=== PATIENT | male | born 1930 | race Caucasian/White ===

== ENCOUNTER 2016-09-24 23:38 | Emergency (ER) | payer BC, MEDICARE ==
[~2016-09-24] VITALS: Ht 185.4 cm; Wt 93.0 kg
[~2016-09-24 23:38] MED LIST: ATEN50TA2 PO; ATOR40TA PO; DIOV160T6 PO; ECOT81TA5 PO; FLUD1TA PO; ISOS30TA4 PO; MAGN400T5 PO; NEXI40CA PO; TYLE167L PO; XARE20TA PO; [UNRECOGNIZED DRUG - CODE] PO
[2016-09-25] MEDS ORDERED: EYECAP PO (00:14)
[2016-09-25] MEDS ORDERED: PERCOCET 5MG/325MG TAB PO ONE (06:45)
[2016-09-25] MEDS ORDERED: PERC5TAB6 PO (08:30)
[2016-09-25 08:35] VITALS: BP 166/84
--- NOTE | 2016-09-25 08:59 | REP ---
Right elbow series: Four views. History: Traumatic olecranon bursitis. Findings: Four views of the right elbow demonstrate mild coronoid and olecranon spurring of the proximal ulna. There is lateral epicondylar spurring. No evidence of joint effusion. There is however marked swelling in the area of the olecranon bursa consistent with the clinical diagnosis of olecranon bursitis. No fracture is seen. Impression: Proximal ulnar and distal humeral spurring. No evidence of fracture or joint effusion. Marked jim-olecranon soft tissue swelling consistent with bursitis. Signed by Jim Verma MD 09/25/2016 12:00 P
== END 2016-09-25 08:48 | disposition home or self-care (01) ==
LOC: M ED 09-25 01:04
DX: M70.31 Other bursitis of elbow, right elbow (principal); I11.0 Hypertensive heart disease with heart failure; I50.9 Heart failure, unspecified; F41.9 Anxiety disorder, unspecified; I48.91 Unspecified atrial fibrillation; Z79.01 Long term (current) use of anticoagulants; Z79.899 Other long term (current) drug therapy; Z79.82 Long term (current) use of aspirin

== ENCOUNTER → 2017-09-29 | Outpatient (CLI) | payer MEDICARE | LOC: M WUC 13:10 | DX: M25.531 Pain in right wrist (principal) | CPT/HCPCS: 73110 ==

== ENCOUNTER 2018-01-29 18:51 | Emergency (ER) | payer MEDICARE ==
[2018-01-29 19:23] LABS: BASO % 0.5 % (0.0-1.0); EOS # 0.4 10^3/uL (0.0-0.50); EOS % 5.3 % (0.0-3.0); HEMATOCRIT 41.1 % (42.0-52.0); HEMOGLOBIN 14.7 g/dl (13.5-17.5); IMMATURE GRANULOCYTE % 0.4 % (0-3.0); LYMPH % 24.6 % (24.0-44.0); MEAN CORPUSCULAR HEMOGLOBIN 34.3 pg (27.0-33.0); MEAN CORPUSCULAR HGB CONC 35.8 g/dl (32.0-36.5); MEAN CORPUSCULAR VOLUME 95.8 fl (80.0-96.0); MONO % 12.6 % (0.0-5.0); NEUTROPHILS # 4.6 10^3/uL (1.8-7.7); NEUTROPHILS % 56.6 % (36.0-66.0); PLATELET COUNT, AUTOMATED 250 10^3/uL (150-450); RED BLOOD COUNT 4.29 10^6/uL (4.30-6.10); RED CELL DISTRIBUTION WIDTH 11.5 % (11.5-14.5); WHITE BLOOD COUNT 8.2 10^3/uL (4.0-10.0)
[2018-01-29 19:32] LABS: INR 1.35; PROTHROMBIN TIME 16.9 SECONDS (12.1-14.4)
[2018-01-29 19:33] LABS: PARTIAL THROMBOPLASTIN TIME 36.6 SECONDS (25.4-37.6)
[2018-01-29 19:42] LABS: ALBUMIN 4.3 GM/DL (3.2-5.2); ALBUMIN/GLOBULIN RATIO 1.16 (1.00-1.93); ALKALINE PHOSPHATASE 114 U/L (45-117); ALT/SGPT 33 U/L (12-78); ANION GAP 14 MEQ/L (8-16); AST/SGOT 25 U/L (7-37); BILIRUBIN,DIRECT 0.4 MG/DL (0.0-0.2); BILIRUBIN,TOTAL 1.3 MG/DL (0.2-1.0); BLOOD UREA NITROGEN 9 MG/DL (7-18); CALCIUM LEVEL 9.4 MG/DL (8.8-10.2); CARBON DIOXIDE LEVEL 22 MEQ/L (21-32); CHLORIDE LEVEL 103 MEQ/L (98-107); CK-MB VALUE MASS < 1.0 NG/ML (<3.6); CPK CREATINE PHOSPHOKINASE 45 U/L (39-308); CREATININE FOR GFR 1.04 MG/DL (0.70-1.30); GLOMERULAR FILTRATION RATE > 60.0 (>35); GLUCOSE, FASTING 122 MG/DL (70-100); LIPASE 146 U/L (73-393); MB/CK RELATIVE INDEX 2.22 (< OR =4); POTASSIUM SERUM 3.7 MEQ/L (3.5-5.1); SODIUM LEVEL 139 MEQ/L (136-145); TROPONIN I < 0.02 NG/ML (< 0.10)
[2018-01-29] MEDS ORDERED: ISOVUE-370 76% 100ML VIAL (Q9967) As Ordered (20:17)
[2018-01-29] MEDS: ONDANSETRON 4MG/2ML VIAL (J2405) IV (22:19)
[2018-01-29] MEDS: NS 1,000 ML IV (22:19)
[2018-01-30 01:55] LABS: CK-MB VALUE MASS < 1.0 NG/ML (<3.6); CPK CREATINE PHOSPHOKINASE 63 U/L (39-308); MB/CK RELATIVE INDEX 1.59 (< OR =4); TROPONIN I < 0.02 NG/ML (< 0.10)
[2018-01-30] MEDS: ONDANSETRON 4MG/2ML VIAL (J2405) IV (02:38)
== END 2018-01-30 04:27 | disposition home or self-care (01) ==
LOC: M ED 01-30 04:27
DX: R07.9 Chest pain, unspecified (principal); R05 Cough; I45.19 Other right bundle-branch block; E11.9 Type 2 diabetes mellitus without complications; I10 Essential (primary) hypertension; E78.5 Hyperlipidemia, unspecified; I48.91 Unspecified atrial fibrillation; I25.2 Old myocardial infarction; Z79.899 Other long term (current) drug therapy; Z79.82 Long term (current) use of aspirin; Z79.01 Long term (current) use of anticoagulants
CPT/HCPCS: J2405

== ENCOUNTER 2019-07-07 16:49 | Emergency (ER) | payer MEDICARE ==
[~2019-07-07] VITALS: Ht 185.4 cm; Wt 86.4 kg
[~2019-07-07 16:49] MED LIST changes: +AMLO1TAB22 PO; -ATOR40TA PO; +ATOR40TA75 PO; +BENA20TA PO; +EYECAP PO; +FLUD0.1T PO; -FLUD1TA PO; +GABA-845 PO; +PERC5TAB12 PO; +POTA20TA6 PO; +ZOFR4TAB14 PO; -[UNRECOGNIZED DRUG - CODE] PO
[2019-07-07] MEDS ORDERED: NS 1,000 ML IV SCH (19:15)
[2019-07-07] MEDS ORDERED: ONDANSETRON 4MG/2ML VIAL (J2405) IV ONE (19:15)
[2019-07-07] MEDS: MORPHINE 4 MG/ML 1ML VIAL/SYRINGE (J2270) IV PRN ×2 (19:31→20:53)
[2019-07-07 19:39] LABS: HEMATOCRIT 36.3 % (42.0-52.0); HEMOGLOBIN 12.9 g/dl (13.5-17.5); MEAN CORPUSCULAR HEMOGLOBIN 37.2 pg (27.0-33.0); MEAN CORPUSCULAR HGB CONC 35.5 g/dl (32.0-36.5); MEAN CORPUSCULAR VOLUME 104.6 fl (80.0-96.0); PLATELET COUNT, AUTOMATED 198 10^3/uL (150-450); RED BLOOD COUNT 3.47 10^6/uL (4.30-6.10); WHITE BLOOD COUNT 9.3 10^3/uL (4.0-10.0)
--- NOTE | 2019-07-07 20:00 | REPVR ---
PROCEDURE INFORMATION: Exam: CT Lumbar Spine Without Contrast Exam date and time: 07/07/2019 7:20 PM Age: 89 years old Clinical indication: Injury or trauma; Fall; Initial encounter; Blunt trauma (contusions or hematomas) TECHNIQUE: Imaging protocol: Computed tomography images of the lumbar spine without contrast. Radiation optimization: All CT scans at this facility use at least one of these dose optimization techniques: automated exposure control; mA and/or kV adjustment per patient size (includes targeted exams where dose is matched to clinical indication); or iterative reconstruction. COMPARISON: No relevant prior studies available. FINDINGS: Vertebrae: There is a mild compression fracture of the L1 superior endplate with minimal loss of vertebral body height. Small fracture lucency is noted in the superior endplate anteriorly. Normal alignment. No other compression fracture is seen. Small Schmorl's node in the L4 superior endplate. Advanced facet degenerative changes in the lower lumbar spine. No other fracture or bone lesions. Discs/Spinal canal/Neural foramina: No retropulsed bone fragments or spinal stenosis. Advanced disc degeneration with posterior disc bulging and chronic endplate degenerative changes at L4-L5 and L5-S1. Moderate to severe foraminal stenoses on the right in the lower lumbar spine. Milder stenoses on the left. Soft tissues: Unremarkable. IMPRESSION: 1. L1 superior endplate compression fracture with minimal loss of height. No subluxation or retropulsed bone fragments. 2. No other fracture or malalignment. 3. Advanced degenerative spondylosis as above. Electronically signed by: Gumaro Light On 07/07/2019 20:00:07 PM
--- NOTE | 2019-07-07 20:11 | REPVR ---
PROCEDURE INFORMATION: Exam: CT Pelvis Without Contrast; Skeletal Exam date and time: 07/07/2019 7:20 PM Age: 89 years old Clinical indication: Injury or trauma; Fall; Initial encounter; Blunt trauma (contusions or hematomas); Bilateral; Pelvic region TECHNIQUE: Imaging protocol: Computed tomography images of the pelvis without contrast. Exam focused on the skeletal structures. Radiation optimization: All CT scans at this facility use at least one of these dose optimization techniques: automated exposure control; mA and/or kV adjustment per patient size (includes targeted exams where dose is matched to clinical indication); or iterative reconstruction. COMPARISON: CT ABD/PEL W/IV CONTRAST ONLY 01/29/2018 8:13 PM FINDINGS: Vasculature: Advanced aortoiliac atherosclerotic disease. 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 No aortic aneurysm is seen. 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 Normal hip joint alignment. Degenerative changes in the SI joints and pubic symphysis without diastasis. Advanced degenerative changes in the lower lumbar spine. No displaced fracture or malalignment. Soft tissues: Unremarkable. IMPRESSION: 1. No acute fracture or malalignment. 2. Advanced degenerative changes as above. Electronically signed by: Gumaro Light On 07/07/2019 20:11:21 PM
[2019-07-07 20:13] LABS: BLOOD UREA NITROGEN 5 MG/DL (7-18); CALCIUM LEVEL 8.1 MG/DL (8.8-10.2); CARBON DIOXIDE LEVEL 25 MEQ/L (21-32); CHLORIDE LEVEL 96 MEQ/L (98-107); CREATININE FOR GFR 0.75 MG/DL (0.70-1.30); GLOMERULAR FILTRATION RATE > 60.0 (>35); GLUCOSE, FASTING 129 MG/DL (70-100); POTASSIUM SERUM 3.5 MEQ/L (3.5-5.1); SODIUM LEVEL 132 MEQ/L (136-145)
[2019-07-07 20:26] LABS: INR 1.42; PROTHROMBIN TIME 17.1 SECONDS (11.8-14.0)
[2019-07-07] MEDS ORDERED: OXYCODONE/APAP 5MG/325MG(BULK FOR ED) 1 TABLET PO ONE (20:30)
[2019-07-07] MEDS ORDERED: OXYC1TAB23 PO (20:34)
[2019-07-07] MEDS ORDERED: ROLLMIS8 XX (20:48)
[2019-07-07 20:53] VITALS: BP 141/73
== END 2019-07-07 20:54 | disposition home or self-care (01) ==
LOC: EDBD 16:49 → M ED 16:49
DX: S32.010A Wedge compression fracture of first lumbar vertebra, initial encounter for closed fracture (principal); W19.XXXA Unspecified fall, initial encounter; Y92.099 Unspecified place in other non-institutional residence as the place of occurrence of the external cause; Y93.9 Activity, unspecified; Y99.9 Unspecified external cause status; I48.91 Unspecified atrial fibrillation; E11.9 Type 2 diabetes mellitus without complications; I10 Essential (primary) hypertension; M51.46 Schmorl's nodes, lumbar region; M47.816 Spondylosis without myelopathy or radiculopathy, lumbar region; I72.3 Aneurysm of iliac artery; Z79.82 Long term (current) use of aspirin; Z79.899 Other long term (current) drug therapy
CPT/HCPCS: 72131; 72192; 80048; 81001; 85027; 85610; 96374; 96375; 96376; 99285; J2270; J2405

== ENCOUNTER 2019-07-14 12:06 | Inpatient (IN) | payer MEDICARE ==
[~2019-07-14] VITALS: Ht 182.9 cm; Wt 78.3 kg
[~2019-07-14 12:06] MED LIST changes: +OXYC1TAB23 PO; +ROLLMIS8 XX
[2019-07-14] MEDS ORDERED: MORPHINE 2 MG/ML 1ML VIAL (J2270) IV ONE (14:45)
[2019-07-14] MEDS ORDERED: MAGN400T2 PO (15:16)
[2019-07-14] MEDS ORDERED: GABA-843 PO (15:16)
[2019-07-14] MEDS ORDERED: LOTR10CA2 PO (15:16)
[2019-07-14] MEDS ORDERED: OXYC1TAB23 PO (15:16)
[2019-07-14] MEDS ORDERED: METO1TAB32 PO (15:16)
[2019-07-14] MEDS ORDERED: BIMA01SOL OU (15:17)
[2019-07-14] MEDS ORDERED: ESOM1CAP5 PO (15:17)
--- NOTE | 2019-07-14 15:36 | REPVR ---
PROCEDURE INFORMATION: Exam: CT Head Without Contrast Exam date and time: 07/14/2019 3:10 PM Age: 89 years old Clinical indication: Injury or trauma; Fall; Initial encounter; Blunt trauma (contusions or hematomas) TECHNIQUE: Imaging protocol: Computed tomography of the head without contrast. Radiation optimization: All CT scans at this facility use at least one of these dose optimization techniques: automated exposure control; mA and/or kV adjustment per patient size (includes targeted exams where dose is matched to clinical indication); or iterative reconstruction. COMPARISON: No relevant prior studies available. FINDINGS: Brain: No intracranial mass, focal mass effect or midline shift. No acute intracranial hemorrhage. Mild decreased attenuation in periventricular/centrum semiovale white matter. No focal effacement of cortical sulci to indicate acute cortical infarct. Ventricles: Prominent ventricles and CSF spaces suggest parenchymal volume loss. Bones/joints: No calvarial fracture or destructive process. Sinuses: Visualized paranasal sinuses are unremarkable. Mastoid air cells: Mastoid air cells are normally aerated. Orbits: Visualized globes and orbits are unremarkable. Soft tissues: No focal extracranial soft tissue swelling. IMPRESSION: 1. No acute intracranial abnormality. 2. Atrophy and chronic microangiopathic change in supratentorial white matter. Electronically signed by: Neal Travis On 07/14/2019 15:36:18 PM
--- NOTE | 2019-07-14 15:39 | REPVR ---
PROCEDURE INFORMATION: Exam: CT Cervical Spine Without Contrast Exam date and time: 07/14/2019 3:10 PM Age: 89 years old Clinical indication: Injury or trauma; Fall; Initial encounter; Blunt trauma TECHNIQUE: Imaging protocol: Computed tomography images of the cervical spine without contrast. Radiation optimization: All CT scans at this facility use at least one of these dose optimization techniques: automated exposure control; mA and/or kV adjustment per patient size (includes targeted exams where dose is matched to clinical indication); or iterative reconstruction. COMPARISON: No relevant prior studies available. FINDINGS: Vertebrae: No traumatic segmental malalignment of cervical spine or craniocervical junction. Vertebral body height is maintained at all levels. No acute fracture. Old appearing superior endplate fracture of T2 No destructive or blastic cervical spine osseous lesion. Discs/Spinal canal/Neural foramina: Intervertebral disc height is decreased at multiple levels, with typical degenerative pattern and associated endplate, articular pillar and uncovertebral spurs. Moderately severe neural foraminal stenoses right C2-C3 and bilateral C3-C4 through C6-C7. Partial interbody fusion C3-C4 Prevertebral Space: Prevertebral soft tissues demonstrate no asymmetry. Lungs: Minimal subpleural apical bullous changes in the lungs. IMPRESSION: 1. No acute fracture or traumatic subluxation of the cervical spine. 2. 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 Electronically signed by: Neal Travis On 07/14/2019 15:38:51 PM
[2019-07-14 15:45] LABS: BASO % 0.6 % (0.0-1.0); EOS # 0.2 10^3/uL (0.0-0.5); EOS % 2.5 % (0.0-3.0); HEMATOCRIT 40.6 % (42.0-52.0); HEMOGLOBIN 14.1 g/dl (13.5-17.5); LYMPH # 1.2 10^3/uL (1.5-5.0); LYMPH % 16.4 % (24.0-44.0); MEAN CORPUSCULAR HEMOGLOBIN 36.8 pg (27.0-33.0); MEAN CORPUSCULAR HGB CONC 34.7 g/dl (32.0-36.5); MONO # 1.1 10^3/uL (0.0-0.8); MONO % 15.5 % (0.0-5.0); NEUTROPHILS # 4.7 10^3/uL (1.5-8.5); NEUTROPHILS % 64.4 % (36.0-66.0); PLATELET COUNT, AUTOMATED 198 10^3/uL (150-450); RED BLOOD COUNT 3.83 10^6/uL (4.30-6.10); WHITE BLOOD COUNT 7.2 10^3/uL (4.0-10.0)
--- NOTE | 2019-07-14 16:04 | REP ---
CHEST, TWO VIEWS: COMPARISON: 01/19/2018 as well as other prior exams. There is no evidence of acute infiltrate or pulmonary edema. Heart is upper limits of normal in size. There is calcification and tortuosity of the thoracic aorta. The mediastinal silhouette is unchanged. There are mild degenerative changes of the spine. IMPRESSION: No acute pulmonary disease. Electronically Signed by Ishan Hebert MD 07/14/2019 08:01 P
[2019-07-14 16:11] LABS: ALBUMIN 3.2 GM/DL (3.2-5.2); ALT/SGPT 40 U/L (12-78); BILIRUBIN,DIRECT 0.5 MG/DL (0.0-0.2); BILIRUBIN,TOTAL 1.7 MG/DL (0.2-1.0); BLOOD UREA NITROGEN 17 MG/DL (7-18); CALCIUM LEVEL 8.6 MG/DL (8.8-10.2); CARBON DIOXIDE LEVEL 30 MEQ/L (21-32); CHLORIDE LEVEL 97 MEQ/L (98-107); CK-MB VALUE MASS < 1.0 NG/ML (<3.6); CPK CREATINE PHOSPHOKINASE 60 U/L (39-308); CREATININE FOR GFR 0.72 MG/DL (0.70-1.30); FREE T4 1.45 NG/DL (0.76-1.46); GLOMERULAR FILTRATION RATE > 60.0 (>35); GLUCOSE, FASTING 93 MG/DL (70-100); MB/CK RELATIVE INDEX 1.67 (< OR =4); POTASSIUM SERUM 2.9 MEQ/L (3.5-5.1); SODIUM LEVEL 137 MEQ/L (136-145); TROPONIN I < 0.02 NG/ML (< 0.10)
[2019-07-14] MEDS ORDERED: POTASSIUM CHLORIDE 10 MEQ SR TABLET PO ONE (16:15)
[2019-07-14] MEDS ORDERED: KCL 10MEQ/100ML SWI (KRUN) 10 MEQ in IV 1 EA IV ONE (16:15)
[2019-07-14] MEDS ORDERED: NS 1,000 ML IV SCH (17:48)
--- NOTE | 2019-07-14 19:03 | REPVR ---
PROCEDURE INFORMATION: Exam: MR Lumbar Spine Without Contrast. Exam date and time: 07/14/2019 6:10 PM Age: 89 years old Clinical indication: Low back pain; Additional info: Back pain, weakness TECHNIQUE: Imaging protocol: Multiplanar magnetic resonance images of the lumbar spine without intravenous contrast. COMPARISON: CT Spine, lumbar w/o contrast 07/07/2019 7:17 PM FINDINGS: Lumbar vertebrae show no segmental malalignment. Progression of vertebral body height loss at the L1 level compared with the recent CT. There is no 50% central vertebral body height loss and mild osseous retropulsion with buckling of the posterior cortex by perhaps 5 mm, resulting in new mild spinal canal stenosis. Degenerative disc height loss and T2 signal loss at L5-S1 and L4-L5 is present with minor changes at L3-L4. Reactive superior endplate Schmorl's node is seen at L4 incidentally Conus terminates at the L1 level with no abnormality in the conus or distal cord. Normal dependent layering of cauda equina nerve roots. T12-L1: Mild spinal canal stenosis secondary to 5 mm of retropulsed bone related to the superior endplate fracture of L1. No neural foraminal compromise. L1-2: No canal stenosis or foraminal narrowing. L2-3: Minimal disc bulge. No Canal stenosis or foraminal narrowing. L3-4: Mild diffuse disc bulge. No Canal stenosis or foraminal narrowing. L4-5: Mild disc bulge. No Canal stenosis. Mild inferior right foraminal narrowing. L5-S1: Mild disc bulge. No Canal stenosis or foraminal narrowing. No enlarged lymph nodes or prevertebral soft tissue abnormality. Imaged distal abdominal aorta is normal in caliber. Incompletely imaged bladder distension IMPRESSION: No evidence of cauda equina compression or distal spinal cord compression. Urinary bladder is distended however and urinary catheter placement may be warranted. Progressive height loss of the L1 vertebral body with the superior endplate fracture again noted. Now 50% height loss and 5 mm osseous retropulsion. Mild spinal canal stenosis Electronically signed by: Neal Travis On 07/14/2019 19:02:53 PM
[2019-07-14] MEDS ORDERED: MAALOX 30 ML SUSP *UDC PO PRN (19:45)
[2019-07-14] MEDS ORDERED: MOM 30ML SUSPENSION UDC PO PRN (19:45)
[2019-07-14] MEDS ORDERED: ACETAMINOPHEN TAB 650MG DOSE (2X325MG) PO PRN (19:45)
--- NOTE | 2019-07-14 20:11 | HPEPDOC ---
[facility] Medical History & Physical Date of Admission Jul 14, 2019 Date of Service: Jul 14, 2019 Primary Care Physician: Jr Montana Collins Attending Physician: MARILUZ MCINTYRE MD History and Physical TIME OF SERVICE: 8:12 PM CHIEF COMPLAINT: Fall HISTORY OF PRESENT ILLNESS: This 89-year-old male who initially presented to the ER on July 07 after having a fall resulting in an L1 compression fracture; after being evaluated in the ER, he was sent home with pain meds. Over the last week is declined. Specifically, he has been having difficulties sitting up on his own, walking on his own, feels tired, and has a poor appetite. His last bowel movement was 1 week ago. He denies having nausea, vomiting, diarrhea, fever, chills, or chest pain. Prior to this, he was completely independent with his ADLs, walks without assistance, and used to drive himself around. Per discussion with Dr. Flood the patient's rectal tone was intact, CT of the head and neck were unremarkable, while MRI of the lumbar spine was negative for cauda equina syndrome. A Cisse was placed because he is retaining urine. Due to low K the patient's potassium was repleted; at the time of my exam, the patient reported that his strength had improved a little bit. REVIEW OF SYSTEMS: 12 point review of systems negative except as listed in HPI PAST MEDICAL/ SURGICAL HISTORY: Type II. NIDDM CAD Chronic hypertension / grade 2 diastolic dysfunction/moderate pulmonary hypertension Atrial fibrillation on Xarelto Dyslipidemia Status post parotid gland surgery. Remote history of gout. History of SIADH SOCIAL HISTORY: Former smoker FAMILY HISTORY: Stomach cancer. ENT cancer Prostate cancer ALLERGIES: Please see below. HOME MEDICATIONS: Please see below. PHYSICAL EXAMINATION: Vital Signs Date Time Temp Pulse Resp B/P (MAP) Pulse Ox O2 Delivery O2 Flow Rate FiO2 07/14/19 12:15 138/75 (96) 07/14/19 12:19 98.6 68 18 99 Room Air GEN: well-nourished / well developed/ flat affect INTEGUMENT: not flushed/ not jaundice / spider angiomata on the nares HEENT: NCAT / lips acyanotic /mucus membranes moist and pink CVS: RRR/NMRG/ no lower extremity edema LUNGS: clear to auscultation bilaterally on room air ABDOMEN: Contour (flat) /soft & not tender with palpation MSK/EXTREMITIES: range of motion intact in all 4 extremities NEURO: CN 2-12 are grossly intact / speech is not dysarthric PSYCH: alert and oriented to person place and time/ able to understand and follow all commands LABORATORY DATA: IMAGING: Chest x-ray " IMPRESSION: No acute pulmonary disease." CT head " IMPRESSION: 1. No acute intracranial abnormality. 2. Atrophy and chronic microangiopathic change in supratentorial white matter. " CT cervical spine " IMPRESSION: 1. No acute fracture or traumatic subluxation of the cervical spine. 2. 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 " MRI lumbar spine " IMPRESSION: No evidence of cauda equina compression or distal spinal cord compression. Urinary bladder is distended however and urinary catheter placement may be warranted. Progressive height loss of the L1 vertebral body with the superior endplate fracture again noted. Now 50% height loss and 5 mm osseous retropulsion. Mild spinal canal stenosis MICROBIOLOGY: Please see below. ASSESSMENT: Mr. Kwan is an 89-year-old with a past medical history NIDDM, CAD, HTN, chronic diastolic dysfunction, pulmonary hypertension, atrial fibrillation, dyslipidemia, and remote history of GERD was admitted for evaluation of weakness, likely due to hypokalemia. PLAN: 1. Weakness likely 2/2 Hypokalemia The hypokalemia may be due to poor appetite? He takes magnesium and potassium supplements at home, therefore, this may be a chronic issue CT of the head was neg Plan: Admit to medical floor/telemetry/replete potassium & mag /f/u repeat electrolytes /PT eval in the morning /if his weakness doesn't completely resolve the day time team may consider ordering an MRI of the brain 2. Fall resulting in L1 compression fx / Osteporosis By definition he has osteoporosis Plan: fall precautions / scheduled Tylenol, one does of ibuprofen, scheduled lidocaine patchs, and morphine PRN for pain control/follow up with PT in the morning/he will need a work up to r/o secondary causes of Osteoporosis which can be done on an out pt prior to selecting medications 3 Transaminitis Cause TBD Plan: trend LFTs / f/u GGT / the day time team can decide if a Hepatitis panel & liver US are warranted in the morning 4. Urinary retention Possibly due to pain meds Plan: Temperature replacement 5. Type II. NIDDM - Plan: diabetic diet / f/u accuchecks & A1C / hypoglycemia protocol / sliding scale insulin / gabapengin 6. Chronic CAD/ Dyslipidemia - Plan: ASA w PPI , atorvastatin, isosorbide mononitrate 7. Chronic hypertension / Chronic grade 2 diastolic dysfunction/moderate pulmonary hypertension - Plan: amlodipine and benazepril 8. Atrial fibrillation - Plan: Xarelto DVT PROPHYLAXIS: N/A his on Xarelto DISPOSITION: Likely home after more than 2 midnight's stay Vital Signs Vital Signs Date Time Temp Pulse Resp B/P (MAP) Pulse Ox O2 Delivery O2 Flow Rate FiO2 07/14/19 15:40 98.6 68 18 138/75 99 Room Air Laboratory Data Labs 24H Laboratory Tests 2 07/14/19 15:14: Immature Granulocyte % (Auto) 0.6, Neutrophils (%) (Auto) 64.4, Lymphocytes (%) (Auto) 16.4L, Monocytes (%) (Auto) 15.5H, Eosinophils (%) (Auto) 2.5, Basophils (%) (Auto) 0.6, Neutrophils # (Auto) 4.7, Lymphocytes # (Auto) 1.2L, Monocytes # (Auto) 1.1H, Eosinophils # (Auto) 0.2, Basophils # (Auto) 0.0, Nucleated Red Blood Cells % (auto) 0.0, Anion Gap 10, Glomerular Filtration Rate > 60.0, Calcium Level 8.6L, Total Bilirubin 1.7H, Direct Bilirubin 0.5H, Aspartate Amino Transf (AST/SGOT) 49H, Alanine Aminotransferase (ALT/SGPT) 40, Alkaline Phosphatase 133H, Total Creatine Kinase 60, Creatine Kinase MB < 1.0, Creatine Kinase MB Relative Index 1.67, Troponin I < 0.02, Total Protein 7.0, Albumin 3.2, Albumin/Globulin Ratio 0.84L, Thyroid Stimulating Hormone (TSH) 1.060, Free Thyroxine 1.45 07/14/19 19:50: CBC/BMP Laboratory Tests 07/14/19 15:14 Home Medications Scheduled Amlodipine Besylate/Benazepril (Lotrel 10-40 mg Capsule) 1 Each Capsule, 1 CAP PO DAILY Aspirin (Ecotrin) 81 Mg Tab, 81 MG PO DAILY Atorvastatin Calcium (Atorvastatin Calcium) 40 Mg Tab, 40 MG PO QPM Bimatoprost (Lumigan) 0.01% 2.5ML Drops, 1 DROP OU QHS Esomeprazole Magnesium (Esomeprazole Magnesium) 40 Mg Capsule.dr, 40 MG PO DAILY Fludrocortisone Acetate (Fludrocortisone Acetate) 0.1 Mg Tab, 0.1 MG PO DAILY Gabapentin (Gabapentin) 300 Mg Capsule, 300 MG PO TID Isosorbide Mononitrate (Isosorbide Mononitrate ER) 30 Mg Tab, 30 MG PO DAILY Magnesium Oxide (Magnesium Oxide) 400 Mg Tablet, 400 MG PO BID Metoprolol Succinate (Metoprolol Succinate) 25 Mg Tab.er.24h, 25 MG PO DAILY Potassium Chloride (Potassium Chloride) 20 Meq Tab, 20 MEQ PO DAILY Rivaroxaban (Xarelto) 20 Mg Tab, 20 MG PO QPM Scheduled PRN Oxycodone HCl/Acetaminophen (Oxycodone-Acetaminophen 5-325) 1 Each Tablet, 1 TAB PO QID PRN for PAIN Allergies Coded Allergies: No Known Allergies (Verified , 01/29/18) A-FIB/CHADSVASC A-FIB History Current/History of A-Fib/PAF?: Yes Current PO Anticoag Therapy: Yes MARILUZ MCINTYRE MD Jul 14, 2019 20:11
[2019-07-14] MEDS ORDERED: DOCUSATE SODIUM 100 MG CAP PO SCH (21:00)
[2019-07-14] MEDS: HumaLOG INSULIN (NovoLOG) PER UNIT SC SCH (21:00)
--- NOTE | 2019-07-14 21:02 | HPEPDOC ---
[facility] Medical History & Physical Date of Admission Jul 14, 2019 Date of Service: Jul 14, 2019 Primary Care Physician: Windy Bello DO Attending Physician: MARILUZ MCINTYRE MD History and Physical TIME OF SERVICE: CHIEF COMPLAINT: HISTORY OF PRESENT ILLNESS: PAST MEDICAL HISTORY: 1. . 2. . 3. . PAST SURGICAL HISTORY: 1. . 2. . 3. . SOCIAL HISTORY: Marital status: . Resides in: Children: Employment: Tobacco use: ETOH: Illicit drug use: Tattoos done unprofessionally: . IV drug use: Other relevant social factors: FAMILY HISTORY: Father: Mother: Siblings: Children: Hereditary Diseases: Unexpected deaths due to medical reasons: ALLERGIES: Please see below. REVIEW OF SYSTEMS: CONSTITUTIONAL: . HEENT: . CARDIOVASCULAR: . RESPIRATORY: . GASTROINTESTINAL: . GENITOURINARY: . SKIN: . MUSCULOSKELETAL: . NEUROLOGICAL: . PSYCHIATRIC: . ENDOCRINE: . HEMATOLOGIC/LYMPHATIC: . HOME MEDICATIONS: Please see below. PHYSICAL EXAMINATION: VITAL SIGNS: Temperature , pulse , respiratory rate , blood pressure , pulse oximetry % on room air. GENERAL APPEARANCE: . HEENT: . CARDIOVASCULAR: . LUNGS: . ABDOMEN: . MUSCULOSKELETAL: . EXTREMITIES: . NEUROLOGICAL: . PSYCHIATRIC: . LABORATORY DATA: See below. IMAGING: MICROBIOLOGY: Please see below. ASSESSMENT: . . PLAN: 1. . Vital Signs Vital Signs Date Time Temp Pulse Resp B/P (MAP) Pulse Ox O2 Delivery O2 Flow Rate FiO2 07/14/19 15:40 98.6 68 18 138/75 99 Room Air Laboratory Data Labs 24H Laboratory Tests 2 07/14/19 15:14: Immature Granulocyte % (Auto) 0.6, Neutrophils (%) (Auto) 64.4, Lymphocytes (%) (Auto) 16.4L, Monocytes (%) (Auto) 15.5H, Eosinophils (%) (Auto) 2.5, Basophils (%) (Auto) 0.6, Neutrophils # (Auto) 4.7, Lymphocytes # (Auto) 1.2L, Monocytes # (Auto) 1.1H, Eosinophils # (Auto) 0.2, Basophils # (Auto) 0.0, Nucleated Red Blood Cells % (auto) 0.0, Anion Gap 10, Glomerular Filtration Rate > 60.0, Calcium Level 8.6L, Total Bilirubin 1.7H, Direct Bilirubin 0.5H, Aspartate Amino Transf (AST/SGOT) 49H, Alanine Aminotransferase (ALT/SGPT) 40, Alkaline Phosphatase 133H, Total Creatine Kinase 60, Creatine Kinase MB < 1.0, Creatine Kinase MB Relative Index 1.67, Troponin I < 0.02, Total Protein 7.0, Albumin 3.2, Albumin/Globulin Ratio 0.84L, Thyroid Stimulating Hormone (TSH) 1.060, Free Thyroxine 1.45 CBC/BMP Laboratory Tests 07/14/19 15:14 Home Medications Scheduled Amlodipine Besylate/Benazepril (Lotrel 10-40 mg Capsule) 1 Each Capsule, 1 CAP PO DAILY Aspirin (Ecotrin) 81 Mg Tab, 81 MG PO DAILY Atorvastatin Calcium (Atorvastatin Calcium) 40 Mg Tab, 40 MG PO QPM Bimatoprost (Lumigan) 0.01% 2.5ML Drops, 1 DROP OU QHS Esomeprazole Magnesium (Esomeprazole Magnesium) 40 Mg Capsule.dr, 40 MG PO DAILY Fludrocortisone Acetate (Fludrocortisone Acetate) 0.1 Mg Tab, 0.1 MG PO DAILY Gabapentin (Gabapentin) 300 Mg Capsule, 300 MG PO TID Isosorbide Mononitrate (Isosorbide Mononitrate ER) 30 Mg Tab, 30 MG PO DAILY Magnesium Oxide (Magnesium Oxide) 400 Mg Tablet, 400 MG PO BID Metoprolol Succinate (Metoprolol Succinate) 25 Mg Tab.er.24h, 25 MG PO DAILY Potassium Chloride (Potassium Chloride) 20 Meq Tab, 20 MEQ PO DAILY Rivaroxaban (Xarelto) 20 Mg Tab, 20 MG PO QPM Scheduled PRN Oxycodone HCl/Acetaminophen (Oxycodone-Acetaminophen 5-325) 1 Each Tablet, 1 TAB PO QID PRN for PAIN Allergies Coded Allergies: No Known Allergies (Verified , 01/29/18) MARILUZ MCINTYRE MD Jul 14, 2019 21:00
[2019-07-14] MEDS ORDERED: DEXTROSE 50% 50 ML SYRINGE IV PRN (22:15)
[2019-07-14] MEDS ORDERED: IBUPROFEN 600 MG TAB PO ONE (22:15)
[2019-07-14] MEDS ORDERED: GLUCOSE 4 GM CHEW TABLET PO PRN (22:15)
[2019-07-14] MEDS ORDERED: GLUCAGON FOR INJ 1 MG VIAL (J1610) SC PRN (22:15)
[2019-07-14] MEDS ORDERED: MORPHINE 2 MG/ML 1ML VIAL (J2270) IV PRN (22:15)
[2019-07-14 22:20] VITALS: BP 180/90
[2019-07-14] MEDS: GABAPENTIN 300 MG CAP PO SCH (23:51)
[2019-07-14] MEDS: LIDOCAINE 5% (LIDODERM) PATCH TD SCH (23:52)
[2019-07-14] MEDS: MAGNESIUM OXIDE 400 MG TAB (MAG-OX) PO SCH (23:52)
[2019-07-14] MEDS: ATORVASTATIN 20 MG TAB PO SCH (23:52)
[2019-07-14] MEDS: ACETAMINOPHEN 650MG ER TAB (TYLENOL ARTHRITIS) PO SCH (23:52)
[2019-07-15 02:00] VITALS: BP 165/88
[2019-07-15 05:55] LABS: HEMATOCRIT 36.6 % (42.0-52.0); MEAN CORPUSCULAR HEMOGLOBIN 37.4 pg (27.0-33.0); MEAN CORPUSCULAR HGB CONC 35.5 g/dl (32.0-36.5); MEAN CORPUSCULAR VOLUME 105.2 fl (80.0-96.0); PLATELET COUNT, AUTOMATED 191 10^3/uL (150-450); RED BLOOD COUNT 3.48 10^6/uL (4.30-6.10); WHITE BLOOD COUNT 6.2 10^3/uL (4.0-10.0)
[2019-07-15 06:00] VITALS: BP 158/82
[2019-07-15] MEDS: ACETAMINOPHEN 650MG ER TAB (TYLENOL ARTHRITIS) PO SCH ×3 (06:10→21:45)
[2019-07-15 06:35] LABS: ALBUMIN 2.7 GM/DL (3.2-5.2); ALT/SGPT 35 U/L (12-78); BILIRUBIN,TOTAL 1.7 MG/DL (0.2-1.0); BLOOD UREA NITROGEN 16 MG/DL (7-18); CALCIUM LEVEL 8.6 MG/DL (8.8-10.2); CARBON DIOXIDE LEVEL 30 MEQ/L (21-32); CHLORIDE LEVEL 100 MEQ/L (98-107); CREATININE FOR GFR 0.66 MG/DL (0.70-1.30); GLOMERULAR FILTRATION RATE > 60.0 (>35); GLUCOSE, FASTING 68 MG/DL (70-100); MAGNESIUM LEVEL 1.7 MG/DL (1.8-2.4); POTASSIUM SERUM 2.8 MEQ/L (3.5-5.1); SODIUM LEVEL 136 MEQ/L (136-145); TOTAL PROTEIN 6.5 GM/DL (6.4-8.2)
[2019-07-15] MEDS ORDERED: POTASSIUM CHLORIDE 10 MEQ SR TABLET PO ONE (07:15)
[2019-07-15] MEDS: HumaLOG INSULIN (NovoLOG) PER UNIT SC SCH ×4 (07:30→21:00)
[2019-07-15] MEDS ORDERED: MAG SULF 1GM/100ML (MAG RUN) 1 GM in IV 1 EA IV ONE (07:30)
[2019-07-15] MEDS: amLODIPine 10 MG TAB PO SCH (08:25)
[2019-07-15] MEDS: METOPROLOL SUCC *XL* 25MG TAB (TopROL *XL*) PO SCH (08:25)
[2019-07-15] MEDS: GABAPENTIN 300 MG CAP PO SCH ×3 (08:25→20:25)
[2019-07-15] MEDS: OMEPRAZOLE 20 MG CAP PO SCH (08:26)
[2019-07-15] MEDS: ASPIRIN 81 MG ENTERIC TAB PO SCH (08:26)
[2019-07-15] MEDS: ISOSORBIDE MON. (IMDUR) 30 MG XR TAB PO SCH (08:26)
[2019-07-15] MEDS: FLUDROCORTISONE ACETATE 0.1 MG TAB PO SCH (08:26)
[2019-07-15] MEDS: BENAZEPRIL 20 MG TAB PO SCH (08:26)
[2019-07-15] MEDS: MAGNESIUM OXIDE 400 MG TAB (MAG-OX) PO SCH ×2 (08:26→20:25)
[2019-07-15] MEDS: **NOTE PATIENT COMMENT** MISC XX SCH (08:32)
[2019-07-15] MEDS ORDERED: POTASSIUM CHLORIDE 10 MEQ SR TABLET PO SCH (09:00)
[2019-07-15] MEDS ORDERED: BISACODYL 10 MG SUPP PR SCH (09:00)
[2019-07-15] MEDS: SENOKOT S TAB PO SCH ×2 (09:34→20:25)
[2019-07-15] MEDS: POTASSIUM CHLORIDE 10 MEQ SR TABLET PO SCH (09:35)
[2019-07-15] MEDS: KETOROLAC 30 MG/ML VIAL (J1885) IV SCH ×3 (09:36→21:46)
[2019-07-15] MEDS ORDERED: BISACODYL 10 MG SUPP PR PRN (09:45)
[2019-07-15 10:00] VITALS: BP 146/90
[2019-07-15 14:00] VITALS: BP 132/76
[2019-07-15 14:48] LABS: BLOOD UREA NITROGEN 20 MG/DL (7-18); CALCIUM LEVEL 8.6 MG/DL (8.8-10.2); CARBON DIOXIDE LEVEL 31 MEQ/L (21-32); CHLORIDE LEVEL 100 MEQ/L (98-107); CREATININE FOR GFR 0.95 MG/DL (0.70-1.30); GLOMERULAR FILTRATION RATE > 60.0 (>35); GLUCOSE, FASTING 142 MG/DL (70-100); SODIUM LEVEL 135 MEQ/L (136-145)
[2019-07-15 18:00] VITALS: BP 140/83
[2019-07-15] MEDS: RIVAROXABAN 20 MG TAB (XARELTO) PO SCH (18:38)
--- NOTE | 2019-07-15 18:51 | CR ---
DATE OF CONSULTATION: 07/15/2019 REASON FOR CONSULTATION: Back pain. HISTORY OF PRESENT ILLNESS: This is an 89-year-old male who initially had a fall on 07/07/2019 resulting in lower back pain and an L1 compression fracture. The patient had been sent home from the emergency room. He states over the past week his pain had become more severe to the point where he was having difficulty getting out of his chair. He presented to the emergency room where an MRI was performed and there was found to be further collapse of the L1 compression fracture. He was having issues with constipation although he has recently had a bowel movement. He denies any incontinence. He states he felt he was urinating without problem at home but was found to have urinary retention on his MRI and a Cisse catheter was placed. The patient has had a negative rectal examination while in the hospital. He denies any numbness and tingling in his legs or any weakness in his lower extremities either. He is also hypokalemic at this time. PAST MEDICAL HISTORY: Type 2 diabetes, coronary artery disease, hypertension, atrial fibrillation on Xarelto, dyslipidemia, gout, history of syndrome of inappropriate antidiuretic hormone secretion (SIADH). PAST SURGICAL HISTORY: Parotid gland surgery. SOCIAL HISTORY: He is a former smoker. HOME MEDICATIONS: Amlodipine, aspirin, atorvastatin, Lumigan, omeprazole, fludrocortisone acetate, gabapentin, isosorbide, magnesium oxide, metoprolol, potassium chloride, and Xarelto. ALLERGIES: No known drug allergies. PHYSICAL EXAMINATION: GENERAL: Well-appearing. He answers questions appropriately. CARDIOVASCULAR: Regular rate and rhythm. LUNGS: Clear to auscultation. Normal breathing on room air. ABDOMEN: Soft, nontender. EXTREMITIES: The patient has 5/5 strength in iliopsoas, quadriceps, hamstrings, tibialis anterior, gastrocnemius, extensor hallucis longus (EHL). Normal sensation of light touch in the L1 through S1 distribution. IMAGING: MRI of the lumbar spine is reviewed. There has been further collapse of the L1 compression fracture. There is no significant canal stenosis. In regards to the L1 compression fracture, there is approximately 50% loss of height and a very mild 5 mm retropulsion. IMPRESSION: L1 compression fraction with 50% collapse without significant spinal cord compression and no concern for cauda equina. PLAN: At this point, I would obtain a corset that the patient can wear for comfort. His pain is really much improved today and there is no significant canal compromise which would lead to concern for cauda equina syndrome. Once medically cleared, he can followup with [facility] for repeat x-rays which should be done next week. We will work on arranging a brace for him.
[2019-07-15] MEDS: LIDOCAINE 5% (LIDODERM) PATCH TD SCH (20:24)
[2019-07-15] MEDS: ATORVASTATIN 20 MG TAB PO SCH (20:25)
[2019-07-15 22:00] VITALS: BP 143/86
[2019-07-16 02:00] VITALS: BP 137/92
[2019-07-16] MEDS: KETOROLAC 30 MG/ML VIAL (J1885) IV SCH ×2 (04:01→09:34)
[2019-07-16 06:00] VITALS: BP 132/90
--- NOTE | 2019-07-16 06:25 | ECGEPIP ---
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
[2019-07-16] MEDS: ACETAMINOPHEN 650MG ER TAB (TYLENOL ARTHRITIS) PO SCH ×3 (06:27→21:02)
[2019-07-16 06:51] LABS: BASO % 0.4 % (0.0-1.0); EOS # 0.6 10^3/uL (0.0-0.5); EOS % 7.9 % (0.0-3.0); HEMATOCRIT 35.9 % (42.0-52.0); HEMOGLOBIN 12.7 g/dl (13.5-17.5); LYMPH % 12.9 % (24.0-44.0); MEAN CORPUSCULAR HEMOGLOBIN 37.5 pg (27.0-33.0); MEAN CORPUSCULAR HGB CONC 35.4 g/dl (32.0-36.5); MEAN CORPUSCULAR VOLUME 105.9 fl (80.0-96.0); MONO # 0.8 10^3/uL (0.0-0.8); MONO % 9.8 % (0.0-5.0); NEUTROPHILS # 5.3 10^3/uL (1.5-8.5); NEUTROPHILS % 68.6 % (36.0-66.0); PLATELET COUNT, AUTOMATED 189 10^3/uL (150-450); RED BLOOD COUNT 3.39 10^6/uL (4.30-6.10); WHITE BLOOD COUNT 7.8 10^3/uL (4.0-10.0)
[2019-07-16 07:12] LABS: BLOOD UREA NITROGEN 21 MG/DL (7-18); CALCIUM LEVEL 8.8 MG/DL (8.8-10.2); CARBON DIOXIDE LEVEL 29 MEQ/L (21-32); CHLORIDE LEVEL 100 MEQ/L (98-107); CREATININE FOR GFR 0.74 MG/DL (0.70-1.30); GLOMERULAR FILTRATION RATE > 60.0 (>35); GLUCOSE, FASTING 96 MG/DL (70-100); POTASSIUM SERUM 3.4 MEQ/L (3.5-5.1); SODIUM LEVEL 135 MEQ/L (136-145)
[2019-07-16] MEDS: HumaLOG INSULIN (NovoLOG) PER UNIT SC SCH ×4 (07:30→21:00)
[2019-07-16] MEDS: amLODIPine 10 MG TAB PO SCH (08:24)
[2019-07-16] MEDS: POTASSIUM CHLORIDE 10 MEQ SR TABLET PO SCH (08:24)
[2019-07-16] MEDS: BENAZEPRIL 20 MG TAB PO SCH (08:24)
[2019-07-16] MEDS: FLUDROCORTISONE ACETATE 0.1 MG TAB PO SCH (08:24)
[2019-07-16] MEDS: METOPROLOL SUCC *XL* 25MG TAB (TopROL *XL*) PO SCH (08:24)
[2019-07-16] MEDS: SENOKOT S TAB PO SCH ×2 (08:25→21:02)
[2019-07-16] MEDS: GABAPENTIN 300 MG CAP PO SCH ×3 (08:25→21:02)
[2019-07-16] MEDS: MAGNESIUM OXIDE 400 MG TAB (MAG-OX) PO SCH ×2 (08:25→21:03)
[2019-07-16] MEDS: OMEPRAZOLE 20 MG CAP PO SCH (08:25)
[2019-07-16] MEDS: ISOSORBIDE MON. (IMDUR) 30 MG XR TAB PO SCH (08:25)
[2019-07-16] MEDS: ASPIRIN 81 MG ENTERIC TAB PO SCH (08:25)
[2019-07-16] MEDS: **NOTE PATIENT COMMENT** MISC XX SCH (08:48)
[2019-07-16] MEDS ORDERED: PREVNAR 13 VACCINE SYRINGE (CPT CODE:90670) IM ONE (09:00)
[2019-07-16 10:00] VITALS: BP 108/66
--- NOTE | 2019-07-16 11:13 | IPNPDOC ---
Subjective Date Seen The patient was seen on 07/16/19. Subjective Chief Complaint/HPI Patient is comfortable in no distress. Physical therapy in progress. Breasts will not be range and Saturday but he can be discharged to AIU was the bed is available General: Denies: ROS Unobtainable, Chills, Night Sweats, Fatigue, Malaise, Normal Appetite, Other Symptoms Constitutional: Denies: Chills, Fever, Malaise, Night Sweats, Weakness, Fatigue, Weight Loss, Lethargy, Other Pulmonary: Denies: Dyspnea, Cough, Pleuritic Chest Pain, Other Symptoms Cardiovascular: Denies: Chest Pain, Palpitations, Orthopnea, Paroxysmal Noc. Dyspnea, Edema, Lt Headedness, Other Symptoms Gastrointestinal: Denies: Nausea, Vomiting, Abdominal Pain, Diarrhea, Constipation, Melena, Hematochezia, Other Symptoms Musculoskeletal: Denies: Neck Pain, Back Pain, Shoulder Pain, Arm Pain, Hand Pain, Leg Pain, Foot Pain, Joint Pain, Muscle Pain, Spasms, Other Symptoms Neurological: Denies: Weakness, Numbness, Incoordination, Change in speech, Confusion, Seizures, Other Symptoms Objective Physical Examination General Exam: Positive: Alert, Cooperative Eye Exam: Positive: PERRLA, Conjunctiva & lids normal ENT Exam: Positive: Atraumatic, Mucous membr. 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 (3) Urinary retention Status: Acute Problem Text: Patient has a Cisse placed in Will restart Flomax and then give voiding trial and remove Cisse Plan/VTE VTE Prophylaxis Ordered?: Yes VS, I&O, 24H, Fishbone Vital Signs/I&O Vital Signs Date Time Temp Pulse Resp B/P (MAP) Pulse Ox O2 Delivery O2 Flow Rate FiO2 07/16/19 08:24 132/68 07/16/19 08:24 68 07/16/19 06:00 97.1 17 96 07/15/19 18:00 Room Air I&O- Last 24 Hours up to 6 AM 07/16/19 06:00 Intake Total 1140 ml Output Total 150 ml Balance 990 ml Laboratory Data 24H LABS Laboratory Tests 2 07/15/19 11:40: Bedside Glucose (Misc Panel) 96 07/15/19 14:08: Anion Gap 4L, Glomerular Filtration Rate > 60.0, Calcium Level 8.6L 07/15/19 16:31: Bedside Glucose (Misc Panel) 114H 07/15/19 20:11: Bedside Glucose (Misc Panel) 192H 07/16/19 06:38: Immature Granulocyte % (Auto) 0.4, Neutrophils (%) (Auto) 68.6H, Lymphocytes (%) (Auto) 12.9L, Monocytes (%) (Auto) 9.8H, Eosinophils (%) (Auto) 7.9H, Basophils (%) (Auto) 0.4, Neutrophils # (Auto) 5.3, Lymphocytes # (Auto) 1.0L, Monocytes # (Auto) 0.8, Eosinophils # (Auto) 0.6H, Basophils # (Auto) 0.0, Nucleated Red Blood Cells % (auto) 0.0, Anion Gap 6L, Glomerular Filtration Rate > 60.0, Calcium Level 8.8 CBC/BMP Laboratory Tests 07/15/19 14:08 07/16/19 06:38 ASPEN SCHILLING MD Jul 16, 2019 11:13
[2019-07-16] MEDS ORDERED: PERCOCET 5MG/325MG TAB PO PRN (12:45)
[2019-07-16 14:00] VITALS: BP 120/64
[2019-07-16] MEDS: RIVAROXABAN 20 MG TAB (XARELTO) PO SCH (17:14)
[2019-07-16 18:00] VITALS: BP 135/75
[2019-07-16] MEDS: TAMSULOSIN 0.4 MG CAP PO SCH (21:02)
[2019-07-16] MEDS: LIDOCAINE 5% (LIDODERM) PATCH TD SCH (21:02)
[2019-07-16] MEDS: ATORVASTATIN 20 MG TAB PO SCH (21:02)
[2019-07-16 22:00] VITALS: BP 124/70
[2019-07-17 02:00] VITALS: BP 120/78
[2019-07-17] MEDS: ACETAMINOPHEN 650MG ER TAB (TYLENOL ARTHRITIS) PO SCH ×3 (05:15→21:04)
[2019-07-17 06:00] VITALS: BP 125/84
[2019-07-17 06:19] LABS: BASO % 0.7 % (0.0-1.0); EOS # 0.5 10^3/uL (0.0-0.5); EOS % 8.3 % (0.0-3.0); HEMATOCRIT 36.5 % (42.0-52.0); HEMOGLOBIN 12.7 g/dl (13.5-17.5); LYMPH # 1.1 10^3/uL (1.5-5.0); LYMPH % 18.4 % (24.0-44.0); MEAN CORPUSCULAR HGB CONC 34.8 g/dl (32.0-36.5); MEAN CORPUSCULAR VOLUME 106.4 fl (80.0-96.0); MONO # 0.6 10^3/uL (0.0-0.8); MONO % 10.3 % (0.0-5.0); NEUTROPHILS # 3.7 10^3/uL (1.5-8.5); NEUTROPHILS % 61.5 % (36.0-66.0); PLATELET COUNT, AUTOMATED 196 10^3/uL (150-450); RED BLOOD COUNT 3.43 10^6/uL (4.30-6.10)
[2019-07-17 06:38] LABS: BLOOD UREA NITROGEN 20 MG/DL (7-18); CALCIUM LEVEL 8.5 MG/DL (8.8-10.2); CARBON DIOXIDE LEVEL 29 MEQ/L (21-32); CHLORIDE LEVEL 96 MEQ/L (98-107); CREATININE FOR GFR 0.72 MG/DL (0.70-1.30); GLOMERULAR FILTRATION RATE > 60.0 (>35); GLUCOSE, FASTING 96 MG/DL (70-100); POTASSIUM SERUM 3.8 MEQ/L (3.5-5.1); SODIUM LEVEL 129 MEQ/L (136-145)
[2019-07-17] MEDS: HumaLOG INSULIN (NovoLOG) PER UNIT SC SCH ×4 (07:30→20:57)
[2019-07-17] MEDS: FLUDROCORTISONE ACETATE 0.1 MG TAB PO SCH (08:32)
[2019-07-17] MEDS: MAGNESIUM OXIDE 400 MG TAB (MAG-OX) PO SCH ×2 (08:33→21:04)
[2019-07-17] MEDS: ISOSORBIDE MON. (IMDUR) 30 MG XR TAB PO SCH (08:34)
[2019-07-17] MEDS: amLODIPine 10 MG TAB PO SCH (08:34)
[2019-07-17] MEDS: OMEPRAZOLE 20 MG CAP PO SCH (08:34)
[2019-07-17] MEDS: ASPIRIN 81 MG ENTERIC TAB PO SCH (08:35)
[2019-07-17] MEDS: SENOKOT S TAB PO SCH ×2 (08:35→21:00)
[2019-07-17] MEDS: POTASSIUM CHLORIDE 10 MEQ SR TABLET PO SCH (08:35)
[2019-07-17] MEDS: GABAPENTIN 300 MG CAP PO SCH ×3 (08:35→21:04)
[2019-07-17] MEDS: METOPROLOL SUCC *XL* 25MG TAB (TopROL *XL*) PO SCH (08:35)
[2019-07-17] MEDS: BENAZEPRIL 20 MG TAB PO SCH (08:38)
[2019-07-17] MEDS: **NOTE PATIENT COMMENT** MISC XX SCH (08:39)
[2019-07-17 10:00] VITALS: BP 126/59
--- NOTE | 2019-07-17 10:29 | IPNPDOC ---
Subjective Date Seen The patient was seen on 07/17/19. Subjective Chief Complaint/HPI Patient comfortable, no distress noted to be discharged once cleared by physical therapy General: Denies: ROS Unobtainable, Chills, Night Sweats, Fatigue, Malaise, Normal Appetite, Other Symptoms Constitutional: Denies: Chills, Fever, Malaise, Night Sweats, Weakness, Fatigue, Weight Loss, Lethargy, Other Pulmonary: Denies: Dyspnea, Cough, Pleuritic Chest Pain, Other Symptoms Cardiovascular: Denies: Chest Pain, Palpitations, Orthopnea, Paroxysmal Noc. Dyspnea, Edema, Lt Headedness, Other Symptoms Gastrointestinal: Denies: Nausea, Vomiting, Abdominal Pain, Diarrhea, Constipation, Melena, Hematochezia, Other Symptoms Musculoskeletal: Denies: Neck Pain, Back Pain, Shoulder Pain, Arm Pain, Hand Pain, Leg Pain, Foot Pain, Joint Pain, Muscle Pain, Spasms, Other Symptoms Neurological: Denies: Weakness, Numbness, Incoordination, Change in speech, Confusion, Seizures, Other Symptoms Objective Physical Examination Eye Exam: Positive: PERRLA, Conjunctiva & lids normal ENT Exam: Positive: Atraumatic, Mucous membr. 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 Once cleared by physical therapy back brace will not be fitted to Saturday (2) Hypokalemia Status: Resolved Problem Text: Corrected (3) Urinary retention Status: Acute Problem Text: DC Cisse today voiding trial Continue Flomax Plan/VTE VTE Prophylaxis Ordered?: Yes VS, I&O, 24H, Fishbone Vital Signs/I&O Vital Signs Date Time Temp Pulse Resp B/P (MAP) Pulse Ox O2 Delivery O2 Flow Rate FiO2 07/17/19 08:38 134/75 07/17/19 08:35 73 07/17/19 06:00 97.5 17 97 07/16/19 22:00 Room Air I&O- Last 24 Hours up to 6 AM 07/17/19 06:00 Intake Total 1660 ml Output Total 650 ml Balance 1010 ml Laboratory Data 24H LABS Laboratory Tests 2 07/16/19 11:37: Bedside Glucose (Misc Panel) 93 07/16/19 16:32: Bedside Glucose (Misc Panel) 107 07/16/19 20:17: Bedside Glucose (Misc Panel) 104 07/17/19 05:33: Immature Granulocyte % (Auto) 0.8, Neutrophils (%) (Auto) 61.5, Lymphocytes (%) (Auto) 18.4L, Monocytes (%) (Auto) 10.3H, Eosinophils (%) (Auto) 8.3H, Basophils (%) (Auto) 0.7, Neutrophils # (Auto) 3.7, Lymphocytes # (Auto) 1.1L, Monocytes # (Auto) 0.6, Eosinophils # (Auto) 0.5, Basophils # (Auto) 0.0, Nucleated Red Blood Cells % (auto) 0.0, Anion Gap 4L, Glomerular Filtration Rate > 60.0, Calcium Level 8.5L CBC/BMP Laboratory Tests 07/16/19 18:34 07/17/19 05:33 ASPEN SCHILLING MD Jul 17, 2019 10:29
[2019-07-17 14:00] VITALS: BP 127/67
[2019-07-17] MEDS: RIVAROXABAN 20 MG TAB (XARELTO) PO SCH (17:30)
[2019-07-17 18:00] VITALS: BP 137/67
[2019-07-17] MEDS: ATORVASTATIN 20 MG TAB PO SCH (21:04)
[2019-07-17] MEDS: LIDOCAINE 5% (LIDODERM) PATCH TD SCH (21:04)
[2019-07-17] MEDS: TAMSULOSIN 0.4 MG CAP PO SCH (21:05)
[2019-07-17 22:00] VITALS: BP 126/76
[2019-07-18 02:00] VITALS: BP 121/68
[2019-07-18 06:00] VITALS: BP 133/79
[2019-07-18] MEDS: ACETAMINOPHEN 650MG ER TAB (TYLENOL ARTHRITIS) PO SCH ×3 (06:13→20:46)
[2019-07-18 06:44] LABS: BASO % 0.7 % (0.0-1.0); EOS # 0.4 10^3/uL (0.0-0.5); EOS % 9.4 % (0.0-3.0); HEMATOCRIT 33.9 % (42.0-52.0); LYMPH # 1.1 10^3/uL (1.5-5.0); LYMPH % 24.8 % (24.0-44.0); MEAN CORPUSCULAR HEMOGLOBIN 37.3 pg (27.0-33.0); MEAN CORPUSCULAR HGB CONC 35.4 g/dl (32.0-36.5); MEAN CORPUSCULAR VOLUME 105.3 fl (80.0-96.0); MONO # 0.5 10^3/uL (0.0-0.8); MONO % 11.9 % (0.0-5.0); NEUTROPHILS # 2.2 10^3/uL (1.5-8.5); NEUTROPHILS % 52.5 % (36.0-66.0); PLATELET COUNT, AUTOMATED 203 10^3/uL (150-450); RED BLOOD COUNT 3.22 10^6/uL (4.30-6.10); WHITE BLOOD COUNT 4.3 10^3/uL (4.0-10.0)
[2019-07-18 07:11] LABS: BLOOD UREA NITROGEN 17 MG/DL (7-18); CARBON DIOXIDE LEVEL 25 MEQ/L (21-32); CHLORIDE LEVEL 101 MEQ/L (98-107); CREATININE FOR GFR 0.62 MG/DL (0.70-1.30); GLOMERULAR FILTRATION RATE > 60.0 (>35); GLUCOSE, FASTING 94 MG/DL (70-100); POTASSIUM SERUM 3.7 MEQ/L (3.5-5.1); SODIUM LEVEL 132 MEQ/L (136-145)
[2019-07-18] MEDS: HumaLOG INSULIN (NovoLOG) PER UNIT SC SCH ×4 (07:21→20:44)
[2019-07-18] MEDS: SENOKOT S TAB PO SCH ×2 (08:59→20:45)
[2019-07-18] MEDS: **NOTE PATIENT COMMENT** MISC XX SCH (09:00)
[2019-07-18] MEDS: METOPROLOL SUCC *XL* 25MG TAB (TopROL *XL*) PO SCH (09:00)
[2019-07-18] MEDS: amLODIPine 10 MG TAB PO SCH (09:00)
[2019-07-18] MEDS: ISOSORBIDE MON. (IMDUR) 30 MG XR TAB PO SCH (09:00)
[2019-07-18] MEDS: BENAZEPRIL 20 MG TAB PO SCH (09:00)
[2019-07-18] MEDS: OMEPRAZOLE 20 MG CAP PO SCH (09:21)
[2019-07-18] MEDS: POTASSIUM CHLORIDE 10 MEQ SR TABLET PO SCH (09:21)
[2019-07-18] MEDS: ASPIRIN 81 MG ENTERIC TAB PO SCH (09:21)
[2019-07-18] MEDS: MAGNESIUM OXIDE 400 MG TAB (MAG-OX) PO SCH ×2 (09:21→20:46)
[2019-07-18] MEDS: GABAPENTIN 300 MG CAP PO SCH ×3 (09:21→20:45)
[2019-07-18] MEDS: FLUDROCORTISONE ACETATE 0.1 MG TAB PO SCH (09:22)
[2019-07-18 10:00] VITALS: BP 133/71
[2019-07-18] MEDS ORDERED: LIDO5TD TD (10:35)
[2019-07-18] MEDS ORDERED: SENN-52 PO (10:35)
[2019-07-18] MEDS ORDERED: FLOM0.4C39 PO (10:35)
--- NOTE | 2019-07-18 10:42 | DS.PDOC ---
Discharge Summary General Date of Admission Jul 14, 2019 at 19:38 Date of Discharge 07/18/19 Discharge Summary PROCEDURES PERFORMED DURING STAY: None. ADMITTING DIAGNOSES: 1. Lumbar compression fracture. DISCHARGE DIAGNOSES: 1. Lumbar compression fracture, hypokalemia, urinary retention. COMPLICATIONS/CHIEF COMPLAINT: Hypokalemia. HISTORY OF PRESENT ILLNESS: This 89-year-old male who initially presented to the ER on July 07 after having a fall resulting in an L1 compression fracture; after being evaluated in the ER, he was sent home with pain meds. Over the last week is declined. Specifically, he has been having difficulties sitting up on his own, walking on his own, feels tired, and has a poor appetite. His last bowel movement was 1 week ago. He denies having nausea, vomiting, diarrhea, fever, chills, or chest pain. Prior to this, he was completely independent with his ADLs, walks without assistance, and used to drive himself around. Per discussion with Dr. Flood the patient's rectal tone was intact, CT of the head and neck were unremarkable, while MRI of the lumbar spine was negative for cauda equina syndrome. A Cisse was placed because he is retaining urine. Due to low K the patient's potassium was repleted; at the time of my exam, the patient reported that his strength had improved a little bit. 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 Richards Pain management was recommended. No orthopedic intervention at this time Back brace was recommended for comfort but would not be available to Saturday Patient will be discharged home today as has been cleared by physical therapy for discharge She will continue all present medications as prescribed (2) Hypokalemia Corrected (3) Urinary retention Policastro were DC'd Try a voiding trial today before discharge Continue Flomax. DISCHARGE MEDICATIONS: Please see below. ALLERGIES: Please see below. PHYSICAL EXAMINATION ON DISCHARGE: VITAL SIGNS: Please see below. GENERAL: Within normal limits HEENT: PERRLA, extra ocular muscles intact NECK: Supple. Negative JVD, negative lymphadenopathy CARDIOVASCULAR EXAMINATION: S1, S2, regular RESPIRATORY EXAMINATION: Clear to A&P ABDOMINAL EXAMINATION: Benign EXTREMITIES: No clubbing, cyanosis, edema SKIN: Normal NEUROLOGICAL EXAMINATION: . No focal motor sensory sensory deficit PSYCHIATRIC EXAMINATION: Normal LABORATORY DATA: Please see below. IMAGING: CAT scan cervical spine:IMPRESSION: 1. No acute fracture or traumatic subluxation of the cervical spine. 2. 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 PROGNOSIS: Fair ACTIVITY: As tolerated. DIET: As tolerated DISCHARGE PLAN: Follow with PCP in one week DISPOSITION: . Home DISCHARGE INSTRUCTIONS: 1. As per discharge instructions. ITEMS TO FOLLOWUP ON ON OUTPATIENT: 1. Follow with PCP in one week. DISCHARGE CONDITION: Stable. TIME SPENT ON DISCHARGE: 35 minutes. Vital Signs/I&Os Vital Signs Date Time Temp Pulse Resp B/P (MAP) Pulse Ox O2 Delivery O2 Flow Rate FiO2 07/18/19 09:00 94/54 07/18/19 06:00 98.4 62 16 97 Room Air I&O- Last 24 Hours up to 6 AM 07/18/19 06:00 Intake Total 870 ml Output Total 700 ml Balance 170 ml Laboratory Data Labs 24H Laboratory Tests 2 07/17/19 11:40: Bedside Glucose (Misc Panel) 97 07/17/19 17:15: Bedside Glucose (Misc Panel) 101 07/17/19 20:02: Bedside Glucose (Misc Panel) 103 07/18/19 06:13: Immature Granulocyte % (Auto) 0.7, Neutrophils (%) (Auto) 52.5, Lymphocytes (%) (Auto) 24.8, Monocytes (%) (Auto) 11.9H, Eosinophils (%) (Auto) 9.4H, Basophils (%) (Auto) 0.7, Neutrophils # (Auto) 2.2, Lymphocytes # (Auto) 1.1L, Monocytes # (Auto) 0.5, Eosinophils # (Auto) 0.4, Basophils # (Auto) 0.0, Nucleated Red Blood Cells % (auto) 0.0, Anion Gap 6L, Glomerular Filtration Rate > 60.0, Calcium Level 8.0L CBC/BMP Laboratory Tests 07/18/19 06:13 FSBS Laboratory Tests Test 07/17/19 11:40 07/17/19 17:15 07/17/19 20:02 Range/Units Bedside Glucose (Misc Panel) 97 101 103 83-110 MG/DL Discharge Medications Scheduled Amlodipine Besylate/Benazepril (Lotrel 10-40 mg Capsule) 1 Each Capsule, 1 CAP PO DAILY, (Reported) Aspirin (Ecotrin) 81 Mg Tab, 81 MG PO DAILY, (Reported) Atorvastatin Calcium (Atorvastatin Calcium) 40 Mg Tab, 40 MG PO QPM, (Reported) Bimatoprost (Lumigan) 0.01% 2.5ML Drops, 1 DROP OU QHS, (Reported) Esomeprazole Magnesium (Esomeprazole Magnesium) 40 Mg Capsule.dr, 40 MG PO DAILY, (Reported) Fludrocortisone Acetate (Fludrocortisone Acetate) 0.1 Mg Tab, 0.1 MG PO DAILY, (Reported) Gabapentin (Gabapentin) 300 Mg Capsule, 300 MG PO TID, (Reported) Isosorbide Mononitrate (Isosorbide Mononitrate ER) 30 Mg Tab, 30 MG PO DAILY, (Reported) Lidocaine (Lidocaine) 5% Adh..patch, 2 PATCH TD QHS Magnesium Oxide (Magnesium Oxide) 400 Mg Tablet, 400 MG PO BID, (Reported) Metoprolol Succinate (Metoprolol Succinate) 25 Mg Tab.er.24h, 25 MG PO DAILY, (Reported) Potassium Chloride (Potassium Chloride) 20 Meq Tab, 20 MEQ PO DAILY, (Reported) Rivaroxaban (Xarelto) 20 Mg Tab, 20 MG PO QPM, (Reported) Sennosides/Docusate Sodium (Senna Plus Tablet) 1 Each Tablet, 2 TAB PO BID Tamsulosin HCl (Flomax) 0.4 Mg Capsule, 0.4 MG PO QHS Scheduled PRN Oxycodone HCl/Acetaminophen (Oxycodone-Acetaminophen 5-325) 1 Each Tablet, 1 TAB PO QID PRN for PAIN, (Reported) Allergies Coded Allergies: No Known Allergies (Verified , 01/29/18) ASPEN SCHILLING MD Jul 18, 2019 10:42
[2019-07-18 14:00] VITALS: BP 121/71
[2019-07-18] MEDS: RIVAROXABAN 20 MG TAB (XARELTO) PO SCH (17:23)
[2019-07-18 18:00] VITALS: BP 133/68
[2019-07-18] MEDS: TAMSULOSIN 0.4 MG CAP PO SCH (20:45)
[2019-07-18] MEDS: ATORVASTATIN 20 MG TAB PO SCH (20:45)
[2019-07-18] MEDS: LIDOCAINE 5% (LIDODERM) PATCH TD SCH (20:46)
[2019-07-18 22:00] VITALS: BP 132/81
[2019-07-19] VITALS (7 sets, daily range): BP systolic 115–133; BP diastolic 60–82
[2019-07-19] MEDS: ACETAMINOPHEN 650MG ER TAB (TYLENOL ARTHRITIS) PO SCH ×3 (05:15→21:17)
[2019-07-19 06:30] LABS: BASO % 0.7 % (0.0-1.0); EOS # 0.4 10^3/uL (0.0-0.5); EOS % 7.1 % (0.0-3.0); HEMOGLOBIN 12.4 g/dl (13.5-17.5); LYMPH % 18.2 % (24.0-44.0); MEAN CORPUSCULAR HEMOGLOBIN 37.7 pg (27.0-33.0); MEAN CORPUSCULAR HGB CONC 35.4 g/dl (32.0-36.5); MEAN CORPUSCULAR VOLUME 106.4 fl (80.0-96.0); MONO # 0.6 10^3/uL (0.0-0.8); MONO % 10.2 % (0.0-5.0); NEUTROPHILS # 3.4 10^3/uL (1.5-8.5); NEUTROPHILS % 63.4 % (36.0-66.0); PLATELET COUNT, AUTOMATED 236 10^3/uL (150-450); RED BLOOD COUNT 3.29 10^6/uL (4.30-6.10); WHITE BLOOD COUNT 5.4 10^3/uL (4.0-10.0)
[2019-07-19 06:56] LABS: BLOOD UREA NITROGEN 11 MG/DL (7-18); CALCIUM LEVEL 8.7 MG/DL (8.8-10.2); CARBON DIOXIDE LEVEL 26 MEQ/L (21-32); CHLORIDE LEVEL 104 MEQ/L (98-107); CREATININE FOR GFR 0.66 MG/DL (0.70-1.30); GLOMERULAR FILTRATION RATE > 60.0 (>35); GLUCOSE, FASTING 98 MG/DL (70-100); POTASSIUM SERUM 3.5 MEQ/L (3.5-5.1); SODIUM LEVEL 135 MEQ/L (136-145)
[2019-07-19] MEDS: HumaLOG INSULIN (NovoLOG) PER UNIT SC SCH ×4 (07:30→21:00)
[2019-07-19] MEDS: MAGNESIUM OXIDE 400 MG TAB (MAG-OX) PO SCH ×2 (10:11→21:16)
[2019-07-19] MEDS: POTASSIUM CHLORIDE 10 MEQ SR TABLET PO SCH (10:11)
[2019-07-19] MEDS: BENAZEPRIL 20 MG TAB PO SCH (10:12)
[2019-07-19] MEDS: ISOSORBIDE MON. (IMDUR) 30 MG XR TAB PO SCH (10:12)
[2019-07-19] MEDS: GABAPENTIN 300 MG CAP PO SCH ×3 (10:12→21:16)
[2019-07-19] MEDS: amLODIPine 10 MG TAB PO SCH (10:12)
[2019-07-19] MEDS: ASPIRIN 81 MG ENTERIC TAB PO SCH (10:12)
[2019-07-19] MEDS: **NOTE PATIENT COMMENT** MISC XX SCH (10:13)
[2019-07-19] MEDS: SENOKOT S TAB PO SCH ×2 (10:13→21:00)
[2019-07-19] MEDS: METOPROLOL SUCC *XL* 25MG TAB (TopROL *XL*) PO SCH (10:14)
[2019-07-19] MEDS: OMEPRAZOLE 20 MG CAP PO SCH (10:14)
[2019-07-19] MEDS: FLUDROCORTISONE ACETATE 0.1 MG TAB PO SCH (10:16)
--- NOTE | 2019-07-19 10:38 | IPNPDOC ---
Subjective Date Seen The patient was seen on 07/19/19. Subjective Chief Complaint/HPI Patient comfortable in no distress was to go home General: Denies: ROS Unobtainable, Chills, Night Sweats, Fatigue, Malaise, Normal Appetite, Other Symptoms Constitutional: Denies: Chills, Fever, Malaise, Night Sweats, Weakness, Fatigue, Weight Loss, Lethargy, Other Eyes: Denies: Pain, Vision change, Conjunctivae inflammation, Eyelid inflammation, Redness, Other ENT: Denies: Head Aches, Ear Pain, Dysphagia, Sinus Congestion, Post Nasal Drip, Sore Throat, Epistaxis, Other Symptoms Pulmonary: Denies: Dyspnea, Cough, Pleuritic Chest Pain, Other Symptoms Cardiovascular: Denies: Chest Pain, Palpitations, Orthopnea, Paroxysmal Noc. Dyspnea, Edema, Lt Headedness, Other Symptoms Genitourinary: Denies: Dysuria, Frequency, Incontinence, Hematuria, Retention, Other Symptoms Musculoskeletal: Denies: Neck Pain, Back Pain, Shoulder Pain, Arm Pain, Hand Pain, Leg Pain, Foot Pain, Joint Pain, Muscle Pain, Spasms, Other Symptoms Neurological: Denies: Weakness, Numbness, Incoordination, Change in speech, Confusion, Seizures, Other Symptoms Objective Physical Examination Eye Exam: Positive: PERRLA, Conjunctiva & lids normal ENT Exam: Positive: Atraumatic, Mucous membr. 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 Once cleared by physical therapy Patient is clinically stable and can be discharged home with a Cisse catheter and bag and follow with urology as an outpatient for possible cystoscopy. (2) Hypokalemia Status: Resolved Problem Text: Corrected (3) Urinary retention Status: Acute Problem Text: Cisse catheter was placed back in yesterday secondary to urinary retention . He can be discharged home with a Cisse cath and a leg bag and follow with urology clinic as an outpatient for possible cystoscopy Plan/VTE VTE Prophylaxis Ordered?: Yes VS, I&O, 24H, Fishbone Vital Signs/I&O Vital Signs Date Time Temp Pulse Resp B/P (MAP) Pulse Ox O2 Delivery O2 Flow Rate FiO2 07/19/19 10:12 133/82 07/19/19 06:00 98.3 76 16 97 Room Air I&O- Last 24 Hours up to 6 AM 07/19/19 06:00 Intake Total 770 ml Output Total 1500 ml Balance -730 ml Laboratory Data 24H LABS Laboratory Tests 2 07/18/19 11:46: Bedside Glucose (Misc Panel) 110 07/18/19 16:33: Bedside Glucose (Misc Panel) 111H 07/18/19 20:03: Bedside Glucose (Misc Panel) 112H 07/19/19 06:08: Immature Granulocyte % (Auto) 0.4, Neutrophils (%) (Auto) 63.4, Lymphocytes (%) (Auto) 18.2L, Monocytes (%) (Auto) 10.2H, Eosinophils (%) (Auto) 7.1H, Basophils (%) (Auto) 0.7, Neutrophils # (Auto) 3.4, Lymphocytes # (Auto) 1.0L, Monocytes # (Auto) 0.6, Eosinophils # (Auto) 0.4, Basophils # (Auto) 0.0, Nucleated Red Blood Cells % (auto) 0.0, Anion Gap 5L, Glomerular Filtration Rate > 60.0, Calcium Level 8.7L CBC/BMP Laboratory Tests 07/19/19 06:08 ASPEN SCHILLING MD Jul 19, 2019 10:38
[2019-07-19] MEDS: RIVAROXABAN 20 MG TAB (XARELTO) PO SCH (17:56)
[2019-07-19] MEDS: TAMSULOSIN 0.4 MG CAP PO SCH (21:16)
[2019-07-19] MEDS: ATORVASTATIN 20 MG TAB PO SCH (21:16)
[2019-07-19] MEDS: LIDOCAINE 5% (LIDODERM) PATCH TD SCH (21:17)
[2019-07-20 02:00] VITALS: BP 112/68
[2019-07-20] MEDS: ACETAMINOPHEN 650MG ER TAB (TYLENOL ARTHRITIS) PO SCH ×2 (05:57→13:42)
[2019-07-20 06:00] VITALS: BP 131/76
[2019-07-20 06:41] LABS: BASO # 0.1 10^3/uL (0.0-0.2); BASO % 0.8 % (0.0-1.0); EOS # 0.5 10^3/uL (0.0-0.5); EOS % 7.4 % (0.0-3.0); HEMATOCRIT 34.4 % (42.0-52.0); HEMOGLOBIN 11.8 g/dl (13.5-17.5); LYMPH # 1.1 10^3/uL (1.5-5.0); LYMPH % 18.5 % (24.0-44.0); MEAN CORPUSCULAR HEMOGLOBIN 36.8 pg (27.0-33.0); MEAN CORPUSCULAR HGB CONC 34.3 g/dl (32.0-36.5); MEAN CORPUSCULAR VOLUME 107.2 fl (80.0-96.0); MONO # 0.7 10^3/uL (0.0-0.8); NEUTROPHILS # 3.7 10^3/uL (1.5-8.5); NEUTROPHILS % 60.8 % (36.0-66.0); PLATELET COUNT, AUTOMATED 271 10^3/uL (150-450); RED BLOOD COUNT 3.21 10^6/uL (4.30-6.10); WHITE BLOOD COUNT 6.1 10^3/uL (4.0-10.0)
[2019-07-20 07:02] LABS: BLOOD UREA NITROGEN 11 MG/DL (7-18); CARBON DIOXIDE LEVEL 26 MEQ/L (21-32); CHLORIDE LEVEL 104 MEQ/L (98-107); CREATININE FOR GFR 0.71 MG/DL (0.70-1.30); GLOMERULAR FILTRATION RATE > 60.0 (>35); GLUCOSE, FASTING 89 MG/DL (70-100); POTASSIUM SERUM 3.6 MEQ/L (3.5-5.1); SODIUM LEVEL 135 MEQ/L (136-145)
[2019-07-20] MEDS: HumaLOG INSULIN (NovoLOG) PER UNIT SC SCH ×2 (07:30→11:29)
[2019-07-20] MEDS: SENOKOT S TAB PO SCH (09:00)
[2019-07-20] MEDS: POTASSIUM CHLORIDE 10 MEQ SR TABLET PO SCH (09:25)
[2019-07-20 09:26] VITALS: BP 133/69
[2019-07-20] MEDS: MAGNESIUM OXIDE 400 MG TAB (MAG-OX) PO SCH (09:26)
[2019-07-20] MEDS: amLODIPine 10 MG TAB PO SCH (09:26)
[2019-07-20] MEDS: FLUDROCORTISONE ACETATE 0.1 MG TAB PO SCH (09:26)
[2019-07-20] MEDS: GABAPENTIN 300 MG CAP PO SCH (09:26)
[2019-07-20] MEDS: ISOSORBIDE MON. (IMDUR) 30 MG XR TAB PO SCH (09:26)
[2019-07-20] MEDS: ASPIRIN 81 MG ENTERIC TAB PO SCH (09:26)
[2019-07-20] MEDS: METOPROLOL SUCC *XL* 25MG TAB (TopROL *XL*) PO SCH (09:27)
[2019-07-20] MEDS: OMEPRAZOLE 20 MG CAP PO SCH (09:27)
[2019-07-20] MEDS: BENAZEPRIL 20 MG TAB PO SCH (09:27)
[2019-07-20] MEDS: **NOTE PATIENT COMMENT** MISC XX SCH (09:28)
[2019-07-20 10:00] VITALS: BP 110/56
--- NOTE | 2019-07-20 10:44 | IPNPDOC ---
Subjective Date Seen The patient was seen on 07/20/19. Subjective Chief Complaint/HPI Patient is comfortable in no distress. Offers no complaints, family was not willing to take him home yesterday after discharge General: Denies: ROS Unobtainable, Chills, Night Sweats, Fatigue, Malaise, Normal Appetite, Other Symptoms Constitutional: Denies: Chills, Fever, Malaise, Night Sweats, Weakness, Fatigue, Weight Loss, Lethargy, Other Pulmonary: Denies: Dyspnea, Cough, Pleuritic Chest Pain, Other Symptoms Cardiovascular: Denies: Chest Pain, Palpitations, Orthopnea, Paroxysmal Noc. Dyspnea, Edema, Lt Headedness, Other Symptoms Gastrointestinal: Denies: Nausea, Vomiting, Abdominal Pain, Diarrhea, Constipation, Melena, Hematochezia, Other Symptoms Genitourinary: Reports: Other Symptoms (. Cisse catheter and) Musculoskeletal: Denies: Neck Pain, Back Pain, Shoulder Pain, Arm Pain, Hand Pain, Leg Pain, Foot Pain, Joint Pain, Muscle Pain, Spasms, Other Symptoms Neurological: Denies: Weakness, Numbness, Incoordination, Change in speech, Confusion, Seizures, Other Symptoms Objective Physical Examination Eye Exam: Positive: PERRLA, Conjunctiva & lids normal ENT Exam: Positive: Atraumatic, Mucous membr. 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 Patient has been started on Flomax as well since last few days Dr. Juares was called and discussed. He will see patient today for any further urology recommendations Plan/VTE VTE Prophylaxis Ordered?: Yes VS, I&O, 24H, Fishbone Vital Signs/I&O Vital Signs Date Time Temp Pulse Resp B/P (MAP) Pulse Ox O2 Delivery O2 Flow Rate FiO2 07/20/19 10:00 96.6 77 18 110/56 (74) 97 Room Air I&O- Last 24 Hours up to 6 AM 07/20/19 06:00 Intake Total 1230 ml Output Total 655 ml Balance 575 ml Laboratory Data 24H LABS Laboratory Tests 2 07/19/19 11:24: Bedside Glucose (Misc Panel) 89 07/19/19 19:45: Bedside Glucose (Misc Panel) 137H 07/20/19 06:21: Immature Granulocyte % (Auto) 0.5, Neutrophils (%) (Auto) 60.8, Lymphocytes (%) (Auto) 18.5L, Monocytes (%) (Auto) 12.0H, Eosinophils (%) (Auto) 7.4H, Basophils (%) (Auto) 0.8, Neutrophils # (Auto) 3.7, Lymphocytes # (Auto) 1.1L, Monocytes # (Auto) 0.7, Eosinophils # (Auto) 0.5, Basophils # (Auto) 0.1, Nucleated Red Blood Cells % (auto) 0.0, Anion Gap 5L, Glomerular Filtration Rate > 60.0, Calcium Level 8.0L CBC/BMP Laboratory Tests 07/20/19 06:21 ASPEN SCHILLING MD Jul 20, 2019 10:44
== END 2019-07-20 14:43 | DRG 543 ==
LOC: M ED 12:06 → M ED INP 19:38 → ENRESERV 20:43 → M MSPAV 22:13
PROVIDERS: ADMIT Internal Medicine; ATTEND Internal Medicine
DX: M48.56XA Collapsed vertebra, not elsewhere classified, lumbar region, initial encounter for fracture (principal); I48.20 Chronic atrial fibrillation, unspecified; E11.9 Type 2 diabetes mellitus without complications; I25.10 Atherosclerotic heart disease of native coronary artery without angina pectoris; I10 Essential (primary) hypertension; I27.20 Pulmonary hypertension, unspecified; Z79.01 Long term (current) use of anticoagulants; E78.5 Hyperlipidemia, unspecified; Z86.39 Personal history of other endocrine, nutritional and metabolic disease; Z87.891 Personal history of nicotine dependence; E87.6 Hypokalemia; R53.1 Weakness; M81.0 Age-related osteoporosis without current pathological fracture; R74.0 Nonspecific elevation of levels of transaminase and lactic acid dehydrogenase [LDH]; R33.9 Retention of urine, unspecified; Z79.82 Long term (current) use of aspirin

== ENCOUNTER → 2019-07-30 | Outpatient (REF) ==
[~2019-07-30] MED LIST changes: +BIMA01SOL OU; +ESOM1CAP5 PO; +FLOM0.4C39 PO; +GABA-843 PO; +LIDO5TD TD; +LOTR10CA2 PO; +MAGN400T2 PO; +METO1TAB32 PO; +SENN-52 PO
[2019-07-30 08:58] LABS: HEMATOCRIT 36.1 % (42.0-52.0); HEMOGLOBIN 12.1 g/dl (13.5-17.5); MEAN CORPUSCULAR HEMOGLOBIN 36.8 pg (27.0-33.0); MEAN CORPUSCULAR HGB CONC 33.5 g/dl (32.0-36.5); MEAN CORPUSCULAR VOLUME 109.7 fl (80.0-96.0); PLATELET COUNT, AUTOMATED 257 10^3/uL (150-450); RED BLOOD COUNT 3.29 10^6/uL (4.30-6.10); WHITE BLOOD COUNT 4.9 10^3/uL (4.0-10.0)
[2019-07-30 09:15] LABS: BLOOD UREA NITROGEN 13 MG/DL (7-18); CALCIUM LEVEL 6.8 MG/DL (8.8-10.2); CARBON DIOXIDE LEVEL 22 MEQ/L (21-32); CHLORIDE LEVEL 112 MEQ/L (98-107); CREATININE FOR GFR 0.88 MG/DL (0.70-1.30); GLOMERULAR FILTRATION RATE > 60.0 (>35); GLUCOSE, FASTING 86 MG/DL (70-100); POTASSIUM SERUM 3.5 MEQ/L (3.5-5.1); SODIUM LEVEL 143 MEQ/L (136-145)
== END ==
LOC: SKLAB5 07:45
PROVIDERS: ATTEND Internal Medicine
DX: Z79.01 Long term (current) use of anticoagulants (principal)

== ENCOUNTER 2019-09-25 16:13 | Inpatient (IN) | payer MEDICARE, OTHER ==
[~2019-09-25] VITALS: Ht 185.4 cm; Wt 77.0 kg
[~2019-09-25 16:13] MED LIST changes: -ACETAMINOPHEN TAB 650MG DOSE (2X325MG) PO PRN; -CALCIUM GLUCONATE 1,000 MG in D5W MINI-BAG PLUS 100 ML IV SCH; -CEPH500C PO; -MAALOX 30 ML SUSP *UDC PO PRN; -MAG SULF 1GM/100ML (MAG RUN) 1 GM in IV 1 EA IV SCH; -MAGNESIUM OXIDE 400 MG TAB (MAG-OX) PO SCH; -MIRT1TAB PO; -MOM 30ML SUSPENSION UDC PO PRN; -NYST10OI TOP
[2019-09-25 17:01] LABS: BASO # 0.1 10^3/uL (0.0-0.2); BASO % 0.8 % (0.0-1.0); EOS # 0.4 10^3/uL (0.0-0.5); EOS % 7.4 % (0.0-3.0); HEMATOCRIT 34.4 % (42.0-52.0); HEMOGLOBIN 11.7 g/dl (13.5-17.5); LYMPH # 1.4 10^3/uL (1.5-5.0); LYMPH % 22.8 % (24.0-44.0); MEAN CORPUSCULAR HEMOGLOBIN 35.9 pg (27.0-33.0); MEAN CORPUSCULAR VOLUME 105.5 fl (80.0-96.0); MONO # 0.8 10^3/uL (0.0-0.8); MONO % 13.7 % (0.0-5.0); NEUTROPHILS # 3.3 10^3/uL (1.5-8.5); PLATELET COUNT, AUTOMATED 178 10^3/uL (150-450); RED BLOOD COUNT 3.26 10^6/uL (4.30-6.10); WHITE BLOOD COUNT 5.9 10^3/uL (4.0-10.0)
[2019-09-25] MEDS ORDERED: MIRT1TAB PO (17:09)
[2019-09-25 17:42] LABS: ALBUMIN 2.7 GM/DL (3.2-5.2); ALT/SGPT 24 U/L (12-78); BILIRUBIN,DIRECT 0.3 MG/DL (0.0-0.2); BILIRUBIN,TOTAL 0.9 MG/DL (0.2-1.0); CK-MB VALUE MASS < 1.0 NG/ML (<3.6); CPK CREATINE PHOSPHOKINASE 108 U/L (39-308); LIPASE 57 U/L (73-393); MAGNESIUM LEVEL 0.3 MG/DL (1.8-2.4); MB/CK RELATIVE INDEX 0.93 (< OR =4); TOTAL PROTEIN 6.6 GM/DL (6.4-8.2); TROPONIN I < 0.02 NG/ML (< 0.10)
[2019-09-25] MEDS ORDERED: MAG SULF 1GM/100ML (MAG RUN) 1 GM in IV 1 EA IV ONE (18:00)
[2019-09-25 18:01] LABS: CALCIUM LEVEL 5.6 MG/DL (8.8-10.2)
[2019-09-25] MEDS ORDERED: CALCIUM GLUCONATE 1,000 MG in D5W MINI-BAG PLUS 100 ML IV ONE (19:00)
[2019-09-25] MEDS ORDERED: MOM 30ML SUSPENSION UDC PO PRN (19:00)
[2019-09-25] MEDS ORDERED: MAALOX 30 ML SUSP *UDC PO PRN (19:00)
[2019-09-25] MEDS ORDERED: ACETAMINOPHEN TAB 650MG DOSE (2X325MG) PO PRN (19:00)
[2019-09-25] MEDS ORDERED: FLOM0.4C39 PO (19:16)
[2019-09-25 19:54] VITALS: BP 135/70
--- NOTE | 2019-09-25 20:09 | HPEPDOC ---
[facility] Medical History & Physical Date of Admission September 25, 2019 Date of Service: September 25, 2019 History and Physical CHIEF COMPLAINT: fatigue HISTORY OF PRESENT ILLNESS: Pt is an 89yM with PMH of cardiac disease, angina free, chronic hypertension with hypertensive heart disease, type 2 diabetes with peripheral neuropathy, CKD 3, chronic atrial fibrillation on anticoagulation, SIADH, history of gout, hypercholesterolemia, BPH with urinary incontinence, dependent on #16 Cisse catheter, hypomagnesemia, glaucoma, presenting with generalized weakness. Patient was most recently hospitalized at [facility] on 07/20/2019for rehabilitation, previously admitted on 07/14/2019for L1 compression fracture s/p fall with recommendations for conservative management, hypokalemia, and urinary retention. The last 3 weeks, patient reports generalized weakness and poor by mouth intake. He currently lives with his family. He also reports intermittent falls, which she catches himself, no head trauma, syncope. Today he was at Dr. Garnett office for urinary incontinence, labs were drawn and found to be hypokalemic and hypomagnesemic. In the ED, vital signs are stable, patient was afebrile, heart rate range within normal limits, blood pressure systolic ranged from 140s to 170s, saturating well on room air. Labs include sodium of 142, potassium of 3.3, ionized calcium of 2.9, creatinine 0.7, WBC of 5.9, hemoglobin 11.7, itches baseline is 12, platelets 178. Review EKG ROS: 10 point review systems negative except per above. PMH: See above. PSH: See above.T&A, R UE surgery (seconadry to hairline fx complicated by bone spurs) Family history: Reviewed and noncontributory. Social history: No tobacco (former smoker 20+y ago), occ alcohol, currently works at a [employer] Medications: Reviewed Allergies: NKDA PHYSICAL EXAMINATION: VITAL SIGNS: Please see below. GENERAL: Elderly male in No distress, pleasant, but appears fatigued HEENT: Normocephalic, atraumatic, dry mucous membranes NECK: Supple CARDIOVASCULAR EXAMINATION: S1, S2 RESPIRATORY EXAMINATION: CTAB ABDOMINAL EXAMINATION: Soft, nontender, nondistended, positive bowel sounds EXTREMITIES: no edema SKIN: rash on L inguinal region NEUROLOGICAL EXAMINATION: Awake, 4 out of 5 strength in both upper and lower extremities PSYCHIATRIC EXAMINATION: Calm and cooperative, has capacity Assessment and plan: Pt is an 89yM with PMH of cardiac disease, angina free, chronic hypertension with hypertensive heart disease, type 2 diabetes with peripheral neuropathy, CKD 3, chronic atrial fibrillation on anticoagulation, SIADH, history of gout, hypercholesterolemia, BPH with urinary incontinence, dependent on #16 Cisse catheter, hypomagnesemia, glaucoma, presenting with generalized weakness. Inpatient, ICU. #Hypomag/hypocalcemia: Likely secondary to poor by mouth intake. Well admit to ICU, given a magnesium run in the ED, will continue 7 more Mg runs in the next 12-24 hours, with electrolyte checks every 4 hours. Well also replace calcium, and K+ and replace accordingly. Will also increase by mouth magnesium from magnesium oxide 400 mg twice a day to 3 times a day. Neuro checks every 4 hours. -nutrition consult, PT/OT eval #Urinary retention: Continue Cisse, monitor input and output #rash on R groin: nystatin powder #HTN/GERD: cont home meds #DMII with neuropathy: cont home meds, ISS, hypoglycemic protocol #L1 fx/hx falls: PT/OT, pain control, cont home meds #History of SIADH: Current sodium is 142, will continue to monitor DVT ppx: Continue home Xarelto 20 mg daily Full code Critical Care time: 40 minutes are spent on admission, plan was discussed with patient, nursing team, ED team, and family Vital Signs Vital Signs Date Time Temp Pulse Resp B/P (MAP) Pulse Ox O2 Delivery O2 Flow Rate FiO2 09/25/19 16:34 09/25/19 16:14 97.4 78 21 97 Room Air Laboratory Data Labs 24H Laboratory Tests 2 09/25/19 16:49: Immature Granulocyte % (Auto) 0.3, Neutrophils (%) (Auto) 55.0, Lymphocytes (%) (Auto) 22.8L, Monocytes (%) (Auto) 13.7H, Eosinophils (%) (Auto) 7.4H, Basophils (%) (Auto) 0.8, Neutrophils # (Auto) 3.3, Lymphocytes # (Auto) 1.4L, Monocytes # (Auto) 0.8, Eosinophils # (Auto) 0.4, Basophils # (Auto) 0.1, Nucleated Red Blood Cells % (auto) 0.0, Calcium Level 5.6*L, Magnesium Level 0.3*L, Total Bilirubin 0.9, Direct Bilirubin 0.3H, Aspartate Amino Transf (AST/SGOT) 37, Alanine Aminotransferase (ALT/SGPT) 24, Alkaline Phosphatase 148H, Total Creatine Kinase 108, Creatine Kinase MB < 1.0, Creatine Kinase MB Relative Index 0.93, Troponin I < 0.02, Total Protein 6.6, Albumin 2.7L, Albumin/Globulin Ratio 0.7, Lipase 57L 09/25/19 17:02: POC Glucose (Misc Panel) 107H, POC Sodium (Misc Panel) 142, POC Potassium (Misc Panel) 3.3L, POC Chloride (Misc Panel) 101, POC Total CO2 (Misc Panel) 22.0L, POC Blood Urea Nitrogen (Misc Panel 7L, POC Ionized Calcium (Misc Panel) 2.9*L, POC Creatinine (Misc Panel) 0.7, POC Hematocrit (Misc Panel) 37.0L CBC/BMP Laboratory Tests 09/25/19 16:49 Home Medications Scheduled Amlodipine Besylate/Benazepril (Lotrel 10-40 mg Capsule) 1 Each Capsule, 1 CAP PO DAILY Aspirin (Ecotrin) 81 Mg Tab, 81 MG PO DAILY Atorvastatin Calcium (Atorvastatin Calcium) 40 Mg Tab, 40 MG PO QPM Bimatoprost (Lumigan) 0.01% 2.5ML Drops, 1 DROP OU QHS PT STATES THAT HE WOULD BE TAKING IT, IF ONLY HE COULD FIND THE DROPS Esomeprazole Magnesium (Esomeprazole Magnesium) 40 Mg Capsule.dr, 40 MG PO DAILY Fludrocortisone Acetate (Fludrocortisone Acetate) 0.1 Mg Tab, 0.1 MG PO DAILY Gabapentin (Gabapentin) 300 Mg Capsule, 300 MG PO TID Isosorbide Mononitrate (Isosorbide Mononitrate ER) 30 Mg Tab, 30 MG PO DAILY Lidocaine (Lidocaine) 5% Adh..patch, 2 PATCH TD QHS Magnesium Oxide (Magnesium Oxide) 400 Mg Tablet, 400 MG PO BID Metoprolol Succinate (Metoprolol Succinate) 25 Mg Tab.er.24h, 25 MG PO DAILY Mirtazapine (Mirtazapine) 7.5 Mg Tablet, 1 TAB PO QHS Potassium Chloride (Potassium Chloride) 20 Meq Tab, 20 MEQ PO DAILY Rivaroxaban (Xarelto) 20 Mg Tab, 20 MG PO QPM Tamsulosin HCl (Flomax) 0.4 Mg Capsule, 0.4 MG PO QHS Scheduled PRN Oxycodone HCl/Acetaminophen (Oxycodone-Acetaminophen 5-325) 1 Each Tablet, 1 TAB PO QID PRN for PAIN Allergies Coded Allergies: No Known Allergies (Verified , 01/29/18) A-FIB/CHADSVASC A-FIB History Current/History of A-Fib/PAF?: Yes Current PO Anticoag Therapy: Yes JOE BUENROSTRO MD September 25, 2019 19:01
[2019-09-25] MEDS: MAG SULF 1GM/100ML (MAG RUN) 1 GM in IV 1 EA IV SCH ×3 (20:12→23:02)
[2019-09-25] MEDS ORDERED: PERCOCET 5MG/325MG TAB PO PRN (20:30)
[2019-09-25] MEDS ORDERED: DEXTROSE 50% 50 ML SYRINGE IV PRN (20:45)
[2019-09-25] MEDS ORDERED: GLUCAGON INJ 1MG VIAL SC PRN (20:45)
[2019-09-25] MEDS ORDERED: GLUCOSE 4GM CHEW TABLET PO PRN (20:45)
[2019-09-25] MEDS ORDERED: POTASSIUM CHLORIDE 10 MEQ SR TABLET PO SCH (21:00)
[2019-09-25] MEDS: **NOTE PATIENT COMMENT** MISC XX SCH (21:00)
[2019-09-25] MEDS: HumaLOG INSULIN (NovoLOG) PER UNIT SC SCH (21:00)
--- NOTE | 2019-09-25 21:15 | ECGEPIP ---
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
[2019-09-25 22:00] VITALS: BP 133/69
[2019-09-25] MEDS: MAGNESIUM OXIDE 400 MG TAB (MAG-OX) PO SCH (22:19)
[2019-09-25] MEDS: TAMSULOSIN 0.4 MG CAP PO SCH (22:19)
[2019-09-25] MEDS: MIRTAZAPINE 7.5MG PER 1/2 TABLET PO SCH (22:19)
[2019-09-25] MEDS: GABAPENTIN 300 MG CAP PO SCH (22:20)
[2019-09-25] MEDS: RIVAROXABAN 20 MG TAB (XARELTO) PO SCH (22:20)
[2019-09-25] MEDS: ATORVASTATIN 20 MG TAB PO SCH (22:20)
[2019-09-25] MEDS: NYSTATIN OINTMENT 15 GM TOP SCH (22:21)
[2019-09-26] VITALS (10 sets, daily range): BP systolic 67–134; BP diastolic 42–67
[2019-09-26] MEDS: MAG SULF 1GM/100ML (MAG RUN) 1 GM in IV 1 EA IV SCH ×4 (00:08→05:06)
[2019-09-26] MEDS ORDERED: CALCIUM GLUCONATE 1,000 MG in D5W MINI-BAG PLUS 100 ML IV ONE (01:45)
[2019-09-26 05:13] LABS: HEMATOCRIT 31.4 % (42.0-52.0); HEMOGLOBIN 10.7 g/dl (13.5-17.5); MEAN CORPUSCULAR HEMOGLOBIN 35.9 pg (27.0-33.0); MEAN CORPUSCULAR HGB CONC 34.1 g/dl (32.0-36.5); MEAN CORPUSCULAR VOLUME 105.4 fl (80.0-96.0); PLATELET COUNT, AUTOMATED 139 10^3/uL (150-450); RED BLOOD COUNT 2.98 10^6/uL (4.30-6.10); WHITE BLOOD COUNT 4.9 10^3/uL (4.0-10.0)
[2019-09-26 06:02] LABS: BLOOD UREA NITROGEN 5 MG/DL (7-18); CALCIUM LEVEL 5.9 MG/DL (8.8-10.2); CARBON DIOXIDE LEVEL 26 MEQ/L (21-32); CHLORIDE LEVEL 108 MEQ/L (98-107); CREATININE FOR GFR 0.61 MG/DL (0.70-1.30); GLOMERULAR FILTRATION RATE > 60.0 (>35); GLUCOSE, FASTING 117 MG/DL (70-100); MAGNESIUM LEVEL 2.6 MG/DL (1.8-2.4); POTASSIUM SERUM 3.5 MEQ/L (3.5-5.1); SODIUM LEVEL 142 MEQ/L (136-145)
[2019-09-26] MEDS: PANTOPRAZOLE 40MG VIAL (C9113 PER 1) IV SCH (08:09)
[2019-09-26] MEDS: HumaLOG INSULIN (NovoLOG) PER UNIT SC SCH ×4 (08:10→20:35)
[2019-09-26] MEDS: POTASSIUM CHLORIDE 10 MEQ SR TABLET PO SCH (08:10)
[2019-09-26] MEDS: MAGNESIUM OXIDE 400 MG TAB (MAG-OX) PO SCH ×3 (08:10→20:06)
[2019-09-26] MEDS: GABAPENTIN 300 MG CAP PO SCH ×3 (08:10→20:06)
[2019-09-26] MEDS: ASPIRIN 81 MG ENTERIC TAB PO SCH (08:11)
[2019-09-26] MEDS: amLODIPine 10 MG TAB PO SCH (08:11)
[2019-09-26] MEDS: ISOSORBIDE MON. (IMDUR) 30 MG XR TAB PO SCH (08:11)
[2019-09-26] MEDS: METOPROLOL SUCC *XL* 25MG TAB (TopROL *XL*) PO SCH (08:11)
[2019-09-26] MEDS: FLUDROCORTISONE ACETATE 0.1 MG TAB PO SCH (08:11)
[2019-09-26] MEDS: NYSTATIN OINTMENT 15 GM TOP SCH ×3 (08:12→20:08)
[2019-09-26] MEDS: LIDOCAINE 5% (LIDODERM) PATCH TD SCH (08:23)
--- NOTE | 2019-09-26 08:51 | IPNPDOC ---
Date Seen The patient was seen on 09/26/19. Progress Note SUBJECTIVE: Mg level elevated this AM, patient received a total of 8K runs overnight. Ionize calcium low, was given another dose of calcium gluconate overnight. Overnight events, vital signs stable, will transfer to PCU today. Continue telemetry. OBJECTIVE PHYSICAL EXAMINATION: VITAL SIGNS: Please see below. GENERAL: Elderly male in No distress, appears to be at higher spirits today HEENT: Normocephalic, atraumatic, dry mucous membranes NECK: Supple CARDIOVASCULAR EXAMINATION: S1, S2 RESPIRATORY EXAMINATION: CTAB ABDOMINAL EXAMINATION: Soft, nontender, nondistended, positive bowel sounds EXTREMITIES: no edema SKIN: rash on L inguinal region NEUROLOGICAL EXAMINATION: Awake, 4 out of 5 strength in both upper and lower extremities, strong compared to yesterday PSYCHIATRIC EXAMINATION: Calm and cooperative, has capacity Assessment and plan: Pt is an 89yM with PMH of cardiac disease, angina free, chronic hypertension with hypertensive heart disease, type 2 diabetes with peripheral neuropathy, CKD 3, chronic atrial fibrillation on anticoagulation, SIADH, history of gout, hypercholesterolemia, BPH with urinary incontinence, dependent on #16 Cisse catheter, hypomagnesemia, glaucoma, presenting with generalized weakness. Inpatient, ICU, transfer to PCU 09/26/19. #Hypomag/hypocalcemia: Likely secondary to poor by mouth intake 09/25/19: will admit to ICU, given a magnesium run in the ED, will continue 7 more Mg runs in the next 12-24 hours, with electrolyte checks every 4 hours. Well also replace calcium, and K+ and replace accordingly. Neuro checks every 4 hours. -Will consider also increase by mouth magnesium from magnesium oxide 400 mg twice a day to 3 times a day pending repeat Mg level -nutrition consult, PT/OT eval -f/u Phos level #Urinary retention: Continue Cisse, monitor input and output #rash on R groin: nystatin powder #HTN/GERD: cont home meds #DMII with neuropathy: cont home meds, ISS, hypoglycemic protocol #L1 fx/hx falls: PT/OT, pain control, cont home meds #History of SIADH: Current sodium is 142, will continue to monitor DVT ppx: Continue home Xarelto 20 mg daily Full code 32 minutes are spent on admission, plan was discussed with patient, nursing team, and family Dispo: earliest dc home vs rehab 09/27/19 vs 09/28/19: pending clinical presentation, f/u with dietary and PT VS, I&O, 24H, Fishbone Vital Signs/I&O Vital Signs Date Time Temp Pulse Resp B/P (MAP) Pulse Ox O2 Delivery O2 Flow Rate FiO2 09/26/19 06:00 65 20 119/66 (83) 95 Room Air 09/26/19 04:00 96.9 I&O- Last 24 Hours up to 6 AM 09/26/19 06:00 Intake Total 1160 ml Output Total 925 ml Balance 235 ml Laboratory Data 24H LABS Laboratory Tests 2 09/25/19 16:49: Immature Granulocyte % (Auto) 0.3, Neutrophils (%) (Auto) 55.0, Lymphocytes (%) (Auto) 22.8L, Monocytes (%) (Auto) 13.7H, Eosinophils (%) (Auto) 7.4H, Basophils (%) (Auto) 0.8, Neutrophils # (Auto) 3.3, Lymphocytes # (Auto) 1.4L, Monocytes # (Auto) 0.8, Eosinophils # (Auto) 0.4, Basophils # (Auto) 0.1, Nucleated Red Blood Cells % (auto) 0.0, Calcium Level 5.6*L, Magnesium Level 0.3*L, Total Bilirubin 0.9, Direct Bilirubin 0.3H, Aspartate Amino Transf (AST/SGOT) 37, Alanine Aminotransferase (ALT/SGPT) 24, Alkaline Phosphatase 148H, Total Creatine Kinase 108, Creatine Kinase MB < 1.0, Creatine Kinase MB Relative Index 0.93, Troponin I < 0.02, Total Protein 6.6, Albumin 2.7L, Albumin/Globulin Ratio 0.7, Lipase 57L 09/25/19 17:02: POC Glucose (Misc Panel) 107H, POC Sodium (Misc Panel) 142, POC Potassium (Misc Panel) 3.3L, POC Chloride (Misc Panel) 101, POC Total CO2 (Misc Panel) 22.0L, POC Blood Urea Nitrogen (Misc Panel 7L, POC Ionized Calcium (Misc Panel) 2.9*L, POC Creatinine (Misc Panel) 0.7, POC Hematocrit (Misc Panel) 37.0L 09/25/19 20:46: Magnesium Level 0.7*L, Whole Blood Ionized Calcium 3.0*L 09/25/19 22:27: Bedside Glucose (Misc Panel) 111H 09/26/19 00:53: Whole Blood Ionized Calcium 3.2*L, Magnesium Level 1.7L 09/26/19 05:03: Whole Blood Ionized Calcium 3.5*L, Magnesium Level 2.6H, Nucleated Red Blood Cells % (auto) 0.0, Anion Gap 8, Glomerular Filtration Rate > 60.0, Calcium Level 5.9*L CBC/BMP Laboratory Tests 09/25/19 16:49 09/26/19 05:03 JOE BUENROSTRO MD September 26, 2019 07:09
[2019-09-26 09:00] LABS: PHOSPHORUS LEVEL 3.5 MG/DL (2.5-4.9)
[2019-09-26] MEDS: CEPHALEXIN 500 MG CAP PO SCH (17:53)
[2019-09-26] MEDS: ATORVASTATIN 20 MG TAB PO SCH (20:06)
[2019-09-26] MEDS: MIRTAZAPINE 7.5MG PER 1/2 TABLET PO SCH (20:06)
[2019-09-26] MEDS: TAMSULOSIN 0.4 MG CAP PO SCH (20:06)
[2019-09-26] MEDS: RIVAROXABAN 20 MG TAB (XARELTO) PO SCH (20:06)
[2019-09-26] MEDS: **NOTE PATIENT COMMENT** MISC XX SCH (20:08)
[2019-09-26] MEDS ORDERED: NS 500 ML IV ONE (20:30)
[2019-09-27] VITALS (8 sets, daily range): BP systolic 100–141; BP diastolic 56–74
[2019-09-27] MEDS: CEPHALEXIN 500 MG CAP PO SCH ×5 (00:09→17:54)
[2019-09-27 04:02] LABS: IONIZED CALCIUM 3.7 MG/DL (4.5-5.3)
[2019-09-27 04:15] LABS: HEMATOCRIT 28.3 % (42.0-52.0); HEMOGLOBIN 9.6 g/dl (13.5-17.5); MEAN CORPUSCULAR HEMOGLOBIN 35.7 pg (27.0-33.0); MEAN CORPUSCULAR HGB CONC 33.9 g/dl (32.0-36.5); MEAN CORPUSCULAR VOLUME 105.2 fl (80.0-96.0); PLATELET COUNT, AUTOMATED 158 10^3/uL (150-450); RED BLOOD COUNT 2.69 10^6/uL (4.30-6.10); WHITE BLOOD COUNT 4.5 10^3/uL (4.0-10.0)
[2019-09-27 04:40] LABS: BLOOD UREA NITROGEN 8 MG/DL (7-18); CALCIUM LEVEL 5.8 MG/DL (8.8-10.2); CARBON DIOXIDE LEVEL 26 MEQ/L (21-32); CHLORIDE LEVEL 108 MEQ/L (98-107); CREATININE FOR GFR 0.58 MG/DL (0.70-1.30); GLOMERULAR FILTRATION RATE > 60.0 (>35); GLUCOSE, FASTING 91 MG/DL (70-100); MAGNESIUM LEVEL 1.6 MG/DL (1.8-2.4); POTASSIUM SERUM 3.5 MEQ/L (3.5-5.1); SODIUM LEVEL 141 MEQ/L (136-145)
[2019-09-27] MEDS ORDERED: MAG SULF 1GM/100ML (MAG RUN) 1 GM in IV 1 EA IV ONE (05:45)
[2019-09-27] MEDS: HumaLOG INSULIN (NovoLOG) PER UNIT SC SCH ×4 (07:30→20:40)
[2019-09-27] MEDS ORDERED: CALCIUM GLUCONATE 1,000 MG in D5W MINI-BAG PLUS 100 ML IV ONE (08:00)
[2019-09-27] MEDS: POTASSIUM CHLORIDE 10 MEQ SR TABLET PO SCH (08:25)
[2019-09-27] MEDS: ASPIRIN 81 MG ENTERIC TAB PO SCH (08:25)
[2019-09-27] MEDS: GABAPENTIN 300 MG CAP PO SCH ×3 (08:25→20:39)
[2019-09-27] MEDS: FLUDROCORTISONE ACETATE 0.1 MG TAB PO SCH (08:25)
[2019-09-27] MEDS: MAGNESIUM OXIDE 400 MG TAB (MAG-OX) PO SCH ×3 (08:26→20:39)
[2019-09-27] MEDS: amLODIPine 10 MG TAB PO SCH (08:30)
[2019-09-27] MEDS: PANTOPRAZOLE 40MG VIAL (C9113 PER 1) IV SCH (08:30)
[2019-09-27] MEDS: NYSTATIN OINTMENT 15 GM TOP SCH ×3 (08:32→20:38)
[2019-09-27] MEDS: LIDOCAINE 5% (LIDODERM) PATCH TD SCH (09:21)
--- NOTE | 2019-09-27 09:24 | IPNPDOC ---
Date Seen The patient was seen on 09/27/19. Progress Note SUBJECTIVE: Mg was 1.6, Ca2+ 5.3, Hb dec from 11-->10--> 9 today, hemoccult, if +blood hold home noac and GI consult, q6h Hb check, PPI. OBJECTIVE PHYSICAL EXAMINATION: VITAL SIGNS: Please see below. GENERAL: Elderly male in No distress, appears to be at higher spirits today HEENT: Normocephalic, atraumatic, dry mucous membranes NECK: Supple CARDIOVASCULAR EXAMINATION: S1, S2 RESPIRATORY EXAMINATION: CTAB ABDOMINAL EXAMINATION: Soft, nontender, nondistended, positive bowel sounds EXTREMITIES: no edema SKIN: rash on L inguinal region NEUROLOGICAL EXAMINATION: Awake, 4 out of 5 strength in both upper and lower extremities, strong compared to yesterday PSYCHIATRIC EXAMINATION: Calm and cooperative, has capacity Assessment and plan: Pt is an 89yM with PMH of cardiac disease, angina free, chronic hypertension with hypertensive heart disease, type 2 diabetes with peripheral neuropathy, CKD 3, chronic atrial fibrillation on anticoagulation, SIADH, history of gout, h ypercholesterolemia, BPH with urinary incontinence, dependent on #16 Hodges catheter, hypomagnesemia, glaucoma, presenting with generalized weakness. Inpatient, ICU, transfer to PCU 09/26/19. #Hypomag/hypocalcemia: Likely secondary to poor by mouth intake 09/25/19: will admit to ICU, given a magnesium run in the ED, will continue 7 more Mg runs in the next 12-24 hours, with electrolyte checks every 4 hours. Well also replace calcium, and K+ and replace accordingly. Neuro checks every 4 hours. -Will increase by mouth magnesium from magnesium oxide 400 mg twice a day to 3 times a day pending repeat Mg level -nutrition consult, PT/OT eval -Phos level, wnl #anemia, dec in Hb, obtain hemoccult, if +blood hold home noac and GI consult, q6h Hb check, PPI. #Urinary retention: Continue Hodges, monitor input and output, patient was empirically treated with antibiotics, initially due to out patient evaluation of UTI, we'll obtained a UA, if suggestive of UTI, we'll consider resuming antibiotic course, otherwise, will DC, pt has received a few doses, pt on chronic hodges #HTN/GERD: cont home meds, cont BP meds with parameters #rash on R groin: nystatin powder #DMII with neuropathy: cont home meds, ISS, hypoglycemic protocol #L1 fx/hx falls: PT/OT, pain control, cont home meds #History of SIADH: Current sodium is 142, will continue to monitor DVT ppx: Continue home Xarelto 20 mg daily, transition to SCD only if +occult, will obtain blood consent Full code 32 minutes are spent on pt care, plan was discussed with patient, nursing team, and family Dispo: earliest dc home vs rehab 09/28/19: pending clinical presentation, f/u with dietary and PT VS, I&O, 24H, Fishbone Vital Signs/I&O Vital Signs Date Time Temp Pulse Resp B/P (MAP) Pulse Ox O2 Delivery O2 Flow Rate FiO2 09/27/19 03:59 97.4 58 16 128/61 (83) 95 Room Air I&O- Last 24 Hours up to 6 AM 09/27/19 06:00 Intake Total 1610 ml Output Total 950 ml Balance 660 ml Laboratory Data 24H LABS Laboratory Tests 2 09/26/19 08:00: Magnesium Level 2.3 09/26/19 09:00: Whole Blood Ionized Calcium 3.5*L 09/26/19 12:00: Bedside Glucose (Misc Panel) 99 09/26/19 17:15: Bedside Glucose (Misc Panel) 103 09/26/19 20:35: Bedside Glucose (Misc Panel) 78L 09/27/19 03:57: Nucleated Red Blood Cells % (auto) 0.0, Anion Gap 7L, Glomerular Filtration Rate > 60.0, Calcium Level 5.8*L, Whole Blood Ionized Calcium 3.7L, Magnesium Level 1.6L CBC/BMP Laboratory Tests 09/27/19 03:57 JOE BUENROSTRO MD September 27, 2019 07:14
[2019-09-27] MEDS: MAG SULF 1GM/100ML (MAG RUN) 1 GM in IV 1 EA IV SCH ×2 (10:07→11:16)
[2019-09-27] MEDS: METOPROLOL SUCC *XL* 25MG TAB (TopROL *XL*) PO SCH (10:08)
[2019-09-27] MEDS: ISOSORBIDE MON. (IMDUR) 30 MG XR TAB PO SCH (10:10)
[2019-09-27 11:09] LABS: APPEARANCE, URINE CLEAR (CLEAR); BACTERIA, URINE AUTO NEGATIVE (NEGATIVE); BILIRUBIN, URINE AUTO NEGATIVE (NEGATIVE); BLOOD, URINE BLOOD 1+ (NEGATIVE); COLOR, URINE YELLOW (YELLOW); GLUCOSE, URINE (UA) AUTO NEGATIVE (NEGATIVE); KETONE, URINE AUTO NEGATIVE (NEGATIVE); LEUKOCYTE ESTERASE, URINE AUTO 2+ (NEGATIVE); NITRITE, URINE AUTO NEGATIVE (NEGATIVE); PROTEIN, URINE AUTO NEGATIVE (NEGATIVE); RBC, URINE AUTO 2 /HPF (0-3); SPECIFIC GRAVITY URINE AUTO 1.002 (1.002-1.035); SQUAMOUS EPITHELIAL CELL UR AU 0 /HPF (0-6); UROBILINOGEN, URINE AUTO 0.2 mg/dL (0.0-2.0); WBC, URINE AUTO 6 /HPF (0-3)
[2019-09-27] MEDS ORDERED: SLF 3 ML SYR IV PRN (12:00)
[2019-09-27] MEDS: SLF 3 ML SYR IV SCH ×2 (14:00→20:39)
[2019-09-27 17:13] LABS: HEMATOCRIT 33.9 % (42.0-52.0); HEMOGLOBIN 11.5 g/dl (13.5-17.5); MEAN CORPUSCULAR HEMOGLOBIN 36.1 pg (27.0-33.0); MEAN CORPUSCULAR HGB CONC 33.9 g/dl (32.0-36.5); MEAN CORPUSCULAR VOLUME 106.3 fl (80.0-96.0); PLATELET COUNT, AUTOMATED 161 10^3/uL (150-450); RED BLOOD COUNT 3.19 10^6/uL (4.30-6.10); WHITE BLOOD COUNT 6.2 10^3/uL (4.0-10.0)
[2019-09-27] MEDS: ATORVASTATIN 20 MG TAB PO SCH (20:38)
[2019-09-27] MEDS: MIRTAZAPINE 7.5MG PER 1/2 TABLET PO SCH (20:38)
[2019-09-27] MEDS: TAMSULOSIN 0.4 MG CAP PO SCH (20:39)
[2019-09-27] MEDS: **NOTE PATIENT COMMENT** MISC XX SCH (20:39)
[2019-09-27] MEDS: RIVAROXABAN 20 MG TAB (XARELTO) PO SCH (20:39)
[2019-09-28] VITALS: BP 126/76
--- NOTE | 2019-09-28 00:08 | ECGEPIP ---
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
[2019-09-28] MEDS: CEPHALEXIN 500 MG CAP PO SCH ×2 (00:14→06:11)
[2019-09-28 03:43] LABS: HEMATOCRIT 27.9 % (42.0-52.0); MEAN CORPUSCULAR HEMOGLOBIN 35.6 pg (27.0-33.0); MEAN CORPUSCULAR HGB CONC 33.7 g/dl (32.0-36.5); MEAN CORPUSCULAR VOLUME 105.7 fl (80.0-96.0); PLATELET COUNT, AUTOMATED 146 10^3/uL (150-450); RED BLOOD COUNT 2.64 10^6/uL (4.30-6.10); WHITE BLOOD COUNT 4.3 10^3/uL (4.0-10.0)
[2019-09-28 03:54] LABS: HEMOGLOBIN 9.4 g/dl (13.5-17.5)
[2019-09-28 04:00] VITALS: BP 114/70
[2019-09-28 04:05] LABS: BLOOD UREA NITROGEN 5 MG/DL (7-18); CALCIUM LEVEL 6.7 MG/DL (8.8-10.2); CARBON DIOXIDE LEVEL 27 MEQ/L (21-32); CHLORIDE LEVEL 108 MEQ/L (98-107); CREATININE FOR GFR 0.52 MG/DL (0.70-1.30); GLOMERULAR FILTRATION RATE > 60.0 (>35); GLUCOSE, FASTING 77 MG/DL (70-100); MAGNESIUM LEVEL 2.1 MG/DL (1.8-2.4); POTASSIUM SERUM 3.9 MEQ/L (3.5-5.1); SODIUM LEVEL 139 MEQ/L (136-145)
[2019-09-28] MEDS: SLF 3 ML SYR IV SCH (06:11)
[2019-09-28] MEDS: HumaLOG INSULIN (NovoLOG) PER UNIT SC SCH (07:27)
[2019-09-28 07:52] VITALS: BP 112/58
[2019-09-28] MEDS ORDERED: CALCIUM GLUCONATE 1,000 MG in D5W MINI-BAG PLUS 100 ML IV ONE (08:00)
[2019-09-28] MEDS: METOPROLOL SUCC *XL* 25MG TAB (TopROL *XL*) PO SCH (09:00)
[2019-09-28] MEDS: ISOSORBIDE MON. (IMDUR) 30 MG XR TAB PO SCH (09:00)
--- NOTE | 2019-09-28 09:01 | DS.PDOC ---
Discharge Summary General Date of Admission September 25, 2019 at 18:52 Date of Discharge 09/28/19 Discharge Summary PROCEDURES PERFORMED DURING STAY: None. ADMITTING DIAGNOSES: 1. hypomag, hypocalcemia, hypokalemia DISCHARGE DIAGNOSES: 1. hypotension COMPLICATIONS/CHIEF COMPLAINT: Hypocalcemia Hypokalemia Hypomagnesemia. HISTORY OF PRESENT ILLNESS/HOSPITAL COURSE: Assessment and plan: Pt is an 89yM with PMH of cardiac disease, angina free, chronic hypertension with hypertensive heart disease, type 2 diabetes with peripheral neuropathy, CKD 3, chronic atrial fibrillation on anticoagulation, SIADH, history of gout, hypercholesterolemia, BPH with urinary incontinence, dependent on #16 Cisse catheter, hypomagnesemia, glaucoma, presenting with generalized weakness. Patient was initially admitted to ICU. Throughout hospitalization, he received a total of 10 magnesium runs, 3 calcium runs, and potassium replacement. Patient subsequently did well, PT eval cleared pt. Speech therapy evaluation recommends mechanical II diet. For pt's urinary retention, monitor input and output with continued Cisse. Despite patient's improved clinical presentation, it is noted that his heart rate ranged from the 40s to 100s, asymptomatic, and blood pressure in the systolic of 110s. All his blood pressure medication was held. Follow-up with PCP in 1 week, increase magnesium supplement to 3 times a day. No other changes in medication. All questions were answered. After discharge, daughter called for medication clarification. Urine culture is growing Enterococcus faecalis sensitive to levofloxacin, which was prescribed by PCP for 5 days, informed daughter to complete the levofloxacin 5 day course and to not fill the Keflex antibiotic course that I had prescribed in the hospital. Medications to check magnesium, calcium, and potassium levels at PCP visit, consider Holter monitor as an outpatient, hold amlodipine, metoprolol, isosorbide mononitrate. PHYSICAL EXAMINATION: VITAL SIGNS: Please see below. GENERAL: Elderly male in No distress, pleasant, but appears fatigued HEENT: Normocephalic, atraumatic, dry mucous membranes NECK: Supple CARDIOVASCULAR EXAMINATION: S1, S2 RESPIRATORY EXAMINATION: CTAB ABDOMINAL EXAMINATION: Soft, nontender, nondistended, positive bowel sounds EXTREMITIES: no edema SKIN: rash on L inguinal region NEUROLOGICAL EXAMINATION: Awake, 5 out of 5 strength in both upper and lower extremities PSYCHIATRIC EXAMINATION: Calm and cooperative, has capacity Discharge: stable DC home 09/28/19 32 minutes spent on dc Vital Signs/I&Os Vital Signs Date Time Temp Pulse Resp B/P (MAP) Pulse Ox O2 Delivery O2 Flow Rate FiO2 09/28/19 07:52 97.7 60 18 112/58 (76) 97 Room Air I&O- Last 24 Hours up to 6 AM 09/28/19 06:00 Intake Total 1810 ml Output Total 2825 ml Balance -1015 ml Laboratory Data Labs 24H Laboratory Tests 2 09/27/19 10:53: Urine Color YELLOW, Urine Appearance CLEAR, Urine pH 6.0, Urine Specific [place] 1.002, Urine Protein NEGATIVE, Urine Glucose (Auto)(UA) NEGATIVE, Urine Ketones (Auto) NEGATIVE, Urine Blood 1+H, Urine Nitrite NEGATIVE, Urine Bilirubin NEGATIVE, Urine Urobilinogen 0.2, Urine Leukocyte Esterase (Auto) 2+H, Urine WBC (Auto) 6H, Urine RBC (Auto) 2, Urine Hyaline Casts (Auto) 0, Urine Bacteria (Auto) NEGATIVE, Urine Squamous Epithelial Cells 0, Urine Sperm (Auto) 09/27/19 12:07: Bedside Glucose (Misc Panel) 112H 09/27/19 14:07: Magnesium Level 2.5H 09/27/19 16:59: Nucleated Red Blood Cells % (auto) 0.0 09/27/19 17:32: Bedside Glucose (Misc Panel) 106 09/27/19 20:35: Bedside Glucose (Misc Panel) 109 09/28/19 03:22: Nucleated Red Blood Cells % (auto) 0.0, Anion Gap 4L, Glomerular Filtration Rate > 60.0, Calcium Level 6.7#L, Whole Blood Ionized Calcium 4.0L, Magnesium Level 2.1 CBC/BMP Laboratory Tests 09/27/19 16:59 09/28/19 03:22 FSBS Laboratory Tests Test 09/27/19 12:07 09/27/19 17:32 09/27/19 20:35 Range/Units Bedside Glucose (Misc Panel) 112 106 109 83-110 MG/DL Microbiology Microbiology 09/27/19 Urine Culture, Received Pending Discharge Medications Scheduled Aspirin (Ecotrin) 81 Mg Tab, 81 MG PO DAILY, (Reported) Atorvastatin Calcium (Atorvastatin Calcium) 40 Mg Tab, 40 MG PO QPM, (Reported) Bimatoprost (Lumigan) 0.01% 2.5ML Drops, 1 DROP OU QHS, (Reported) PT STATES THAT HE WOULD BE TAKING IT, IF ONLY HE COULD FIND THE DROPS Cephalexin (Cephalexin) 500 Mg Capsule, 500 MG PO Q6H Esomeprazole Magnesium (Esomeprazole Magnesium) 40 Mg Capsule.dr, 40 MG PO DAILY, (Reported) Fludrocortisone Acetate (Fludrocortisone Acetate) 0.1 Mg Tab, 0.1 MG PO DAILY, (Reported) Gabapentin (Gabapentin) 300 Mg Capsule, 300 MG PO TID, (Reported) Lidocaine (Lidocaine) 5% Adh..patch, 2 PATCH TD QHS Magnesium Oxide (Magnesium Oxide) 400 Mg Tablet, 400 MG PO TID Mirtazapine (Mirtazapine) 7.5 Mg Tablet, 1 TAB PO QHS, (Reported) Potassium Chloride (Potassium Chloride) 20 Meq Tab, 20 MEQ PO DAILY, (Reported) Rivaroxaban (Xarelto) 20 Mg Tab, 20 MG PO QPM, (Reported) Tamsulosin HCl (Flomax) 0.4 Mg Capsule, 0.4 MG PO QHS, (Reported) Scheduled PRN Nystatin (Nystatin) 15 Gm Oint...g., 0 DOSE TOP TID PRN for RASH Oxycodone HCl/Acetaminophen (Oxycodone-Acetaminophen 5-325) 1 Each Tablet, 1 TAB PO QID PRN for PAIN, (Reported) Allergies Coded Allergies: No Known Allergies (Verified , 01/29/18) JOE BUENROSTRO MD September 28, 2019 09:01
[2019-09-28] MEDS ORDERED: MAGN400T2 PO (09:07)
[2019-09-28] MEDS ORDERED: CEPH500C PO (09:07)
[2019-09-28] MEDS ORDERED: NYST10OI TOP (09:07)
[2019-09-28] MEDS: PANTOPRAZOLE 40MG VIAL (C9113 PER 1) IV SCH (10:04)
[2019-09-28] MEDS: MAGNESIUM OXIDE 400 MG TAB (MAG-OX) PO SCH (10:05)
[2019-09-28] MEDS: ASPIRIN 81 MG ENTERIC TAB PO SCH (10:05)
[2019-09-28] MEDS: POTASSIUM CHLORIDE 10 MEQ SR TABLET PO SCH (10:05)
[2019-09-28 10:06] VITALS: BP 112/69
[2019-09-28] MEDS: amLODIPine 10 MG TAB PO SCH (10:06)
[2019-09-28] MEDS: GABAPENTIN 300 MG CAP PO SCH (10:06)
[2019-09-28] MEDS: FLUDROCORTISONE ACETATE 0.1 MG TAB PO SCH (10:06)
[2019-09-28] MEDS: LIDOCAINE 5% (LIDODERM) PATCH TD SCH (10:08)
[2019-09-28] MEDS: NYSTATIN OINTMENT 15 GM TOP SCH (10:08)
== END 2019-09-28 11:56 | disposition home or self-care (01) | DRG 641 ==
LOC: M ED 16:13 → M ED INP 18:52 → ENRESERV 19:14 → M ICU 19:43 → M PCU 09-27 11:31
PROVIDERS: ADMIT Family Medicine; ATTEND Family Medicine
DX: E83.42 Hypomagnesemia (principal); I48.20 Chronic atrial fibrillation, unspecified; E22.2 Syndrome of inappropriate secretion of antidiuretic hormone; N39.0 Urinary tract infection, site not specified; I13.10 Hypertensive heart and chronic kidney disease without heart failure, with stage 1 through stage 4 chronic kidney disease, or unspecified chronic kidney disease; E11.42 Type 2 diabetes mellitus with diabetic polyneuropathy; E87.6 Hypokalemia; E11.22 Type 2 diabetes mellitus with diabetic chronic kidney disease; I95.9 Hypotension, unspecified; E83.51 Hypocalcemia; N18.3 Chronic kidney disease, stage 3 (moderate); R33.9 Retention of urine, unspecified; D64.9 Anemia, unspecified; M10.9 Gout, unspecified; B95.2 Enterococcus as the cause of diseases classified elsewhere; E78.00 Pure hypercholesterolemia, unspecified; N40.1 Benign prostatic hyperplasia with lower urinary tract symptoms; R32 Unspecified urinary incontinence; R53.1 Weakness; H40.9 Unspecified glaucoma; Z87.891 Personal history of nicotine dependence; Z79.82 Long term (current) use of aspirin; Z79.01 Long term (current) use of anticoagulants; Z79.899 Other long term (current) drug therapy

== ENCOUNTER → 2019-09-25 | Outpatient (REF) | payer MEDICARE ==
[~2019-09-25] VITALS: Ht 185.4 cm; Wt 79.5 kg
[~2019-09-25] MED LIST changes: +ACETAMINOPHEN TAB 650MG DOSE (2X325MG) PO PRN; +CALCIUM GLUCONATE 1,000 MG in D5W MINI-BAG PLUS 100 ML IV SCH; +CEPH500C PO; +MAALOX 30 ML SUSP *UDC PO PRN; +MAG SULF 1GM/100ML (MAG RUN) 1 GM in IV 1 EA IV SCH; +MAGNESIUM OXIDE 400 MG TAB (MAG-OX) PO SCH; +MIRT1TAB PO; +MOM 30ML SUSPENSION UDC PO PRN; +NYST10OI TOP
== END ==
LOC: M LAB REF 16:35
PROVIDERS: ATTEND Registered Nurse
DX: N39.0 Urinary tract infection, site not specified (principal)

== ENCOUNTER 2020-02-08 11:08 | Emergency (ER) | payer MEDICARE ==
[~2020-02-08] VITALS: Ht 185.4 cm; Wt 84.1 kg
[~2020-02-08 11:08] MED LIST changes: +CEPH500C PO; +MIRT1TAB PO; +NYST10OI TOP
--- NOTE | 2020-02-08 11:58 | REPVR ---
PROCEDURE INFORMATION: Exam: CT Cervical Spine Without Contrast Exam date and time: 02/08/2020 11:30 AM Age: 89 years old Clinical indication: Injury or trauma; Fall; Initial encounter; Blunt trauma; Additional info: [employer] TECHNIQUE: Imaging protocol: Computed tomography images of the cervical spine without contrast. Radiation optimization: All CT scans at this facility use at least one of these dose optimization techniques: automated exposure control; mA and/or kV adjustment per patient size (includes targeted exams where dose is matched to clinical indication); or iterative reconstruction. COMPARISON: No relevant prior studies available. FINDINGS: Vertebrae: There is a [id number] T2 compression fracture with approximately 30% loss of height. Normal vertebral body heights are otherwise preserved. Discs/Spinal canal/Neural foramina: There is moderate intervertebral disc space loss at C3/4. There is multilevel facet hypertrophy. There is fusion of the C3 and C4 posterior elements. Soft tissues: Unremarkable. Lungs: There is biapical scarring. IMPRESSION: [id number] T2 compression deformity of indeterminate acuity. Electronically signed by: Marleen Rosales On 02/08/2020 11:57:59 AM
--- NOTE | 2020-02-08 12:07 | REPVR ---
PROCEDURE INFORMATION: Exam: CT Head Without Contrast Exam date and time: 02/08/2020 11:30 AM Age: 89 years old Clinical indication: Injury or trauma; Fall; Initial encounter; Blunt trauma (contusions or hematomas); Additional info: [employer] TECHNIQUE: Imaging protocol: Computed tomography of the head without contrast. Radiation optimization: All CT scans at this facility use at least one of these dose optimization techniques: automated exposure control; mA and/or kV adjustment per patient size (includes targeted exams where dose is matched to clinical indication); or iterative reconstruction. COMPARISON: CT Head without contrast 07/14/2019 3:10 PM FINDINGS: Brain: There is no acute intracranial hemorrhage or mass effect. Moderate diffuse volume loss is within the range of normal for patient age. There are small vessel ischemic changes within the periventricular and subcortical white matter, but the normal escobar-white matter delineation is maintained. 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 Cerebral ventricles: Prominence of the ventricular system is commensurate with volume loss. Bones/joints: Unremarkable. No acute fracture. Paranasal sinuses: There is trace fluid within the left maxillary sinus. Mastoid air cells: Visualized mastoid air cells are well aerated. Soft tissues: Unremarkable. IMPRESSION: No acute hemorrhage or calvarial fracture. Electronically signed by: Marleen Rosales On 02/08/2020 12:07:33 PM
[2020-02-08 12:10] LABS: BASO % 0.4 % (0.0-1.0); EOS # 0.2 10^3/uL (0.0-0.5); EOS % 2.7 % (0.0-3.0); HEMATOCRIT 36.1 % (42.0-52.0); HEMOGLOBIN 12.4 g/dl (13.5-17.5); LYMPH # 1.1 10^3/uL (1.5-5.0); LYMPH % 13.6 % (24.0-44.0); MEAN CORPUSCULAR HEMOGLOBIN 33.5 pg (27.0-33.0); MEAN CORPUSCULAR HGB CONC 34.3 g/dl (32.0-36.5); MEAN CORPUSCULAR VOLUME 97.6 fl (80.0-96.0); MONO # 0.9 10^3/uL (0.0-0.8); MONO % 11.5 % (0.0-5.0); NEUTROPHILS # 5.6 10^3/uL (1.5-8.5); NEUTROPHILS % 71.5 % (36.0-66.0); PLATELET COUNT, AUTOMATED 142 10^3/uL (150-450); WHITE BLOOD COUNT 7.8 10^3/uL (4.0-10.0)
--- NOTE | 2020-02-08 12:26 | REPVR ---
PROCEDURE INFORMATION: Exam: XR Right Hip with Pelvis when Performed Exam date and time: 02/08/2020 12:21 PM Age: 89 years old Clinical indication: Hip pain; Right hip; Additional info: Trauma TECHNIQUE: Imaging protocol: XR Right hip with pelvis when performed. Views: 2 or 3 views. COMPARISON: CT Pelvis without contrast 07/07/2019 7:17 PM FINDINGS: Bones/joints: There are moderate hip joint degenerative changes bilaterally. There is no acute fracture. Soft tissues: Unremarkable. IMPRESSION: Moderate hip joint degeneration. No acute fracture. Electronically signed by: Marleen Rosales On 02/08/2020 12:26:45 PM
[2020-02-08 12:42] LABS: BLOOD UREA NITROGEN 13 MG/DL (7-18); CARBON DIOXIDE LEVEL 26 MEQ/L (21-32); CHLORIDE LEVEL 109 MEQ/L (98-107); CK-MB VALUE MASS < 1.0 NG/ML (<3.6); CPK CREATINE PHOSPHOKINASE 162 U/L (39-308); CREATININE FOR GFR 0.75 MG/DL (0.70-1.30); GLOMERULAR FILTRATION RATE > 60.0 (>35); GLUCOSE, FASTING 100 MG/DL (70-100); MAGNESIUM LEVEL 1.6 MG/DL (1.8-2.4); MB/CK RELATIVE INDEX 0.62 (< OR =4); POTASSIUM SERUM 3.7 MEQ/L (3.5-5.1); SODIUM LEVEL 140 MEQ/L (136-145); TROPONIN I < 0.02 NG/ML (< 0.10)
[2020-02-08] MEDS ORDERED: METO1TAB32 PO (14:00)
[2020-02-08] MEDS ORDERED: LOTR10CA2 PO (14:00)
[2020-02-08] MEDS ORDERED: MAG SULF 1GM/100ML (MAG RUN) 1 GM in IV 1 EA IV ONE (15:00)
[2020-02-08 16:44] VITALS: BP 151/76
--- NOTE | 2020-02-09 09:27 | ECGEPIP ---
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
--- NOTE | 2020-02-10 23:32 | ED PDOC ---
Post-Departure Follow-Up dr brown faxed formal report of ct c spine for Harry Vail MD Feb 10, 2020 23:32
== END 2020-02-08 16:47 | disposition home or self-care (01) ==
LOC: M ED 11:08
DX: S70.01XA Contusion of right hip, initial encounter (principal); S22.020A Wedge compression fracture of second thoracic vertebra, initial encounter for closed fracture; W06.XXXA Fall from bed, initial encounter; Y92.003 Bedroom of unspecified non-institutional (private) residence as the place of occurrence of the external cause; E83.42 Hypomagnesemia; R94.31 Abnormal electrocardiogram [ECG] [EKG]; M16.11 Unilateral primary osteoarthritis, right hip; I48.91 Unspecified atrial fibrillation; I10 Essential (primary) hypertension; I25.10 Atherosclerotic heart disease of native coronary artery without angina pectoris; E11.9 Type 2 diabetes mellitus without complications; N18.9 Chronic kidney disease, unspecified; Z79.01 Long term (current) use of anticoagulants; Z79.899 Other long term (current) drug therapy
CPT/HCPCS: 70450; 72125; 73502; 80048; 82550; 82553; 83735; 84484; 85025; 93005; 93041; 96365; 99285; J3475

== ENCOUNTER 2020-02-22 09:36 | Inpatient (IN) | payer MEDICARE ==
[~2020-02-22] VITALS: Ht 185.4 cm; Wt 77.7 kg
--- NOTE | 2020-02-22 10:29 | REPVR ---
PROCEDURE INFORMATION: Exam: XR Chest, 1 View Exam date and time: 02/22/2020 10:09 AM Age: 89 years old Clinical indication: Other: AMS general weakness; Additional info: Altered mental status TECHNIQUE: Imaging protocol: XR of the chest Views: 1 view. COMPARISON: CR Chest, 2 view PA, Lat 07/14/2019 3:22 PM FINDINGS: Lungs: Lung volumes are mildly reduced. No consolidation. Pleural space: No significant pleural effusions. No pneumothorax. Heart/Mediastinum: Cardiac size is at the upper limits of normal and appears stable. Stable mediastinal contours with a tortuous and atherosclerotic thoracic aorta. Bones/joints: Bones are stable. Osteopenia. Degenerative changes. IMPRESSION: No acute abnormalities are identified. Electronically signed by: Esau Iglesias On 02/22/2020 10:29:30 AM
[2020-02-22 10:37] LABS: BASO % 0.1 % (0.0-1.0); HEMATOCRIT 29.1 % (42.0-52.0); HEMOGLOBIN 9.5 g/dl (13.5-17.5); LYMPH # 0.9 10^3/uL (1.5-5.0); LYMPH % 4.5 % (24.0-44.0); MEAN CORPUSCULAR HGB CONC 32.6 g/dl (32.0-36.5); MONO # 0.9 10^3/uL (0.0-0.8); MONO % 4.4 % (0.0-5.0); NEUTROPHILS # 18.3 10^3/uL (1.5-8.5); NEUTROPHILS % 90.2 % (36.0-66.0); PLATELET COUNT, AUTOMATED 240 10^3/uL (150-450); RED BLOOD COUNT 2.88 10^6/uL (4.30-6.10); WHITE BLOOD COUNT 20.3 10^3/uL (4.0-10.0)
--- NOTE | 2020-02-22 11:03 | REPVR ---
PROCEDURE INFORMATION: Exam: CT Head Without Contrast Exam date and time: 02/22/2020 10:32 AM Age: 89 years old Clinical indication: Altered mental status/memory loss TECHNIQUE: Imaging protocol: Computed tomography of the head without contrast. Radiation optimization: All CT scans at this facility use at least one of these dose optimization techniques: automated exposure control; mA and/or kV adjustment per patient size (includes targeted exams where dose is matched to clinical indication); or iterative reconstruction. COMPARISON: CT Head without contrast 02/08/2020 11:36 AM FINDINGS: Brain: There is patchy hypodensity within the periventricular and deep white matter of both cerebral hemispheres, consistent with chronic small vessel ischemic change. 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 No acute intracranial hemorrhage or mass effect. Cerebral ventricles: Ventricles and extra-axial CSF spaces are stable in size with mild generalized atrophy. Ventricles are midline without shift. Bones/joints: Unremarkable. No acute fracture. Paranasal sinuses: Minimal maxillary sinus mucosal thickening and/or trace fluid. Mastoid air cells: Visualized mastoid air cells are well aerated. Vasculature: Carotid and vertebral artery calcification. Soft tissues: Unremarkable. IMPRESSION: Stable head CT. Chronic small vessel ischemic changes and mild generalized atrophy. No acute intracranial hemorrhage or mass effect. Electronically signed by: Esau Iglesias On 02/22/2020 11:03:06 AM
[2020-02-22 11:21] LABS: ALBUMIN 2.1 GM/DL (3.2-5.2); ALT/SGPT 130 U/L (12-78); BILIRUBIN,DIRECT 1.7 MG/DL (0.0-0.2); BILIRUBIN,TOTAL 2.4 MG/DL (0.2-1.0); BLOOD UREA NITROGEN 11 MG/DL (7-18); CALCIUM LEVEL 7.9 MG/DL (8.8-10.2); CARBON DIOXIDE LEVEL 26 MEQ/L (21-32); CHLORIDE LEVEL 108 MEQ/L (98-107); CREATININE FOR GFR 0.99 MG/DL (0.70-1.30); GLOMERULAR FILTRATION RATE > 60.0 (>35); GLUCOSE, FASTING 125 MG/DL (70-100); SODIUM LEVEL 141 MEQ/L (136-145); TOTAL PROTEIN 5.5 GM/DL (6.4-8.2)
[2020-02-22] MEDS ORDERED: cefTRIAXone SOD 2 GM in D5W MINI-BAG PLUS 50 ML IV ONE (11:45)
[2020-02-22] MEDS ORDERED: NS 2,280 ML in IV 1 EA IV ONE (11:45)
[2020-02-22] MEDS ORDERED: ISOS30TA4 PO (11:51)
[2020-02-22] MEDS ORDERED: FURO20TA2 PO (11:51)
[2020-02-22] MEDS ORDERED: LIDO1PAD TD (11:51)
[2020-02-22] MEDS ORDERED: MAGN400T2 PO (11:51)
[2020-02-22] MEDS ORDERED: ISOVUE-370 76% 100ML VIAL As Ordered ONE (11:58)
--- NOTE | 2020-02-22 12:27 | REPVR ---
PROCEDURE INFORMATION: Exam: CT Abdomen And Pelvis With Contrast Exam date and time: 02/22/2020 12:00 PM Age: 89 years old Clinical indication: Abnormal findings; Abnormal lab test; Other: Abd normal labs; Additional info: Abnormal labs TECHNIQUE: Imaging protocol: Computed tomography of the abdomen and pelvis with intravenous contrast. Radiation optimization: All CT scans at this facility use at least one of these dose optimization techniques: automated exposure control; mA and/or kV adjustment per patient size (includes targeted exams where dose is matched to clinical indication); or iterative reconstruction. Contrast material: ISOVUE 370; Contrast volume: 100 ml; Contrast route: INTRAVENOUS (IV); COMPARISON: CT Pelvis without contrast 07/07/2019 7:17 PM FINDINGS: Lungs: Interstitial disease, mild bronchial dilatation, and trace airspace disease. Coronary artery calcification and borderline cardiomegaly. Liver: Fatty infiltration of the liver. Gallbladder and bile ducts: High attenuation bile and/or calculi, mild gallbladder wall thickening, and infiltration of pericholecystic fat; suspicious for cholecystitis. Pancreas: 11 mm pancreatic head cyst. Spleen: No splenomegaly. Adrenals: Subtle left adrenal nodularity. Kidneys and ureters: Renal cysts, including a 4.2 cm exophytic cyst arising from the anterior left kidney. No hydronephrosis. Stomach and bowel: Marked gastric wall thickening, which can be better evaluated with endoscopy, as clinically indicated. Mild bowel dilatation and prominent stool. Diverticula, without pericolonic inflammation. Appendix: Appendix not visualized. Intraperitoneal space: Trace fluid in the paracolic gutters. Vasculature: Prominent vascular calcification and ectasia of the abdominal aorta . 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 Lymph nodes: Subcentimeter lymph nodes. Urinary bladder: Bladder wall thickening and lobulated morphology. Reproductive: Enlarged prostate. Bones/joints: Osteopenia. Degenerative change , disc bulging, and mild scoliosi. Sclerotic L1 compression fracture with 6 mm retropulsion. Soft tissues: Small fat containing umbilical hernia. IMPRESSION: 1. Marked gastric wall thickening, which can be better evaluated with endoscopy, as clinically indicated. 2. High attenuation bile and/or calculi, mild gallbladder wall thickening, and infiltration of pericholecystic fat; suspicious for cholecystitis. 3. 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 4. Bladder wall thickening and lobulated morphology. 5. Additional findings as described above. Electronically signed by: Chinmay Luis On 02/22/2020 12:27:18 PM
--- NOTE | 2020-02-22 14:30 | REPVR ---
PROCEDURE INFORMATION: Exam: US Abdomen, Limited; Right Upper Quadrant Exam date and time: 02/22/2020 2:20 PM Age: 89 years old Clinical indication: Abnormal findings; Abnormal radiologic finding of the abdomen; Radiologic exam and body structure: CT; Additional info: ? Cbd stone TECHNIQUE: Imaging protocol: US abdomen. Real time ultrasound with image documentation. Limited exam focused on the right upper quadrant. COMPARISON: CT ABD/PEL W/IV CONTRAST ONLY 02/22/2020 11:58 AM FINDINGS: Liver: No focal hepatic mass. Gallbladder: Echogenic bile and wall thickening in the gallbladder. Assessment of a sonographic Kirby sign was not reported by the scanning technologist. Common bile duct: Normal caliber of the visualized common bile duct measuring 7 mm in maximum diameter. Pancreas: Obscuration of the pancreas by bowel gas. Right kidney: Normal right renal morphology. No hydronephrosis. IMPRESSION: 1. Echogenic bile and wall thickening in the gallbladder. 2. Normal caliber of the visualized common bile duct measuring 7 mm in maximum diameter. Electronically signed by: Chinmay Luis On 02/22/2020 14:30:22 PM
[2020-02-22] MEDS ORDERED: ACETAMINOPHEN TAB 650MG DOSE (2X325MG) PO PRN (15:15)
[2020-02-22] MEDS ORDERED: PERCOCET 5MG/325MG TAB PO PRN (15:15)
[2020-02-22] MEDS ORDERED: LIDOCAINE 5% (LIDODERM) PATCH TD PRN (15:15)
[2020-02-22 15:34] LABS: LIPASE 31 U/L (73-393); NT-PRO BNP 3627 PG/ML (<450)
[2020-02-22] MEDS ORDERED: XARE20TA PO (15:45)
[2020-02-22] MEDS ORDERED: FLOM0.4C39 PO (15:45)
--- NOTE | 2020-02-22 15:46 | HPEPDOC ---
[facility] Medical History & Physical Date of Admission Feb 22, 2020 Date of Service: Feb 22, 2020 History and Physical Chief complaint: Presented to the ER with weakness History of present illness: Patient is an 89 year old female with a PMHx of A. fib (on Xarelto), HTN, Orthostatic hypotension (on Fludrocortisone), DLP, BPH, Gout, GERD, Post- herpetic neuralgia, Glaucoma who presents to the hospital at the direction of his son. Patient reports that he came to the emergency room because of weakness. Patient is a poor historian. Patient denies any nausea, vomiting, chest pain, shortness of breath. Reports a nonproductive cough. Denies any abdominal pain, constipation, diarrhea, or urinary discomfort. Denies any foul odor of his urine. Denies any fevers or chills as an outpatient. Patient does report lower story swelling has been progressive over last 3 months. He denies any diuretics as an outpatient. Patient reports that he does ambulate with a walker. Patient reports his appetite is fairly normal, but has experience a weight loss of 12-15 pounds over last 6 months. Past Medical History: A. fib (on Xarelto), HTN, Orthostatic hypotension (on Fludrocortisone), DLP, BPH, Gout, GERD, Post-herpetic neuralgia, Glaucoma Past Surgical History: Right shoulder surgery Left neck cyst resection Bilateral hand, question will trigger finger surgery No reported abdominal surgeries. Allergies: See below Medications: See below Family History: - No history of malignancies Social History: - Denies the use of illicit drugs; patient reports that he socially uses alcohol; patient reports that he quit smoking 15 years ago but was a smoker of [address] 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 [employer] Review of Systems: 10 point review of systems complete, all negative otherwise stated in HPI Physical exam: - Vitals: BP [128/59], HR [62], RR [17], Sat [96%RA], Temp [97.0F] - General: Lying in bed, Speaking in full sentences, AAOx3 - HEENT: NC, AT, PERRLA - CVS: IrIr, +S1S2 - Lungs: Fair air entry bilaterally, No wheezing / rhonchi, faint bilateral cr ackles are appreciated - Abdomen: Soft, Non-distended, Non-tender - Extremities: 1-2+ pitting edema bilaterally, No calf tenderness - Neuro: No focal motor or sensory deficit - Skin: No visible rashes Assessment and Plan: Weakness - Patient is oriented x3 - No focal neurologic deficits - CT head 02/21: Stable head CT. Chronic small vessel ischemic changes and mild generalized atrophy. No acute intracranial hemorrhage or mass effect. - Will consider physical therapy tomorrow Evidence of fluid overload - Patient is hemodynamically stable and afebrile / saturating well on room air - Physical reveals lower extremity swelling trace crackles at bilateral lower suzy ng neves - BNP elevated - CXR 02/21: No acute abnormalities are identified. - Will check ECHO - Strict ins/outs, Daily weights, Fluid restriction - Will hold IVF fluids for now - Will likely give Lasix after labs result Leukocytosis - possibly 2/2 UTI, less likely 2/2 acute cholecystitis - Patient denies any symptoms on review of systems; no nausea, vomiting, abdominal pain or discomfort with urination - Physical without any abdominal tenderness - UA is grossly abnormal; history of Enterococcus faecalis UTI 09/26 - Elevated liver enzymes/bilirubin - Lipase normal - CT abdomen / pelvis 02/21: 1. Marked gastric wall thickening, which can be better evaluated with endoscopy, as clinically indicated. 2. High attenuation bile and/or calculi, mild gallbladder wall thickening, and infiltration of pericholecystic fat; suspicious for cholecystitis. 3. 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 4. Bladder wall thickening and lobulated morphology. 5. Additional findings as described above. - US abdomen 02/21: 1. Echogenic bile and wall thickening in the gallbladder. 2. Normal caliber of the visualized common bile duct measuring 7 mm in maximum diameter. - Case was discussed between ER provider and General surgery (Dr. Franz); no plans for intervention at this time; advised to manage conservatively with antibiotics - Will check Blood cultures / Urine cultures / Lactic acid / Procalcitonin - Will start Zosyn (re: Intra-abdominal coverage / UTI coverage) Macrocytic anemia - Hg baseline of 9-11 - Hg possibly lower than baseline - Will check B12 / Folate A. fib - EKG reviewed; similar to prior; still in a. fib, rate controlled - c/w Metoprolol with holding parameters - c/w full anticoagulation with Xarelto HTN - BP well controlled - c/w Metoprolol with hold parameters - Amlodipine / Benazapril on hold Orthostatic hypotension - Will c/w Fludrocortisone DLP - c/w Atorvastatin BPH - Hx of hodges catheter Gout - c/w Post-herpetic neuralgia - c/w Lidocaine patch Glaucoma - Will replace home medications with Latanoprost GERD - Will start Protonix; hold home oral PPI DVT prophylaxis - Will c/w full anticoagulation with Xarelto Vital Signs Vital Signs Date Time Temp Pulse Resp B/P (MAP) Pulse Ox O2 Delivery O2 Flow Rate FiO2 02/22/20 15:31 97.2 61 18 141/65 (90) 96 Room Air Laboratory Data Labs 24H Laboratory Tests 2 02/22/20 10:21: Immature Granulocyte % (Auto) 0.8, Neutrophils (%) (Auto) 90.2H, Lymphocytes (%) (Auto) 4.5L, Monocytes (%) (Auto) 4.4, Eosinophils (%) (Auto) 0.0, Basophils (%) (Auto) 0.1, Neutrophils # (Auto) 18.3H, Lymphocytes # (Auto) 0.9L, Monocytes # (Auto) 0.9H, Eosinophils # (Auto) 0.0, Basophils # (Auto) 0.0, Nucleated Red Blood Cells % (auto) 0.0, Anion Gap 7L, Glomerular Filtration Rate > 60.0, Calcium Level 7.9L, Total Bilirubin 2.4H, Direct Bilirubin 1.7H, Aspartate Amino Transf (AST/SGOT) 236H, Alanine Aminotransferase (ALT/SGPT) 130H, Alkaline Phosphatase 287H, Ammonia 25, UA-Cwd-T-Type Natriuretic Peptide 3627H, Total Protein 5.5L, Albumin 2.1L, Albumin/Globulin Ratio 0.6, Lipase 31L, Thyroid Stim ulating Hormone (TSH) 1.220 02/22/20 10:27: POC Glucose (Misc Panel) 127H, POC Sodium (Misc Panel) 141, POC Potassium (Misc Panel) 3.9, POC Chloride (Misc Panel) 101, POC Total CO2 (Misc Panel) 23.0, POC Blood Urea Nitrogen (Misc Panel 11, POC Ionized Calcium (Misc Panel) 4.7, POC Creatinine (Misc Panel) 0.8, POC Hematocrit (Misc Panel) 29.0L 02/22/20 10:36: POC Troponin I (Misc) 0.00 02/22/20 12:49: Urine Color KAYLEIGH, Urine Appearance CLOUDYH, Urine pH 6.0, Urine Specific [place] 1.027, Urine Protein NEGATIVE, Urine Glucose (UA) NEGATIVE, Urine Ketones NEGATIVE, Urine Blood 1+H, Urine Nitrite NEGATIVE, Urine Bilirubin NEGATIVE, Urine Urobilinogen 4.0H, Urine Leukocyte Esterase 2+H, Urine WBC (Auto) TNTCH, Urine RBC (Auto) 8H, Urine Hyaline Casts (Auto) 0, Urine Bacteria (Auto) 3+H, Urine Squamous Epithelial Cells 0, Urine Mucus (Auto) SMALL, Urine Sperm (Auto) SMALLH 02/22/20 15:04: Lactic Acid Level 1.7 CBC/BMP Laboratory Tests 02/22/20 10:21 Microbiology Microbiology 02/22/20 Urine Culture, Received Pending 02/22/20 Blood Culture, Received Pending 02/22/20 Blood Culture, Received Pending Home Medications Scheduled Aspirin (Ecotrin) 81 Mg Tab, 81 MG PO DAILY Atorvastatin Calcium (Atorvastatin Calcium) 40 Mg Tab, 40 MG PO QPM Bimatoprost (Lumigan) 0.01% 2.5ML Drops, 1 DROP OU QHS PT STATES THAT HE WOULD BE TAKING IT, IF ONLY HE COULD FIND THE DROPS Cefdinir (Cefdinir) 300 Mg Capsule, 300 MG PO BID Esomeprazole Magnesium (Esomeprazole Magnesium) 40 Mg Capsule.dr, 40 MG PO DAILY Fludrocortisone Acetate (Fludrocortisone Acetate) 0.1 Mg Tab, 0.1 MG PO DAILY Furosemide (Furosemide) 40 Mg Tablet, 1 TAB PO DAILY Gabapentin (Gabapentin) 300 Mg Capsule, 300 MG PO TID Magnesium Oxide (Magnesium Oxide) 400 Mg Tablet, 400 MG PO BID Magnesium Oxide (Magnesium Oxide) 400 Mg Tablet, 400 MG PO BID TAKES OTC MAG OXIDE IN ADDITION TO SCRIPT MAG OXIDE Metoprolol Succinate (Metoprolol Succinate) 25 Mg Tab.er.24h, 25 MG PO QPM Mirtazapine (Mirtazapine) 7.5 Mg Tablet, 7.5 MG PO QHS Potassium Chloride (Potassium Chloride) 20 Meq Tab, 10 MEQ PO BID CUTS IN HALF BECAUSE OF LARGE PILL Potassium Chloride (Potassium Chloride) 20 Meq Tablet.er, 2 TAB PO DAILY Rivaroxaban (Xarelto) 20 Mg Tablet, 20 MG PO QPM Tamsulosin HCl (Flomax) 0.4 Mg Capsule, 0.4 MG PO QPM Scheduled PRN Lidocaine (Lidocaine) 5% Adh..patch, 2 PATCH TD DAILY PRN for PAIN Oxycodone HCl/Acetaminophen (Oxycodone-Acetaminophen 5-325) 1 Each Tablet, 1 TAB PO QID PRN for PAIN Allergies Coded Allergies: No Known Allergies (Verified , 01/29/18) BALDEV MACK MD Feb 22, 2020 15:46
[2020-02-22] MEDS ORDERED: FUROSEMIDE 20MG/2ML VIAL (J1940) IV ONE (16:00)
[2020-02-22 16:10] LABS: MAGNESIUM LEVEL 1.4 MG/DL (1.8-2.4)
[2020-02-22 16:16] VITALS: BP 134/79
[2020-02-22 16:28] LABS: VITAMIN B12 LEVEL 553 PG/ML
[2020-02-22 16:29] LABS: FOLATE 2.3 NG/ML
[2020-02-22 16:39] LABS: HEPATITIS B SURFACE ANTIGEN NEGATIVE (NEGATIVE)
[2020-02-22] MEDS: RIVAROXABAN 20 MG TAB (XARELTO) PO SCH (16:41)
[2020-02-22] MEDS: GABAPENTIN 300 MG CAP PO SCH ×2 (16:41→21:02)
[2020-02-22] MEDS: PANTOPRAZOLE 40MG VIAL (C9113 PER 1) IV SCH (16:41)
[2020-02-22] MEDS: PIPERACILLIN/TAZOBACTAM SOD 3.375 GM in D5W MINI-BAG PLUS 50 ML IV SCH ×2 (16:42→23:45)
--- NOTE | 2020-02-22 16:53 | ECGEPIP ---
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
[2020-02-22 17:06] LABS: HEPATITIS B CORE ANTIBODY IGM NEGATIVE (NEGATIVE)
[2020-02-22 17:08] LABS: HEPATITIS A ANTIBODY IGM NEGATIVE (NEGATIVE)
[2020-02-22] MEDS: MAG SULF 1GM/100ML (MAG RUN) 1 GM in IV 1 EA IV SCH ×2 (18:13→18:59)
--- NOTE | 2020-02-22 18:17 | REPVR ---
PROCEDURE INFORMATION: Exam: US Duplex Lower Extremity Veins, Bilateral Exam date and time: 02/22/2020 6:02 PM Age: 89 years old Clinical indication: Swelling (edema) of limb; Lower extremity, bilateral TECHNIQUE: Imaging protocol: Real-time duplex ultrasound of the extremities with 2-D escobar scale, color Doppler flow and spectral waveform analysis with image documentation. Complete exam focused on the bilateral lower extremity veins. COMPARISON: No relevant prior studies available. FINDINGS: Right deep veins: Unremarkable. The common femoral, femoral and popliteal veins are patent without thrombus. Normal Doppler waveforms. Normal compressibility and/or augmentation response. Right superficial veins: Saphenofemoral junction is patent without thrombus. Left deep veins: Unremarkable. The common femoral, femoral and popliteal veins are patent without thrombus. Normal Doppler waveforms. Normal compressibility and/or augmentation response. Left superficial veins: Saphenofemoral junction is patent without thrombus. Soft tissues: Unremarkable. IMPRESSION: No sonographic evidence of deep vein thrombosis. Electronically signed by: Ronnie Kwan On 02/22/2020 18:17:07 PM
[2020-02-22] MEDS: **NOTE PATIENT COMMENT** MISC XX SCH (21:00)
[2020-02-22] MEDS ORDERED: MAGNESIUM OXIDE 400 MG TAB (MAG-OX) PO SCH ×2 (21:00)
[2020-02-22] MEDS: MIRTAZAPINE 7.5MG PER 1/2 TABLET PO SCH (21:01)
[2020-02-22] MEDS: TAMSULOSIN 0.4 MG CAP PO SCH (21:02)
[2020-02-22] MEDS: POTASSIUM CHLORIDE 10 MEQ SR TABLET PO SCH (21:02)
[2020-02-22] MEDS: MAGNESIUM OXIDE 400 MG TAB (MAG-OX) PO SCH (21:03)
[2020-02-22] MEDS: METOPROLOL SUCC *XL* 25MG TAB (TopROL *XL*) PO SCH (21:03)
[2020-02-22] MEDS: LATANOPROST 0.005% OPHTH SOLN 2.5 ML OU SCH (21:04)
[2020-02-22 22:00] VITALS: BP 113/67
[2020-02-22] MEDS ORDERED: HEPARIN SOD (PORCINE) 5000UNITS/ML 1ML VIAL/SYRINGE SQ SCH (22:00)
[2020-02-23] MEDS: PIPERACILLIN/TAZOBACTAM SOD 3.375 GM in D5W MINI-BAG PLUS 50 ML IV SCH ×4 (04:04→23:20)
[2020-02-23 05:36] LABS: BASO % 0.3 % (0.0-1.0); EOS # 0.3 10^3/uL (0.0-0.5); EOS % 2.4 % (0.0-3.0); HEMATOCRIT 32.3 % (42.0-52.0); HEMOGLOBIN 10.6 g/dl (13.5-17.5); LYMPH # 1.1 10^3/uL (1.5-5.0); LYMPH % 8.8 % (24.0-44.0); MEAN CORPUSCULAR HEMOGLOBIN 32.8 pg (27.0-33.0); MEAN CORPUSCULAR HGB CONC 32.8 g/dl (32.0-36.5); MONO # 0.8 10^3/uL (0.0-0.8); MONO % 6.3 % (0.0-5.0); NEUTROPHILS # 10.7 10^3/uL (1.5-8.5); NEUTROPHILS % 81.8 % (36.0-66.0); PLATELET COUNT, AUTOMATED 203 10^3/uL (150-450); RED BLOOD COUNT 3.23 10^6/uL (4.30-6.10)
[2020-02-23 06:00] VITALS: BP 150/79
[2020-02-23 06:03] LABS: BLOOD UREA NITROGEN 9 MG/DL (7-18); CALCIUM LEVEL 7.9 MG/DL (8.8-10.2); CARBON DIOXIDE LEVEL 27 MEQ/L (21-32); CHLORIDE LEVEL 108 MEQ/L (98-107); CREATININE FOR GFR 0.76 MG/DL (0.70-1.30); GLOMERULAR FILTRATION RATE > 60.0 (>35); GLUCOSE, FASTING 80 MG/DL (70-100); MAGNESIUM LEVEL 1.7 MG/DL (1.8-2.4); POTASSIUM SERUM 3.3 MEQ/L (3.5-5.1); SODIUM LEVEL 142 MEQ/L (136-145)
[2020-02-23] MEDS ORDERED: POTASSIUM CHLORIDE 10 MEQ SR TABLET PO ONE (07:30)
[2020-02-23] MEDS ORDERED: MAG SULF 1GM/100ML (MAG RUN) 1 GM in IV 1 EA IV ONE (08:00)
[2020-02-23] MEDS: GABAPENTIN 300 MG CAP PO SCH ×3 (08:36→20:57)
[2020-02-23] MEDS: FLUDROCORTISONE ACETATE 0.1 MG TAB PO SCH (08:36)
[2020-02-23] MEDS: ATORVASTATIN 20 MG TAB PO SCH (08:36)
[2020-02-23] MEDS: ASPIRIN 81 MG ENTERIC TAB PO SCH (08:36)
[2020-02-23] MEDS: MAGNESIUM OXIDE 400 MG TAB (MAG-OX) PO SCH ×2 (08:37→20:57)
[2020-02-23] MEDS: POTASSIUM CHLORIDE 10 MEQ SR TABLET PO SCH ×2 (08:38→20:58)
[2020-02-23 09:36] LABS: ALBUMIN 2.1 GM/DL (3.2-5.2); ALT/SGPT 102 U/L (12-78); BILIRUBIN,DIRECT 0.9 MG/DL (0.0-0.2); BILIRUBIN,TOTAL 1.4 MG/DL (0.2-1.0); TOTAL PROTEIN 5.7 GM/DL (6.4-8.2)
[2020-02-23] MEDS ORDERED: FUROSEMIDE 20MG/2ML VIAL (J1940) IV ONE (10:00)
--- NOTE | 2020-02-23 10:00 | IPNPDOC ---
Text Note Date of Service The patient was seen on 02/23/20. NOTE Subjective: Patient is an 89 year old female with a PMHx of A. fib (on Xarelto), HTN, Orthostatic hypotension (on Fludrocortisone), DLP, BPH, Gout, GERD, Post- herpetic neuralgia, Glaucoma who presents to the hospital at the direction of his son. Patient reports that he came to the emergency room because of weakness. Patient is a poor historian. Patient does report lower story swelling has been progressive over last 3 months. He denies any diuretics as an outpatient. Patient was seen and examined at the bedside. Patient appears to be more comfort able. Denies any chest pain, shortness of breath, palpitations, nausea, vomiting, abdominal pain, diarrhea, or urinary discomfort. Patient will be working with physical therapy today. Objective: Vitals (See below) General: Lying in bed, no acute distress, comfortable, AAOx3 HEENT: NC, AT CVS: +S1S2 Lungs: Fair air entry b/l, auscultation is without rhonchi, rales or wheezing Abdomen: Soft, ND, NT Extremities: 1+ pitting edema bilaterally, - Calf tenderness Assessment and plan: Weakness - Patient is oriented x3 - No focal neurologic deficits - CT head 02/21: Stable head CT. Chronic small vessel ischemic changes and mild generalized atrophy. No acute intracranial hemorrhage or mass effect. - Discussed with family, patient was noted to be below baseline level of functioning on admission - Will start PT today Evidence of fluid overload - Hemodynamically stable / Afebrile / Saturating well on room air - Lungs without any significant crackles pitting edema persists - BNP elevated - CXR 02/21: No acute abnormalities are identified. - ECHO, complete report pending - Strict ins/outs, Daily weights, Fluid restriction - s/p IV fluids - s/p Furosemide - Will give additional dose of Furosemide today Leukocytosis - possibly 2/2 UTI, less likely 2/2 acute cholecystitis - Review of systems is negative - Physical without any abdominal tenderness - Lactic acid normal - UA is grossly abnormal; history of Enterococcus faecalis UTI 09/26 - Elevated liver enzymes/bilirubin - appears to be trending down; Lipase normal - CT abdomen / pelvis 02/21: 1. Marked gastric wall thickening, which can be better evaluated with endoscopy, as clinically indicated. 2. High attenuation bile and/or calculi, mild gallbladder wall thickening, and infiltration of pericholecystic fat; suspicious for cholecystitis. 3. 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 4. Bladder wall thickening and lobulated morphology. 5. Additional findings as described above. - US abdomen 02/21: 1. Echogenic bile and wall thickening in the gallbladder. 2. Normal caliber of the visualized common bile duct measuring 7 mm in maximum diameter. - Case was discussed between ER provider and General surgery (Dr. Franz); no plans for intervention at this time; advised to manage conservatively with antibiotics - Blood cultures / Urine cultures / Procalcitonin - remain pending - c/w Zosyn (re: Intra-abdominal coverage / UTI coverage) Macrocytic anemia - Hg baseline of 9-11 - Hg possibly lower than baseline - B12 / Folate - noted Hypokalemia - Will supplement Hypomagnesemia - Will supplement A. fib - EKG reviewed; similar to prior; still in a. fib, rate controlled - c/w Metoprolol with holding parameters - c/w full anticoagulation with Xarelto HTN - BP well controlled - c/w Metoprolol with hold parameters - Will provide additional furosemide today - Amlodipine / Benazepril on hold Orthostatic hypotension - c/w Fludrocortisone DLP - c/w Atorvastatin BPH - Hx of hodges catheter - c/w Tamsulosin Gout - Currently not on medications Post-herpetic neuralgia - c/w Lidocaine patch Glaucoma - Will replace home medications with Latanoprost GERD - c/w Protonix; hold home oral PPI DVT prophylaxis - c/w full anticoagulation with Xarelto Disposition: - Anticipate discharge within next 24-48 hours VS,Jose Armando, I+O VS, Fishbone, I+O Laboratory Tests 02/22/20 10:21 02/23/20 05:25 Vital Signs Date Time Temp Pulse Resp B/P (MAP) Pulse Ox O2 Delivery O2 Flow Rate FiO2 02/23/20 06:00 98.3 69 18 150/79 (102) 95 Room Air I&O- Last 24 Hours up to 6 AM 02/23/20 06:00 Intake Total 2420 ml Output Total 1850 ml Balance 570 ml BALDEV MACK MD Feb 23, 2020 10:00
[2020-02-23 12:07] LABS: HEPATITIS C VIRUS ABY INDEX 0.1 INDEX (<0.8)
[2020-02-23 14:00] VITALS: BP 110/55
--- NOTE | 2020-02-23 14:30 | ECHO ---
DATE OF PROCEDURE: 02/23/2020 Age: 89 Gender: Male Height: 185 cm Weight: 76 kg REFERRING PHYSICIAN: Jaqueline Beckwith M.D. INDICATION: Localized edema, unspecified. MEASUREMENTS: 2D Measurements: Left atrium 4.5 cm Aortic root 3.1 cm Intraventricular septum 0.91 cm Posterior wall 0.89 cm Inferior vena cava 1.7 cm Doppler Measurements: No aortic stenosis No aortic regurgitation Aortic valve velocity 158 cm/s LVOT velocity 137 cm/s LVOT VTI 28.8 cm No mitral regurgitation No mitral stenosis Mitral E velocity 98.5 cm/s Mitral A velocity 30 cm/s Mitral E deceleration time 211 m/s Mildly tricuspid regurgitation Estimated right ventricular systolic pressure 29-34 mmHg Estimated right atrial pressure 5-10 mmHg No pulmonic regurgitation MITRAL ANNULAR TISSUE DOPPLER E prime septal 9.4 cm/s, E prime lateral 11.3 cm/s DESCRIPTION: Rhythm was sinus. This was a moderately technically difficult echocardiogram. The study was performed with the patient supine. No pericardial effusion. This was a 2D, M-mode, color flow Doppler, and pulsed wave Doppler examination including mitral annular tissue Doppler. CONCLUSIONS: 1. Normal left ventricular internal dimensions and wall thickness. Normal regional left ventricular (LV) wall motion and wall thickening. Normal left ventricular (LV) systolic function. Left ventricular ejection fraction (LVEF) 60% by visual estimate. Supra-normal left ventricular (LV) diastolic function. 2. Mild left atrial dilatation. 3. Suggestive of mild elevation of estimated right ventricle systolic pressure. Mildly dilated right ventricle with normal right ventricle systolic function. Moderately-severe right atrial dilatation. Inferior vena cava was not adequately visualized for estimation of central venous pressure. 4. Mild aortic valve sclerosis of a 3-cuspid aortic valve. No aortic regurgitation. 5. No pericardial effusion. 6. Moderately technically difficult echocardiogram. [facility]
[2020-02-23] MEDS: PANTOPRAZOLE 40MG VIAL (C9113 PER 1) IV SCH (16:16)
[2020-02-23] MEDS: RIVAROXABAN 20 MG TAB (XARELTO) PO SCH (17:07)
[2020-02-23 20:57] VITALS: BP 162/82
[2020-02-23] MEDS: METOPROLOL SUCC *XL* 25MG TAB (TopROL *XL*) PO SCH (20:57)
[2020-02-23] MEDS: MIRTAZAPINE 7.5MG PER 1/2 TABLET PO SCH (20:57)
[2020-02-23] MEDS: TAMSULOSIN 0.4 MG CAP PO SCH (20:57)
[2020-02-23] MEDS: LATANOPROST 0.005% OPHTH SOLN 2.5 ML OU SCH (20:59)
[2020-02-23] MEDS: **NOTE PATIENT COMMENT** MISC XX SCH (21:00)
[2020-02-23 22:00] VITALS: BP 134/68
[2020-02-24] MEDS: PIPERACILLIN/TAZOBACTAM SOD 3.375 GM in D5W MINI-BAG PLUS 50 ML IV SCH (05:42)
[2020-02-24 06:00] VITALS: BP 146/84
[2020-02-24 06:39] LABS: BASO % 0.5 % (0.0-1.0); EOS # 0.2 10^3/uL (0.0-0.5); EOS % 3.2 % (0.0-3.0); HEMATOCRIT 29.6 % (42.0-52.0); LYMPH # 0.9 10^3/uL (1.5-5.0); MEAN CORPUSCULAR HEMOGLOBIN 33.2 pg (27.0-33.0); MEAN CORPUSCULAR HGB CONC 33.8 g/dl (32.0-36.5); MEAN CORPUSCULAR VOLUME 98.3 fl (80.0-96.0); MONO # 0.6 10^3/uL (0.0-0.8); MONO % 9.3 % (0.0-5.0); NEUTROPHILS # 4.5 10^3/uL (1.5-8.5); NEUTROPHILS % 72.5 % (36.0-66.0); PLATELET COUNT, AUTOMATED 170 10^3/uL (150-450); RED BLOOD COUNT 3.01 10^6/uL (4.30-6.10); WHITE BLOOD COUNT 6.2 10^3/uL (4.0-10.0)
[2020-02-24 07:00] LABS: BLOOD UREA NITROGEN 8 MG/DL (7-18); CALCIUM LEVEL 7.5 MG/DL (8.8-10.2); CARBON DIOXIDE LEVEL 28 MEQ/L (21-32); CHLORIDE LEVEL 107 MEQ/L (98-107); CREATININE FOR GFR 0.74 MG/DL (0.70-1.30); GLOMERULAR FILTRATION RATE > 60.0 (>35); GLUCOSE, FASTING 80 MG/DL (70-100); MAGNESIUM LEVEL 1.6 MG/DL (1.8-2.4); POTASSIUM SERUM 3.2 MEQ/L (3.5-5.1); SODIUM LEVEL 141 MEQ/L (136-145)
[2020-02-24] MEDS ORDERED: POTASSIUM CHLORIDE 10 MEQ SR TABLET PO ONE ×2 (08:00→10:00)
[2020-02-24 08:10] LABS: ALBUMIN 1.9 GM/DL (3.2-5.2); ALT/SGPT 70 U/L (12-78); BILIRUBIN,DIRECT 0.7 MG/DL (0.0-0.2); BILIRUBIN,TOTAL 1.2 MG/DL (0.2-1.0); TOTAL PROTEIN 5.3 GM/DL (6.4-8.2)
[2020-02-24] MEDS: ASPIRIN 81 MG ENTERIC TAB PO SCH (08:13)
[2020-02-24] MEDS: MAGNESIUM OXIDE 400 MG TAB (MAG-OX) PO SCH (08:13)
[2020-02-24] MEDS: ATORVASTATIN 20 MG TAB PO SCH (08:14)
[2020-02-24] MEDS: FLUDROCORTISONE ACETATE 0.1 MG TAB PO SCH (08:14)
[2020-02-24] MEDS: GABAPENTIN 300 MG CAP PO SCH (08:14)
[2020-02-24] MEDS: MAG SULF 1GM/100ML (MAG RUN) 1 GM in IV 1 EA IV SCH ×2 (08:15→09:55)
[2020-02-24] MEDS ORDERED: CEFDINIR 300 MG CAP (OMNICEF) PO SCH (09:00)
[2020-02-24] MEDS ORDERED: FURO40TA2 PO (09:59)
[2020-02-24] MEDS ORDERED: CEFD300CAP PO (09:59)
[2020-02-24] MEDS ORDERED: POTA1TAB14 PO (10:16)
--- NOTE | 2020-02-24 10:23 | DS.PDOC ---
Discharge Summary General Date of Admission Feb 22, 2020 at 15:06 Date of Discharge 02/24/2020 Discharge Summary PROCEDURES PERFORMED DURING STAY: [None]. ADMITTING DIAGNOSES / DISCHARGE DIAGNOSES: Weakness / Deconditioning Evidence of fluid overload s/p Leukocytosis - 2/2 E. Coli gram negative bacteremia - possibly 2/2 recently passed stone Macrocytic anemia Hypokalemia Hypomagnesemia A. fib HTN Orthostatic hypotension DLP BPH Gout Post-herpetic neuralgia Glaucoma GERD DVT prophylaxis COMPLICATIONS/CHIEF COMPLAINT: Weakness HISTORY OF PRESENT ILLNESS: Patient is an 89 year old female with a PMHx of A. fib (on Xarelto), HTN, Orthostatic hypotension (on Fludrocortisone), DLP, BPH, Gout, GERD, Post- herpetic neuralgia, Glaucoma who presents to the hospital at the direction of his son. Patient reports that he came to the emergency room because of weakness. Patient is a poor historian. Patient does report lower story swelling has been progressive over last 3 months. He denies any diuretics as an outpatient. HOSPITAL COURSE: Weakness / Deconditioning - Patient is oriented x3 - No focal neurologic deficits - CT head 02/21: Stable head CT. Chronic small vessel ischemic changes and mild generalized atrophy. No acute intracranial hemorrhage or mass effect. - Cleared PT today for DC home with services Evidence of fluid overload - Hemodynamically stable / Afebrile / Saturating well on room air - Lungs without any significant crackles pitting edema persists - BNP elevated - CXR 02/21: No acute abnormalities are identified. - ECHO 02/22: 1. Normal left ventricular internal dimensions and wall thickness. Normal regional left ventricular (LV) wall motion and wall thick ening. Normal left ventricular (LV) systolic function. Left ventricular ejection fraction (LVEF) 60% by visual estimate. Supra-normal left ventricular (LV) diastolic function. 2. Mild left atrial dilatation. 3. Suggestive of mild elevation of estimated right ventricle systolic pressure.Mildly dilated right ventricle with normal right ventricle systolic function. Moderately-severe right atrial dilatation. Inferior vena cava was not adequatelyvisualized for estimation of central venous pressure. 4. Mild aortic valve sclerosis of a 3- cuspid aortic valve. No aortic regurgitation. 5. No pericardial effusion.6. Moderately technically difficult echocardiogram. - Strict ins/outs, Daily weights, Fluid restriction - s/p IV fluids - c/w Furosemide; will provide with potassium supplementation s/p Leukocytosis - 2/2 E. Coli gram negative bacteremia - possibly 2/2 recently passed stone / transient cholecystitis - Review of systems is negative - Physical is benign - Lactic acid normal / PCT elevated - Elevated liver enzymes/bilirubin - continues to improve; Lipase normal - Urine culture 02/21: Klebsiella pneumonia; blood culture 02/21: Escherichia coli - CT abdomen / pelvis 02/21: 1. Marked gastric wall thickening, which can be better evaluated with endoscopy, as clinically indicated. 2. High attenuation bile and/or calculi, mild gallbladder wall thickening, and infiltration of p ericholecystic fat; suspicious for cholecystitis. 3. 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 4. Bladder wall thickening and lobulated morphology. 5. Additional findings as described above. - US abdomen 02/21: 1. Echogenic bile and wall thickening in the gallbladder. 2. Normal caliber of the visualized common bile duct measuring 7 mm in maximum diameter. - Discussed with general surgery (Dr. Franz); no plans for intervention at this time, will c/w antibiotics - Will change antibiotics to Cefdinir PO; Will DC Zosyn (Antibiotic day #3) - will complete course as outpatient - Will have outpatient follow-up with primary care provider, and surgery within the next 7 days Questionable pancreatic cyst vs. neoplasm - MRI abdomen w/ and w/o contrast 02/23: 1. Small stones are clustered at the neck of the gallbladder on axial T2 weighted images 17 and 18. There is minimal fluid surrounding the gallbladder and subtle thickening on postcontrast images consistent with cholecystitis. There is no biliary dilatation. 2. There is a small benign duodenal diverticulum on axial image 15 and coronal image 12. 3. A 1 cm cyst of the pancreatic head is best seen on axial image 12 and coronal image 9. Formal MRCP was not performed but there is suggestion that this lesion is related to the main duct on coronal image 301:9 and axial image 401:12. There is no suspicious nodularity or enhancement. Follow-up is not recommended at this patient's age. 4. A benign appearing 37 mm cyst of the medial anterior left kidney is captured on axial image 15. There is an intracortical 16 mm cyst at the lower pole on coronal image 14; these are typical simple cysts with no follow up recommended. - Discussed with primary care provider about possible neoplastic finding on outpatient CT abdomen and pelvis - However, MRI imaging is not consistent with any neoplastic findings; findings of the pancreatic head are likely secondary to cyst - Unlikely acute cholecystitis, given no abdominal tenderness / symptomatology and improvement of liver enzymes; likely reflects passed stone - Will have outpatient follow up with PCP and general surgery within 7 days - patient is scheduled for an appointment with primary care provider tomorrow Macrocytic anemia - Hg baseline of 9-11 - Hg remains stable - B12 / Folate - noted Hypokalemia - Will provide additional supplementation now as well as on discharge as well Hypomagnesemia - Will supplement via IV route - c/w supplement as per outpatient regimen A. fib - EKG reviewed; similar to prior; still in a. fib, rate controlled - c/w Metoprolol with holding parameters - c/w full anticoagulation with Xarelto HTN - BP well controlled - c/w Metoprolol with hold parameters - Will provide additional furosemide today - Will DC Amlodipine / Benazepril - Will add Furosemide - Outpatient follow-up with primary care provider for blood pressure Orthostatic hypotension - c/w Fludrocortisone DLP - c/w Atorvastatin BPH - Hx of Cisse catheter - c/w Tamsulosin Gout - Currently not on medications Post-herpetic neuralgia - c/w Lidocaine patch Glaucoma - Will resume home medication GERD - Will resume home PPI on discharge DVT prophylaxis - c/w full anticoagulation with Xarelto DISCHARGE MEDICATIONS: Please see below. ALLERGIES: Please see below. PHYSICAL EXAMINATION ON DISCHARGE: Vitals (See below) General: Lying in bed, appears to be comfortable, in no acute distress, awake, alert and oriented 3 HEENT: NC, AT CVS: +S1S2 Lungs: There is fair air entry bilaterally without any auscultated rhonchi, wheezing or crackles Abdomen: Thin. Abdomen remains soft without any appreciable tenderness or distention Extremities: Lower extremities still reveal 1+ pitting edema, - Calf tenderness LABORATORY DATA: Please see below. ACTIVITY: [As tolerated]. DISCHARGE PLAN: Follow-up with primary care provider and surgery within the next 7 days Remain compliant with treatment plan and medications Return to the ER if you experience any problems DISPOSITION: Home with services DISCHARGE CONDITION: [Stable]. TIME SPENT ON DISCHARGE: 35 minutes Vital Signs/I&Os Vital Signs Date Time Temp Pulse Resp B/P (MAP) Pulse Ox O2 Delivery O2 Flow Rate FiO2 10/14/20 06:00 98.1 69 18 146/84 (104) 95 Room Air I&O- Last 24 Hours up to 6 AM 02/24/20 06:00 Intake Total 624 ml Output Total 1050 ml Balance -426 ml Laboratory Data Labs 24H Laboratory Tests 2 02/24/20 06:16: Immature Granulocyte % (Auto) 0.5, Neutrophils (%) (Auto) 72.5H, Lymphocytes (%) (Auto) 14.0L, Monocytes (%) (Auto) 9.3H, Eosinophils (%) (Auto) 3.2H, Basophils (%) (Auto) 0.5, Neutrophils # (Auto) 4.5, Lymphocytes # (Auto) 0.9L, Monocytes # (Auto) 0.6, Eosinophils # (Auto) 0.2, Basophils # (Auto) 0.0, Nucleated Red Blood Cells % (auto) 0.0, Anion Gap 6L, Glomerular Filtration Rate > 60.0, Calcium Level 7.5L, Magnesium Level 1.6L, Total Bilirubin 1.2H, Direct Bilirubin 0.7H, Aspartate Amino Transf (AST/SGOT) 73H, Alanine Aminotransferase (ALT/SGPT) 70, Alkaline Phosphatase 222H, Total Protein 5.3L, Albumin 1.9L, Albumin/Globulin Ratio 0.6 CBC/BMP Laboratory Tests 02/24/20 06:16 Microbiology Microbiology 02/22/20 Urine Culture - Final, Complete Klebsiella Pneumoniae 02/22/20 Blood Culture - Preliminary, Resulted No growth after 24 hours . All specim... 02/22/20 Blood Culture - Final, Complete Escherichia Coli Discharge Medications Scheduled Aspirin (Ecotrin) 81 Mg Tab, 81 MG PO DAILY, (Reported) Atorvastatin Calcium (Atorvastatin Calcium) 40 Mg Tab, 40 MG PO QPM, (Reported) Bimatoprost (Lumigan) 0.01% 2.5ML Drops, 1 DROP OU QHS, (Reported) PT STATES THAT HE WOULD BE TAKING IT, IF ONLY HE COULD FIND THE DROPS Cefdinir (Cefdinir) 300 Mg Capsule, 300 MG PO BID Esomeprazole Magnesium (Esomeprazole Magnesium) 40 Mg Capsule.dr, 40 MG PO DAILY, (Reported) Fludrocortisone Acetate (Fludrocortisone Acetate) 0.1 Mg Tab, 0.1 MG PO DAILY, (Reported) Furosemide (Furosemide) 40 Mg Tablet, 1 TAB PO DAILY Gabapentin (Gabapentin) 300 Mg Capsule, 300 MG PO TID, (Reported) Magnesium Oxide (Magnesium Oxide) 400 Mg Tablet, 400 MG PO BID, (Reported) Magnesium Oxide (Magnesium Oxide) 400 Mg Tablet, 400 MG PO BID, (Reported) TAKES OTC MAG OXIDE IN ADDITION TO SCRIPT MAG OXIDE Metoprolol Succinate (Metoprolol Succinate) 25 Mg Tab.er.24h, 25 MG PO QPM, (Reported) Mirtazapine (Mirtazapine) 7.5 Mg Tablet, 7.5 MG PO QHS, (Reported) Potassium Chloride (Potassium Chloride) 20 Meq Tab, 10 MEQ PO BID, (Reported) CUTS IN HALF BECAUSE OF LARGE PILL Potassium Chloride (Potassium Chloride) 20 Meq Tablet.er, 2 TAB PO DAILY Rivaroxaban (Xarelto) 20 Mg Tablet, 20 MG PO QPM, (Reported) Tamsulosin HCl (Flomax) 0.4 Mg Capsule, 0.4 MG PO QPM, (Reported) Scheduled PRN Lidocaine (Lidocaine) 5% Adh..patch, 2 PATCH TD DAILY PRN for PAIN, (Reported) Oxycodone HCl/Acetaminophen (Oxycodone-Acetaminophen 5-325) 1 Each Tablet, 1 TAB PO QID PRN for PAIN, (Reported) Allergies Coded Allergies: No Known Allergies (Verified , 01/29/18) BALDEV MACK MD Feb 24, 2020 10:23
[2020-02-24] MEDS ORDERED: PROHANCE 279.3MG/ML 15ML VIAL As Ordered ONE (12:26)
--- NOTE | 2020-02-24 13:51 | REPVR ---
PROCEDURE INFORMATION: Exam: MR Abdomen Without and With Contrast Exam date and time: 02/24/2020 12:49 PM Age: 89 years old Clinical indication: Abnormal findings; Abnormal radiologic finding of the abdomen; Radiologic exam and body structure: CT; Additional info: Evaluate pancreatic cyst/lesion TECHNIQUE: Imaging protocol: MR of the abdomen without and with intravenous contrast. Contrast material: PROHANCE; Contrast volume: 15 ml; Contrast route: INTRAVENOUS (IV); COMPARISON: CT ABD/PEL W/IV CONTRAST ONLY 02/22/2020 11:58 AM FINDINGS: Liver: No mass. Gallbladder and bile ducts: Small stones are clustered at the neck of the gallbladder on axial T2 weighted images 17 and 18. There is minimal fluid surrounding the gallbladder and subtle thickening on postcontrast images consistent with cholecystitis. There is no biliary dilatation. Pancreas: A 1 cm cyst of the pancreatic head is best seen on axial image 12 and coronal image 9. Formal MRCP was not performed but there is suggestion that this lesion is related to the main duct on coronal image 301:9 and axial image 401:12. There is no suspicious nodularity or enhancement. Follow-up is not recommended at this patient's age. Spleen: Unremarkable. No splenomegaly. Adrenals: Unremarkable. No mass. Kidneys and ureters: A benign appearing 37 mm cyst of the medial anterior left kidney is captured on axial image 15. There is an intracortical 16 mm cyst at the lower pole on coronal image 14; these are typical simple cysts with no follow up recommended. Stomach and bowel: There is a small benign duodenal diverticulum on axial image 15 and coronal image 12. Intraperitoneal space: No free fluid. Arteries: No abdominal aortic aneurysm. Bones/joints: Unremarkable. Soft tissues: Unremarkable. IMPRESSION: 1. Small stones are clustered at the neck of the gallbladder on axial T2 weighted images 17 and 18. There is minimal fluid surrounding the gallbladder and subtle thickening on postcontrast images consistent with cholecystitis. There is no biliary dilatation. 2. There is a small benign duodenal diverticulum on axial image 15 and coronal image 12. 3. A 1 cm cyst of the pancreatic head is best seen on axial image 12 and coronal image 9. Formal MRCP was not performed but there is suggestion that this lesion is related to the main duct on coronal image 301:9 and axial image 401:12. There is no suspicious nodularity or enhancement. Follow-up is not recommended at this patient's age. 4. A benign appearing 37 mm cyst of the medial anterior left kidney is captured on axial image 15. There is an intracortical 16 mm cyst at the lower pole on coronal image 14; these are typical simple cysts with no follow up recommended. COMMENTS: Consistent with the [employer]'s Incidental Findings Committee white paper (J Am Colette Radiol 2018): Any incidental renal lesion less than 1 cm or classified as too small to characterize, or any incidental cystic renal lesion characterized as simple-appearing, is likely benign. No follow-up imaging is recommended for these lesions per consensus recommendations based on imaging criteria. Electronically signed by: Jigar Paulino On 02/24/2020 13:51:22 PM
[2020-02-24 14:00] VITALS: BP 138/80
[2020-02-24] MEDS ORDERED: FLAG500T PO (14:48)
== END 2020-02-24 15:24 | disposition home health service (06) | DRG 690 ==
LOC: M ED 09:36 → M ED INP 15:06 → ENRESERV 15:20 → M MSPAV 16:16
PROVIDERS: ADMIT Internal Medicine; ATTEND Internal Medicine
DX: N39.0 Urinary tract infection, site not specified (principal); B02.29 Other postherpetic nervous system involvement; R78.81 Bacteremia; R53.1 Weakness; I48.91 Unspecified atrial fibrillation; I10 Essential (primary) hypertension; I95.1 Orthostatic hypotension; E78.5 Hyperlipidemia, unspecified; N40.0 Benign prostatic hyperplasia without lower urinary tract symptoms; E83.42 Hypomagnesemia; M10.9 Gout, unspecified; E87.6 Hypokalemia; B96.20 Unspecified Escherichia coli [E. coli] as the cause of diseases classified elsewhere; K21.9 Gastro-esophageal reflux disease without esophagitis; H40.9 Unspecified glaucoma; E87.70 Fluid overload, unspecified; D53.9 Nutritional anemia, unspecified; Z87.891 Personal history of nicotine dependence; Z79.82 Long term (current) use of aspirin; Z79.01 Long term (current) use of anticoagulants; Z79.899 Other long term (current) drug therapy

== ENCOUNTER → 2020-02-25 | Outpatient (REF) | payer MEDICARE ==
[~2020-02-25] MED LIST changes: +CEFD300CAP PO; +FLAG500T PO; +FURO20TA2 PO; +FURO40TA2 PO; +LIDO1PAD TD; +POTA1TAB14 PO
[2020-02-25 13:46] LABS: TOTAL PROTEIN 6.3 GM/DL (6.4-8.2)
[2020-02-26 10:13] LABS: ALBUMIN 2.84 GM/DL (3.29-5.55); ALPHA-1-GLOBULIN % 6.7 % (2.9-4.9); ALPHA-1-GLOBULINS 0.42 GM/DL (0.17-0.41); ALPHA-2-GLOBULINS 0.85 GM/DL (0.42-0.99); ALPHA-2-GLOBULINS % 13.5 % (7.1-11.8); BETA-1-GLOBULINS 0.37 GM/DL (0.28-0.60); BETA-1-GLOBULINS % 5.8 % (4.7-7.2); BETA-2-GLOBULINS 0.52 GM/DL (0.19-0.55); BETA-2-GLOBULINS % 8.2 % (3.2-6.5); GAMMA GLOBULIN % 20.8 % (11.1-18.8); GAMMA GLOBULINS 1.31 GM/DL (0.65-1.58)
== END ==
LOC: M LAB REF 12:25
PROVIDERS: ATTEND Internal Medicine
DX: E22.2 Syndrome of inappropriate secretion of antidiuretic hormone (principal)

== ENCOUNTER → 2020-03-03 | Outpatient (REF) | payer MEDICARE ==
[2020-03-03 17:53] LABS: HEMATOCRIT 36.1 % (42.0-52.0); HEMOGLOBIN 11.6 g/dl (13.5-17.5); MEAN CORPUSCULAR HGB CONC 32.1 g/dl (32.0-36.5); MEAN CORPUSCULAR VOLUME 102.8 fl (80.0-96.0); PLATELET COUNT, AUTOMATED 257 10^3/uL (150-450); RED BLOOD COUNT 3.51 10^6/uL (4.30-6.10); WHITE BLOOD COUNT 6.4 10^3/uL (4.0-10.0)
[2020-03-03 18:16] LABS: ALBUMIN 2.7 GM/DL (3.2-5.2); ALT/SGPT 29 U/L (12-78); BILIRUBIN,TOTAL 0.8 MG/DL (0.2-1.0); BLOOD UREA NITROGEN 4 MG/DL (7-18); CARBON DIOXIDE LEVEL 26 MEQ/L (21-32); CHLORIDE LEVEL 109 MEQ/L (98-107); CREATININE FOR GFR 0.98 MG/DL (0.70-1.30); GLOMERULAR FILTRATION RATE > 60.0 (>35); GLUCOSE, FASTING 76 MG/DL (70-100); POTASSIUM SERUM 3.5 MEQ/L (3.5-5.1); SODIUM LEVEL 145 MEQ/L (136-145); TOTAL PROTEIN 6.3 GM/DL (6.4-8.2)
== END ==
LOC: M LAB REF 17:03
PROVIDERS: ATTEND Internal Medicine
DX: R19.7 Diarrhea, unspecified (principal)

== ENCOUNTER → 2020-03-10 | Outpatient (REF) | payer MEDICARE ==
[2020-03-10 15:12] LABS: BASO # 0.1 10^3/uL (0.0-0.2); BASO % 1.4 % (0.0-1.0); EOS # 0.4 10^3/uL (0.0-0.5); EOS % 7.2 % (0.0-3.0); HEMATOCRIT 39.6 % (42.0-52.0); HEMOGLOBIN 12.6 g/dl (13.5-17.5); LYMPH # 1.4 10^3/uL (1.5-5.0); LYMPH % 25.3 % (24.0-44.0); MEAN CORPUSCULAR HEMOGLOBIN 33.6 pg (27.0-33.0); MEAN CORPUSCULAR HGB CONC 31.8 g/dl (32.0-36.5); MEAN CORPUSCULAR VOLUME 105.6 fl (80.0-96.0); MONO # 0.6 10^3/uL (0.0-0.8); MONO % 10.5 % (0.0-5.0); NEUTROPHILS # 3.2 10^3/uL (1.5-8.5); NEUTROPHILS % 55.2 % (36.0-66.0); PLATELET COUNT, AUTOMATED 261 10^3/uL (150-450); RED BLOOD COUNT 3.75 10^6/uL (4.30-6.10); WHITE BLOOD COUNT 5.7 10^3/uL (4.0-10.0)
[2020-03-10 15:34] LABS: ALBUMIN 2.8 GM/DL (3.2-5.2); ALT/SGPT 24 U/L (12-78); BILIRUBIN,TOTAL 0.7 MG/DL (0.2-1.0); BLOOD UREA NITROGEN 4 MG/DL (7-18); CALCIUM LEVEL 7.8 MG/DL (8.8-10.2); CARBON DIOXIDE LEVEL 27 MEQ/L (21-32); CHLORIDE LEVEL 109 MEQ/L (98-107); CREATININE FOR GFR 0.99 MG/DL (0.70-1.30); GLOMERULAR FILTRATION RATE > 60.0 (>35); GLUCOSE, FASTING 106 MG/DL (70-100); POTASSIUM SERUM 4.1 MEQ/L (3.5-5.1); SODIUM LEVEL 145 MEQ/L (136-145); TOTAL PROTEIN 6.8 GM/DL (6.4-8.2)
== END ==
LOC: M SHH 14:49
PROVIDERS: ATTEND Internal Medicine
DX: E87.6 Hypokalemia (principal); E83.42 Hypomagnesemia; R63.4 Abnormal weight loss

== ENCOUNTER → 2020-03-24 | Outpatient (CLI) | payer MEDICARE ==
[~2020-03-24] MED LIST changes: +E-Z-GAS II EFFERVESCENT PACKET (SODIUM BICARB./CITRIC ACID/SIMETHICONE) As Ordered ONE; +E-Z-HD 98% w/w 340GM SUSP BTL As Ordered ONE; +E-Z-PAQUE 96% w/w SUSP 176GM BTL As Ordered ONE
--- NOTE | 2020-03-24 17:32 | REP ---
INDICATION: WT LOSS ABN IMAGING CT. COMPARISON: None TECHNIQUE: This procedure was performed by Ana Gardiner, [facility], under the direct supervision of Dr. Verma. Images were reviewed with Dr. Verma prior to dictation. Liquid barium and gas producing crystals were given in the erect position, as well as liquid barium in the prone oblique position in order to perform a double contrast upper GI examination. FINDINGS: The yard switcher film shows no organomegaly or pathological masses. The intestinal gas pattern is unremarkable. There is a wedge-shaped vertebral deformity of L1, this is not changed since the MRI dated 07/14/2019. The oral and pharyngeal stages of deglutition demonstrated aspiration without a cough response. Due to this aspiration a limited single contrast esophagram was done. Esophageal transport is prompt and efficient and there is no evidence of esophagitis, stricture, or mucosal ring. There is no evidence of a hiatal hernia. There was no gastroesophageal reflux noted . The stomach zheng are normally outlined. The rugal folds are smooth and regular. There is no gastritis, neoplasm, or ulcerative disease. The duodenal zheng are normally outlined. There is a descending duodenal diverticulum. The mucosal folds are smooth and regular. There is no duodenitis, peptic ulcer disease or neoplasm. The visualized portion of the proximal small bowel appears normal in course and caliber. IMPRESSION: 1. Aspiration without a cough response, due to this the exam was limited. 2. Descending duodenal diverticulum. 0.3 minutes of fluoroscopy time was utilized for this procedure. Some fluoroscopic images are performed with last image hold technology. These images require no additional radiation. <Electronically signed by Ana Gardiner > 03/24/20 [id number] <Electronically signed by Justin Verma > 03/24/20 [id number]
== END ==
LOC: M RAD 07:38
PROVIDERS: ATTEND Surgery
DX: R93.3 Abnormal findings on diagnostic imaging of other parts of digestive tract (principal); R63.4 Abnormal weight loss; K57.12 Diverticulitis of small intestine without perforation or abscess without bleeding

== ENCOUNTER → 2020-05-24 | Outpatient (REF) | payer MEDICARE ==
[~2020-05-24] MED LIST changes: -E-Z-GAS II EFFERVESCENT PACKET (SODIUM BICARB./CITRIC ACID/SIMETHICONE) As Ordered ONE; -E-Z-HD 98% w/w 340GM SUSP BTL As Ordered ONE; -E-Z-PAQUE 96% w/w SUSP 176GM BTL As Ordered ONE; +GABA-282 PO; -GABA-843 PO
== END ==
LOC: M LAB REF 12:41
PROVIDERS: ATTEND Nurse Practitioner Adult Health
DX: M10.9 Gout, unspecified (principal)

== ENCOUNTER 2020-06-16 18:30 | Emergency (ER) | payer MEDICARE ==
[~2020-06-16] VITALS: Ht 188 cm; Wt 68.8 kg
[~2020-06-16 18:30] MED LIST changes: +ISOS1TAB35 PO; -ISOS30TA4 PO
[2020-06-16 19:07] VITALS: BP 193/96
[2020-06-16] MEDS ORDERED: LABETALOL 100MG/20ML VIAL IV STA (19:07)
[2020-06-16] MEDS ORDERED: METOPROLOL TART 25 MG TABLET PO ONE (19:15)
--- NOTE | 2020-06-16 19:26 | REP ---
INDICATION: choked. COMPARISON: Comparison chest x-ray 22 February 2020. TECHNIQUE: Two views.. FINDINGS: The lungs are well inflated and free of infiltrate. The pleural angles are sharp. The heart size is normal. Pulmonary vasculature is not increased. No significant bony abnormality is seen. The lungs are symmetrically aerated and clear. The pleural angles are sharp. Heart is borderline in size.. The aorta is calcific and somewhat tortuous. Pulmonary vasculature is not increased. No acute bony abnormality is seen. IMPRESSION: No active disease.. <Electronically signed by Justin Verma > 06/16/201921
[2020-06-16 20:14] LABS: BASO % 0.6 % (0.0-1.0); EOS # 0.4 10^3/uL (0.0-0.5); EOS % 7.2 % (0.0-3.0); HEMATOCRIT 33.2 % (42.0-52.0); HEMOGLOBIN 10.6 g/dl (13.5-17.5); LYMPH % 20.3 % (24.0-44.0); MEAN CORPUSCULAR HEMOGLOBIN 33.7 pg (27.0-33.0); MEAN CORPUSCULAR HGB CONC 31.9 g/dl (32.0-36.5); MEAN CORPUSCULAR VOLUME 105.4 fl (80.0-96.0); MONO # 0.7 10^3/uL (0.0-0.8); MONO % 13.9 % (0.0-5.0); NEUTROPHILS # 2.8 10^3/uL (1.5-8.5); NEUTROPHILS % 57.8 % (36.0-66.0); PLATELET COUNT, AUTOMATED 134 10^3/uL (150-450); RED BLOOD COUNT 3.15 10^6/uL (4.30-6.10); WHITE BLOOD COUNT 4.8 10^3/uL (4.0-10.0)
--- OUTSIDE RECORDS SUMMARY | 2020-06-16 20:26 | CCD | Continuity of Care Document ---
Author Author Humble FRANZ MD Organization Unknown Address [address] [address] Phone [phone] Care Team Providers Care Personal Care Home Administrator Name Role Phone Branden Dorman M.D. [facility] [phone] Mel Wynne M.D. [facility] [phone] Jose D Montana MD @ [facility] [phone] Problems Active Problems Provider Date Essential hypertension Cortez Franz JR, MD Onset: 03/07/20 20 Social History Type Date Description Comments Sex Unknown ETOH Use 1-2 A Day 2 beers a day Tobacco Use Start: Unknown End: Unknown Patient is a former smoker Smoked 1/2 pack x6 years Recreational Drug Use Denies Drug Use Tobacco Use Reviewed: 05/13/84 Quit Smoking Status Reviewed: 05/13/84 Quit Allergies, Adverse Reactions, Alerts Description No Known Drug Allergies Medications Active Medications SIG Qnty Indications Ordering Provide r Date Actigall 300mg Capsules 1 by mouth three times a day with meals 90caps Cortez Franz JR, MD Potassium Chloride Yelena ER 20Meq Tablets ER Jose D Montana MD @ [facility] Furosemide 20mg Tablets Jose D Montana MD @ [facility] Tamsulosin HCL 0.4mg Capsules Jose D Montana MD @ [facility] Xarelto 20mg Tablets Jose Jimenez M.D. Metronidazole 500mg Tablets Take One Tablet By Mouth Three Times A Day For 12 Days Un known Esomeprazole Magnesium 40mg Capsules Jose D Ceja MD @ [facility] 000 Cefdinir 300mg Capsules Take One Capsule By Mouth Twice A Day Unknown Amlodipine Besylate/Benazepril Hydrochlo ride 10-40mg Capsules Paolo Montana MD @ [facility] Lidocaine 5% Patches Apply Topically Daily On 12 Hours Off 12 Hours Right Knee Unknown Metoprolol Succinate ER 25mg Tablets ER 24HR Jose D Montana MD @ [facility] Magnesium Oxide 400mg Tablets Take One Tablet By Mouth Twice A Day Unknown Isosorbide Mononitrate ER 30mg Tablets ER 24HR Jose D Montana MD @ [facility] Atorvastatin Calcium 40mg Tablets Jose D Montana MD @ [facility] Lumigan 0.01% Solution Emily Lopez M.D. Immunizations Description No Information Available Vital Signs Date Vital Result Comment 04/06/2020 8:54am BP Systolic 154 mmHg BP Diastolic 67 mmHg Height 73 inches 6'1" Weight 158.38 lb BMI (Body Mass Index) 20.9 kg/m2 [place] Body Weight 184 lb Weight 71.839 kg BSA (Body Surface Area) 1.95 m2 03/07/2020 10:21am BP Systolic 132 mmHg BP Diastolic 97 mmHg Heart Rate 80 /min Height 73 inches 6'1" Weight 159.50 lb BMI (Body Mass Index) 21.0 kg/m2 [place] Body Weight 184 lb Weight 72.349 kg BSA (Body Surface Area) 1.95 m2 Results Description No Information Available Procedures Description No Information Available Medical Devices Description No Information Available Encounters Type Date Location Provider Dx Diagnosis Office Visit 03/07/2020 9:30a [facility] Cortez perry JR, MD K80.20 Calculus of gallbladder w/o cholecystiti s w/o obstruction Assessments Date Code Description Provider 03/07/2020 K80.20 Calculus of gallblad gisselle without cholecystitis without obstruction Cortez Franz JR, MD Plan of Treatment 03/07/2020 - Cortez Franz JR, MD* K80.20 Calculus of gallbladder without cholecystitis without obstruction* Comments:* The patient is here for recommendations concerning this hospitalization with Escherichia coli positive and evidence of elevated liver function tests and the question at this time obviously did he have urosepsis with some LFT elevation associated with this sepsis and was they gallbladder issues just a epiphenomenon however at this point given his history and the decrease in liver function tests I wonder if he had a common bile duct stone the past I've instructed him and his family that if this was true there is a relatively high risk of having a recurrence of common bile duct stone again which could be quite problematic especially if he develops pancreatitis which could be life threatening. He also states however that is not having any pain and would prefer not to have operative intervention unless absolutely necessary. If the patient had less comorbidities and was a much better operative candidate I would strongly encourage him to proceed with operative intervention with a laparoscopic cholecystectomy however now with his significant comorbidities I would suggest that he is a much higher risk for operative intervention and I gave them options of possible treatments for this situation specifically treating him with some Actigall and having him follow up in a few weeks to make sure he is continued being asymptomatic however if he has some symptoms possibly proceeding with laparoscopic cholecystectomy understanding the higher risk situation .Another treatment could be ERCP and papillotomy and that would significantly improve his overall risk of choledocholithiasis and would be a less invasive procedure other options obviously include treating him if he is admitted with percutaneous drainage of the gallbladder should this become a problem however doing so when he is septic does cause him to present as a even higher risk for operative intervention thus at this point he will discuss his issues with his primary care provider and started on Actigall and then follow up with me in approximately 3 weeks. Functional Status Description No Information Available Mental Status Description No Information Available Referrals Refer to Reason for Referral Status Appt Date Cortez Franz JR, MD CHOLESYSTITIS Scheduled [address] [address] [phone]
--- OUTSIDE RECORDS SUMMARY | 2020-06-16 20:27 | CCD ---
Author Author [facility] Organization [facility] Address Unknown Phone Unavailable Care Team Providers Care Powder Worker Name Role Phone Ary Franz JR, MD Unavailable Unavailable Ary Franz JR, MD Unavailable Unavailable Ary Franz JR, MD Unavailable Unavailable Ary Franz JR, MD Unavailable Unavailable Ary Franz JR, MD Unavailable Unavailable Ary Franz JR, MD Unavailable Unavailable Ary Franz JR, MD Unavailable Unavailable Ary Franz JR, MD Unavailable Unavailable Ary Franz JR, MD Unavailable Unavailable Ary Franz JR, MD Unavailable Unavailable Ary Franz JR, MD Unavailable Unavailable Ary Franz JR, MD Unavailable Unavailable Ary Franz JR, MD Unavailable Unavailable Ary Franz JR, MD Unavailable Unavailable Ary Franz JR, MD Unavailable Unavailable Ary Franz JR, MD Unavailable Unavailable Ary Franz JR, MD Unavailable Unavailable Ary Franz JR, MD Unavailable Unavailable Ary Franz JR, MD Unavailable Unavailable Ary Franz JR, MD Unavailable Unavailable Ary Franz JR, MD Unavailable Unavailable Ary Franz JR, MD Unavailable Unavailable Ary Franz JR, MD Unavailable Unavailable Ary Franz JR, MD Unavailable Unavailable Ary Franz JR, MD Unavailable Unavailable Ary Franz JR, MD Unavailable Unavailable Ary Franz JR, MD Unavailable Unavailable Ary Franz JR, MD Unavailable Unavailable Ary Franz JR, MD Unavailable Unavailable Ary Franz JR, MD Unavailable Unavailable Ary Franz JR, MD Unavailable Unavailable Ary Franz JR, MD Unavailable Unavailable Ary Franz JR, MD Unavailable Unavailable Ary Franz JR, MD Unavailable Unavailable Ary Franz JR, MD Unavailable Unavailable Ary Franz JR, MD Unavailable Unavailable Ary Franz JR, MD Unavailable Unavailable Ary Franz JR, MD Unavailable Unavailable Ary Franz JR, MD Unavailable Unavailable Ary Franz JR, MD Unavailable Unavailable Ary Franz JR, MD Unavailable Unavailable Ary Franz JR, MD Unavailable Unavailable Ary Franz JR, MD Unavailable Unavailable Ary Franz JR, MD Unavailable Unavailable Ary Franz JR, MD Unavailable Unavailable Ary Franz JR, MD Unavailable Unavailable Ary Franz JR, MD Unavailable Unavailable Ary Franz JR, MD Unavailable Unavailable Ary Franz JR, MD Unavailable Unavailable Ary Franz JR, MD Unavailable Unavailable Ary Franz JR, MD Unavailable Unavailable Ary Franz JR, MD Unavailable Unavailable Ary Franz JR, MD Unavailable Unavailable Ary Franz JR, MD Unavailable Unavailable Ary Franz JR, MD Unavailable Unavailable Ary Franz JR, MD Unavailable Unavailable Gwen Montana MD Unavailable Unavailable NanGwen brock MD Unavailable Unavailable NanGwen brock MD Unavailable Unavailable Gwen Montana MD Unavailable Unavailable Gwen Montana MD Unavailable Unavailable Gwen Montana MD Unavailable Unavailable Gwen Montana MD Unavailable Unavailable Gwen Montana MD Unavailable Unavailable Gwen Montana MD Unavailable Unavailable Gwen Montana MD Unavailable Unavailable Gwen Montana MD Unavailable Unavailable NanGwen brock MD Unavailable Unavailable NanGwen brock MD Unavailable Unavailable NanGwen brock MD Unavailable Unavailable Gwen Montana MD Unavailable Unavailable Gwen Montana MD Unavailable Unavailable NanGwen brock MD Unavailable Unavailable WaverlyGwen brock MD Unavailable Unavailable WaverlyGwen brock MD Unavailable Unavailable WaverlyGwen MD Unavailable Unavailable NanGwen brock MD Unavailable Unavailable WaverlyGwen brock MD Unavailable Unavailable WaverlyGwen brock MD Unavailable Unavailable NanGwen brock MD Unavailable Unavailable WaverlyGwen brock MD Unavailable Unavailable NanGwen brock MD Unavailable Unavailable WaverlyGwen brock MD Unavailable Unavailable WaverlyGwen brock MD Unavailable Unavailable NanGwen MD Unavailable Unavailable WaverlyGwen MD Unavailable Unavailable WaverlyGwen MD Unavailable Unavailable NanGwen MD Unavailable Unavailable WaverlyGwen MD Unavailable Unavailable WaverlyGwen MD Unavailable Unavailable NanGwen MD Unavailable Unavailable NanGwen MD Unavailable Unavailable WaverlyGwen MD Unavailable Unavailable NanGwen MD Unavailable Unavailable NanGwen MD Unavailable Unavailable NanGwen MD Unavailable Unavailable NanGwen MD Unavailable Unavailable WaverlyGwen MD Unavailable Unavailable NanGwen MD Unavailable Unavailable WaverlyGwen MD Unavailable Unavailable NanGwen MD Unavailable Unavailable NanGwen MD Unavailable Unavailable NanGwen MD Unavailable Unavailable WaverlyGwen MD Unavailable Unavailable WaverlyGwen MD Unavailable Unavailable NanGwen MD Unavailable Unavailable WaverlyGwen MD Unavailable Unavailable WaverlyGwen MD Unavailable Unavailable WaverlyGwen MD Unavailable Unavailable NanGwen MD Unavailable Unavailable NanGwen MD Unavailable Unavailable WaverlyGwen MD Unavailable Unavailable WaverlyGwen MD Unavailable Unavailable WaverlyGwen MD Unavailable Unavailable WaverlyGwen MD Unavailable Unavailable WaverlyGwen MD Unavailable Unavailable WaverlyGwen MD Unavailable Unavailable WaverlyGwen MD Unavailable Unavailable WaverlyGwen MD Unavailable Unavailable NanGwen brock MD Unavailable Unavailable WaverlyGwen MD Unavailable Unavailable WaverlyGwen MD Unavailable Unavailable NanGwen MD Unavailable Unavailable WaverlyGwen MD Unavailable Unavailable NanGwen MD Unavailable Unavailable WaverlyGwen MD Unavailable Unavailable NanGwen brock MD Unavailable Unavailable WaverlyGwen MD Unavailable Unavailable WaverlyGwen MD Unavailable Unavailable NanGwen MD Unavailable Unavailable NanGwen MD Unavailable Unavailable NanGwen MD Unavailable Unavailable WaverlyGwen MD Unavailable Unavailable WaverlyGwen MD Unavailable Unavailable WaverlyGwen MD Unavailable Unavailable WaverlyGwen MD Unavailable Unavailable NanGwen MD Unavailable Unavailable NanGwen MD Unavailable Unavailable NanGwen MD Unavailable Unavailable NanGwen brock MD Unavailable Unavailable Gwen Montana MD Unavailable Unavailable Gwen Montana MD Unavailable Unavailable Keke, Malaika DIRECTOR MARKETING ANALYTICS Unavailable Unavailable Keke, Malaika DIRECTOR MARKETING ANALYTICS Unavailable Unavailable Keke, Malaika DIRECTOR MARKETING ANALYTICS Unavailable Unavailable Keke, Malaika DIRECTOR MARKETING ANALYTICS Unavailable Unavailable Keke, Malaika DIRECTOR MARKETING ANALYTICS Unavailable Unavailable Keke, Malaika DIRECTOR MARKETING ANALYTICS Unavailable Unavailable Keke, Malaika DIRECTOR MARKETING ANALYTICS Unavailable Unavailable Keke, Malaika DIRECTOR MARKETING ANALYTICS Unavailable Unavailable Keke, Malaika DIRECTOR MARKETING ANALYTICS Unavailable Unavailable Keke, Malaika DIRECTOR MARKETING ANALYTICS Unavailable Unavailable Keke, Malaika DIRECTOR MARKETING ANALYTICS Unavailable Unavailable Keke, Malaika DIRECTOR MARKETING ANALYTICS Unavailable Unavailable Keke, Malaika DIRECTOR MARKETING ANALYTICS Unavailable Unavailable Keke, Malaika DIRECTOR MARKETING ANALYTICS Unavailable Unavailable Keke, Malaika DIRECTOR MARKETING ANALYTICS Unavailable Unavailable Keke, Malaika DIRECTOR MARKETING ANALYTICS Unavailable Unavailable Keke, Malaika DIRECTOR MARKETING ANALYTICS Unavailable Unavailable Keke, Malaika DIRECTOR MARKETING ANALYTICS Unavailable Unavailable Keke, Malaika DIRECTOR MARKETING ANALYTICS Unavailable Unavailable Keke, Malaika DIRECTOR MARKETING ANALYTICS Unavailable Unavailable Keke, Malaika DIRECTOR MARKETING ANALYTICS Unavailable Unavailable Keke, Malaika DIRECTOR MARKETING ANALYTICS Unavailable Unavailable Keke, Malaika DIRECTOR MARKETING ANALYTICS Unavailable Unavailable Keke, Malaika DIRECTOR MARKETING ANALYTICS Unavailable Unavailable Keke, Malaika DIRECTOR MARKETING ANALYTICS Unavailable Unavailable Keke, Malaika DIRECTOR MARKETING ANALYTICS Unavailable Unavailable Keke, Malaika DIRECTOR MARKETING ANALYTICS Unavailable Unavailable PICKERAL JR, J MERRY PA-C Unavailable Unavailable PICKERAL JR, J MERRY PA-C Unavailable Unavailable PICKERAL JR, J MERRY PA-C Unavailable Unavailable PICKERAL JR, J MERRY PA-C Unavailable Unavailable PICKERAL JR, J MERRY PA-C Unavailable Unavailable PICKERAL JR, J MERRY PA-C Unavailable Unavailable PICKERAL JR, J MERRY PA-C Unavailable Unavailable PICKERAL JR, J MERRY PA-C Unavailable Unavailable PICKERAL JR, J MERRY PA-C Unavailable Unavailable PICKERAL JR, J MERRY PA-C Unavailable Unavailable PICKERAL JR, J MERRY PA-C Unavailable Unavailable PICKERAL JR, J MERRY PA-C Unavailable Unavailable PICKERAL JR, J MERRY PA-C Unavailable Unavailable PICKERAL JR, J MERRY PA-C Unavailable Unavailable PICKERAL JR, J MERRY PA-C Unavailable Unavailable PICKERAL JR, J MERRY PA-C Unavailable Unavailable PICKERAL JR, J MERRY PA-C Unavailable Unavailable PICKERAL JR, J MERRY PA-C Unavailable Unavailable PICKERAL JR, J MERRY PA-C Unavailable Unavailable PICKERAL JR, J MERRY PA-C Unavailable Unavailable Guzman, L Chinmay MEDINA Unavailable Unavailable Guzman, L Chinmay MEDINA Unavailable Unavailable Guzman, Rusty Moy MD Unavailable Unavailable Guzman, L Chinmay MEDINA Unavailable Unavailable Guzman, L Chinmay MEDINA Unavailable Unavailable Guzman, Rusty Moy MD Unavailable Unavailable Guzman, Rusty Moy MD Unavailable Unavailable Guzman, Rusty Moy MD Unavailable Unavailable Guzman, L Chinmay MEDINA Unavailable Unavailable Guzman, Rusty Moy MD Unavailable Unavailable Guzman, Rusty Moy MD Unavailable Unavailable Guzman, L Chinmay MEDINA Unavailable Unavailable Guzman, L Chinmay MEDINA Unavailable Unavailable Guzman, L Chinmay MEDINA Unavailable Unavailable Guzman, L Chinmay MEDINA Unavailable Unavailable Guzman, L Chinmay MEDINA Unavailable Unavailable Guzman, L Chinmay MEDINA Unavailable Unavailable Guzman, L Chinmay MEDINA Unavailable Unavailable Guzman, L Chinmay MEDINA Unavailable Unavailable Guzman, L Chinmay MEDINA Unavailable Unavailable Guzman, Rusty Moy MD Unavailable Unavailable Guzman, Rusty Moy MD Unavailable Unavailable Guzman, Rusty Moy MD Unavailable Unavailable Guzman, Rusty Moy MD Unavailable Unavailable Guzman, Rusty Moy MD Unavailable Unavailable Guzman, Rusty Moy MD Unavailable Unavailable Guzman, L Chinmay MEDINA Unavailable Unavailable Guzman, L Chinmay MEDINA Unavailable Unavailable Guzman, Rusty Moy MD Unavailable Unavailable Guzman, Rusty Moy MD Unavailable Unavailable Guzman, Rusty Moy MD Unavailable Unavailable Guzman, Rusty Moy MD Unavailable Unavailable Guzman, Rusty Moy MD Unavailable Unavailable Guzman, Rusty Moy MD Unavailable Unavailable Guzman, L Chinmay MEDINA Unavailable Unavailable Guzman, Rusty Moy MD Unavailable Unavailable Guzman, Rusty Moy MD Unavailable Unavailable Guzman, Rusty Moy MD Unavailable Unavailable Guzman, Rusty Moy MD Unavailable Unavailable Guzman, Rusty Moy MD Unavailable Unavailable Guzman, Rusty Moy MD Unavailable Unavailable Guzman, Rusty Moy MD Unavailable Unavailable Guzman, L Chinmay MEDINA Unavailable Unavailable Guzman, Rusty Moy MD Unavailable Unavailable Guzman, Rusty Moy MD Unavailable Unavailable Guzman, Rusty Moy MD Unavailable Unavailable Guzman, Rusty Moy MD Unavailable Unavailable MARGARET SHAY MD Unavailable Unavailable MARGARET SHAY MD Unavailable Unavailable MARGARET SHAY MD Unavailable Unavailable MARGARET SHAY MD Unavailable Unavailable MARGARET SHAY MD Unavailable Unavailable MARGARET SHAY MD Unavailable Unavailable MARGARET SHAY MD Unavailable Unavailable MARGARET SHAY MD Unavailable Unavailable MARGARET SHAY MD Unavailable Unavailable MARAGRET SHAY MD Unavailable Unavailable MARGARET SHAY MD Unavailable Unavailable MARGARET SHAY MD Unavailable Unavailable MARGARET SHAY MD Unavailable Unavailable MARGARET SHAY MD Unavailable Unavailable MARGARET SHAY MD Unavailable Unavailable MARGARET SHAY MD Unavailable Unavailable MARGARET SHAY MD Unavailable Unavailable MARGARET SHAY MD Unavailable Unavailable MARGARET SHAY MD Unavailable Unavailable MARGARET SHAY MD Unavailable Unavailable MARGARET SHAY MD Unavailable Unavailable MARGARET SHAY MD Unavailable Unavailable MARGARET SHAY MD Unavailable Unavailable MARGARET SHAY MD Unavailable Unavailable MARGARET SHAY MD Unavailable Unavailable MARGARET SHAY MD Unavailable Unavailable MARGARET SHAY MD Unavailable Unavailable MARGARET SHAY MD Unavailable Unavailable MARGARET SHAY MD Unavailable Unavailable MARGARET SHAY MD Unavailable Unavailable Gwen Montana MD Unavailable Unavailable NanGwen brock MD Unavailable Unavailable NanGwen brock MD Unavailable Unavailable NanGwen brock MD Unavailable Unavailable WaverlyGwen brock MD Unavailable Unavailable WaverlyGwen brock MD Unavailable Unavailable WaverlyGwen brock MD Unavailable Unavailable WaverlyGwen brock MD Unavailable Unavailable NanGwen brock MD Unavailable Unavailable WaverlyGwen brock MD Unavailable Unavailable Gwen Montana MD Unavailable Unavailable NanGwen brock MD Unavailable Unavailable Gwen Montana MD Unavailable Unavailable Gwen Montana MD Unavailable Unavailable Gwen Montana MD Unavailable Unavailable Gwen Montana MD Unavailable Unavailable Gwen Montana MD Unavailable Unavailable Gwen Montana MD Unavailable Unavailable Gwen Montana MD Unavailable Unavailable Gwen Montana MD Unavailable Unavailable Gwen Montana MD Unavailable Unavailable Gwen Montana MD Unavailable Unavailable Gwen Montana MD Unavailable Unavailable Gwen Montana MD Unavailable Unavailable Gwen Montana MD Unavailable Unavailable Gwen Montana MD Unavailable Unavailable Gwen Montana MD Unavailable Unavailable Gwen Montana MD Unavailable Unavailable Gwen Montana MD Unavailable Unavailable NanGwen brock MD Unavailable Unavailable NanGwen brock MD Unavailable Unavailable WaverlyGwen brock MD Unavailable Unavailable WaverlyGwen brock MD Unavailable Unavailable NanGwen brock MD Unavailable Unavailable NanGwen brock MD Unavailable Unavailable NanGwen brock MD Unavailable Unavailable WaverlyGwen brock MD Unavailable Unavailable NanGwen brock MD Unavailable Unavailable NanGwen brock MD Unavailable Unavailable NanGwen brock MD Unavailable Unavailable NanGwen brock MD Unavailable Unavailable Nan, Gwen Jeffery MD Unavailable Unavailable Nan, Gwen Jeffery MD Unavailable Unavailable Nan, Gwen Jeffery MD Unavailable Unavailable Nan, Gwen Jeffery MD Unavailable Unavailable Waverly, Gwen Jeffery MD Unavailable Unavailable Nan, Gwen Jeffery MD Unavailable Unavailable Waverly, Gwen Jeffery MD Unavailable Unavailable Nan, Gwen Jeffery MD Unavailable Unavailable Waverly, Gwen Jeffery MD Unavailable Unavailable Waverly, Gwen Jeffery MD Unavailable Unavailable Waverly, Gwen Jeffery MD Unavailable Unavailable Waverly, Gwen Jeffery MD Unavailable Unavailable Waverly, Gwen Jeffery MD Unavailable Unavailable Nan, Gwen Jeffery MD Unavailable Unavailable Nan, Gwen Jeffery MD Unavailable Unavailable Nan, Gwen Jeffery MD Unavailable Unavailable Nan, Gwen Jeffery MD Unavailable Unavailable Waverly, Gwen Jeffery MD Unavailable Unavailable Nan, Gwen Jeffery MD Unavailable Unavailable Waverly, Gwen Jeffery MD Unavailable Unavailable Nan, Gwen Jeffery MD Unavailable Unavailable Waverly, Gwen Jeffery MD Unavailable Unavailable Waverly, Gwen Jeffery MD Unavailable Unavailable WaverlyGwen MD Unavailable Unavailable WaverlyGwen MD Unavailable Unavailable Waverly, Gwen Jeffery MD Unavailable Unavailable Nan, Gwen Jeffery MD Unavailable Unavailable Waverly, Gwen Jeffery MD Unavailable Unavailable Nan, Gwen Jose D MEDINA Unavailable Unavailable Nan, Gwen Jose D MEDINA Unavailable Unavailable Waverly, Gwen Jeffery MD Unavailable Unavailable Waverly, Gwen Jeffery MD Unavailable Unavailable Waverly, Gwen Jeffery MD Unavailable Unavailable WaverlyGwen MD Unavailable Unavailable Nan, Gwen Jeffery MD Unavailable Unavailable Waverly, Gwen Jeffery MD Unavailable Unavailable Nan, Gwen Jeffery MD Unavailable Unavailable Waverly, Gwen Jeffery MD Unavailable Unavailable Waverly, Gwen Jeffery MD Unavailable Unavailable Waverly, Gwen Jeffery MD Unavailable Unavailable Nan, Gwen Jeffery MD Unavailable Unavailable Nan, Gwen Jeffery MD Unavailable Unavailable Waverly, Gwen Jeffery MD Unavailable Unavailable Waverly, Gwen Jeffery MD Unavailable Unavailable Waverly, Gwen Jeffery MD Unavailable Unavailable Re-disclosure Warning The records that you are about to access may contain information from federally-assisted alcohol or drug abuse programs. If such information is present, then the following federally mandated warning applies: This information has been disclosed to you from records protected by federal confidentiality rules (42 CFR part 2). The federal rules prohibit you from making any further disclosure of this information unless further disclosure is expressly permitted by the written consent of the person to whom it pertains or as otherwise permitted by 42 CFR part 2. A general authorization for the release of medical or other information is NOT sufficient for this purpose. The Federal rules restrict any use of the information to criminally investigate or prosecute any alcohol or drug abuse patient.The records that you are about to access may contain highly sensitive health information, the redisclosure of which is protected by Article 27-F of the [facility] Public Health law. If you continue you may have access to information: Regarding HIV / AIDS; Provided by facilities licensed or operated by the [facility] Office of Mental Health; or Provided by the [facility] Office for People With Developmental Disabilities. If such information is present, then the following [facility] mandated warning applies: This information has been disclosed to you from confidential records which are protected by state law. State law prohibits you from making any further disclosure of this information without the specific written consent of the person to whom it pertains, or as otherwise permitted by law. Any unauthorized further disclosure in violation of state law may result in a fine or shelter sentence or both. A general authorization for the release of medical or other information is NOT sufficient authorization for further disc losure. Family History Family Member Name Family Member Gender Family Member Status Date o f Status Description Data Source(s) Unknown Male Problem MEDENT ([facility]) Encounters Encounter Providers Location Date Indications Data Source(s ) Outpatient Attender: Cortez Perez/Aba/Gilbert/Moriah dl 03/07/2020 09:30:00 AM EDT [facility] ([facility]) Outpatient Attender: MERRY Jaffe 0 12/25/2019 11:20:00 AM EDT [facility] ([facility] ) [facility] [address] [facility] [address] [facility] [address] 11/17/2019 12:00:00 AM EDT eCW1 ([facility]) Outpatient Attender: Chinmay Guzman MD Physical Therapy 10/22/2019 0 1:00:00 PM EDT [facility] ([facility] ) [place] [address] [facility] [address] 10/15/2019 12:00:00 AM EDT eCW1 ([facility]) [place] [address] [facility] [address] 10/15/2019 12:00:00 AM EDT eCW1 ([facility]) Outpatient Attender: Jose D Jaffe 0 10/12/2019 02:15:00 PM EDT MEDENT ([facility] ) Outpatient Attender: Malaika Jaffe 01:00:00 PM EDT MEDENT ([facility] ) Outpatient Attender: Malaika Jaffe 02:40:00 PM EDT MED[facility] ([facility] ) [facility] [facility] [address] [facility] [address] 09/18/2019 12:00:00 AM EDT [facility]CW1 ([facility]) [facility] [address] [facility] [address] [facility] [address] 09/18/2019 12:00:00 AM EDT eCW1 ([facility]) [facility] [address] [facility] [address] [facility] [address] 09/18/2019 12:00:00 AM EDT eCW1 ([facility]) [facility] [address] [facility] [address] [facility] [address] 09/17/2019 12:00:00 AM EDT eCW1 ([facility]) Outpatient Attender: Jose D Jaffe 0 09/01/2019 02:45:00 PM EDT MED[facility] ([facility] ) [facility] [address] [facility] [address] [facility] [address] 08/26/2019 12:00:00 AM EDT eCW1 ([facility]) [facility] [address] [facility] [address] [facility] [address] 08/18/2019 12:00:00 AM EDT [facility]CW1 [facility] Outpatient Attender: Jose D Jaffe 0 08/13/2019 11:30:00 AM EDT MED[facility] ([facility] ) [facility] [address] [facility] [address] [facility] [address] 08/12/2019 12:00:00 AM EDT eCW1 ([facility]) [facility] [address] [facility] [address] [facility] [address] 08/12/2019 12:00:00 AM EDT eCW1 ([facility]) [facility] [facility] [address] [facility] [address] 08/11/2019 12:00:00 AM EDT eCW1 ([facility]) Outpatient Referrer: Jose D Montana MD 07/16/2019 03:17:0 0 PM EST [facility] Outpatient Attender: MARGARET SHAY MD Physical Therapy 10:35:00 AM EST [facility] Outpatient Referrer: Jose D Montana MD 07/14/2019 03:33:0 0 PM EST [facility] Immunizations Vaccine Date Status Description Data Source(s) COVID-19 VACCINE, MRNA, [id number], LNP-S ([facility])/PF 06/11/19 21 12:00:00 AM EST completed [facility] Medications Medication Brand Name Start Date Product Form Dose Route Admi nistrative Instructions Pharmacy Instructions Status Indications Reaction Description Data Source(s) 400 mg (241.3 mg magnesium) 06/07/2020 12:00:00 AM EST table t 60 TAKE ONE TABLET BY MOUTH TWICE A DAY TAKE ONE TABLET BY MOUTH TWICE A DAY SOLD: 06/08/2020 [facility] 20 mg 05/24/2020 12:00:00 AM EST tablet 10 TAKE TWO TABLETS BY MOUTH EVERY DAY FOR 5 DAYS TAKE TWO TABLETS BY MOUTH EVERY DAY FOR 5 DAYS SOLD: 021 [facility] 300 mg 03/07/2020 12:00:00 AM EDT capsule 90 TAKE ONE CAPSULE BY MOUTH THREE TIMES A DAY WITH MEALS TAKE ONE CAPSULE BY MOUTH THREE TIMES A DAY WITH MEALS SOLD: 03/08/2020 [facility] Ursodiol 300 MG Oral Capsule [Actigall] Actigall 03/07/2020 12:00:0 0 AM EDT ORAL active MEDENT ([facility]) 20 mEq 03/04/2020 12:00:00 AM EDT tablet,ER particles/cry stals 90 TAKE ONE TABLET BY MOUTH TWICE A DAY TAKE ONE TABLET BY MOUTH TWICE A DAY SOLD: 03/04/2020 [facility] 0.4 mg 03/03/2020 12:00:00 AM EDT capsule 30 TAKE ONE CAPSULE BY MOUTH AT BEDTIME TAKE ONE CAPSULE BY MOUTH AT BEDTIME SOLD: 06/08/2020 [facility] 0.4 mg 03/03/2020 12:00:00 AM EDT capsule 30 TAKE ONE CAPSULE BY MOUTH AT BEDTIME TAKE ONE CAPSULE BY MOUTH AT BEDTIME SOLD: 04/08/2020 [facility] 20 mg 03/03/2020 12:00:00 AM EDT tablet 30 TAKE ONE TABLET BY MOUTH EVERY DAY FOR 3 DAYS DIRECTED IF WEIGHT INCREASES OR LEGS SWELL TAKE ONE TABLET BY MOUTH EVERY DAY FOR 3 DAYS DIRECTED IF WEIGHT INCREASES OR LEGS SWELL SOLD: 03/04/2020 [facility] 0.4 mg 03/03/2020 12:00:00 AM EDT capsule 30 TAKE ONE CAPSULE BY MOUTH AT BEDTIME TAKE ONE CAPSULE BY MOUTH AT BEDTIME SOLD: 03/04/2020 [facility] 0.4 mg 03/03/2020 12:00:00 AM EDT capsule 30 TAKE ONE CAPSULE BY MOUTH AT BEDTIME TAKE ONE CAPSULE BY MOUTH AT BEDTIME SOLD: 05/10/2020 [facility] 300 mg 02/24/2020 12:00:00 AM EDT capsule 24 TAKE ONE CAPSULE BY MOUTH TWICE A DAY TAKE ONE CAPSULE BY MOUTH TWICE A DAY SOLD: 02/24/2020 [facility] 40 mg 02/24/2020 12:00:00 AM EDT tablet 14 TAKE ONE TABLET BY MOUTH EVERY DAY TAKE ONE TABLET BY MOUTH EVERY DAY SOLD: 02/24/2020 [facility] 20 mEq 02/24/2020 12:00:00 AM EDT tablet extended release 28 TAKE TWO TABLETS BY MOUTH EVERY DAY TAKE TWO TABLETS BY MOUTH EVERY DAY SOLD: 02/24/2020 [facility] Metronidazole 500 MG Oral Tablet METRONIDAZOLE 02/24/2020 12:0 0:00 AM EDT tablet 36 TAKE ONE TABLET BY MOUTH THREE T IMES A DAY FOR 12 DAYS TAKE ONE TABLET BY MOUTH THREE TIMES A DAY FOR 12 DAYS SOLD: 02/24/2020 [facility] 5 % 02/23/2020 12:00:00 AM EDT adhesive patch,medicate d 30 APPLY TOPICALLY DAILY ON 12 HOURS OFF 12 HOURS RIGHT KNEE APPLY TOPICALLY DAILY ON 12 HOURS OFF 12 HOURS RIGHT KNEE SOLD: 03/28/2020 [facility] 5 % 02/23/2020 12:00:00 AM EDT adhesive patch,medicate d 30 APPLY TOPICALLY DAILY ON 12 HOURS OFF 12 HOURS RIGHT KNEE APPLY TOPICALLY DAILY ON 12 HOURS OFF 12 HOURS RIGHT KNEE SOLD: 02/24/2020 [facility] 400 mg (241.3 mg magnesium) 02/11/2020 12:00:00 AM EDT table t 60 TAKE ONE TABLET BY MOUTH TWICE A DAY TAKE ONE TABLET BY MOUTH TWICE A DAY SOLD: 04/08/2020 [facility] 400 mg (241.3 mg magnesium) 02/11/2020 12:00:00 AM EDT table t 60 TAKE ONE TABLET BY MOUTH TWICE A DAY TAKE ONE TABLET BY MOUTH TWICE A DAY SOLD: 05/10/2020 [facility] 400 mg (241.3 mg magnesium) 02/11/2020 12:00:00 AM EDT table t 60 TAKE ONE TABLET BY MOUTH TWICE A DAY TAKE ONE TABLET BY MOUTH TWICE A DAY SOLD: 03/08/2020 [facility] 400 mg (241.3 mg magnesium) 02/11/2020 12:00:00 AM EDT table t 60 TAKE ONE TABLET BY MOUTH TWICE A DAY TAKE ONE TABLET BY MOUTH TWICE A DAY SOLD: 02/12/2020 [facility] 7.5 mg 01/26/2020 12:00:00 AM EDT tablet 90 TAKE ONE TABLET BY MOUTH AT BEDTIME TAKE ONE TABLET BY MOUTH AT BEDTIME SOLD: 01/27/2020 [facility] 7.5 mg 01/26/2020 12:00:00 AM EDT tablet 87 TAKE ONE TABLET BY MOUTH AT BEDTIME TAKE ONE TABLET BY MOUTH AT BEDTIME SOLD: 04/19/2020 [facility] 20 mg 12/25/2019 12:00:00 AM EDT tablet 30 TAKE ONE TABLET BY MOUTH EVERY DAY FOR 3 DAYS DIRECTED , IF WEIGHT INCREASES OR LEGS SWELL TAKE ONE TABLET BY MOUTH EVERY DAY FOR 3 DAYS DIRECTED , IF WEIGHT INCREASES OR LEGS SWELL SOLD: 12/29/2019 [facility] Furosemide 20 MG Oral Tablet Furosemide 12/25/2019 12:00:00 AM EDT ORAL active [facility] ([facility]) 0.4 mg 10/28/2019 12:00:00 AM EDT capsule 30 TAKE ONE CAPSULE BY MOUTH AT BEDTIME TAKE ONE CAPSULE BY MOUTH AT BEDTIME SOLD: 02/02/2020 [facility] 0.4 mg 10/28/2019 12:00:00 AM EDT capsule 30 TAKE ONE CAPSULE BY MOUTH AT BEDTIME TAKE ONE CAPSULE BY MOUTH AT BEDTIME SOLD: 12/09/2019 [facility] 0.4 mg 10/28/2019 12:00:00 AM EDT capsule 30 TAKE ONE CAPSULE BY MOUTH AT BEDTIME TAKE ONE CAPSULE BY MOUTH AT BEDTIME SOLD: 10/30/2019 [facility] 0.4 mg 10/28/2019 12:00:00 AM EDT capsule 30 TAKE ONE CAPSULE BY MOUTH AT BEDTIME TAKE ONE CAPSULE BY MOUTH AT BEDTIME SOLD: 01/05/2020 [facility] 24 HR metoprolol succinate 25 MG Extended Release Oral Tablet Metoprolol Succinate ER 10/12/2019 12:00:00 AM EDT ORAL active [facility] ([facility]) 0.4 mg 10/07/2019 12:00:00 AM EDT capsule 30 TAKE ONE CAPSULE BY MOUTH AT BEDTIME TAKE ONE CAPSULE BY MOUTH AT BEDTIME SOLD: 10/09/2019 [facility] 400 mg (241.3 mg magnesium) 09/28/2019 12:00:00 AM EDT table t 21 TAKE ONE TABLET BY MOUTH THREE TIMES A DAY TAKE ONE TABLET BY MOUTH THREE TIMES A DAY SOLD: 09/28/2019 [facility] 500 mg 09/28/2019 12:00:00 AM EDT capsule 16 TAKE ONE CAPSULE BY MOUTH EVERY 6 HOURS TAKE ONE CAPSULE BY MOUTH EVERY 6 HOURS SOLD: 09/28/2019 [facility] 500 mg 09/28/2019 12:00:00 AM EDT tablet 7 TAKE ONE TABLET BY MOUTH DAILY FOR 7 DAYS TAKE ONE TABLET BY MOUTH DAILY FOR 7 DAYS SOLD: 09/28/2019 [facility] Nystatin 100 UNT/MG Topical Ointment Nystatin 09/28/2019 12:00:00 AM EDT active [facility] ([facility]) 100,000 unit/gram 09/28/2019 12:00:00 AM EDT ointment 15 APPLY TOPICALLY TO RASH THREE TIMES A DAY NEEDED APPLY TOPICALLY TO RASH THREE TIMES A DA Y NEEDED SOLD: 09/28/2019 [facility] Levofloxacin 500 MG Oral Tablet Levofloxacin 09/25/2019 12:00:00 AM E DT ORAL completed [facility] ([facility]) Mirtazapine 7.5 MG Oral Tablet Mirtazapine 09/23/2019 12:00:00 AM EDT ORAL active [facility] ([facility]) 7.5 mg 09/23/2019 12:00:00 AM EDT tablet 85 TAKE ONE TABLET BY MOUTH AT BEDTIME TAKE ONE TABLET BY MOUTH AT BEDTIME SOLD: 09/28/2019 [facility] 0.4 mg 08/09/2019 12:00:00 AM EDT capsule 30 TAKE ONE CAPSULE BY MOUTH AT BEDTIME TAKE ONE CAPSULE BY MOUTH AT BEDTIME SOLD: 08/13/2019 [facility] 0.4 mg 07/18/2019 12:00:00 AM EST capsule 30 TAKE ONE CAPSULE BY MOUTH AT BEDTIME TAKE ONE CAPSULE BY MOUTH AT BEDTIME SOLD: 08/06/2019 [facility] 5-325 mg 07/07/2019 12:00:00 AM EST tablet 20 TAKE ONE TABLET BY MOUTH FOUR TIMES A DAY NEEDED FOR PAIN MAXIMUM DAILY DOSE = 4 TAKE ONE TABLET BY MOUTH FOUR TIMES A DAY NEEDED FOR PAIN MAXIMUM DAILY DOSE = 4 SOLD: 07/08/2019 [facility] Insurance Providers Payer name Policy type / Coverage type Policy ID Covered alliance party ID Covered alliance party's relationship to vazquez Policy Vazquez Plan Information MEDICARE COMPLETE [id number] SP [id number] MEDICARE [id number] SP [id number] MEDICARE COMPLETE[facility] O [id number] S [id number] EXCELLUS BS S [id number] S [id number] MEDICARE COMPLETE [id number] SP [id number] MEDICARE COMPLETE [id number] SP [id number] MEDICARE COMPLETE [id number] SP [id number] MEDICARE COMPLETE [id number] SP [id number] [facility] [id number] SP [id number] MEDICARE [id number] SP [id number] Medicare Natl Govt Servic Medicare Primary [id number] Self [id number] Cloud Content Commercial [id number] Self [id number] Cloud Content Commercial [id number] Self [id number] [employer] Medigap Part B [id number] Self [place] [id number] BS [place]ad/[place] Medigap Part B [id number] Self [id number] Medicare Natl Govt Servic Medicare Primary [id number] Self [id number] MEDICARE COMPLETE [id number] SP [id number] United HLCR/Medicare Solu Commercial [id number] Self [id number] Medicare Natl Govt Servic Medicare Primary [id number] Self [id number] Medicare Natl Govt Servic Medicare Primary [id number] Self [id number] Unitedhcare Medicare Gianna Commercial [id number] Self [id number] Unitedhcare Medicare Gianna Commercial [id number] Self [id number] MEDICARE COMPLETE [id number] SP [id number] BCBS EMPIRE [facility] [id number]/803 [id number] SP [id number] MEDICARE [id number] SP [id number] A United HLCR/Medicare Solu Commercial [id number] Self [id number] BS Verizon Medigap Part B Self BS Aby Trad/MX Commercial Self Medicare Natl Govt Servic Medicare Primary Self [place] [id number] UNAVAILABLE UNAVAILABLE MEDICARE P [id number] S [id number] A BCBS EMPIRE [facility] 303/803 [id number] SP [id number] Problems, Conditions, and Diagnoses Code Display Name Description Problem Type Effective Dates Data Source(s) 87751908 Essential hypertension Essential hypertension Problem 03/07/2020 12:00:00 AM EDT [facility] ([facility] ) R33.8 [id number] Acute urinary retention Problem 08/17/2019 1 2:00:00 AM EDT eCW1 ([facility]) R33.8 [id number] Acute urinary retention Problem 08/17/2019 1 2:00:00 AM EDT eCW1 ([facility]) 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 Pro blem 08/11/2019 12:00:00 AM EDT eCW1 ([facility]) N40.1 [id number] Benign prostatic hyperplasia wit h lower urinary tract symptoms Problem 08/11/2019 12:00:00 AM EDT eCW1 ([facility]) N13.8 [id number] Other obstructive and reflux uropathy Pro blem 08/11/2019 12:00:00 AM EDT eCW1 ([facility]) N40.1 [id number] Benign prostatic hyperplasia wit h lower urinary tract symptoms Problem 08/11/2019 12:00:00 AM EDT eCW1 ([facility] hospital) Surgeries/Procedures Procedure Description Date Indications Data Source(s) Medication: Lidocaine HCl 2% Jelly 5mL Intravesically 10/15/2019 12:00:00 AM EDT eCW1 ([facility]) ECG ROUTINE ECG W/LEAST 12 LDS W/I&R 10/12/2019 12:00: 00 AM EDT [facility] ([facility]) RADEX SPINE LUMBOSACRAL 2/3 VIEWS 09/22/2019 12:00:00 AM EDT [facility] ([facility] ) INSERT BLADDER CATH, COMPLEX 09/18/2019 12:00:00 AM ED T eCW1 ([facility]) NO CHARGE VISIT 09/17/2019 12:00:00 AM EDT eCW1 ([facility]) Irrigation of Bladder 08/12/2019 12:00:00 AM EDT eCW1 ([facility]) RADEX SPINE LUMBOSACRAL 2/3 VIEWS 07/31/2019 12:00:00 AM EDT [facility] ([facility]) CLTX VRT BDY FX W/O MANJ REQ&W/CSTING/BRACING 07/15/19 12:00:00 AM EST [facility] ([facility]) Results ID Date Data Source [id number] 02/16/2020 12:00:[address] [facility] Jose D Montana Jr, MD Patient Name: DERRICK [id number] [facility] Date of : [address] [address] Date of Exam: 02/16/2020#: Fax: [phone] EXAM: CT ABDOMEN & PELVIS WITHOUT&WITH CONTRASTCLINICAL INFORMATION: Weight loss and elevated LFT's.Low dose [address] scanning of the abdomen and pelvis wasobtained before and after the administration of intravenous contrast using3 mm increments and reconstructed in both sagittal and coronal scan planes. Immediate and delayed post contrast enhanced imaging was obtained throughthe abdomen. 75 cc of Optiray 350 was administered intravenously.The latest prior for comparison is 07/07/2019, a non-contrast enhanced examof the pelvis and the latest prior abdominal CT 01/29/2018, both reviewed.The lung bases are chronic lung base changes, status quo.The pre- contrast enhanced portion of the examination again shows hepaticand splenic densities to be within normal limits. There is cholelithiasiswhich has developed since the last abdominal CT. There are no nephroliths. There are multiple low density left renal lesions, status quo. There areno urinary bladder calcifications. Heavy calcific atherosclerotic changeis seen in the abdominal aorta and common iliac arteries.The contrast enhanced portion of the examination shows a new possiblyenhancing 1.7 cm sized low density lesion in the pancreatic head. Thereare no enhancing hepatic lesions. The spleen and adrenal glands are againseen to be within normal limits. None of the renal cysts show any type ofenhancement. There is abnormal appearing narrowing of the cecum with somepericecal fatty infiltration representing a change from the prior exam.There is no free fluid or free air. The abdominal aorta and paraaorticregions are essentially unchanged.There is a small amount of free pelvic fluid. There is no adenopathy.There is prostatomegaly, status quo.Bone window technique throughout the examination shows chronic hip, spinaland sacroiliac joint degenerative mitchell ges, status quo.IMPRESSION:1. Pancreatic lesion as described above and for which pre and postGadolinium enhanced MRI is recommended. Pancreatic neoplasm is suspected.2. Abnormal cecal and pericecal region as described above. Neoplasmcannot be ruled out.3. There is cholelithiasis.4. Simple stable left renal cyst.5. Other findings as described above.Accredited by the [employer] in [place].Nelson Nunez, NOE/[facility] [place] for referring DERRICK KWAN to our office. Electronically Signed - NELSON NUNEZ DO 02/17/20 15:07 Name Value Range Interpretation Code Description Data Courtney rce(s) Supporting Document(s) ID Date Data Source [id number] 02/10/2020 02:23:00 PM EDT [facility] ([facility]) Name Value Range Interpretation Code Description Data Courtney rce(s) Supporting Document(s) Magnesium, Serum Laboratory test result [facility] ([facility]) ID Date Data Source [id number] 02/08/2020 11:57:00 AM EDT [facility] ([facility]) Name Value Range Interpretation Code Description Data Courtney rce(s) Supporting Document(s) Magnesium [Moles/volume] in Serum or Plasma 1.6 mg/dL 1.8-2.4 [facility] ([facility]) ID Date Data Source [id number] 02/08/2020 11:57:00 AM EDT [facility] ([facility]) Name Value Range Interpretation Code Description Data Courtney rce(s) Supporting Document(s) Glucose, Fasting 100 mg/dL 70-100 [facility] ([facility]) Blood Urea Nitrogen 13 mg/dL 7-18 [facility] ([facility]) Creatinine For GFR 0.75 mg/dL 0.70-1.30 [facility] ([facility]) Glomerular Filtration Rate Laboratory test result [facility] ([facility]) <content>Units are mL/min/1.73 m2</content>
<content></content>
<content>Chronic Kidney Disease Staging per NKF:</content>
<content></content>
<content>Stage I & II GFR >=60 Normal to Mildly Decreased</content>
<content>Stage III GFR 30- 59 Moderately Decreased</content>
<content>Stage IV GFR 15-29 Severely Decreased</content>
<content>Stage V GFR <15 Very Little GFR Left</content>
<content>ESRD GFR <15 on CAMP GUARD</content>
<content></content> Sodium Level 140 meq/L 136-145 [facility] ([facility]) Potassium Serum 3.7 meq/L 3.5-5.1 [facility] ([facility]) Anion Gap 5 meq/L 8-16 [facility] Chloride Level 109 meq/L 98-107 [facility] ([facility]) Carbon Dioxide Level 26 meq/L 21-32 [facility] ([facility]) Calcium Level 8.0 mg/dL 8.8-10.2 [facility] ([facility]) ID Date Data Source [id number] 02/08/2020 11:57:00 AM EDT [facility] ([facility]) Name Value Range Interpretation Code Description Data Courtney rce(s) Supporting Document(s) CPK Creatine Phosphokinase 162 U/L 39-308 [facility] ([facility]) CK-MB Value Mass Laboratory test result [facility] ([facility]) MB/CK Relative Index 0.62 [facility] ([facility]) <content>DIAGNOSIS CRITERIA</content>
<content>MMB ng/ml Relative Index (RI)</content>
<content>NON-AMI < or = 5 N/A</content>
<content>PRITCHETT ZONE > 5 < or = 4</content>
<content>AMI > 5 > 4</content>
<content></content> Troponin I Laboratory test result [facility] ([facility]) <content>Troponin I Reference Interval f or Siemens [place] LOCI:</content>
<content></content>
<content>99th Percentile= 0.00-0.045 ng/ml</content>
<content></content>
<content>Risk Stratification:</content>
<content><= 0.10 ng/ml Decreased Risk for Adverse Clinical</content>
<content>Events.</content>
<content>0.10-1.50 ng/ml Increased Risk for Adverse Clinical</content>
<content>Events. Evaluation of additional</content>
<content>criterion and/or repeat testing in 2-6</content>
<content>hours is suggested to rule out myocardial</content>
<content>damage.</content>
<content>>= 1.50 ng/ml Indicative of Myocardial Injury.</content>
<content></content> ID Date Data Source [id number] 02/08/2020 11:57:00 AM EDT [facility] ([facility]) Name Value Range Interpretation Code Description Data Courtney rce(s) Supporting Document(s) Red Blood Count 3.70 10 4.30-6.10 [facility] ([facility]) White Blood Count 7.8 10 4.0-10.0 [facility] ([facility]) Hemoglobin 12.4 g/dL 13.5-17.5 [facility] ([facility]) Hematocrit 36.1 % 42.0-52.0 [facility] ([facility]) Mean Corpuscular Volume 97.6 fl 80.0-96.0 [facility] ([facility]) Mean Corpuscular Hemoglobin 33.5 pg 27.0-33.0 ME DENT ([facility]) Red Cell Distribution Width 13.2 % 11.5-14.5 [facility] ([facility]) Platelet Count, Automated 142 10 150-450 MED[facility] NT ([facility]) Mean Corpuscular HGB Conc 34.3 g/dL 32.0-36.5 [facility] NT ([facility]) Lymph % 13.6 % 24.0-44.0 [facility] Neutrophils % 71.5 % 36.0-66.0 [facility] ([facility]) Pike % 11.5 % 0.0-5.0 [facility]) Eos % 2.7 % 0.0-3.0 [facility] Nucleated Red Blood Cell % 0.0 % 0-0 [facility] ([facility]) Immature Granulocyte % 0.3 % 0-3.0 [facility] ([facility]) Baso % 0.4 % 0.0-1.0 [facility]) Pike # 0.9 10 0.0-0.8 [facility] Neutrophils # 5.6 10 1.5-8.5 [facility] ([facility]) Lymph # 1.1 10 1.5-5.0 [facility] Eos # 0.2 10 0.0-0.5 [facility] Baso # 0.0 10 0.0-0.2 [facility] ID Date Data Source [id number] 12/25/2019 11:32:00 AM EDT [facility] ([facility]) Name Value Range Interpretation Code Description Data Courtney rce(s) Supporting Document(s) Magnesium 1.7 mg/dL 1.8-2.4 [facility] ID Date Data Source [id number] 10/26/2019 08:26:00 AM EDT [facility] ([facility]) Name Value Range Interpretation Code Description Data Courtney rce(s) Supporting Document(s) Magnesium 1.4 mg/dL 1.8-2.4 [facility] ID Date Data Source [id number] 10/26/2019 08:26:00 AM EDT [facility] ([facility]) Name Value Range Interpretation Code Description Data Courtney rce(s) Supporting Document(s) Creatinine 1.0 mg/dL 0.6-1.3 [facility] Glucose [Mass/volume] in Serum or Plasma 94 mg/dL 74-99 [facility] ([facility]) 100-125 mg/dL PRE-DIABETES/FASTING >126 mg/dL DIABETES/FASTING Urea nitrogen [Mass/volume] in Serum or Plasma 8 mg/dL 7-18 [facility] ([facility]) Potassium [Moles/volume] in Serum or Plasma 3.9 meq/L 3.5-5.1 [facility] ([facility]) Chloride [Moles/volume] in Serum or Plasma 107 meq/L 98-107 [facility] ([facility]) Sodium [Moles/volume] in Serum or Plasma 143 meq/L 136-145 [facility] ([facility]) Total Bilirubin 0.7 mg/dL 0.2-1.0 [facility] ([facility]) Alkaline phosphatase isoenzyme [Units/volume] in Serum or Pl asma 162 mg/dL 46-116 [facility] ([facility]) Carbon dioxide, total [Moles/volume] in Serum or Plasma 28 meq/L 21 -32 [facility] ([facility]) Calcium [Mass/volume] in Serum or Plasma 7.9 mg/dL 8.5-10.1 [facility] ([facility]) Aspartate aminotransferase [Enzymatic activity/volume] in Serum or Plasma 31 U/L 15-37 [facility] ([facility] ) Alanine aminotransferase [Enzymatic activity/volume] in Seru m or Plasma 25 U/L 12-78 [facility] ([facility]) Albumin [Mass/volume] in Serum or Plasma 2.8 g/dL 3.4-5.0 [facility] ([facility]) Proteinase 3 Ab [Units/volume] in Serum 6.3 g/dL 6.4-8.2 [facility] Glomerular filtration rate/1.73 sq M pre dicted among non-blacks [Volume Rate/Area] in Serum or Plasma by Creatinine-based formula (MDRD) Laboratory test result [facility] A/G Ratio 0.80 CALC 1.00-1.90 [facility]) Glomerular filtration rate/1.73 sq M pre dicted among blacks [Volume Rate/Area] in Serum or Plasma by Creatinine-based formula (MDRD) Laboratory test result [facility] ([facility]) <content>CHRONIC KIDNEY DISEASE STAGING PER NKF</content>
<content></content>
<content>STAGE I & II GFR >= 60 NORMAL TO MILDLY DECREASED</content>
<content>STAGE III GFR 30-59 MODERATELY DECREASED</content>
<content>STAGE IV GFR 15-29 SEVERELY DECREASED</content>
<content>STAGE V GFR <15 VERY LITTLE GFR LEFT</content>
<content>ESRD GFR <15 ON CAMP GUARD</content>
<content></content> ID Date Data Source [id number] 10/26/2019 08:26:00 AM EDT [facility] ([facility]) Name Value Range Interpretation Code Description Data Courtney rce(s) Supporting Document(s) Leukocytes [#/volume] in Blood by Automated count 6.0 x10*3/UL 4.1-10 .9 [facility] ([facility]) Erythrocytes [#/volume] in Blood by Automated count 3.32 x10*6/UL 4.2 0-6.30 [facility] Hematocrit [Volume Fraction] of Blood by Automated count 34.2 % 3 7.0-51.0 [facility] MCV 102.8 fL 80.0-97.0 [facility] ([facility]) Hemoglobin [Mass/volume] in Blood 11.7 g/dL 12.0-18.0 [facility] ([facility]) NOTE: RESULT VERIFIED. Erythrocyte distribution width [Ratio] by Automated count 13.7 % 11.6-13.7 [facility] ([facility]) MCH 35.2 pg 26.0-32.0 [facility] ([facility]) MCHC 34.2 g/dL 31.0-38.0 [facility] ([facility]) MPV 8.4 FL 7.8-11.0 [facility] ([facility]) Platelets [#/volume] in Blood by Automated count 241 x10*3/UL 140-440 [facility] ([facility]) Lymph % 20.0 % 10.0-58.5 [facility] ([facility]) Mid % 7.7 % 1.7-9.3 [facility] Mid # 0.5 x10*3/UL 0.1-0.6 [facility] ([facility]) Lymph # 1.2 x10*3/UL 0.6-4.1 [facility] ([facility]) Neut % 72.3 % 37.0-92.0 [facility] Neut # 4.3 x10*3/UL 2.0-7.8 [facility] ([facility]) ID Date Data Source [id number] 10/12/2019 02:57:00 PM EDT [facility] ([facility]) Name Value Range Interpretation Code Description Data Courtney rce(s) Supporting Document(s) Erythrocytes [#/volume] in Blood by Automated count 3.55 x10*6/UL 4.2 0-6.30 [facility] ([facility]) Leukocytes [#/volume] in Blood by Automated count 7.3 x10*3/UL 4.1-10 .9 [facility] ([facility]) MCV 104.9 fL 80.0-97.0 [facility]) Hemoglobin [Mass/volume] in Blood 12.3 g/dL 12.0-18.0 [facility] ([facility]) Hematocrit [Volume Fraction] of Blood by Automated count 37.2 % 3 7.0-51.0 [facility] ([facility]) MCHC 33.0 g/dL 31.0-38.0 [facility]) Erythrocyte distribution width [Ratio] by Automated count 15.0 % 11.6-13.7 [facility] ([facility]) MCH 34.7 pg 26.0-32.0 [facility] Mid % 6.7 % 1.7-9.3 [facility]) MPV 8.0 FL 7.8-11.0 [facility] Lymph % 19.9 % 10.0-58.5 [facility]) Platelets [#/volume] in Blood by Automated count 294 x10*3/UL 140-440 [facility] ([facility]) Mid # 0.6 x10*3/UL 0.1-0.6 [facility] ([facility]) Lymph # 1.4 x10*3/UL 0.6-4.1 [facility] ([facility]) Neut % 73.4 % 37.0-92.0 [facility] ([facility]) Neut # 5.3 x10*3/UL 2.0-7.8 [facility] ([facility]) ID Date Data Source [id number] 10/12/2019 02:57:00 PM EDT [facility] ([facility]) Name Value Range Interpretation Code Description Data Courtney rce(s) Supporting Document(s) Hemoglobin A1c/Hemoglobin.total in Blood 5.1 g/dL 4.8-5.6 [facility] Lab Result Notes: Pre-Diabetes 5.7 - 6.4 % Diabetes = or > 6.5% Glucose mean value [Mass/volume] in Blood Estimated fr om glycated hemoglobin 100 mg/dL 60-110 [facility] ID Date Data Source [id number] 10/12/2019 02:57:00 PM EDT [facility] Name Value Range Interpretation Code Description Data Courtney rce(s) Supporting Document(s) Magnesium 1.5 mg/dL 1.8-2.4 [facility] ([facility]) ID Date Data Source [id number] 10/12/2019 02:57:00 PM EDT [facility] Name Value Range Interpretation Code Description Data Courtney rce(s) Supporting Document(s) Glucose [Mass/volume] in Serum or Plasma 110 mg/dL 74-99 [facility] ([facility]) 100-125 mg/dL PRE-DIABETES/FASTING >126 mg/dL DIABETES/FASTING Sodium [Moles/volume] in Serum or Plasma 142 meq/L 136-145 [facility] ([facility]) Urea nitrogen [Mass/volume] in Serum or Plasma 7 mg/dL 7-18 [facility] Creatinine 0.9 mg/dL 0.6-1.3 [facility] ([facility]) Carbon dioxide, total [Moles/volume] in Serum or Plasma 25 meq/L 21 -32 [facility] ([facility]) Potassium [Moles/volume] in Serum or Plasma 4.2 meq/L 3.5-5.1 [facility] ([facility]) Chloride [Moles/volume] in Serum or Plasma 106 meq/L 98-107 [facility] ([facility]) Total Bilirubin 0.9 mg/dL 0.2-1.0 [facility] ([facility]) Calcium [Mass/volume] in Serum or Plasma 8.9 mg/dL 8.5-10.1 [facility] ([facility]) Alkaline phosphatase isoenzyme [Units/volume] in Serum or Pl asma 172 mg/dL 46-116 [facility] ([facility]) Alanine aminotransferase [Enzymatic activity/volume] in Seru m or Plasma 26 U/L 12-78 [facility] ([facility]) Aspartate aminotransferase [Enzymatic activity/volume] in Serum or Plasma 35 U/L 15-37 [facility] Albumin [Mass/volume] in Serum or Plasma 2.9 g/dL 3.4-5.0 [facility] ([facility]) Proteinase 3 Ab [Units/volume] in Serum 7.1 g/dL 6.4-8.2 [facility] ([facility]) Glomerular filtration rate/1.73 sq M pre dicted among non-blacks [Volume Rate/Area] in Serum or Plasma by Creatinine-based formula (MDRD) Laboratory test result [facility] A/G Ratio 0.69 CALC 1.00-1.90 [facility] Glomerular filtration rate/1.73 sq M pre dicted among blacks [Volume Rate/Area] in Serum or Plasma by Creatinine-based formula (MDRD) Laboratory test result [facility] <content>CHRONIC KIDNEY DISEASE STAGING PER NKF</content>
<content></content>
<content>STAGE I & II GFR >= 60 NORMAL TO MILDLY DECREASED</content>
<content>STAGE III GFR 30-59 MODERATELY DECREASED</content>
<content>STAGE IV GFR 15-29 SEVERELY DECREASED</content>
<content>STAGE V GFR <15 VERY LITTLE GFR LEFT</content>
<content>ESRD GFR <15 ON CAMP GUARD</content>
<content></content> ID Date Data Source [id number] 10/12/2019 02:57:00 PM EDT [facility] ([facility]) Name Value Range Interpretation Code Description Data Courtney rce(s) Supporting Document(s) Cholesterol [Mass/volume] in Serum or Plasma 118 mg/dL 131-200 [facility] ([facility]) Triglyceride [Mass/volume] in Serum or Plasma 51 mg/dL 30-150 [facility] ([facility]) Cholesterol in LDL [Mass/volume] in Serum or Plasma by calcu lation 43 CALC 50-159 [facility] ([facility]) Cholesterol in HDL [Mass/volume] in Serum or Plasma 65 mg/dL 35-60 [facility] ([facility]) ID Date Data Source [id number] 10/12/2019 02:57:00 PM EDT [facility] ([facility]) Name Value Range Interpretation Code Description Data Courtney rce(s) Supporting Document(s) Urine Creatinine 85.9 mg/dL 30.0-125.0 [facility] ([facility]) Microalbumin Urine 53.8 mg/L 1.3-20.0 [facility] ([facility]) Microalb/Creat Ratio 62.6 ug/mg 0.0-30.0 [facility] ( [facility]) ID Date Data Source [id number] 10/06/2019 12:52:00 PM EDT [facility] ([facility]) Name Value Range Interpretation Code Description Data Courtney rce(s) Supporting Document(s) Magnesium 1.5 mg/dL 1.8-2.4 [facility]) NOTE: RESULT VERIFIED. ID Date Data Source [id number] 10/06/2019 12:52:00 PM EDT [facility] ([facility]) Name Value Range Interpretation Code Description Data Courtney rce(s) Supporting Document(s) Glucose [Mass/volume] in Serum or Plasma 73 mg/dL 74-99 [facility] ([facility]) 100-125 mg/dL PRE-DIABETES/FASTING >126 mg/dL DIABETES/FASTING Urea nitrogen [Mass/volume] in Serum or Plasma 6 mg/dL 7-18 [facility] ([facility]) Creatinine 0.9 mg/dL 0.6-1.3 [facility] ([facility]) Potassium [Moles/volume] in Serum or Plasma 4.1 meq/L 3.5-5.1 [facility] ([facility]) Chloride [Moles/volume] in Serum or Plasma 105 meq/L 98-107 [facility] ([facility]) Sodium [Moles/volume] in Serum or Plasma 141 meq/L 136-145 [facility] ([facility]) Carbon dioxide, total [Moles/volume] in Serum or Plasma 28 meq/L 21 -32 [facility] ([facility]) Calcium [Mass/volume] in Serum or Plasma 8.3 mg/dL 8.5-10.1 [facility] ([facility]) NOTE: RESULT VERIFIED. Glomerular filtration rate/1.73 sq M pre dicted among non-blacks [Volume Rate/Area] in Serum or Plasma by Creatinine-based formula (MDRD) Laboratory test result [facility] Glomerular filtration rate/1.73 sq M pre dicted among blacks [Volume Rate/Area] in Serum or Plasma by Creatinine-based formula (MDRD) Laboratory test result [facility]) <content>CHRONIC KIDNEY DISEASE STAGING PER NKF</content>
<content></content>
<content>STAGE I & II GFR >= 60 NORMAL TO MILDLY DECREASED</content>
<content>STAGE III GFR 30-59 MODERATELY DECREASED</content>
<content>STAGE IV GFR 15-29 SEVERELY DECREASED</content>
<content>STAGE V GFR <15 VERY LITTLE GFR LEFT</content>
<content>ESRD GFR <15 ON CAMP GUARD</content>
<content></content> ID Date Data Source [id number] 09/25/2019 03:09:00 PM EDT [facility] ([facility]) Name Value Range Interpretation Code Description Data Courtney rce(s) Supporting Document(s) Bacteria identified in Urine by Culture Laboratory test result [facility] ([facility]) <content>FULL REPORT IN LAB NOTES (eCW a nd [facility]).</content>
<content></content>
<content>ORGANISM 1: ENTEROCOCCUS FAECALIS</content>
<content></content>
<content>COLONY COUNT >100,000</content>
<content></content>
<content></content>
<content> ORGANISM 1: ENTEROCOCCUS FAECALIS</content>
<content></content>
<content>ENTEROCOCCUS FAECALIS: REACTION</content>
<content>TETRACYCLINE PO 250 mg qid <=1 S</content>
<content>PENICILLIN G IV 1 mu q6H 2 S</content>
<content>PENICILLIN G IV 1 mu q6h 2 S</content>
<content>PENICILLIN G PO 250mg q6h fasting 2 S</content>
<content>AMPICILLIN IV 500mg q6h <=2 S</content>
<content>AMPICILLIN PO 500mg q6h fasting <=2 S</content>
<content>ERYTHROMYCIN IV 500mg q6h 0.5 S</content>
<content>ERYTHROMYCIN PO 500mg q6h 0.5 S</content>
<content>GENTAMICIN 500 IV 80mg q8h S</content>
<content>NITROFURANTOIN PO 100mg BID <=16 S</content>
<content>LEVOFLOXACIN IV 500mg qd 1 S</content>
<content>LEVOFLOXACIN PO 250mg qd 1 S</content>
<content>LEVOFLOXACIN PO 500mg qd 1 S</content>
<content>CIPROFLOXACIN IV 400mg bid 1 S</content>
<content>CIPROFLOXACIN PO 500mg q12h 1 S</content>
<content>VANCOMYCIN IV 500mg q8h 1 S</content>
<content>LINEZOLID (ZYVOX) IV 600MG Q12HR 2 S</content>
<content>LINEZOLID (ZYVOX) PO 600MG Q12HR 2 S</content>
<content></content> ID Date Data Source [id number] 09/25/2019 03:08:00 PM EDT [facility] Name Value Range Interpretation Code Description Data Courtney rce(s) Supporting Document(s) Urine Color Laboratory test result [facility] T ([facility]) Specific gravity of Urine 1.015 1.005-1.030 MI [facility] ([facility]) Urine PH 6.5 units 5.0-9.0 [facility]) Urine Appearance Laboratory test result Abnormal (applies to non-numeric results) [facility] ([facility]) Urine Blood Laboratory test result Abnormal (applies to non-numeric results) [facility] ([facility]) Urine Leukocytes Laboratory test result Abnormal (applies to non-numeric results) [facility] ([facility]) Urine Protein Laboratory test result 0-0 Abnormal (applies to non-numeric results) [facility] ([facility]) Urine Ketone Laboratory test result MEDE NT ([facility]) Glucose [Presence] in Urine Laboratory test result [facility] ([facility]) Urine Nitrite Laboratory test result [facility] ([facility]) Bilirubin.total [Mass/volume] in Serum or Plasma Laboratory test resu lt [facility] ([facility]) Urine Urobilinogen 0.2 mg/dL 0.2-1.0 [facility] ([facility]) ID Date Data Source [id number] 09/25/2019 03:05:00 PM EDT [facility] Name Value Range Interpretation Code Description Data Courtney rce(s) Supporting Document(s) Leukocytes [#/volume] in Blood by Automated count 6.0 x10*3/UL 4.1-10 .9 [facility] ([facility]) Hemoglobin [Mass/volume] in Blood 11.6 g/dL 12.0-18.0 [facility] ([facility]) Hematocrit [Volume Fraction] of Blood by Automated count 34.1 % 3 7.0-51.0 [facility] ([facility] Erythrocytes [#/volume] in Blood by Automated count 3.30 x10*6/UL 4.2 0-6.30 [facility] ([facility]) MCHC 34.1 g/dL 31.0-38.0 [facility] MCH 35.2 pg 26.0-32.0 [facility] ([facility]) MCV 103.1 fL 80.0-97.0 [facility] ([facility]) Erythrocyte distribution width [Ratio] by Automated count 14.6 % 11.6-13.7 [facility] ([facility] MPV 7.9 FL 7.8-11.0 [facility] Platelets [#/volume] in Blood by Automated count 187 x10*3/UL 140-440 [facility] ([facility]) Mid % 10.2 % 1.7-9.3 [facility] Neut % 64.2 % 37.0-92.0 [facility] Lymph % 25.6 % 10.0-58.5 [facility] Lymph # 1.5 x10*3/UL 0.6-4.1 [facility] ([facility]) Mid # 0.6 x10*3/UL 0.1-0.6 [facility] ([facility]) Neut # 3.9 x10*3/UL 2.0-7.8 [facility] ([facility]) ID Date Data Source [id number] 09/25/2019 03:05:00 PM EDT [facility] ([facility]) Name Value Range Interpretation Code Description Data Courtney rce(s) Supporting Document(s) Urea nitrogen [Mass/volume] in Serum or Plasma 7 mg/dL 7-18 [facility] ([facility]) Glucose [Mass/volume] in Serum or Plasma 107 mg/dL 74-99 [facility] ([facility]) CRITICAL: MALAIKA CARRERO NOTIFIED NOTE: RESULT VERIFIED. 100-125 mg/dL PRE-DIABETES/FASTING >126 mg/dL DIABETES/FASTING Potassium [Moles/volume] in Serum or Plasma 3.3 meq/L 3.5-5.1 [facility] ([facility]) Creatinine 0.9 mg/dL 0.6-1.3 [facility] ([facility]) Sodium [Moles/volume] in Serum or Plasma 141 meq/L 136-145 [facility] ([facility]) Glomerular filtration rate/1.73 sq M pre dicted among non-blacks [Volume Rate/Area] in Serum or Plasma by Creatinine-based formula (MDRD) Laboratory test result [facility] ([facility] Carbon dioxide, total [Moles/volume] in Serum or Plasma 25 meq/L 21 -32 [facility] ([facility]) Calcium [Mass/volume] in Serum or Plasma 5.4 mg/dL 8.5-10. 1 Below lower panic limits [facility] ([facility]) CRITICAL: MALAIKA CARRERO NOTIFIED Chloride [Moles/volume] in Serum or Plasma 104 meq/L 98-107 [facility] ([facility]) Glomerular filtration rate/1.73 sq M pre dicted among blacks [Volume Rate/Area] in Serum or Plasma by Creatinine-based formula (MDRD) Laboratory test result [facility] ([facility]) <content>CHRONIC KIDNEY DISEASE STAGING PER NKF</content>
<content></content>
<content>STAGE I & II GFR >= 60 NORMAL TO MILDLY DECREASED</content>
<content>STAGE III GFR 30-59 MODERATELY DECREASED</content>
<content>STAGE IV GFR 15-29 SEVERELY DECREASED</content>
<content>STAGE V GFR <15 VERY LITTLE GFR LEFT</content>
<content>ESRD GFR <15 ON CAMP GUARD</content>
<content></content> ID Date Data Source [id number] 07/14/2019 03:14:00 PM EST [facility] ([facility]) Name Value Range Interpretation Code Description Data Courtney rce(s) Supporting Document(s) Thyroxine (T4) free [Mass/volume] in Serum or Plasma 1.45 ng/dL 0.76- 1.46 [facility] ([facility]) Thyrotropin [Units/volume] in Serum or Plasma by Detec tion limit <= 0.05 mIU/L 1.060 uIU/ML 0.358-3.740 [facility] ([facility] ID Date Data Source [id number] 07/14/2019 03:14:00 PM EST [facility] ([facility] Name Value Range Interpretation Code Description Data Courtney rce(s) Supporting Document(s) Creatinine For GFR 0.72 mg/dL 0.70-1.30 [facility] ([facility]) Blood Urea Nitrogen 17 mg/dL 7-18 [facility] ([facility]) Glucose, Fasting 93 mg/dL 70-100 [facility] Sodium Level 137 meq/L 136-145 [facility] ([facility]) Glomerular Filtration Rate Laboratory test result [facility] ([facility]) <content>Units are mL/min/1.73 m2</content>
<content></content>
<content>Chronic Kidney Disease Staging per NKF:</content>
<content></content>
<content>Stage I & II GFR >=60 Normal to Mildly Decreased</content>
<content>Stage III GFR 30- 59 Moderately Decreased</content>
<content>Stage IV GFR 15-29 Severely Decreased</content>
<content>Stage V GFR <15 Very Little GFR Left</content>
<content>ESRD GFR <15 on CAMP GUARD</content>
<content></content> Potassium Serum 2.9 meq/L 3.5-5.1 Below lower panic limits [facility] ([facility]) Carbon Dioxide Level 30 meq/L 21-32 [facility] ([facility]) Chloride Level 97 meq/L 98-107 [facility] Anion Gap 10 meq/L 8-16 [facility] ([facility]) Calcium Level 8.6 mg/dL 8.8-10.2 [facility] ([facility]) ID Date Data Source [id number] 07/14/2019 03:14:00 PM EST [facility] ([facility]) Name Value Range Interpretation Code Description Data Courtney rce(s) Supporting Document(s) Alt/SGPT 40 U/L 12-78 [facility] ([facility]) Ast/Sgot 49 U/L 7-37 [facility] ([facility]) Bilirubin,Direct 0.5 mg/dL 0.0-0.2 [facility] ([facility]) Alkaline Phosphatase 133 U/L 45-117 [facility] ([facility]) Total Protein 7.0 GM/DL 6.4-8.2 [facility] Bilirubin,Total 1.7 mg/dL 0.2-1.0 [facility] ([facility]) Albumin 3.2 GM/DL 3.2-5.2 [facility] ([facility]) Albumin/Globulin Ratio 0.84 1.00-1.93 [facility] ID Date Data Source [id number] 07/14/2019 03:14:00 PM EST [facility] ([facility]) Name Value Range Interpretation Code Description Data [facility](s) Supporting Document(s) CK-MB Value Mass Laboratory test result [facility] ([facility]) CPK Creatine Phosphokinase 60 U/L 39-308 [facility] E[facility] ([facility]) MB/CK Relative Index 1.67 [facility] ([facility]) <content>DIAGNOSIS CRITERIA</content>
<content>MMB ng/ml Relative Index (RI)</content>
<content>NON-AMI < or = 5 N/A</content>
<content>PRITCHETT ZONE > 5 < or = 4</content>
<content>AMI > 5 > 4</content>
<content></content> Troponin I Laboratory test result [facility] ([facility]) <content>Troponin I Reference Interval f or Siemens [place] LOCI:</content>
<content></content>
<content>99th Percentile= 0.00-0.045 ng/ml</content>
<content></content>
<content>Risk Stratification:</content>
<content><= 0.10 ng/ml Decreased Risk for Adverse Clinical</content>
<content>Events.</content>
<content>0.10-1.50 ng/ml Increased Risk for Adverse Clinical</content>
<content>Events. Evaluation of additional</content>
<content>criterion and/or repeat testing in 2-6</content>
<content>hours is suggested to rule out myocardial</content>
<content>damage.</content>
<content>>= 1.50 ng/ml Indicative of Myocardial Injury.</content>
<content></content> ID Date Data Source [id number] 07/14/2019 03:14:00 PM EST [facility] ([facility]) Name Value Range Interpretation Code Description Data Courtney rce(s) Supporting Document(s) White Blood Count 7.2 10 4.0-10.0 [facility] ([facility]) Red Blood Count 3.83 10 4.30-6.10 [facility] ([facility]) Hematocrit 40.6 % 42.0-52.0 [facility] Mean Corpuscular Hemoglobin 36.8 pg 27.0-33.0 MI [facility] ([facility]) Mean Corpuscular Volume 106.0 fl 80.0-96.0 [facility] ([facility]) Hemoglobin 14.1 g/dL 13.5-17.5 [facility] Mean Corpuscular HGB Conc 34.7 g/dL 32.0-36.5 MEDE NT ([facility]) Red Cell Distribution Width 11.9 % 11.5-14.5 [facility] ([facility]) Platelet Count, Automated 198 10 150-450 MEDE NT ([facility]) Neutrophils % 64.4 % 36.0-66.0 [facility] ([facility]) Lymph % 16.4 % 24.0-44.0 [facility] Pike % 15.5 % 0.0-5.0 [facility] ([facility]) Eos % 2.5 % 0.0-3.0 [facility] ([facility]) Immature Granulocyte % 0.6 % 0-3.0 [facility] ([facility]) Baso % 0.6 % 0.0-1.0 [facility]) Nucleated Red Blood Cell % 0.0 % 0-0 [facility] ([facility]) Eos # 0.2 10 0.0-0.5 [facility] ([facility] Lymph # 1.2 10 1.5-5.0 [facility] ([facility]) Pike # 1.1 10 0.0-0.8 [facility] ([facility]) Neutrophils # 4.7 10 1.5-8.5 [facility] ([facility]) Baso # 0.0 10 0.0-0.2 [facility] ID Date Data Source [id number] 07/07/2019 07:17:00 PM EST [facility] ([facility]) Name Value Range Interpretation Code Description Data Courtney rce(s) Supporting Document(s) Inr 1.42 [facility] ([facility] THERAPUTIC HUMAN INR VALUES INDICATIONS NORMAL RANGES PROPHYLAXIS/TREATMENT OF: VENOUS THROMBOSIS 2.0-3.0 PULMONARY EMBOLISM 2.0-3.0 PREVENTION OF SYSTEMIC EMBOLISM FROM: TISSUE HEART VALVES 2.0-3.0 ACUTE MYOCARDIAL INFARCTION 2.0-3.0 VALVULAR HEART DISEASE 2.0-3.0 ATRIAL FIBRILLATION 2.0-3.0 MECHANICAL VALVES(HIGH RISK) 2.5-3.5 RECURRENT MYOCARDIAL INFARCTION 2.5-3.5 Prothrombin Time 17.1 s 11.8-14.0 [facility] ([facility]) ID Date Data Source [id number] 07/07/2019 07:17:00 PM EST [facility] ([facility] Name Value Range Interpretation Code Description Data Courtney rce(s) Supporting Document(s) Appearance, Urine RFX Laboratory test result [facility] ([facility] Color, Urine RFX Laboratory test result [facility] ([facility]) Specific [place] Ur Auto RFX 1.008 1.002-1.035 [facility] Protein, Urine Auto RFX Laboratory test result [facility] ([facility]) PH,Urine RFX 6.0 units 5.0-9.0 [facility] ([facility]) Glucose, Urine (Ua) Auto RFX Laboratory test result [facility] ([facility]) Ketone, Urine Auto RFX Laboratory test result [facility] ([facility]) Urobilinogen, Urine Auto RFX 0.2 mg/dL 0.0-2.0 [facility] ([facility]) Leukocyte Esterase Ur Auto RFX Laboratory test result [facility] ([facility]) Nitrite, Urine Auto RFX Laboratory test result [facility] ([facility]) Bilirubin, Urine Auto RFX Laboratory test result [facility] ([facility]) Blood, Urine Blood RFX Laboratory test result [facility] ([facility]) Bacteria, Urine Auto RFX Laboratory test result [facility] ([facility]) WBC, Urine Auto RFX 0 /HPF 0-3 [facility] ([facility] RBC, Urine Auto RFX 2 /HPF 0-3 [facility] ([facility] Hyaline Cast, Urine Auto RFX 0 /LPF 0-1 M [facility] ([facility]) Squam Epithelial Cell Ur Aurfx 0 /HPF 0-6 [facility] ([facility]) Sperm, Urine Auto RFX Laboratory test result [facility] ([facility] ID Date Data Source [id number] 07/07/2019 07:03:00 PM EST [facility] Name Value Range Interpretation Code Description Data Courtney rce(s) Supporting Document(s) Glucose, Fasting 129 mg/dL 70-100 [facility] ([facility] Blood Urea Nitrogen 5 mg/dL 7-18 [facility] ([facility]) Potassium Serum 3.5 meq/L 3.5-5.1 [facility] ([facility]) Glomerular Filtration Rate Laboratory test result [facility] ([facility]) <content>Units are mL/min/1.73 m2</content>
<content></content>
<content>Chronic Kidney Disease Staging per NKF:</content>
<content></content>
<content>Stage I & II GFR >=60 Normal to Mildly Decreased</content>
<content>Stage III GFR 30- 59 Moderately Decreased</content>
<content>Stage IV GFR 15-29 Severely Decreased</content>
<content>Stage V GFR <15 Very Little GFR Left</content>
<content>ESRD GFR <15 on CAMP GUARD</content>
<content></content> Sodium Level 132 meq/L 136-145 [facility] ([facility]) Creatinine For GFR 0.75 mg/dL 0.70-1.30 [facility] ([facility]) Anion Gap 11 meq/L 8-16 [facility] ([facility]) Carbon Dioxide Level 25 meq/L 21-32 [facility] ([facility]) Chloride Level 96 meq/L 98-107 [facility] ([facility]) Calcium Level 8.1 mg/dL 8.8-10.2 [facility] ([facility]) ID Date Data Source [id number] 07/07/2019 07:03:00 PM EST [facility] ([facility]) Name Value Range Interpretation Code Description Data Courtney rce(s) Supporting Document(s) White Blood Count 9.3 10 4.0-10.0 [facility] ([facility]) Red Blood Count 3.47 10 4.30-6.10 [facility] ([facility]) Hematocrit 36.3 % 42.0-52.0 [facility] Hemoglobin 12.9 g/dL 13.5-17.5 [facility] Mean Corpuscular Hemoglobin 37.2 pg 27.0-33.0 [facility] ([facility]) Mean Corpuscular Volume 104.6 fl 80.0-96.0 [facility] ([facility]) Mean Corpuscular HGB Conc 35.5 g/dL 32.0-36.5 MED[facility] NT ([facility]) Platelet Count, Automated 198 10 150-450 [facility] NT ([facility]) Red Cell Distribution Width 11.9 % 11.5-14.5 [facility] ([facility]) Nucleated Red Blood Cell % 0.0 % 0-0 [facility] ([facility]) Procedure Social History Code Duration Value Status Description Data Source(s ) Smoking 10/15/2019 12:00:00 AM EDT Former Smoker completed Former Smoker [id number] ([facility]) Smoking 10/15/2019 12:00:00 AM EDT Former Smoker completed Former Smoker [facility] ([facility]) Vital Signs ID Date Data Source UNK Name Value Range Interpretation Code Description Data Source(s) Body surface area Derived from formula 1.95 m2 1.95 m2 [facility] ([facility]) Body weight 71.839 kg 71.839 kg [facility] ([facility]) Steen body weight 184 [lb_av] 184 [lb_av] [facility] Body mass index (BMI) [Ratio] 20.9 kg/m2 20.9 k g/m2 [facility] ([facility]) Body weight 158.38 [lb_av] 158.38 [lb_av] [facility] Body height 73 [in_i] 73 [in_i] [facility] ([facility]) 6'1" Diastolic blood pressure 67 mm[Hg] 67 mm[Hg] [facility] ([facility]) Systolic blood pressure 154 mm[Hg] 154 mm[Hg] [facility]) Body surface area Derived from formula 1.95 m2 1.95 m2 [facility] ([facility]) Body weight 72.349 kg 72.349 kg [facility] ([facility]) Steen body weight 184 [lb_av] 184 [lb_av] MEDEN T ([facility], ) Body mass index (BMI) [Ratio] 21.0 kg/m2 21.0 k g/m2 [facility] ([facility]) Body weight 159.50 [lb_av] 159.50 [lb_av] MEDEN T ([facility]) Body height 73 [in_i] 73 [in_i] [facility] ([facility]) 6'1" Heart rate 80 /min 80 /min [facility] ([facility]) Diastolic blood pressure 97 mm[Hg] 97 mm[Hg] [facility] ([facility]) Systolic blood pressure 132 mm[Hg] 132 mm[Hg] [facility] ([facility]) Body height 72 [in_i] 72 [in_i] [facility] ([facility]) 6'0" Heart rate 88 /min 88 /min [facility] ([facility]) Diastolic blood pressure 50 mm[Hg] 50 mm[Hg] [facility] ([facility]) Systolic blood pressure 92 mm[Hg] 92 mm[Hg] [facility] ([facility]) Body mass index (BMI) [Ratio] 22.6 kg/m2 22.6 k g/m2 [facility] ([facility]) Oxygen saturation in Arterial blood by Pulse oximetry 96 % 96 % [facility] ([facility]) Body weight 167.00 [lb_av] 167.00 [lb_av] MEDEN T ([facility]) Body mass index (BMI) [Ratio] 25.0 kg/m2 25.0 k g/m2 [facility] ([facility]) Oxygen saturation in Arterial blood by Pulse oximetry 98 % 98 % [facility] ([facility]) Body weight 184.00 [lb_av] 184.00 [lb_av] MEDEN T ([facility]) Body height 72 [in_i] 72 [in_i] [facility] ([facility]) 6'0" Heart rate 70 /min 70 /min [facility] ([facility]) Diastolic blood pressure 70 mm[Hg] 70 mm[Hg] [facility] ([facility]) Systolic blood pressure 134 mm[Hg] 134 mm[Hg] M EDENT ([facility]) Diastolic blood pressure 76 mm[Hg] 76 mm[Hg] eCW1 ([facility]) Systolic blood pressure 142 mm[Hg] 142 mm[Hg] e CW1 ([facility]) Body temperature 97.4 [degF] 97.4 [degF] eCW1 ( [facility]) Respiratory rate 18 /min 18 /min eCW1 ([facility]) Heart rate 88 /min 88 /min eCW1 ([facility]) Body mass index (BMI) [Ratio] 21.77 kg/m2 21.77 kg/m2 eCW1 ([facility]) Body height 73 [in_i] 73 [in_i] eCW1 ([facility]) Body weight 165 [lb_av] 165 [lb_av] eCW1 ([facility]) Body mass index (BMI) [Ratio] 23.1 kg/m2 23.1 k g/m2 [facility] ([facility]) Body weight 170.25 [lb_av] 170.25 [lb_av] MEDEN T ([facility]) Body height 72 [in_i] 72 [in_i] [facility] ([facility]) 6'0" Diastolic blood pressure 80 mm[Hg] 80 mm[Hg] [facility] ([facility]) Systolic blood pressure 140 mm[Hg] 140 mm[Hg] M EDENT ([facility]) Body mass index (BMI) [Ratio] 23.3 kg/m2 23.3 k g/m2 [facility] ([facility]) Oxygen saturation in Arterial blood by Pulse oximetry 99 % 99 % [facility] ([facility]) Body weight 172.00 [lb_av] 172.00 [lb_av] MEDEN T ([facility]) Body height 72 [in_i] 72 [in_i] [facility] ([facility]) 6'0" Heart rate 93 /min 93 /min [facility] ([facility]) Diastolic blood pressure 72 mm[Hg] 72 mm[Hg] [facility] ([facility]) Systolic blood pressure 140 mm[Hg] 140 mm[Hg] M EDENT ([facility]) Oxygen saturation in Arterial blood by Pulse oximetry 95 % 95 % MEDMELISSA ([facility]) RM Air Body height 72 [in_i] 72 [in_i] MEDENT ([facility]) 6'0" Heart rate 70 /min 70 /min MED[facility] ([facility]) Diastolic blood pressure 66 mm[Hg] 66 mm[Hg] MED[facility] ([facility]) RT Arm Systolic blood pressure 114 mm[Hg] 114 mm[Hg] M EDENT ([facility]) RT Arm Diastolic blood pressure 76 mm[Hg] 76 mm[Hg] eCW1 ([facility]) Systolic blood pressure 148 mm[Hg] 148 mm[Hg] e CW1 ([facility]) Body temperature 97.9 [degF] 97.9 [degF] eCW1 ( [facility]) Respiratory rate 20 /min 20 /min eCW1 ([facility]) Heart rate 74 /min 74 /min eCW1 ([facility]) Body mass index (BMI) [Ratio] 21.96 kg/m2 21.96 kg/m2 [facility] ([facility]) Body height 73 [in_us] 73 [in_us] W1 ([facility]) Body weight Measured 166.5 [lb_av] 166.5 [lb_av ] eCW1 ([facility]) Diastolic blood pressure 76 mm[Hg] 76 mm[Hg] eCW1 ([facility]) Systolic blood pressure 142 mm[Hg] 142 mm[Hg] e CW1 ([facility]) Body temperature 97.2 [degF] 97.2 [degF] eCW1 ( [facility]) Respiratory rate 20 /min 20 /min eCW1 ([facility]) Heart rate 76 /min 76 /min eCW1 ([facility]) Body mass index (BMI) [Ratio] 22.03 kg/m2 22.03 kg/m2 W1 ([facility]) Body height 73 [in_us] 73 [in_us] eCW1 ([facility]) Body weight Measured 167 [lb_av] 167 [lb_av] eC W1 ([facility]) Diastolic blood pressure 64 mm[Hg] 64 mm[Hg] eCW1 ([facility]) Systolic blood pressure 102 mm[Hg] 102 mm[Hg] e CW1 ([facility]) Body temperature 96.5 [degF] 96.5 [degF] eCW1 ( [facility]) Respiratory rate 18 /min 18 /min eCW1 ([facility]) Heart rate 20 /min 20 /min eCW1 ([facility]) Body mass index (BMI) [Ratio] 21.77 kg/m2 21.77 kg/m2 eCW1 ([facility]) Body height 73 [in_us] 73 [in_us] eCW1 ([facility]) Body weight Measured 165 [lb_av] 165 [lb_av] eC W1 ([facility]) Diastolic blood pressure 68 mm[Hg] 68 mm[Hg] eCW1 ([facility]) Systolic blood pressure 110 mm[Hg] 110 mm[Hg] e CW1 ([facility]) Body temperature 97.7 [degF] 97.7 [degF] eCW1 ( [facility]) Respiratory rate 18 /min 18 /min eCW1 ([facility]) Heart rate 74 /min 74 /min eCW1 ([facility]) Body mass index (BMI) [Ratio] 21.77 kg/m2 21.77 kg/m2 eCW1 ([facility]) Body height 73 [in_us] 73 [in_us] eCW1 ([facility]) Body weight Measured 165 [lb_av] 165 [lb_av] eC W1 ([facility])
[2020-06-16 20:52] LABS: ALBUMIN 3.5 GM/DL (3.2-5.2); ALT/SGPT 25 U/L (12-78); BILIRUBIN,DIRECT 0.2 MG/DL (0.0-0.2); BILIRUBIN,TOTAL 0.7 MG/DL (0.2-1.0); BLOOD UREA NITROGEN 13 MG/DL (7-18); CALCIUM LEVEL 8.5 MG/DL (8.8-10.2); CARBON DIOXIDE LEVEL 29 MEQ/L (21-32); CHLORIDE LEVEL 106 MEQ/L (98-107); CK-MB VALUE MASS < 1.0 NG/ML (<3.6); CPK CREATINE PHOSPHOKINASE 23 U/L (39-308); CREATININE FOR GFR 0.91 MG/DL (0.70-1.30); FREE T4 1.14 NG/DL (0.76-1.46); GLOMERULAR FILTRATION RATE > 60.0 (>35); GLUCOSE, FASTING 111 MG/DL (70-100); MB/CK RELATIVE INDEX 4.35 (< OR =4); POTASSIUM SERUM 3.9 MEQ/L (3.5-5.1); SODIUM LEVEL 142 MEQ/L (136-145); TROPONIN I < 0.02 NG/ML (< 0.10)
--- NOTE | 2020-06-16 21:10 | ECGEPIP ---
[facility] - ED Test Date: 2020-06-16 Pat Name: DERRICK DAVALOS Department: Room: - Gender: Male [employer]: : 1930 Requested By: CARLOS Rodas Order Number: [id number] Reading MD: Mel Wynne Measurements Intervals [place] Rate: 64 P: MS: 0 QRS: 7 QRSD: 89 T: 31 QT: 445 QTc: 462 Interpretive Statements ATRIAL FIBRILLATION POSSIBLE RIGHT VENTRICULAR CONDUCTION DELAY SEPTAL MYOCARDIAL INFARCTION, OF INDETERMINATE AGE similar 02/22/20 Electronically Signed on 06-16-2020 21:10:17 EST by Mel Wynne
[2020-06-16 21:45] VITALS: BP 146/72
== END 2020-06-16 22:45 | disposition home or self-care (01) ==
LOC: EDBD 18:30 → M ED 18:30
DX: I10 Essential (primary) hypertension (principal); R09.89 Other specified symptoms and signs involving the circulatory and respiratory systems; I48.91 Unspecified atrial fibrillation; E78.9 Disorder of lipoprotein metabolism, unspecified; H40.9 Unspecified glaucoma; K21.9 Gastro-esophageal reflux disease without esophagitis; M10.9 Gout, unspecified; N40.0 Benign prostatic hyperplasia without lower urinary tract symptoms; B02.29 Other postherpetic nervous system involvement; Z79.899 Other long term (current) drug therapy; Z79.82 Long term (current) use of aspirin; Z87.891 Personal history of nicotine dependence

== ENCOUNTER 2020-06-19 20:29 | Emergency (ER) | payer MEDICARE ==
[~2020-06-19] VITALS: Ht 188 cm; Wt 79.5 kg
[2020-06-19] MEDS ORDERED: LIDO1PAD TOP (20:48)
[2020-06-19] MEDS ORDERED: TAMS1CAP17 PO (20:48)
[2020-06-19] MEDS ORDERED: OXYMETAZOLINE 0.05% NASAL SPRAY (AFRIN) ONE (21:15)
[2020-06-19] MEDS ORDERED: SILVER NITRATE APPLICATOR TOP ONE (22:45)
[2020-06-19] MEDS ORDERED: TRANEXAMIC ACID 100 MG/ML 10ML VIAL ONE (23:00)
[2020-06-19] MEDS ORDERED: DOXY100C37 PO (23:17)
[2020-06-20 01:00] VITALS: BP 168/108
[2020-06-21] MEDS ORDERED: Sodium Chloride Nasal Spray (11:31)
[2020-06-21] MEDS ORDERED: OCEA0.654 NARES (15:16)
[2020-06-21] MEDS ORDERED: AUGM875T28 PO (15:16)
[2020-06-21] MEDS ORDERED: B-12100021 PO (15:18)
== END 2020-06-20 01:11 | disposition home or self-care (01) ==
LOC: M ED 20:29
DX: R04.0 Epistaxis (principal); I48.91 Unspecified atrial fibrillation; I25.10 Atherosclerotic heart disease of native coronary artery without angina pectoris; Z79.899 Other long term (current) drug therapy; Z79.82 Long term (current) use of aspirin; Z79.01 Long term (current) use of anticoagulants

== ENCOUNTER 2020-06-20 05:39 | Inpatient (IN) | payer MEDICARE ==
[2020-06-20] VITALS (10 sets, daily range): BP systolic 150–168; BP diastolic 65–97
[~2020-06-20] VITALS: Ht 188 cm; Wt 79.5 kg
[~2020-06-20 05:39] MED LIST changes: +DOXY100C37 PO; +LIDO1PAD TOP; +TAMS1CAP17 PO
[2020-06-20] MEDS ORDERED: NS 1,000 ML IV SCH ×2 (06:15→10:30)
[2020-06-20 07:33] LABS: RSV AMPLIFICATION NEGATIVE (NEGATIVE)
[2020-06-20 07:48] LABS: BASO % 0.5 % (0.0-1.0); EOS # 0.1 10^3/uL (0.0-0.5); EOS % 1.5 % (0.0-3.0); HEMATOCRIT 32.7 % (42.0-52.0); HEMOGLOBIN 10.5 g/dl (13.5-17.5); LYMPH % 13.1 % (24.0-44.0); MEAN CORPUSCULAR HEMOGLOBIN 34.1 pg (27.0-33.0); MEAN CORPUSCULAR HGB CONC 32.1 g/dl (32.0-36.5); MEAN CORPUSCULAR VOLUME 106.2 fl (80.0-96.0); MONO # 0.8 10^3/uL (0.0-0.8); MONO % 10.2 % (0.0-5.0); NEUTROPHILS # 5.6 10^3/uL (1.5-8.5); NEUTROPHILS % 74.3 % (36.0-66.0); PLATELET COUNT, AUTOMATED 186 10^3/uL (150-450); RED BLOOD COUNT 3.08 10^6/uL (4.30-6.10); WHITE BLOOD COUNT 7.6 10^3/uL (4.0-10.0)
[2020-06-20 07:59] LABS: INR 1.77
[2020-06-20 08:00] LABS: PARTIAL THROMBOPLASTIN TIME 43.3 SECONDS (24.2-38.5)
[2020-06-20 08:05] LABS: BLOOD UREA NITROGEN 33 MG/DL (7-18); CALCIUM LEVEL 8.7 MG/DL (8.8-10.2); CARBON DIOXIDE LEVEL 24 MEQ/L (21-32); CHLORIDE LEVEL 106 MEQ/L (98-107); CREATININE FOR GFR 0.81 MG/DL (0.70-1.30); GLOMERULAR FILTRATION RATE > 60.0 (>35); GLUCOSE, FASTING 133 MG/DL (70-100); POTASSIUM SERUM 5.1 MEQ/L (3.5-5.1); SODIUM LEVEL 141 MEQ/L (136-145)
[2020-06-20] MEDS ORDERED: LIDOCAINE 2% 100MG/5ML SDV (FOR ANES.) As Ordered ONE (08:06)
[2020-06-20] MEDS ORDERED: propofoL 200 MG/20 ML VIAL As Ordered ONE (08:06)
[2020-06-20] MEDS ORDERED: dexameTHASONE 4 MG/ML 1ML VIAL (J1100 PER 1MG) As Ordered ONE (08:06)
[2020-06-20] MEDS ORDERED: ONDANSETRON 4MG/2ML VIAL As Ordered ONE (08:06)
[2020-06-20] MEDS ORDERED: ROCURONIUM BROMIDE 50 MG/5 ML VIAL As Ordered ONE (08:06)
--- NOTE | 2020-06-20 08:06 | CR.PDOC ---
General Date of Consultation: Jun 20, 2020 Vital Signs/I&O Vital Signs Date Time Temp Pulse Resp B/P (MAP) Pulse Ox O2 Delivery O2 Flow Rate FiO2 06/20/20 05:57 98.2 75 18 123/74 (90) 98 Room Air Laboratory Data Labs 24H Laboratory Tests 2 06/20/20 06:46: Coronavirus (COVID-19)(PCR) NEGATIVE, Influenza Type A (RT-PCR) NEGATIVE, Influenza Type B (RT-PCR) NEGATIVE, Respiratory Syncytial Virus (PCR) NEGATIVE 06/20/20 07:15: Immature Granulocyte % (Auto) 0.4, Neutrophils (%) (Auto) 74.3H, Lymphocytes (%) (Auto) 13.1L, Monocytes (%) (Auto) 10.2H, Eosinophils (%) (Auto) 1.5, Basophils (%) (Auto) 0.5, Neutrophils # (Auto) 5.6, Lymphocytes # (Auto) 1.0L, Monocytes # (Auto) 0.8, Eosinophils # (Auto) 0.1, Basophils # (Auto) 0.0, Nucleated Red Blood Cells % (auto) 0.0 CBC/BMP Laboratory Tests 06/20/20 07:15 Allergies Coded Allergies: No Known Allergies (Verified , 01/29/18) Home Medications Scheduled Aspirin (Ecotrin) 81 Mg Tab, 81 MG PO DAILY, (Reported) TAKES AT NOON Atorvastatin Calcium (Atorvastatin Calcium) 40 Mg Tab, 40 MG PO QPM, (Reported) Bimatoprost (Lumigan) 0.01% 2.5ML Drops, 1 DROP OU QHS, (Reported) Esomeprazole Magnesium (Esomeprazole Magnesium) 40 Mg Capsule.dr, 40 MG PO DAILY, (Reported) TAKES AT NOON Fludrocortisone Acetate (Fludrocortisone Acetate) 0.1 Mg Tab, 0.1 MG PO DAILY, (Reported) Gabapentin (Gabapentin) 300 Mg Capsule, 300 MG PO TID, (Reported) Magnesium Oxide (Magnesium Oxide) 400 Mg Tablet, 800 MG PO BID, (Reported) Metoprolol Succinate (Metoprolol Succinate) 25 Mg Tab.er.24h, 25 MG PO QPM, (Reported) Mirtazapine (Mirtazapine) 7.5 Mg Tablet, 7.5 MG PO QHS, (Reported) Potassium Chloride (Potassium Chloride) 20 Meq Tab, 40 MEQ PO DAILY, (Reported) CUTS IN HALF BECAUSE OF LARGE PILL Rivaroxaban (Xarelto) 20 Mg Tablet, 20 MG PO QPM, (Reported) Tamsulosin Hcl (Tamsulosin HCl) 0.4 Mg Capsule, 0.4 MG PO QPM, (Reported) LISA CHI MD Jun 20, 2020 08:02
[2020-06-20] MEDS ORDERED: fentaNYL 100 MCG/2 ML INJECTION (J3010) As Ordered ONE (08:07)
[2020-06-20] MEDS ORDERED: LIDOCAINE W/EPINEPHRINE 1% 20ML VIAL As Ordered ONE (08:09)
[2020-06-20] MEDS ORDERED: EPINEPHrine 1MG/ML INJ 30ML MD-VIAL As Ordered ONE (08:09)
[2020-06-20] MEDS ORDERED: SILVER NITRATE APPLICATOR As Ordered ONE (08:15)
[2020-06-20] MEDS ORDERED: BACITRACIN OINTMENT 30GM TUBE As Ordered ONE (08:15)
[2020-06-20] MEDS ORDERED: CEFUROXIME INJ 1.5 GM VIAL (J0697 PER 750MG) As Ordered ONE (08:54)
[2020-06-20] MEDS ORDERED: POTASSIUM CHLORIDE 10 MEQ SR TABLET PO SCH (09:00)
[2020-06-20] MEDS: METHYLENE BLUE 0.5% (5MG/ML) 10 ML AMP (PROVAYBLUE) As Ordered ONE ×2 (09:20→09:21)
[2020-06-20] MEDS ORDERED: SUGAMMADEX SODIUM 500 MG/5 ML VIAL (BRIDION) As Ordered ONE (09:43)
--- NOTE | 2020-06-20 10:04 | HPEPDOC ---
[facility] Medical History & Physical Date of Admission Jun 20, 2020 Date of Service: Jun 20, 2020 History and Physical Chief complaint: Returns to the ED for persistent epistaxis. History of present illness: Patient is an 89 year old female with a PMHx of A. fib (on Xarelto), HTN, Orthostatic hypotension (on Fludrocortisone), DLP, BPH, Gout, GERD, Post- herpetic neuralgia, Glaucoma who returns to the hospital for recurrent epistaxis. He was seen the day prior for left nares epistaxis, and discharged home with a rhinorocket, and returns with gross bleeding from his left nares Patient denies any nausea, vomiting, chest pain, shortness of breath. Reports a nonproductive cough. Denies any abdominal pain, constipation, diarrhea, or urinary discomfort. Denies any foul odor of his urine. Denies any fevers or chills as an outpatient. Patient reports that he does ambulate with a walker. Past Medical History: #Recent ED visit for acute anterior epistaxis #A. fib (on Xarelto) #HTN #Orthostatic hypotension (on Fludrocortisone) #DLP #BPH #Gout #GERD #Post-herpetic neuralgia #Glaucoma Past Surgical History: Right shoulder surgery Left neck cyst resection Bilateral hand, question will trigger finger surgery No reported abdominal surgeries. 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 [employer] Review of Systems: 10 point review of systems complete, all negative otherwise stated in HPI Physical exam: - Vitals: BP [128/59], HR [62], RR [17], Sat [96%RA], Temp [97.0F] - General: Lying in bed, Speaking in full sentences, AAOx3 - HEENT: NC, AT, PERRLA - CVS: IrIr, +S1S2 - Lungs: Fair air entry bilaterally, No wheezing / rhonchi, faint bilateral crackles are appreciated - Abdomen: Soft, Non-distended, Non-tender - Extremities: 1-2+ pitting edema bilaterally, No calf tenderness - Neuro: No focal motor or sensory deficit - Skin: No visible rashes Assessment and Plan: #Epistaxis - follow as per ENT - Augmentin DS BID, NS 2 sprays each nostril BID, HOB 30 degrees - hold xarelto 5 days #Anemia - Hg baseline of 9-11 #A. fib - EKG reviewed; similar to prior; still in a. fib, rate controlled - c/w Metoprolol with holding parameters - Xarelto on hold #HTN - BP well controlled - c/w Metoprolol with hold parameters #Orthostatic hypotension - Will c/w Fludrocortisone #DLP - c/w Atorvastatin #BPH - Hx of hodges catheter #Gout #Glaucoma - Will replace home medications with Latanoprost #GERD - Will start Protonix; hold home oral PPI #DVT prophylaxis - mechanical Vital Signs Vital Signs Date Time Temp Pulse Resp B/P (MAP) Pulse Ox O2 Delivery O2 Flow Rate FiO2 06/20/20 05:57 98.2 75 18 123/74 (90) 98 Room Air Laboratory Data Labs 24H Laboratory Tests 2 06/20/20 06:46: Coronavirus (COVID-19)(PCR) NEGATIVE, Influenza Type A (RT-PCR) NEGATIVE, Influenza Type B (RT-PCR) NEGATIVE, Respiratory Syncytial Virus (PCR) NEGATIVE 06/20/20 07:15: Immature Granulocyte % (Auto) 0.4, Neutrophils (%) (Auto) 74.3H, Lymphocytes (%) (Auto) 13.1L, Monocytes (%) (Auto) 10.2H, Eosinophils (%) (Auto) 1.5, Basophils (%) (Auto) 0.5, Neutrophils # (Auto) 5.6, Lymphocytes # (Auto) 1.0L, Monocytes # (Auto) 0.8, Eosinophils # (Auto) 0.1, Basophils # (Auto) 0.0, Nucleated Red Blood Cells % (auto) 0.0, Prothrombin Time 21.0H, Prothromb Time International Ratio 1.77, Activated Partial Thromboplast Time 43.3H, Anion Gap 11, Glomerular Filtration Rate > 60.0, Calcium Level 8.7L CBC/BMP Laboratory Tests 06/20/20 07:15 Home Medications Scheduled Aspirin (Ecotrin) 81 Mg Tab, 81 MG PO DAILY TAKES AT NOON Atorvastatin Calcium (Atorvastatin Calcium) 40 Mg Tab, 40 MG PO QPM Bimatoprost (Lumigan) 0.01% 2.5ML Drops, 1 DROP OU QHS Esomeprazole Magnesium (Esomeprazole Magnesium) 40 Mg Capsule.dr, 40 MG PO DAILY TAKES AT NOON Fludrocortisone Acetate (Fludrocortisone Acetate) 0.1 Mg Tab, 0.1 MG PO DAILY Gabapentin (Gabapentin) 300 Mg Capsule, 300 MG PO TID Magnesium Oxide (Magnesium Oxide) 400 Mg Tablet, 800 MG PO BID Metoprolol Succinate (Metoprolol Succinate) 25 Mg Tab.er.24h, 25 MG PO QPM Mirtazapine (Mirtazapine) 7.5 Mg Tablet, 7.5 MG PO QHS Potassium Chloride (Potassium Chloride) 20 Meq Tab, 40 MEQ PO DAILY CUTS IN HALF BECAUSE OF LARGE PILL Rivaroxaban (Xarelto) 20 Mg Tablet, 20 MG PO QPM Tamsulosin Hcl (Tamsulosin HCl) 0.4 Mg Capsule, 0.4 MG PO QPM Allergies Coded Allergies: No Known Allergies (Verified , 01/29/18) A-FIB/CHADSVASC A-FIB History Current/History of A-Fib/PAF?: Yes Current PO Anticoag Therapy: Yes LISA CHI MD Jun 20, 2020 10:04
[2020-06-20] MEDS ORDERED: fentaNYL 100 MCG/2 ML INJECTION (J3010) IV PRN (10:30)
[2020-06-20] MEDS ORDERED: MORPHINE 2 MG/ML 1ML VIAL (J2270) IV PRN (10:30)
[2020-06-20] MEDS ORDERED: METOCLOPRAMIDE INJ 10MG/2ML VIAL (J2765 PER 1) IV PRN (10:30)
[2020-06-20] MEDS ORDERED: LR 1,000 ML IV SCH (10:30)
[2020-06-20] MEDS ORDERED: ONDANSETRON 4MG/2ML VIAL IV PRN (10:30)
--- NOTE | 2020-06-20 11:48 | RO ---
OPERATIVE NOTE DATE OF OPERATION: 06/20/2020 PREOPERATIVE DIAGNOSIS: Left epistaxis. POSTOPERATIVE DIAGNOSIS: Left epistaxis. PROCEDURE PERFORMED: Nasal endoscopy with control of left epistaxis. SURGEON: Clive Perez MD PRIVACY ANALYST: ANESTHESIA: General. CLINICAL PREAMBLE: This 89-year-old man with history of atrial fibrillation on Xarelto presented to the emergency department of [facility] last evening after a significant sneezing episode resulting in left epistaxis. The Rhinorocket was inserted and achieved hemostasis until early this morning where patient experienced recurrent epistaxis on the left side again. He re-presented to the emergency department. I was asked to come in for assistance in managing the epistaxis from the left side. On initial evaluation in the emergency department the patient had significant hemorrhaging around the left Rhinorocket. Fresh blood as well as clots noted on the posterior pharyngeal wall. Decision was made to have the epistaxis controlled in the operating room on an urgent basis. Arrangements were made and patient was able to receive definitive treatment in the operating room on timely basis. Consent was obtained from the patient as well. DESCRIPTION OF PROCEDURE: The patient was identified in preholding and brought to the operating room in stable condition. In the supine position on the operating table the patient received general anesthesia followed by orotracheal intubation without complication. The patient was prepped and draped in usual fashion for the procedure. Both eyes were protected with lubricant as well as Tegaderm. The Rhinorocket placed in the left nostril was then deflated and removed. Both sides of the nasal cavity were packed using pledgets soaked in 1:1000 Epinephrine. After waiting period, the pledgets were removed. Using 30-degree nasoendoscope both sides of the nasal cavity were inspected. Bleeders were noted over the left anterior nasal septum. The sphenopalatine regions left and right side of the nasal cavity were free of any mass lesion, no ulceration. No other bleeders were noted. At this time, under direct visualization, the left anterior nasal septum was cauterized using combination of bipolar electrocautery as well as Silver Nitrate. Complete hemostasis was observed at the end of the case. The Sinu-Foam was then injected into the left nasal cavity. At the end of the procedure sponge and instrument counts were correct. No complications were encountered. Estimated blood loss was approximately 10 mL. General anesthesia was reversed and the patient was extubated and brought to the recovery room in stable condition.
[2020-06-20] MEDS: MAGNESIUM OXIDE 400MG TAB (MAG-OX) PO SCH ×2 (13:47→20:24)
[2020-06-20] MEDS: ASPIRIN 81 MG ENTERIC TAB PO SCH (13:47)
[2020-06-20] MEDS: FLUDROCORTISONE ACETATE 0.1 MG TAB PO SCH (15:21)
[2020-06-20] MEDS: GABAPENTIN 300 MG CAP PO SCH ×2 (15:21→20:23)
[2020-06-20 19:15] LABS: HEMATOCRIT 27.1 % (42.0-52.0); HEMOGLOBIN 8.8 g/dl (13.5-17.5); MEAN CORPUSCULAR HGB CONC 32.5 g/dl (32.0-36.5); MEAN CORPUSCULAR VOLUME 104.6 fl (80.0-96.0); PLATELET COUNT, AUTOMATED 159 10^3/uL (150-450); RED BLOOD COUNT 2.59 10^6/uL (4.30-6.10); WHITE BLOOD COUNT 4.3 10^3/uL (4.0-10.0)
[2020-06-20] MEDS: SODIUM CHLORIDE NASAL 0.65% SPRAY BTL (OCEAN) SCH (20:22)
[2020-06-20] MEDS: AUGMENTIN 875 MG TAB PO SCH (20:23)
[2020-06-20] MEDS ORDERED: ATORVASTATIN 20 MG TAB PO SCH (21:00)
[2020-06-20] MEDS ORDERED: TAMSULOSIN 0.4 MG CAP PO SCH (21:00)
[2020-06-20] MEDS ORDERED: MIRTAZAPINE 7.5MG PER 1/2 TABLET PO SCH (21:00)
[2020-06-20] MEDS ORDERED: METOPROLOL SUCC *XL* 25MG TAB (TopROL *XL*) PO SCH (21:00)
[2020-06-20] MEDS ORDERED: LATANOPROST 0.005% OPHTH SOLN 2.5 ML OU SCH (21:00)
[2020-06-21] VITALS (9 sets, daily range): BP systolic 102–147; BP diastolic 51–78
[2020-06-21 06:39] LABS: HEMATOCRIT 23.4 % (42.0-52.0); HEMOGLOBIN 7.6 g/dl (13.5-17.5); MEAN CORPUSCULAR HEMOGLOBIN 34.4 pg (27.0-33.0); MEAN CORPUSCULAR HGB CONC 32.5 g/dl (32.0-36.5); MEAN CORPUSCULAR VOLUME 105.9 fl (80.0-96.0); PLATELET COUNT, AUTOMATED 132 10^3/uL (150-450); RED BLOOD COUNT 2.21 10^6/uL (4.30-6.10); WHITE BLOOD COUNT 8.3 10^3/uL (4.0-10.0)
[2020-06-21 07:00] LABS: BLOOD UREA NITROGEN 38 MG/DL (7-18); CALCIUM LEVEL 8.5 MG/DL (8.8-10.2); CARBON DIOXIDE LEVEL 25 MEQ/L (21-32); CHLORIDE LEVEL 113 MEQ/L (98-107); CREATININE FOR GFR 0.78 MG/DL (0.70-1.30); GLOMERULAR FILTRATION RATE > 60.0 (>35); GLUCOSE, FASTING 119 MG/DL (70-100); POTASSIUM SERUM 3.8 MEQ/L (3.5-5.1); SODIUM LEVEL 145 MEQ/L (136-145)
[2020-06-21] MEDS: FLUDROCORTISONE ACETATE 0.1 MG TAB PO SCH (08:02)
[2020-06-21] MEDS: GABAPENTIN 300 MG CAP PO SCH ×2 (08:02→16:41)
[2020-06-21] MEDS: AUGMENTIN 875 MG TAB PO SCH (08:02)
[2020-06-21] MEDS: MAGNESIUM OXIDE 400MG TAB (MAG-OX) PO SCH (08:03)
[2020-06-21] MEDS: SODIUM CHLORIDE NASAL 0.65% SPRAY BTL (OCEAN) SCH (08:03)
[2020-06-21 08:52] LABS: FERRITIN 108 NG/ML (26-388); IRON (FE) 88 UG/DL (65-175); PERCENT SATURATION 33.8 % (19.7-50.0); TOTAL IRON BINDING CAPACITY 260 UG/DL (250-450)
[2020-06-21 09:02] LABS: FOLATE 8.7 NG/ML (>5.4)
[2020-06-21] MEDS ORDERED: Sodium Chloride Nasal Spray (11:31)
[2020-06-21] MEDS: ASPIRIN 81 MG ENTERIC TAB PO SCH (12:01)
[2020-06-21] MEDS ORDERED: OCEA0.654 NARES (15:16)
[2020-06-21] MEDS ORDERED: AUGM875T28 PO (15:16)
[2020-06-21] MEDS ORDERED: B-12100021 PO (15:18)
[2020-06-21 15:33] LABS: HEMATOCRIT 30.8 % (42.0-52.0); MEAN CORPUSCULAR HEMOGLOBIN 33.7 pg (27.0-33.0); MEAN CORPUSCULAR HGB CONC 32.1 g/dl (32.0-36.5); MEAN CORPUSCULAR VOLUME 104.8 fl (80.0-96.0); PLATELET COUNT, AUTOMATED 150 10^3/uL (150-450); RED BLOOD COUNT 2.94 10^6/uL (4.30-6.10); WHITE BLOOD COUNT 11.3 10^3/uL (4.0-10.0)
[2020-06-21 15:40] LABS: HEMOGLOBIN 9.9 g/dl (13.5-17.5)
--- NOTE | 2020-06-22 12:33 | DS.PDOC ---
Discharge Summary General Date of Admission Jun 20, 2020 at 13:23 Date of Discharge 06/21/20 Discharge Summary PROCEDURES PERFORMED DURING STAY: : Nasal endoscopy with control of left epistaxis. DISCHARGE DIAGNOSES: Persistent Epistaxis due to Xarelto inspite of nasal packing requiring surgical intervention. Acute blood loss anemia on Chronic anemia Vit B12 deficiency Secondary diagnosis: A. fib (on Xarelto) HTN Orthostatic hypotension (on Fludrocortisone) DLP BPH Gout GERD Post-herpetic neuralgia Glaucoma COMPLICATIONS/CHIEF COMPLAINT: Left Epistaxis. HOSPITAL COURSE: Patient is an 89 year old female with a PMHx of A. fib (on Xarelto), HTN, Orthostatic hypotension (on Fludrocortisone), DLP, BPH, Gout, GERD, Post-herpetic neuralgia, Glaucoma who returns to the hospital for recurrent/ persistent epistaxis. He was seen the day prior for left nare's epistaxis, and discharged home with a rhinorocket, and returns with gross bleeding from his left nares Recurrent Epistaxis went to OR with Dr Perez Both sides of the nasal cavity were packed using pledgets soaked in 1:1000 epinephrine. Bleeders were noted in left anterior septum. Left anterior septum was cauterized by electrocautery as well as silver nitrate. The Sinu-Foam was then injected into the left nasal cavity. continue Augmentin for 10 days NS 2 sprays each nostril , HOB 30 degrees hold xarelto 5 days Use humidifier in the room follow up with ENT in 3 to 5 days. Acute Blood loss anemia on chronic anemia received 1 unit of PRBC. usual Hb 9-11 B 12 def started on supplements folic def on supplements Chronic A. fib EKG reviewed; similar to prior; still in a. fib, rate controlled c/w Metoprolol Xarelto on hold HTN BP well controlled c/w Metoprolol Orthostatic hypotension Will c/w Fludrocortisone DLP Atorvastatin BPH no issues Gout Glaucoma home eye drops GERD continue PPI DISCHARGE MEDICATIONS: Please see below. ALLERGIES: Please see below. PHYSICAL EXAMINATION ON DISCHARGE: VITAL SIGNS: Please see below. General: Sitting up in chair Speaking in full sentences, AAOx3 HEENT: NC, AT, PERRLA CVS: Normal heart sounds, RRR, no rub or murmur or gallop. Lungs: Fair air entry bilaterally, No wheezing / rhonchi, faint bilateral crackles are appreciated Abdomen: Soft, Non-distended, Non-tender Extremities: No edema bilaterally, No calf tenderness Neuro: No focal motor or sensory deficit Skin: No visible rashes LABORATORY DATA: Please see below. ACTIVITY: [As tolerated]. DIET: As tolerated DISPOSITION: 01 Home, Self-Care. DISCHARGE INSTRUCTIONS: Hold Xarelto for 5 days Follow up ENT in 3 to 5 days. PMD in 1 to 2 weeks Use humidifier in room. DISCHARGE CONDITION: [Stable]. TIME SPENT ON DISCHARGE: 35 minutes. Vital Signs/I&Os Vital Signs Date Time Temp Pulse Resp B/P (MAP) Pulse Ox O2 Delivery O2 Flow Rate FiO2 06/21/20 14:00 97.7 64 20 131/74 (93) 98 Room Air I&O- Last 24 Hours up to 6 AM 06/22/20 06:00 Intake Total 1420 ml Output Total 650 ml Balance 770 ml Laboratory Data Labs 24H Laboratory Tests 2 06/21/20 13:40: Nucleated Red Blood Cells % (auto) 0.0 CBC/BMP Laboratory Tests 06/21/20 13:40 Discharge Medications Scheduled Amoxicillin/Potassium Clav (Augmentin 875-125 Tablet) 1 Each Tablet, 1 TAB PO BID Aspirin (Ecotrin) 81 Mg Tab, 81 MG PO DAILY, (Reported) TAKES AT NOON Atorvastatin Calcium (Atorvastatin Calcium) 40 Mg Tab, 40 MG PO QPM, (Reported) Bimatoprost (Lumigan) 0.01% 2.5ML Drops, 1 DROP OU QHS, (Reported) Cyanocobalamin (Vitamin B-12) (B-12) 1,000 Mcg Tablet, 1 TAB PO DAILY Esomeprazole Magnesium (Esomeprazole Magnesium) 40 Mg Capsule.dr, 40 MG PO DAILY, (Reported) TAKES AT NOON Fludrocortisone Acetate (Fludrocortisone Acetate) 0.1 Mg Tab, 0.1 MG PO DAILY, (Reported) Gabapentin (Gabapentin) 300 Mg Capsule, 300 MG PO TID, (Reported) Magnesium Oxide (Magnesium Oxide) 400 Mg Tablet, 800 MG PO BID, (Reported) Metoprolol Succinate (Metoprolol Succinate) 25 Mg Tab.er.24h, 25 MG PO QPM, (Reported) Mirtazapine (Mirtazapine) 7.5 Mg Tablet, 7.5 MG PO QHS, (Reported) Potassium Chloride (Potassium Chloride) 20 Meq Tab, 40 MEQ PO DAILY, (Reported) CUTS IN HALF BECAUSE OF LARGE PILL Rivaroxaban (Xarelto) 20 Mg Tablet, 20 MG PO QPM, (Reported) Sodium Chloride ([place]) 104 Ml [place], 2 PUFF NARES QID Tamsulosin Hcl (Tamsulosin HCl) 0.4 Mg Capsule, 0.4 MG PO QPM, (Reported) Allergies Coded Allergies: No Known Allergies (Verified , 01/29/18) ALYSE BERGMAN MD Jun 22, 2020 12:33
== END 2020-06-21 16:55 | disposition home or self-care (01) | DRG 813 ==
LOC: M ED 05:39 → M SDC 05:40 → M MSPAV 13:23
PROVIDERS: ADMIT Internal Medicine; ATTEND Internal Medicine Nephrology
PROC: 093K8ZZ Control Bleeding in Nasal Mucosa and Soft Tissue, Via Natural or Artificial Opening Endoscopic (ICD-10-PCS; principal; 2020-06-20 08:00)
PROC: 30233N1 Transfusion of Nonautologous Red Blood Cells into Peripheral Vein, Percutaneous Approach (ICD-10-PCS; 2020-06-21)
DX: D68.32 Hemorrhagic disorder due to extrinsic circulating anticoagulants (principal); D62 Acute posthemorrhagic anemia; I48.20 Chronic atrial fibrillation, unspecified; B02.29 Other postherpetic nervous system involvement; R04.0 Epistaxis; Z79.01 Long term (current) use of anticoagulants; I10 Essential (primary) hypertension; I95.1 Orthostatic hypotension; N40.0 Benign prostatic hyperplasia without lower urinary tract symptoms; M10.9 Gout, unspecified; K21.9 Gastro-esophageal reflux disease without esophagitis; E53.8 Deficiency of other specified B group vitamins; H40.9 Unspecified glaucoma; Z79.899 Other long term (current) drug therapy; Z79.82 Long term (current) use of aspirin

== ENCOUNTER 2020-07-06 18:57 | Emergency (ER) | payer MEDICARE ==
[~2020-07-06 18:57] MED LIST changes: +AUGM875T28 PO; +B-12100021 PO; +OCEA0.654 NARES; +Sodium Chloride Nasal Spray
--- OUTSIDE RECORDS SUMMARY | 2020-07-06 19:06 | CCD | Continuity of Care Document ---
Author Author Humble PEREZ MD Organization Unknown Address [address] [address] Phone [phone] Care Team Providers Care Fox Farmer Name Role Phone Branden Dorman M.D. AUTM [phone] Mel Wynne M.D. AUTM [phone] Jose D Montana MD @ [facility] [phone] AUTM Unavailable Madi Camp D.O. AUTM [phone] Problems Active Problems Provider Date Essential hypertension Cortez Franz JR, MD Onset: 03/07/20 Social History Type Date Description Comments Sex [...] SIG Qnty Indications Ordering Provide r Date Potassium Chloride Yelena ER 20Meq Tablets ER Jose D Montana MD @ [facility] Furosemide 20mg Tablets Jose D Montana MD @ [facility] Tamsulosin HCL 0.4mg Capsules Jose D Montana MD @ [facility] Xarelto 20mg Tablets Jose Jimenez M.D. Esomeprazole Magnesium 40mg Capsules Jose D Ceja MD @ [facility] 000 Lidocaine 5% Patches Apply Topically Daily On 12 Hours Off 12 Hours Right Knee Unknown Metoprolol Succinate ER 25mg Tablets ER 24HR Jose D Montana MD @ [facility] Magnesium Oxide 400mg Tablets Take Two Tablets By Mouth Twice A Day Unknown Atorvastatin Calcium 40mg Tablets Jose D Montana MD @ [facility] Lumigan 0.01% Solution Emily Lopez M.D. Fludrocortisone Acetate 0.1mg Tablets Jose D Montana MD @ [facility] Gabapentin 300mg Capsules Jose D Montana MD @ [facility] Mirtazapine 7.5mg Tablets Jose D Montana MD @ [facility] Aspirin [address] 1 by mouth every day Unknown Oxycodone-Acetaminophen 5-325mg Ta blets 1 tab 4 times a day prn Unknown History Medications Actigall 300mg Capsules 1 by mouth three times a day with meals 90caps Cortez Franz JR, MD - 06/24/2020 Immunizations Description No Information Available Vital Signs Date Vital Result Comment 06/24/2020 9:10am Height 73 inches 6'1" Weight 180.00 lb BMI (Body Mass Index) 23.7 kg/m2 [place] Body Weight 184 lb Weight 81.648 kg BSA (Body Surface Area) 2.06 m2 04/06/2020 8:54am BP Systolic 154 mmHg BP Diastolic 67 mmHg Height 73 inches 6'1" Weight 158.38 lb BMI (Body Mass Index) 20.9 kg/m2 [place] Body Weight 184 lb Weight 71.839 kg BSA (Body Surface Area) 1.95 m2 Results Test Acquired Date Facility Test Result H/L Range Note CBC With Differential 06/20/2020 [facility] [address] [place] [address] [phone] White Blood Count 7.6 10 Normal 4.0-10.0 Red Blood Count 3.08 10 Low 4.30-6.10 Hemoglobin 10.5 g/dL Low 13.5-17.5 Hematocrit 32.7 % Low 42.0-52.0 Mean Corpuscular Volume 106.2 fl High 80.0-96.0 Mean Corpuscular Hemoglobin 34.1 pg High 27.0-33.0 Mean Corpuscular HGB Conc 32.1 g/dL Normal 32.0-36.5 Red Cell Distribution Width 12.3 % Normal 11.5-14.5 Platelet Count, Automated 186 10 Normal 150-450 Neutrophils % 74.3 % High 36.0-66.0 Lymph % 13.1 % Low 24.0-44.0 George % 10.2 % High 0.0-5.0 Eos % 1.5 % Normal 0.0-3.0 Baso % 0.5 % Normal 0.0-1.0 Immature Granulocyte % 0.4 % Normal 0-3.0 Nucleated Red Blood Cell % 0.0 % Normal 0-0 Neutrophils # 5.6 10 Normal 1.5-8.5 Lymph # 1.0 10 Low 1.5-5.0 George # 0.8 10 Normal 0.0-0.8 Eos # 0.1 10 Normal 0.0-0.5 Baso # 0.0 10 Normal 0.0-0.2 PT & Aptt 06/20/2020 [facility] [address] [place] [address] [phone] Prothrombin Time 21.0 seconds High 12.5-14.3 Inr 1.77 Normal 1 Partial Thromboplastin Time 43.3 seconds High 24.2-38.5 Basic Metabolic Profile 06/20/2020 [facility] [address] [place], [place] [id number] [phone] Glucose, Fasting 133 mg/dL High 70-100 Blood Urea Nitrogen 33 mg/dL High 7-18 Creatinine For GFR 0.81 mg/dL Normal 0.70-1.30 Glomerular Filtration Rate > 60.0 Normal >35 2 Sodium Level 141 mEq/L Normal 136-145 Potassium Serum 5.1 mEq/L Normal 3.5-5.1 3 Chloride Level 106 mEq/L Normal 98-107 Carbon Dioxide Level 24 mEq/L Normal 21-32 Anion Gap 11 mEq/L Normal 8-16 Calcium Level 8.7 mg/dL Low 8.8-10.2 Type & Screen -Incl Blood Type,Peyman,AB SC 06/20/2020 [facility] [address] [place] [address] [phone] Blood Type O POSITIVE Normal AB Screen (Indirect Madyson)Vis NEGATIVE Normal 1 THERAPUTIC HUMAN INR VALUES INDICATIONS NORMAL RANGES PROPHYLAXIS/TREATMENT OF: VENOUS THROMBOSIS 2.0-3.0 PULMONARY EMBOLISM 2.0-3.0 PREVENTION OF SYSTEMIC EMBOLISM FROM: TISSUE HEART VALVES 2.0-3.0 ACUTE MYOCARDIAL INFARCTION 2.0-3.0 VALVULAR HEART DISEASE 2.0-3.0 ATRIAL FIBRILLATION 2.0-3.0 MECHANICAL VALVES(HIGH RISK) 2.5-3.5 RECURRENT MYOCARDIAL INFARCTION 2.5-3.5 2 Units are mL/min/1.73 m2 Chronic Kidney Disease Staging per NKF: Stage I & II GFR >=60 Normal to Mildly Decreased Stage III GFR 30-59 Moderately Decreased Stage IV GFR 15-29 Severely Decreased Stage V GFR <15 Very Little GFR Left ESRD GFR <15 on IT [employer] 3 Testing was performed on a h emolysed specimen. Suggest recollection of specimen for more accurate test results. Procedures Description No Information Available Medical Devices Description No Information Available Encounters Type Date Location Provider Dx Diagnosis Office Visit 04/06/2020 8:40a [facility] Cortez perry JR, MD K80.20 Calculus of gallbladder w/o cholecystiti s w/o obstruction Office Visit 03/07/2020 9:30a [facility] Cortez perry JR, MD K80.20 Calculus of gallbladder w/o cholecystiti s w/o obstruction Assessments Date Code Description Provider 06/24/2020 R04.0 Epistaxis Clive Perez MD 04/06/2020 K80.20 Calculus of gallblad gisselle without cholecystitis without obstruction Cortez Franz JR, MD 03/07/2020 K80.20 Calculus of gallblad gisselle without cholecystitis without obstruction Cortez Franz JR, MD Plan of Treatment 06/24/2020 - Clive Perez MD* R04.0 Epistaxis* Comments:* Humidifier at the bedside. Nasal saline spray QID. Bacitracin to bilateral nares BID. No nose blowing. No nose picking. Elevate head of bead greater than 30. Light activity. Functional Status Description No Information Available Mental Status Description No Information Available Referrals Refer to Reason for Referral Status Appt Date Clive Perez MD epistaxis Closed 06/24 [address] [facility] [address] [place], [place] [id number] [phone] Cortez Franz JR, MD CHOLESYSTITIS Closed 0 [address] [facility] [address] [place] [address] [phone]
--- OUTSIDE RECORDS SUMMARY | 2020-07-06 19:08 | CCD ---
Author Author [facility] Organization [facility] Address Unknown Phone Unavailable Care Team Providers Care Twister Frame Tender Name Role Phone Ary Franz JR, MD [...] Unavailable Unavailable NanGwen brock MD Unavailable Unavailable ToledoGwen brock MD Unavailable Unavailable ToledoGwen brock MD Unavailable Unavailable ToledoGwen MD Unavailable Unavailable NanGwen brock MD Unavailable Unavailable ToledoGwen brock MD Unavailable Unavailable ToledoGwen brock MD Unavailable Unavailable NanGwen brock MD Unavailable Unavailable ToledoGwen brock MD Unavailable Unavailable NanGwen brock MD Unavailable Unavailable ToledoGwen brock MD Unavailable Unavailable ToledoGwen brock MD Unavailable Unavailable NanGwen MD Unavailable Unavailable ToledoGwen MD Unavailable Unavailable ToledoGwen MD Unavailable Unavailable NanGwen MD Unavailable Unavailable ToledoGwen MD Unavailable Unavailable ToledoGwen MD Unavailable Unavailable NanGwen MD Unavailable Unavailable NanGwen MD Unavailable Unavailable ToledoGwen MD Unavailable Unavailable NanGwen MD Unavailable Unavailable NanGwen MD Unavailable Unavailable NanGwen MD Unavailable Unavailable NanGwen MD Unavailable Unavailable ToledoGwen MD Unavailable Unavailable NanGwen MD Unavailable Unavailable ToledoGwen MD Unavailable Unavailable NanGwen MD Unavailable Unavailable NanGwen MD Unavailable Unavailable NanGwen MD Unavailable Unavailable ToledoGwen MD Unavailable Unavailable ToledoGwen MD Unavailable Unavailable NanGwen MD Unavailable Unavailable ToledoGwen MD Unavailable Unavailable ToledoGwen MD Unavailable Unavailable ToledoGwen MD Unavailable Unavailable NanGwen MD Unavailable Unavailable NanGwen MD Unavailable Unavailable ToledoGwen MD Unavailable Unavailable ToledoGwen MD Unavailable Unavailable ToledoGwen MD Unavailable Unavailable ToledoGwen MD Unavailable Unavailable ToledoGwen MD Unavailable Unavailable ToledoGwen MD Unavailable Unavailable ToledoGwen MD Unavailable Unavailable ToledoGwen MD Unavailable Unavailable NanGwen MD Unavailable Unavailable ToledoGwen MD Unavailable Unavailable ToledoGwen MD Unavailable Unavailable NanGwen MD Unavailable Unavailable ToledoGwen MD Unavailable Unavailable NanGwen MD Unavailable Unavailable ToledoGwen MD Unavailable Unavailable NanGwen MD Unavailable Unavailable ToledoGwen MD Unavailable Unavailable ToledoGwen MD Unavailable Unavailable NanGwen MD Unavailable Unavailable NanGwen MD Unavailable Unavailable NanGwen MD Unavailable Unavailable ToledoGwen MD Unavailable Unavailable ToledoGwen MD Unavailable Unavailable ToledoGwen MD Unavailable Unavailable ToledoGwen MD Unavailable Unavailable NanGwen MD Unavailable Unavailable NanGewn MD Unavailable Unavailable NanGwen MD Unavailable Unavailable NanGwen Jeffery MD Unavailable Unavailable Gwen Montana MD Unavailable Unavailable Gwen Montana MD Unavailable Unavailable Gwen Montana MD Unavailable Unavailable Gwen Montana MD Unavailable Unavailable Keke, Malaika CUSTOM FEED CORN OPERATOR Unavailable Unavailable Keke, Malaika CUSTOM FEED CORN OPERATOR Unavailable Unavailable Keke, Malaika CUSTOM FEED CORN OPERATOR Unavailable Unavailable Kkee, Malaika CUSTOM FEED CORN OPERATOR Unavailable Unavailable Keke, Malaika CUSTOM FEED CORN OPERATOR Unavailable Unavailable Keke, Malaika CUSTOM FEED CORN OPERATOR Unavailable Unavailable Keke, Malaika CUSTOM FEED CORN OPERATOR Unavailable Unavailable Keke, Malaika CUSTOM FEED CORN OPERATOR Unavailable Unavailable Keke, Malaika CUSTOM FEED CORN OPERATOR Unavailable Unavailable Keke, Malaika CUSTOM FEED CORN OPERATOR Unavailable Unavailable Keke, Malaika CUSTOM FEED CORN OPERATOR Unavailable Unavailable Keke, Malaika CUSTOM FEED CORN OPERATOR Unavailable Unavailable Keke, Malaika CUSTOM FEED CORN OPERATOR Unavailable Unavailable Keke, Malaika CUSTOM FEED CORN OPERATOR Unavailable Unavailable Keke, Malaika CUSTOM FEED CORN OPERATOR Unavailable Unavailable Keke, Malaika CUSTOM FEED CORN OPERATOR Unavailable Unavailable Keke, Malaika CUSTOM FEED CORN OPERATOR Unavailable Unavailable Keke, Malaika CUSTOM FEED CORN OPERATOR Unavailable Unavailable Keke, Malaika CUSTOM FEED CORN OPERATOR Unavailable Unavailable Keke, Malaika CUSTOM FEED CORN OPERATOR Unavailable Unavailable Keke, Malaika CUSTOM FEED CORN OPERATOR Unavailable Unavailable Keke, Malaika CUSTOM FEED CORN OPERATOR Unavailable Unavailable Keke, Malaika CUSTOM FEED CORN OPERATOR Unavailable Unavailable Keke, Malaika CUSTOM FEED CORN OPERATOR Unavailable Unavailable Keke, Malaika CUSTOM FEED CORN OPERATOR Unavailable Unavailable Keke, Malaika CUSTOM FEED CORN OPERATOR Unavailable Unavailable Keke, Malaika CUSTOM FEED CORN OPERATOR Unavailable Unavailable PICKERAL JR, J MERRY PA-C [...] JR, J MERRY PA-C Unavailable Unavailable Guzman, Rusty Moy MD Unavailable [...] Unavailable Unavailable MARGARET SHAY MD Unavailable Unavailable MAGRARET SHAY MD Unavailable Unavailable MARGARET SHAY MD [...] Unavailable Gwen Montana MD Unavailable Unavailable Gwen Motnana MD Unavailable Unavailable Gwen Montana MD Unavailable [...] Unavailable Unavailable Gwen Montana MD Unavailable Unavailable ToledoGwen MD Unavailable Unavailable ToledoGwen MD Unavailable Unavailable Nan, Gwen Jeffery MD Unavailable Unavailable Toledo, Gwen Jeffery MD Unavailable Unavailable Toledo, Gwen Jeffery MD Unavailable Unavailable Nan, Gwen Jeffery MD Unavailable Unavailable ToledoGwen MD Unavailable Unavailable ToledoGwen MD Unavailable Unavailable NanGwen MD Unavailable Unavailable ToledoGwen MD Unavailable Unavailable ToledoGwen MD Unavailable Unavailable NanGwen MD Unavailable Unavailable ToledoGwen MD Unavailable Unavailable ToledoGwen MD Unavailable Unavailable NanGwen MD Unavailable Unavailable ToledoGwen MD Unavailable Unavailable NanGwen MD Unavailable Unavailable ToledoGwen MD Unavailable Unavailable ToledoGwen MD Unavailable Unavailable ToledoGwen MD Unavailable Unavailable ToledoGwen MD Unavailable Unavailable NanGwen MD Unavailable Unavailable NanGwen MD Unavailable Unavailable ToledoGwen MD Unavailable Unavailable ToledoGwen MD Unavailable Unavailable ToledoGwen MD Unavailable Unavailable NanGwen MD Unavailable Unavailable ToledoGwen MD Unavailable Unavailable ToledoGwen MD Unavailable Unavailable ToledoGwen MD Unavailable Unavailable NanGwen MD Unavailable Unavailable NanGwen MD Unavailable Unavailable NanGwen MD Unavailable Unavailable ToledoGwen MD Unavailable Unavailable NanGwen MD Unavailable Unavailable NanGwen brock MD Unavailable Unavailable ToledoGwen MD Unavailable Unavailable ToledoGwen brock MD Unavailable Unavailable ToledoGwen MD Unavailable Unavailable NanGwen MD Unavailable Unavailable NanGwen MD Unavailable Unavailable ToledoGwen MD Unavailable Unavailable ToledoGwen brock MD Unavailable Unavailable NanGwen MD Unavailable Unavailable ToledoGwen MD Unavailable Unavailable ToledoGwen MD Unavailable Unavailable NanGwen MD Unavailable Unavailable ToledoGwen MD Unavailable Unavailable NanGwen MD Unavailable Unavailable ToledoGwen MD Unavailable Unavailable Re-disclosure Warning The records [...] is protected by Article 27-F of the [facility] Public Health law. If you continue you may have access to information: Regarding HIV / AIDS; Provided by facilities licensed or operated by the [facility] Office of Mental Health; or Provided by the [facility] Office for People With Developmental Disabilities. If such information is present, then the following [facility] mandated warning applies: This information has [...] law may result in a fine or chcf sentence or both. A general authorization for the release of medical or other information is NOT sufficient authorization for further disc losure. Family History Family Member Name Family Member Gender Family Member Status Date o f Status Description Data Source(s) Unknown Male Problem MEDENT ([facility], [facility]) Encounters Encounter Providers Location Date Indications Data Source(s ) Outpatient Attender: Cortez Perez/Aba/Gilbert/Rein dl 04/06/2020 07:40:00 AM EST MEDENT ([facility]) Outpatient Attender: Cortez Perez/Aba/Gilbert/Rein dl 03/07/2020 09:30:00 AM EDT MED[facility] ([facility]) Outpatient Attender: MERRY Jaffe 0 12/25/2019 11:20:00 AM EDT MED[facility] ([facility] ) [facility] [address] [address] 11/17/2019 12:00:00 AM EDT eCW1 ([facility]) Outpatient Attender: Chinmay Guzman MD Physical Therapy 10/22/2019 0 1:00:00 PM EDT MEDENT ([facility]) Outpatient [address] [address] 10/15/2019 12:00:00 AM EDT eCW1 ([facility] Unknown [address] [address] 10/15/2019 12:00:00 AM EDT eCW1 ([facility]) Outpatient Attender: Jose D Jaffe 0 10/12/2019 02:15:00 PM EDT MEDENT ([facility] ) Outpatient Attender: Malaika Jaffe 01:00:00 PM EDT MEDENT ([facility] ) Outpatient Attender: Malaika Jaffe 02:40:00 PM EDT MED[facility] ([facility] ) [facility] [address] [address] 09/18/2019 12:00:00 AM EDT [facility]CW1 [facility] [address] [address] 09/18/2019 12:00:00 AM EDT eCW1 [facility]) [facility] [address] [facility] [address] [address] 09/18/2019 12:00:00 AM EDT eCW1 ([facility]) [facility] [address] [facility] [address] [address] 09/17/2019 12:00:00 AM EDT eCW1 ([facility]) Outpatient Attender: Jose D Jaffe 0 09/01/2019 02:45:00 PM EDT MED[facility] ([facility] ) [facility] [address] [address] 08/26/2019 12:00:00 AM EDT eCW1 ([facility]) [facility] [address] [address] 08/18/2019 12:00:00 AM EDT eCW1 ([facility]) Outpatient Attender: Jose D Jaffe 0 08/13/2019 11:30:00 AM EDT MED[facility] ([facility] ) [facility] [address] [address] 08/12/2019 12:00:00 AM EDT eCW1 ([facility]) [facility] [address] [facility] [address] [address] 08/12/2019 12:00:00 AM EDT eCW1 ([facility]) [facility] [address] [address] 08/11/2019 12:00:00 AM EDT eCW1 ([facility]) Outpatient Referrer: Jose D Montana MD 07/16/2019 03:17:0 0 PM EST [facility] Outpatient Attender: MARGARET SHAY MD Physical Therapy 10:35:00 AM EST MEDENT ([facility]) Outpatient Referrer: Jose D Montana MD 07/14/2019 03:33:0 0 PM EST [facility] Immunizations Vaccine Date Status Description Data Source(s) COVID-19 VACCINE, MRNA, [id number], LNP-S (PFIZER)/PF 07/02/19 21 12:00:00 AM EST completed [facility] COVID-19 VACCINE, MRNA, [id number], LNP-S (PFIZER)/PF 06/11/19 12:00:00 AM EST completed [facility] Medications Medication Brand Name Start Date Product Form Dose Route Admi nistrative Instructions Pharmacy Instructions Status Indications Reaction Description Data Source(s) 0.65 % 06/21/2020 12:00:00 AM EST aerosol,spray 44 USE TWO SPRAYS IN EACH NOSTRIL FOUR TIMES A DAY USE TWO SPRAYS IN EACH NOSTRIL FOUR TIMES A DAY SOLD: 06/21/2020 [facility] 1,000 mcg 06/21/2020 12:00:00 AM EST tablet 30 TAKE ONE TABLET BY MOUTH EVERY DAY TAKE ONE TABLET BY MOUTH EVERY DAY SOLD: 06/21/2020 [facility] 875-125 mg 06/21/2020 12:00:00 AM EST tablet 20 TAKE ONE TABLET BY MOUTH TWICE A DAY TAKE ONE TABLET BY MOUTH TWICE A DAY SOLD: 06/21/2020 [facility] 100 mg 06/20/2020 12:00:00 AM EST capsule 20 TAKE ONE CAPSULE BY MOUTH EVERY 12 HOURS UNTIL GONE TAKE ONE CAPSULE BY MOUTH EVERY 12 HOURS UNTIL GONE SO LD: 06/21/2020 [facility] 400 mg (241.3 mg magnesium) 06/07/2020 12:00:00 AM EST table t 60 TAKE ONE TABLET BY MOUTH TWICE A DAY TAKE ONE TABLET BY MOUTH TWICE A DAY SOLD: 06/08/2020 [facility] 20 mg 05/24/2020 12:00:00 AM EST tablet 10 TAKE TWO TABLETS BY MOUTH EVERY DAY FOR 5 DAYS TAKE TWO TABLETS BY MOUTH EVERY DAY FOR 5 DAYS SOLD: [facility] 300 mg 03/07/2020 12:00:00 AM EDT capsule 90 TAKE ONE CAPSULE BY MOUTH THREE TIMES A DAY WITH MEALS TAKE ONE CAPSULE BY MOUTH THREE TIMES A DAY WITH MEALS SOLD: 03/08/2020 [facility] Ursodiol 300 MG Oral Capsule [Actigall] Actigall 03/07/2020 12:00:0 0 AM EDT ORAL completed MED[facility] ([facility]) 20 mEq 03/04/2020 12:00:00 AM EDT [...] 12/25/2019 12:00:00 AM EDT ORAL active [facility] ([facility]) 0.4 mg 10/28/2019 12:00:00 AM [...] 10/12/2019 12:00:00 AM EDT ORAL active MEDENT ([facility]) 0.4 mg 10/07/2019 12:00:00 AM EDT [...] Nystatin 09/28/2019 12:00:00 AM EDT active MEDENT ([facility]) 100,000 unit/gram 09/28/2019 12:00:00 AM EDT ointment 15 APPLY TOPICALLY TO RASH THREE TIMES A DAY NEEDED APPLY TOPICALLY TO RASH THREE TIMES A DA Y NEEDED SOLD: 09/28/2019 [facility] Levofloxacin 500 MG Oral Tablet Levofloxacin 09/25/2019 12:00:00 AM E DT ORAL completed MEDENT ([facility]) Mirtazapine 7.5 MG Oral Tablet Mirtazapine 09/23/2019 12:00:00 AM EDT ORAL active MEDENT ([facility]) 7.5 mg 09/23/2019 12:00:00 AM EDT [...] type / Coverage type Policy ID Covered libertarian ID Covered libertarian's relationship to vazquez Policy Vazquez Plan Information MEDICARE COMPLETE [id number] SP [id number] MEDICARE COMPLETE-[facility] O [id number] S [id number] MEDICARE [id number] SP [id number] [facility] S [id number] S [id number] MEDICARE COMPLETE [id number] SP [id number] MEDICARE COMPLETE [id number] SP [id number] MEDICARE COMPLETE [id number] SP [id number] MEDICARE COMPLETE [id number] SP [id number] [facility] [id number] SP [id number] MEDICARE [id number] SP [id number] Medicare Natl Govt Servic Medicare Primary [id number] Self [id number] [employer] Commercial [id number] Self [id number] [employer] Commercial [id number] Self [id number] BS [employer] Medigap Part B [id number] Self [place] [id number] BS [place] Medigap Part B [id number] Self [id number] Medicare Natl Govt Servic Medicare Primary [id number] Self [id number] MEDICARE COMPLETE [id number] SP [id number] [facility] [id number] Self [id number] Medicare Natl Govt Servic Medicare Primary [id number] Self [id number] Medicare Natl Govt Servic Medicare Primary [id number] Self [id number] [facility] Gianna Commercial [id number] Self [id number] [facility] Medicare Gianna Commercial [id number] 00 Self [id number] MEDICARE COMPLETE [id number] SP [id number] BCBS EMPIRE [facility] [id number] SP [id number] MEDICARE [id number] SP [id number] A Commerce HLCR/Medicare Solu Commercial [id number] Self [id number] BS [employer] Medigap Part B Self BS [place] Tr[place] Commercial Self Medicare Natl Govt Servic Medicare Primary Self BC[place] [id number] UNAVAILABLE UNAVAILABLE MEDICARE P [id number] S [id number] A BCBS EMPIRE [facility] 303/803 [id number] SP [id number] Problems, Conditions, and Diagnoses Code Display Name Description Problem Type Effective Dates Data Source(s) 64435511 Essential hypertension Essential hypertension Problem 03/07/2020 12:00:00 AM EDT MEDENT ([facility] ) R33.8 [id number] Acute urinary retention Problem 08/17/2019 1 2:00:00 AM EDT eCW1 ([facility]) R33.8 [id number] Acute urinary retention Problem 08/17/2019 1 2:00:00 AM EDT eCW1 ([facility]) N13.8 [id number] Other obstructive and reflux uropathy Pro blem 08/11/2019 12:00:00 AM EDT eCW1 ([facility]) N40.1 [id number] Benign prostatic hyperplasia wit h lower urinary tract symptoms Problem 08/11/2019 12:00:00 AM EDT eCW1 ([facility]) N13.8 [id number] Other obstructive and reflux uropathy Pro blem 08/11/2019 12:00:00 AM EDT eCW1 ([facility]) N40.1 [id number] Benign prostatic hyperplasia wit h lower urinary tract symptoms Problem 08/11/2019 12:00:00 AM EDT eCW1 ([facility]) Surgeries/Procedures Procedure Description Date Indications Data Source(s) Medication: Lidocaine HCl 2% Jelly 5mL Intravesically 10/15/2019 12:00:00 AM EDT eCW1 ([facility]) ECG ROUTINE ECG W/LEAST 12 LDS W/I&R 10/12/2019 12:00: 00 AM EDT MEDMELISSA ([facility]) RADEX SPINE LUMBOSACRAL 2/3 VIEWS 09/22/2019 12:00:00 AM EDT MEDENT ([facility]) INSERT BLADDER CATH, COMPLEX 09/18/2019 12:00:00 AM ED T eCW1 ([facility]) NO CHARGE VISIT 09/17/2019 12:00:00 AM EDT eCW1 ([facility]) Irrigation of Bladder 08/12/2019 12:00:00 AM EDT eCW1 ([facility]) RADEX SPINE LUMBOSACRAL 2/3 VIEWS 07/31/2019 12:00:00 AM EDT MEDENT ([facility] ) CLTX VRT BDY FX W/O MANJ REQ&W/CSTING/BRACING 07/15/19 12:00:00 AM EST MEDENT ([facility]) Results ID Date Data Source [id number] 06/20/2020 07:15:00 AM EST MEDENT ([facility]) Name Value Range Interpretation Code Description Data Courtney rce(s) Supporting Document(s) Blood group antibody screen [Presence] in Serum or Sarai sma Laboratory test result Normal (applies to non-numeric results) [facility] ([facility]) Blood Type Laboratory test result Normal (applies to non-n umeric results) [facility] ([facility]) ID Date Data Source [id number] 06/20/2020 07:15:00 AM EST [facility] ([facility]) Name Value Range Interpretation Code Description Data Courtney rce(s) Supporting Document(s) Glucose, Fasting 133 mg/dL 70-100 Above high [facility] Blood Urea Nitrogen 33 mg/dL 7-18 Above high normal [facility] Creatinine For GFR 0.81 mg/dL 0.70-1.30 Normal (applies to non -numeric results) [facility] ([facility]) Glomerular Filtration Rate Laboratory test result Normal (applies to non- numeric results) [facility]) <content>Units are mL/min/1.73 m2</content>
<content></content>
<content>Chronic Kidney Disease Staging per NKF:</content>
<content></content>
<content>Stage I & II GFR >=60 Normal to Mildly Decreased</content>
<content>Stage III GFR 30- 59 Moderately Decreased</content>
<content>Stage IV GFR 15-29 Severely Decreased</content>
<content>Stage V GFR <15 Very Little GFR Left</content>
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
<content></content> Potassium Serum 5.1 meq/L 3.5-5.1 Normal (applies to non-numeric results) [facility] ([facility], ) Testing was performed on a hemolysed spe cimen. Suggest recollection of specimen for more accurate test results. Chloride Level 106 meq/L 98-107 Normal (applies to non-numeric r esults) [facility] ([facility]) Sodium Level 141 meq/L 136-145 Normal (applies to non-numeric res ults) [facility] ([facility]) Carbon Dioxide Level 24 meq/L 21-32 Normal (applies to non-num ji results) [facility] ([facility]) Anion Gap 11 meq/L 8-16 Normal (applies to non-numeric resul ts) [facility] ([facility]) Calcium Level 8.7 mg/dL 8.8-10.2 Below low normal MEDEN T ([facility]) ID Date Data Source [id number] 06/20/2020 07:15:00 AM EST [facility] ([facility]) Name Value Range Interpretation Code Description Data Courtney rce(s) Supporting Document(s) Prothrombin Time 21.0 s 12.5-14.3 Above high normal [facility] ([facility]) Partial Thromboplastin Time 43.3 s 24.2-38.5 Above high normal [facility] ([facility]) Inr 1.77 Normal (applies to non-numeric resul ts) [facility]) THERAPUTIC HUMAN INR VALUES INDICATIONS NORMAL RANGES PROPHYLAXIS/TREATMENT OF: VENOUS THROMBOSIS 2.0-3.0 PULMONARY EMBOLISM 2.0-3.0 PREVENTION OF SYSTEMIC EMBOLISM FROM: TISSUE HEART VALVES 2.0-3.0 ACUTE MYOCARDIAL INFARCTION 2.0-3.0 VALVULAR HEART DISEASE 2.0-3.0 ATRIAL FIBRILLATION 2.0-3.0 MECHANICAL VALVES(HIGH RISK) 2.5-3.5 RECURRENT MYOCARDIAL INFARCTION 2.5-3.5 ID Date Data Source [id number] 06/20/2020 07:15:00 AM EST MEDENT ([facility]) Name Value Range Interpretation Code Description Data Courtney rce(s) Supporting Document(s) Red Blood Count 3.08 10 4.30-6.10 Below low normal [facility] ([facility]) White Blood Count 7.6 10 4.0-10.0 Normal (applies to non-numeri c results) [facility] ([facility]) Mean Corpuscular Volume 106.2 fl 80.0-96.0 Above high normal [facility] Hemoglobin 10.5 g/dL 13.5-17.5 Below low normal [facility] ( [facility]) Hematocrit 32.7 % 42.0-52.0 Below low normal [facility] ( [facility]) Mean Corpuscular HGB Conc 32.1 g/dL 32.0-36.5 Normal (applies to non-numeric results) [facility] ([facility]) Red Cell Distribution Width 12.3 % 11.5-14.5 Norm al (applies to non-numeric results) [facility] ([facility]) Mean Corpuscular Hemoglobin 34.1 pg 27.0-33.0 Above high normal [facility] Platelet Count, Automated 186 10 150-450 Normal (applies to non-numeric results) [facility]) Neutrophils % 74.3 % 36.0-66.0 Above high normal [facility] ([facility]) Eos % 1.5 % 0.0-3.0 Normal (applies to non-numeric resul ts) [facility]) Lymph % 13.1 % 24.0-44.0 Below low normal MEDENT ( [facility], ) Blanco % 10.2 % 0.0-5.0 Above high normal [facility] ([facility]) Nucleated Red Blood Cell % 0.0 % 0-0 Normal (applies to n on-numeric results) [facility] ([facility]) Immature Granulocyte % 0.4 % 0-3.0 Normal (applies to non-n umeric results) [facility] ([facility]) Baso % 0.5 % 0.0-1.0 Normal (applies to non-numeric resul ts) [facility] ([facility]) Blanco # 0.8 10 0.0-0.8 Normal (applies to non-numeric resul ts) [facility] ([facility]) Neutrophils # 5.6 10 1.5-8.5 Normal (applies to non-numeric re sults) [facility] ([facility]) Lymph # 1.0 10 1.5-5.0 Below low normal [facility] ( [facility]) Eos # 0.1 10 0.0-0.5 Normal (applies to non-numeric resul ts) [facility] ([facility]) Baso # 0.0 10 0.0-0.2 Normal (applies to non-numeric resul ts) [facility] ([facility]) ID Date Data Source [id number] 06/20/2020 06:46:00 AM EST [facility] Name Value Range Interpretation Code Description Data Courtney rce(s) Supporting Document(s) SARS coronavirus 2 RNA [Presence] in Res piratory specimen by KAYLA with probe detection NEGATIVE NYSDVA This lab was ordered by [facility] a nd reported by [facility]. ID Date Data Source [id number] 02/16/2020 12:00:00 AM EDT [facility] Jose D Montana Jr, MD Patient Name: DERRICK [id number] [facility] Date of : [address] [address] Date of Exam: 02/16/2020#: Fax: [phone] EXAM: [...] Other findings as described above.Accredited by the [employer] in [place].NOE Harris/Link you for referring DERRICK KWAN to our office. Electronically Signed - NELSON NUNEZ DO 02/17/20 15:07 Name Value Range Interpretation Code Description Data Courtney rce(s) Supporting Document(s) ID Date Data Source [id number] 02/10/2020 02:23:00 PM EDT [facility] ([facility]) Name Value Range Interpretation Code Description Data Courtney rce(s) Supporting Document(s) Magnesium, Serum Laboratory test result [facility] ([facility]) ID Date Data Source [id number] 02/08/2020 11:57:00 AM EDT [facility] ([facility]) Name Value Range Interpretation Code Description Data Courtney rce(s) Supporting Document(s) Magnesium [Moles/volume] in Serum or Plasma 1.6 mg/dL 1.8-2.4 [facility] ([facility]) ID Date Data Source [id number] 02/08/2020 11:57:00 AM EDT [facility] ([facility]) Name Value Range Interpretation Code Description Data Courtney rce(s) Supporting Document(s) Glucose, Fasting 100 mg/dL 70-100 [facility] ([facility]) Blood Urea Nitrogen 13 mg/dL 7-18 [facility] ([facility]) Creatinine For GFR 0.75 mg/dL 0.70-1.30 [facility] ([facility]) Glomerular Filtration Rate Laboratory [facility] [facility] <content>Units are mL/min/1.73 m2</content>
<content></content>
<content>Chronic Kidney Disease Staging per NKF:</content>
<content></content>
<content>Stage I & II GFR >=60 Normal to Mildly Decreased</content>
<content>Stage III GFR 30- 59 Moderately Decreased</content>
<content>Stage IV GFR 15-29 Severely Decreased</content>
<content>Stage V GFR <15 Very Little GFR Left</content>
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
<content></content> Sodium Level 140 meq/L 136-145 [facility] ([facility]) Potassium Serum 3.7 meq/L 3.5-5.1 [facility] ([facility]) Anion Gap 5 meq/L 8-16 [facility] [facility]) Chloride Level 109 meq/L 98-107 [facility] ([facility]) Carbon Dioxide Level 26 meq/L 21-32 [facility]) Calcium Level 8.0 mg/dL 8.8-10.2 [facility]) ID Date Data Source [id number] 02/08/2020 11:57:00 AM EDT [facility] ([facility]) Name Value Range Interpretation Code Description Data Courtney rce(s) Supporting Document(s) CPK Creatine Phosphokinase 162 U/L 39-308 [facility] ([facility]) CK-MB Value Mass Laboratory test result [facility] ([facility]) MB/CK Relative Index 0.62 [facility]) <content>DIAGNOSIS CRITERIA</content>
<content>MMB ng/ml Relative Index (RI)</content>
<content>NON-AMI < or = 5 N/A</content>
<content>PRITCHETT ZONE > 5 < or = 4</content>
<content>AMI > 5 > 4</content>
<content></content> Troponin I Laboratory test result [facility] ([facility]) <content>Troponin I Reference Interval f or Siemens [place] LOCI:</content>
<content></content>
<content>99th Percentile= 0.00-0.045 ng/ml</content>
<content></content>
<content>Risk Stratification:</content>
<content><= 0.10 ng/ml Decreased Risk for Adverse Clinical</content>
<content>Events.</content>
<content>0.10-1.50 ng/ml Increased Risk for Adverse Clinical</content>
<content>Events. Evaluation of additional</content>
<content>criterion and/or repeat testing in 2-6</content>
<content>hours is suggested to rule out myocardial</content>
<content>damage.</content>
<content>>= 1.50 ng/ml Indicative of Myocardial Injury.</content>
<content></content> ID Date Data Source [id number] 02/08/2020 11:57:00 AM EDT [facility] ([facility]) Name Value Range Interpretation Code Description Data Courtney rce(s) Supporting Document(s) Red Blood Count 3.70 10 4.30-6.10 [facility] ([facility]) White Blood Count 7.8 10 4.0-10.0 [facility] ([facility]) Hemoglobin 12.4 g/dL 13.5-17.5 [facility] [facility] Hematocrit 36.1 % 42.0-52.0 [facility] [facility] Mean Corpuscular Volume 97.6 fl 80.0-96.0 [facility] ([facility]) Mean Corpuscular Hemoglobin 33.5 pg 27.0-33.0 [facility] ([facility] [facility]) Red Cell Distribution Width 13.2 % 11.5-14.5 [facility] ([facility] [facility]) Platelet Count, Automated 142 10 150-450 [facility] ([place] [facility]) Mean Corpuscular HGB Conc 34.3 g/dL 32.0-36.5 [facility] ([facility]) Lymph % 13.6 % 24.0-44.0 [facility] [facility]) Neutrophils % 71.5 % 36.0-66.0 [facility]) Blanco % 11.5 % 0.0-5.0 [facility] [facility]) Eos % 2.7 % 0.0-3.0 [facility] [facility]) Nucleated Red Blood Cell % 0.0 % 0-0 [facility] ([facility]) Immature Granulocyte % 0.3 % 0-3.0 [facility] ([facility]) Baso % 0.4 % 0.0-1.0 [facility] [facility]) Blanco # 0.9 10 0.0-0.8 [facility] [facility]) Neutrophils # 5.6 10 1.5-8.5 [facility] ([facility] Lymph # 1.1 10 1.5-5.0 [facility] [facility] Eos # 0.2 10 0.0-0.5 [facility] [facility]) Baso # 0.0 10 0.0-0.2 [facility] [facility]) ID Date Data Source [id number] 12/25/2019 11:32:00 AM EDT [facility] ([facility]) Name Value Range Interpretation Code Description Data Courtney rce(s) Supporting Document(s) Magnesium 1.7 mg/dL 1.8-2.4 [facility] [facility] ID Date Data Source [id number] 10/26/2019 08:26:00 AM EDT [facility] ([facility]) Name Value Range Interpretation Code Description Data Courtney rce(s) Supporting Document(s) Magnesium 1.4 mg/dL 1.8-2.4 [facility] [facility]) ID Date Data Source [id number] 10/26/2019 08:26:00 AM EDT [facility] ([facility]) Name Value Range Interpretation Code Description Data Courtney rce(s) Supporting Document(s) Creatinine 1.0 mg/dL 0.6-1.3 [facility] [facility] Glucose [Mass/volume] in Serum or Plasma 94 mg/dL 74-99 [facility] ([facility]) 100-125 mg/dL PRE-DIABETES/FASTING >126 mg/dL DIABETES/FASTING Urea nitrogen [Mass/volume] in Serum or Plasma 8 mg/dL 7-18 [facility] ([facility]) Potassium [Moles/volume] in Serum or Plasma 3.9 meq/L 3.5-5.1 [facility] ([facility]) Chloride [Moles/volume] in Serum or Plasma 107 meq/L 98-107 [facility] ([facility]) Sodium [Moles/volume] in Serum or Plasma 143 meq/L 136-145 [facility] ([facility]) Total Bilirubin 0.7 mg/dL 0.2-1.0 [facility] ([facility]) Alkaline phosphatase isoenzyme [Units/volume] in Serum or Pl asma 162 mg/dL 46-116 [facility] ([facility]) Carbon dioxide, total [Moles/volume] in Serum or Plasma 28 meq/L 21 -32 [facility] ([facility] [facility]) Calcium [Mass/volume] in Serum or Plasma 7.9 mg/dL 8.5-10.1 [facility] ([facility] [facility]) Aspartate aminotransferase [Enzymatic activity/volume] in Serum or Plasma 31 U/L 15-37 [facility] ([facility] ) Alanine aminotransferase [Enzymatic activity/volume] in Seru m or Plasma 25 U/L 12-78 [facility] ([facility]) Albumin [Mass/volume] in Serum or Plasma 2.8 g/dL 3.4-5.0 [facility] ([facility]) Proteinase 3 Ab [Units/volume] in Serum 6.3 g/dL 6.4-8.2 [facility] [facility] Glomerular filtration rate/1.73 sq M pre dicted among non-blacks [Volume Rate/Area] in Serum or Plasma by Creatinine-based formula (MDRD) Laboratory test result [facility] ([place] [facility] A/G Ratio 0.80 CALC 1.00-1.90 [facility] [facility]) Glomerular filtration rate/1.73 sq M pre dicted among blacks [Volume Rate/Area] in Serum or Plasma by Creatinine-based formula (MDRD) Laboratory test result [facility] ([facility] [facility]) <content>CHRONIC KIDNEY DISEASE STAGING PER NKF</content>
<content></content>
<content>STAGE I & II GFR >= 60 NORMAL TO MILDLY DECREASED</content>
<content>STAGE III GFR 30-59 MODERATELY DECREASED</content>
<content>STAGE IV GFR 15-29 SEVERELY DECREASED</content>
<content>STAGE V GFR <15 VERY LITTLE GFR LEFT</content>
<content>ESRD GFR <15 ON STUFFING MACHINE OPERATOR</content>
<content></content> ID Date Data Source [id number] 10/26/2019 08:26:00 AM EDT [facility] ([facility]) Name Value Range Interpretation Code Description Data Courtney rce(s) Supporting Document(s) Leukocytes [#/volume] in Blood by Automated count 6.0 x10*3/UL 4.1-10 .9 [facility] [facility] Erythrocytes [#/volume] in Blood by Automated count 3.32 x10*6/UL 4.2 0-6.30 [facility] ([place] [facility] Hematocrit [Volume Fraction] of Blood by Automated count 34.2 % 3 7.0-51.0 [facility] ([facility] [facility]) MCV 102.8 fL 80.0-97.0 [facility] ([place] [facility]) Hemoglobin [Mass/volume] in Blood 11.7 g/dL 12.0-18.0 [facility] [facility]) NOTE: RESULT VERIFIED. Erythrocyte distribution width [Ratio] by Automated count 13.7 % 11.6-13.7 [facility] ([facility] [facility]) MCH 35.2 pg 26.0-32.0 [facility] [facility] MCHC 34.2 g/dL 31.0-38.0 [facility] ([place] [facility]) MPV 8.4 FL 7.8-11.0 [facility] ([facility]) Platelets [#/volume] in Blood by Automated count 241 x10*3/UL 140-440 [facility] ([facility]) Lymph % 20.0 % 10.0-58.5 [facility] [facility]) Mid % 7.7 % 1.7-9.3 [facility] [facility] Mid # 0.5 x10*3/UL 0.1-0.6 [facility] ([facility]) Lymph # 1.2 x10*3/UL 0.6-4.1 [facility] ([facility]) Neut % 72.3 % 37.0-92.0 [facility] [facility] Neut # 4.3 x10*3/UL 2.0-7.8 [facility] ([facility]) ID Date Data Source [id number] 10/12/2019 02:57:00 PM EDT [facility] ([facility]) Name Value Range Interpretation Code Description Data Courtney rce(s) Supporting Document(s) Erythrocytes [#/volume] in Blood by Automated count 3.55 x10*6/UL 4.2 0-6.30 [facility] ([facility]) Leukocytes [#/volume] in Blood by Automated count 7.3 x10*3/UL 4.1-10 .9 [facility] ([facility]) MCV 104.9 fL 80.0-97.0 [facility] ([place] [facility] Hemoglobin [Mass/volume] in Blood 12.3 g/dL 12.0-18.0 [facility] ([facility]) Hematocrit [Volume Fraction] of Blood by Automated count 37.2 % 3 7.0-51.0 [facility] ([facility]) MCHC 33.0 g/dL 31.0-38.0 [facility] [facility] Erythrocyte distribution width [Ratio] by Automated count 15.0 % 11.6-13.7 [facility] ([facility] [facility]) MCH 34.7 pg 26.0-32.0 [facility] [facility] Mid % 6.7 % 1.7-9.3 [facility] [facility] MPV 8.0 FL 7.8-11.0 [facility] [facility] Lymph % 19.9 % 10.0-58.5 [facility] ([facility]) Platelets [#/volume] in Blood by Automated count 294 x10*3/UL 140-440 [facility] ([facility] [facility]) Mid # 0.6 x10*3/UL 0.1-0.6 [facility] [facility] Lymph # 1.4 x10*3/UL 0.6-4.1 [facility] ([place] [facility] Neut % 73.4 % 37.0-92.0 [facility] ([facility]) Neut # 5.3 x10*3/UL 2.0-7.8 [facility] ([facility] [facility] ID Date Data Source [id number] 10/12/2019 02:57:00 PM EDT [facility] Name Value Range Interpretation Code Description Data Courtney rce(s) Supporting Document(s) Hemoglobin A1c/Hemoglobin.total in Blood 5.1 g/dL 4.8-5.6 [facility] [facility] Lab Result Notes: Pre-Diabetes 5.7 - 6.4 % Diabetes = or > 6.5% Glucose mean value [Mass/volume] in Blood Estimated fr om glycated hemoglobin 100 mg/dL 60-110 [facility] [facility] ID Date Data Source [id number] 10/12/2019 02:57:00 PM EDT [facility] Name Value Range Interpretation Code Description Data Courtney rce(s) Supporting Document(s) Magnesium 1.5 mg/dL 1.8-2.4 [facility]) ID Date Data Source [id number] 10/12/2019 02:57:00 PM EDT [facility] Name Value Range Interpretation Code Description Data Courtney rce(s) Supporting Document(s) Glucose [Mass/volume] in Serum or Plasma 110 mg/dL 74-99 [facility] ([place] [facility] 100-125 mg/dL PRE-DIABETES/FASTING >126 mg/dL DIABETES/FASTING Sodium [Moles/volume] in Serum or Plasma 142 meq/L 136-145 [facility] ([place] [facility] Urea nitrogen [Mass/volume] in Serum or Plasma 7 mg/dL 7-18 [facility] ([facility] [facility]) Creatinine 0.9 mg/dL 0.6-1.3 [facility] ([facility]) Carbon dioxide, total [Moles/volume] in Serum or Plasma 25 meq/L 21 -32 [facility] ([facility] [facility]) Potassium [Moles/volume] in Serum or Plasma 4.2 meq/L 3.5-5.1 [facility] ([facility]) Chloride [Moles/volume] in Serum or Plasma 106 meq/L 98-107 [facility] ([facility] [facility]) Total Bilirubin 0.9 mg/dL 0.2-1.0 [facility] ([facility]) Calcium [Mass/volume] in Serum or Plasma 8.9 mg/dL 8.5-10.1 [facility] ([facility]) Alkaline phosphatase isoenzyme [Units/volume] in Serum or Pl asma 172 mg/dL 46-116 [facility] ([facility]) Alanine aminotransferase [Enzymatic activity/volume] in Seru m or Plasma 26 U/L 12-78 [facility] ([facility]) Aspartate aminotransferase [Enzymatic activity/volume] in Serum or Plasma 35 U/L 15-37 [facility] ([facility] ) Albumin [Mass/volume] in Serum or Plasma 2.9 g/dL 3.4-5.0 [facility] ([facility]) Proteinase 3 Ab [Units/volume] in Serum 7.1 g/dL 6.4-8.2 [facility] ([facility]) Glomerular filtration rate/1.73 sq M pre dicted among non-blacks [Volume Rate/Area] in Serum or Plasma by Creatinine-based formula (MDRD) Laboratory test result [facility] ([facility] ) A/G Ratio 0.69 CALC 1.00-1.90 [facility] Glomerular filtration rate/1.73 sq M pre dicted among blacks [Volume Rate/Area] in Serum or Plasma by Creatinine-based formula (MDRD) Laboratory test result [facility] ([facility]) <content>CHRONIC KIDNEY DISEASE STAGING PER NKF</content>
<content></content>
<content>STAGE I & II GFR >= 60 NORMAL TO MILDLY DECREASED</content>
<content>STAGE III GFR 30-59 MODERATELY DECREASED</content>
<content>STAGE IV GFR 15-29 SEVERELY DECREASED</content>
<content>STAGE V GFR <15 VERY LITTLE GFR LEFT</content>
<content>ESRD GFR <15 ON STUFFING MACHINE OPERATOR</content>
<content></content> ID Date Data Source [id number] 10/12/2019 02:57:00 PM EDT [facility] ([facility]) Name Value Range Interpretation Code Description Data Courtney rce(s) Supporting Document(s) Cholesterol [Mass/volume] in Serum or Plasma 118 mg/dL 131-200 [facility] ([facility]) Triglyceride [Mass/volume] in Serum or Plasma 51 mg/dL 30-150 [facility] ([facility]) Cholesterol in LDL [Mass/volume] in Serum or Plasma by calcu lation 43 CALC 50-159 [facility] ([facility]) Cholesterol in HDL [Mass/volume] in Serum or Plasma 65 mg/dL 35-60 [facility] ([facility]) ID Date Data Source [id number] 10/12/2019 02:57:00 PM EDT [facility] ([facility]) Name Value Range Interpretation Code Description Data Courtney rce(s) Supporting Document(s) Urine Creatinine 85.9 mg/dL 30.0-125.0 [facility] ([facility]) Microalbumin Urine 53.8 mg/L 1.3-20.0 [facility] ([facility]) Microalb/Creat Ratio 62.6 ug/mg 0.0-30.0 [facility] ( [facility]) ID Date Data Source [id number] 10/06/2019 12:52:00 PM EDT [facility] ([facility]) Name Value Range Interpretation Code Description Data Courtney rce(s) Supporting Document(s) Magnesium 1.5 mg/dL 1.8-2.4 [facility] [facility]) NOTE: RESULT VERIFIED. ID Date Data Source [id number] 10/06/2019 12:52:00 PM EDT [facility] ([facility]) Name Value Range Interpretation Code Description Data Courtney rce(s) Supporting Document(s) Glucose [Mass/volume] in Serum or Plasma 73 mg/dL 74-99 [facility] ([facility]) 100-125 mg/dL PRE-DIABETES/FASTING >126 mg/dL DIABETES/FASTING Urea nitrogen [Mass/volume] in Serum or Plasma 6 mg/dL 7-18 [facility] ([facility]) Creatinine 0.9 mg/dL 0.6-1.3 [facility] ([facility]) Potassium [Moles/volume] in Serum or Plasma 4.1 meq/L 3.5-5.1 [facility] ([facility]) Chloride [Moles/volume] in Serum or Plasma 105 meq/L 98-107 [facility] ([facility]) Sodium [Moles/volume] in Serum or Plasma 141 meq/L 136-145 [facility] ([facility]) Carbon dioxide, total [Moles/volume] in Serum or Plasma 28 meq/L 21 -32 [facility] ([facility]) Calcium [Mass/volume] in Serum or Plasma 8.3 mg/dL 8.5-10.1 [facility] ([facility]) NOTE: RESULT VERIFIED. Glomerular filtration rate/1.73 sq M pre dicted among non-blacks [Volume Rate/Area] in Serum or Plasma by Creatinine-based formula (MDRD) [facility] Glomerular filtration rate/1.73 sq M pre dicted among blacks [Volume Rate/Area] in Serum or Plasma by Creatinine-based formula (MDRD) Laboratory test result [facility] ([facility] [facility] <content>CHRONIC KIDNEY DISEASE STAGING PER NKF</content>
<content></content>
<content>STAGE I & II GFR >= 60 NORMAL TO MILDLY DECREASED</content>
<content>STAGE III GFR 30-59 MODERATELY DECREASED</content>
<content>STAGE IV GFR 15-29 SEVERELY DECREASED</content>
<content>STAGE V GFR <15 VERY LITTLE GFR LEFT</content>
<content>ESRD GFR <15 ON STUFFING MACHINE OPERATOR</content>
<content></content> ID Date Data Source [id number] 09/25/2019 03:09:00 PM EDT [facility] ([facility]) Name Value Range Interpretation Code Description Data Courtney rce(s) Supporting Document(s) Bacteria identified in Urine by Culture Laboratory test result [facility] [facility] <content>FULL REPORT IN LAB NOTES (eCW a [...] 2 S</content>
<content></content> ID Date Data Source [id number] 09/25/2019 03:08:00 PM EDT [facility] Name Value Range Interpretation Code Description Data Courtney rce(s) Supporting Document(s) Urine Color Laboratory test result [facility] ([facility] [facility] Specific gravity of Urine 1.015 1.005-1.030 [facility] ([facility] [facility] Urine PH 6.5 units 5.0-9.0 [facility] [facility] Urine Appearance Laboratory test result Abnormal (applies to non-numeric results) [facility] ([facility]) Urine Blood Laboratory test result Abnormal (applies to non-numeric results) [facility] ([facility]) Urine Leukocytes Laboratory test result Abnormal (applies to non-numeric results) [facility] [facility] Urine Protein Laboratory test result 0-0 Abnormal (applies to non-numeric results) [facility] ([facility]) Urine Ketone Laboratory test result [facility] ([facility]) Glucose [Presence] in Urine Laboratory test result [facility] ([facility]) Urine Nitrite Laboratory test result [facility] ([facility] [facility]) Bilirubin.total [Mass/volume] in Serum or Plasma Laboratory test resu lt [facility] ([facility]) Urine Urobilinogen 0.2 mg/dL 0.2-1.0 [facility]) ID Date Data Source [id number] 09/25/2019 03:05:00 PM EDT [facility] Name Value Range Interpretation Code Description Data Courtney rce(s) Supporting Document(s) Leukocytes [#/volume] in Blood by Automated count 6.0 x10*3/UL 4.1-10 .9 [facility] ([facility]) Hemoglobin [Mass/volume] in Blood 11.6 g/dL 12.0-18.0 [facility] ([facility] Hematocrit [Volume Fraction] of Blood by Automated count 34.1 % 3 7.0-51.0 [facility] ([facility] [facility] Erythrocytes [#/volume] in Blood by Automated count 3.30 x10*6/UL 4.2 0-6.30 [facility] ([facility] [facility]) MCHC 34.1 g/dL 31.0-38.0 [facility] ([place] [facility]) MCH 35.2 pg 26.0-32.0 [facility] ([place] [facility]) MCV 103.1 fL 80.0-97.0 [facility] ([facility]) Erythrocyte distribution width [Ratio] by Automated count 14.6 % 11.6-13.7 [facility] [facility] MPV 7.9 FL 7.8-11.0 [facility] ([place] [facility]) Platelets [#/volume] in Blood by Automated count 187 x10*3/UL 140-440 [facility] ([facility]) Mid % 10.2 % 1.7-9.3 [facility] [facility] Neut % 64.2 % 37.0-92.0 [facility] ([facility]) Lymph % 25.6 % 10.0-58.5 [facility] ([facility]) Lymph # 1.5 x10*3/UL 0.6-4.1 [facility] ([facility]) Mid # 0.6 x10*3/UL 0.1-0.6 [facility] ([facility]) Neut # 3.9 x10*3/UL 2.0-7.8 [facility] ([facility]) ID Date Data Source [id number] 09/25/2019 03:05:00 PM EDT [facility] Name Value Range Interpretation Code Description Data Courtney rce(s) Supporting Document(s) Urea nitrogen [Mass/volume] in Serum or Plasma 7 mg/dL 7-18 [facility] ([facility]) Glucose [Mass/volume] in Serum or Plasma 107 mg/dL 74-99 [facility] ([facility]) CRITICAL: MALAIKA CARRERO NOTIFIED NOTE: RESULT VERIFIED. 100-125 mg/dL PRE-DIABETES/FASTING >126 mg/dL DIABETES/FASTING Potassium [Moles/volume] in Serum or Plasma 3.3 meq/L 3.5-5.1 [facility] ([facility]) Creatinine 0.9 mg/dL 0.6-1.3 [facility] [facility] Sodium [Moles/volume] in Serum or Plasma 141 meq/L 136-145 [facility] ([facility]) Glomerular filtration rate/1.73 sq M pre dicted among non-blacks [Volume Rate/Area] in Serum or Plasma by Creatinine-based formula (MDRD) Laboratory test result [facility] Carbon dioxide, total [Moles/volume] in Serum or Plasma 25 meq/L 21 -32 [facility] ([facility]) Calcium [Mass/volume] in Serum or Plasma 5.4 mg/dL 8.5-10. 1 Below lower panic limits [facility] ([facility]) CRITICAL: MALAIKA CARRERO NOTIFIED Chloride [Moles/volume] in Serum or Plasma 104 meq/L 98-107 [facility] ([facility]) Glomerular filtration rate/1.73 sq M pre dicted among blacks [Volume Rate/Area] in Serum or Plasma by Creatinine-based formula (MDRD) Laboratory test result [facility] ([facility]) <content>CHRONIC KIDNEY DISEASE STAGING PER NKF</content>
<content></content>
<content>STAGE I & II GFR >= 60 NORMAL TO MILDLY DECREASED</content>
<content>STAGE III GFR 30-59 MODERATELY DECREASED</content>
<content>STAGE IV GFR 15-29 SEVERELY DECREASED</content>
<content>STAGE V GFR <15 VERY LITTLE GFR LEFT</content>
<content>ESRD GFR <15 ON STUFFING MACHINE OPERATOR</content>
<content></content> ID Date Data Source [id number] 07/14/2019 03:14:00 PM EST [facility] ([facility]) Name Value Range Interpretation Code Description Data Courtney rce(s) Supporting Document(s) Thyroxine (T4) free [Mass/volume] in Serum or Plasma 1.45 ng/dL 0.76- 1.46 [facility] ([facility]) Thyrotropin [Units/volume] in Serum or Plasma by Detec tion limit <= 0.05 mIU/L 1.060 uIU/ML 0.358-3.740 [facility] ([facility] ID Date Data Source [id number] 07/14/2019 03:14:00 PM EST [facility] ([facility]) Name Value Range Interpretation Code Description Data Courtney rce(s) Supporting Document(s) Creatinine For GFR 0.72 mg/dL 0.70-1.30 [facility] ([facility]) Blood Urea Nitrogen 17 mg/dL 7-18 [facility] ([facility]) Glucose, Fasting 93 mg/dL 70-100 [facility] ([facility]) Sodium Level 137 meq/L 136-145 [facility] ([facility]) Glomerular Filtration Rate [facility] <content>Units are mL/min/1.73 m2</content>
<content></content>
<content>Chronic Kidney Disease Staging per NKF:</content>
<content></content>
<content>Stage I & II GFR >=60 Normal to Mildly Decreased</content>
<content>Stage III GFR 30- 59 Moderately Decreased</content>
<content>Stage IV GFR 15-29 Severely Decreased</content>
<content>Stage V GFR <15 Very Little GFR Left</content>
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
<content></content> Potassium Serum 2.9 meq/L 3.5-5.1 Below lower panic limits [facility] ([facility]) Carbon Dioxide Level 30 meq/L 21-32 [facility] ([facility]) Chloride Level 97 meq/L 98-107 [facility] ([facility]) Anion Gap 10 meq/L 8-16 [facility] ([facility]) Calcium Level 8.6 mg/dL 8.8-10.2 [facility] ([facility]) ID Date Data Source [id number] 07/14/2019 03:14:00 PM EST MED[facility] ([facility]) Name Value Range Interpretation Code Description Data Courtney rce(s) Supporting Document(s) Alt/SGPT 40 U/L 12-78 [facility] ([facility]) Ast/Sgot 49 U/L 7-37 [facility] ([facility]) Bilirubin,Direct 0.5 mg/dL 0.0-0.2 [facility] ([facility]) Alkaline Phosphatase 133 U/L 45-117 [facility] ([facility]) Total Protein 7.0 GM/DL 6.4-8.2 [facility] ([facility]) Bilirubin,Total 1.7 mg/dL 0.2-1.0 [facility] ([facility]) Albumin 3.2 GM/DL 3.2-5.2 [facility] ([facility]) Albumin/Globulin Ratio 0.84 1.00-1.93 [facility] ([facility]) ID Date Data Source [id number] 07/14/2019 03:14:00 PM EST [facility] ([facility]) Name Value Range Interpretation Code Description Data Courtney rce(s) Supporting Document(s) CK-MB Value Mass Laboratory test result [facility] ([facility]) CPK Creatine Phosphokinase 60 U/L 39-308 [facility] ([facility]) MB/CK Relative Index 1.67 [facility] ([facility]) <content>DIAGNOSIS CRITERIA</content>
<content>MMB ng/ml Relative Index (RI)</content>
<content>NON-AMI < or = 5 N/A</content>
<content>PRITCHETT ZONE > 5 < or = 4</content>
<content>AMI > 5 > 4</content>
<content></content> Troponin I Laboratory test result [facility] ([facility]) <content>Troponin I Reference Interval f or Siemens [place] LOCI:</content>
<content></content>
<content>99th Percentile= 0.00-0.045 ng/ml</content>
<content></content>
<content>Risk Stratification:</content>
<content><= 0.10 ng/ml Decreased Risk for Adverse Clinical</content>
<content>Events.</content>
<content>0.10-1.50 ng/ml Increased Risk for Adverse Clinical</content>
<content>Events. Evaluation of additional</content>
<content>criterion and/or repeat testing in 2-6</content>
<content>hours is suggested to rule out myocardial</content>
<content>damage.</content>
<content>>= 1.50 ng/ml Indicative of Myocardial Injury.</content>
<content></content> ID Date Data Source [id number] 07/14/2019 03:14:00 PM EST [facility] ([facility]) Name Value Range Interpretation Code Description Data Courtney rce(s) Supporting Document(s) White Blood Count 7.2 10 4.0-10.0 [facility] ([facility]) Red Blood Count 3.83 10 4.30-6.10 [facility] ([facility]) Hematocrit 40.6 % 42.0-52.0 [facility] Mean Corpuscular Hemoglobin 36.8 pg 27.0-33.0 [facility] ([facility]) Mean Corpuscular Volume 106.0 fl 80.0-96.0 [facility] Hemoglobin 14.1 g/dL 13.5-17.5 [facility] Mean Corpuscular HGB Conc 34.7 g/dL 32.0-36.5 [facility] Red Cell Distribution Width 11.9 % 11.5-14.5 [facility] ([facility]) Platelet Count, Automated 198 10 150-450 MEDE NT ([facility]) Neutrophils % 64.4 % 36.0-66.0 [facility] ([facility]) Lymph % 16.4 % 24.0-44.0 [facility]) Blanco % 15.5 % 0.0-5.0 [facility]) Eos % 2.5 % 0.0-3.0 [facility] ([facility]) Immature Granulocyte % 0.6 % 0-3.0 [facility] ([facility]) Baso % 0.6 % 0.0-1.0 [facility] ([facility]) Nucleated Red Blood Cell % 0.0 % 0-0 [facility] ([facility]) Eos # 0.2 10 0.0-0.5 [facility] ([facility]) Lymph # 1.2 10 1.5-5.0 [facility] Blanco # 1.1 10 0.0-0.8 [facility] ([facility]) Neutrophils # 4.7 10 1.5-8.5 [facility] ([facility]) Baso # 0.0 10 0.0-0.2 [facility] ([facility]) ID Date Data Source [id number] 07/07/2019 07:17:00 PM EST [facility] ([facility]) Name Value Range Interpretation Code Description Data Courtney rce(s) Supporting Document(s) Inr 1.42 [facility] ([facility]) THERAPUTIC HUMAN INR VALUES INDICATIONS NORMAL RANGES PROPHYLAXIS/TREATMENT OF: VENOUS THROMBOSIS 2.0-3.0 PULMONARY EMBOLISM 2.0-3.0 PREVENTION OF SYSTEMIC EMBOLISM FROM: TISSUE HEART VALVES 2.0-3.0 ACUTE MYOCARDIAL INFARCTION 2.0-3.0 VALVULAR HEART DISEASE 2.0-3.0 ATRIAL FIBRILLATION 2.0-3.0 MECHANICAL VALVES(HIGH RISK) 2.5-3.5 RECURRENT MYOCARDIAL INFARCTION 2.5-3.5 Prothrombin Time 17.1 s 11.8-14.0 [facility] ([facility]) ID Date Data Source [id number] 07/07/2019 07:17:00 PM EST [facility] Name Value Range Interpretation Code Description Data Courtney rce(s) Supporting Document(s) Appearance, Urine RFX Laboratory test [facility]) Color, Urine RFX Laboratory test [facility] ([facility]) Specific [place] Ur Auto RFX 1.008 1.002-1.035 [facility] ([facility]) Protein, Urine Auto RFX Laboratory test result [facility] ([facility]) PH,Urine RFX 6.0 units 5.0-9.0 [facility] ([facility]) Glucose, Urine (Ua) Auto RFX Laboratory test [facility] ([facility]) Ketone, Urine Auto RFX Laboratory test result [facility] ([facility]) Urobilinogen, Urine Auto RFX 0.2 mg/dL 0.0-2.0 [facility] ([facility]) Leukocyte Esterase Ur Auto RFX Laboratory test result [facility] ([facility]) Nitrite, Urine Auto RFX Laboratory test result [facility]) Bilirubin, Urine Auto RFX Laboratory test result [facility] ([facility]) Blood, Urine Blood RFX Laboratory test result [facility]) Bacteria, Urine Auto RFX Laboratory test result [facility] ([facility]) WBC, Urine Auto RFX 0 /HPF 0-3 [facility] ([facility]) RBC, Urine Auto RFX 2 /HPF 0-3 [facility] Hyaline Cast, Urine Auto RFX 0 /LPF 0-1 M EDENT ([facility]) Squam Epithelial Cell Ur Aurfx 0 /HPF 0-6 [facility] ([facility]) Sperm, Urine Auto RFX Laboratory test result [facility] ([facility]) ID Date Data Source [id number] 07/07/2019 07:03:00 PM EST [facility] Name Value Range Interpretation Code Description Data Courtney rce(s) Supporting Document(s) Glucose, Fasting 129 mg/dL 70-100 [facility] ([facility]) Blood Urea Nitrogen 5 mg/dL 7-18 [facility] ([facility]) Potassium Serum 3.5 meq/L 3.5-5.1 [facility] ([facility]) Glomerular Filtration Rate Laboratory test result [facility] ([facility]) <content>Units are mL/min/1.73 m2</content>
<content></content>
<content>Chronic Kidney Disease Staging per NKF:</content>
<content></content>
<content>Stage I & II GFR >=60 Normal to Mildly Decreased</content>
<content>Stage III GFR 30- 59 Moderately Decreased</content>
<content>Stage IV GFR 15-29 Severely Decreased</content>
<content>Stage V GFR <15 Very Little GFR Left</content>
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
<content></content> Sodium Level 132 meq/L 136-145 [facility] ([facility]) Creatinine For GFR 0.75 mg/dL 0.70-1.30 [facility] ([facility]) Anion Gap 11 meq/L 8-16 [facility] ([facility]) Carbon Dioxide Level 25 meq/L 21-32 [facility] ([facility]) Chloride Level 96 meq/L 98-107 [facility] ([facility]) Calcium Level 8.1 mg/dL 8.8-10.2 [facility] ([facility]) ID Date Data Source [id number] 07/07/2019 07:03:00 PM EST [facility] ([facility]) Name Value Range Interpretation Code Description Data Courtney rce(s) Supporting Document(s) White Blood Count 9.3 10 4.0-10.0 [facility] ([facility]) Red Blood Count 3.47 10 4.30-6.10 [facility] ([facility]) Hematocrit 36.3 % 42.0-52.0 [facility] Hemoglobin 12.9 g/dL 13.5-17.5 [facility] Mean Corpuscular Hemoglobin 37.2 pg 27.0-33.0 [facility] ([facility]) Mean Corpuscular Volume 104.6 fl 80.0-96.0 [facility] ([facility]) Mean Corpuscular HGB Conc 35.5 g/dL 32.0-36.5 [facility] NT ([facility]) Platelet Count, Automated 198 10 150-450 [facility] NT ([facility]) Red Cell Distribution Width 11.9 % 11.5-14.5 [facility] ([facility]) Nucleated Red Blood Cell % 0.0 % 0-0 [facility] ([facility]) Procedure Social History Code Duration Value Status Description Data Source(s ) Smoking 10/15/2019 12:00:00 AM EDT Former Smoker completed Former Smoker eCW1 ([facility]) Smoking 10/15/2019 12:00:00 AM EDT Former Smoker completed Former Smoker [facility] ([facility]) Vital Signs ID Date Data Source UNK Name Value Range Interpretation Code Description Data Source(s) Body surface area Derived from formula 2.06 m2 2.06 m2 [facility] ([facility]) Body weight 81.648 kg 81.648 kg [facility] ([facility]) [place] body weight 184 [lb_av] 184 [lb_av] MED[facility] T ([facility]) Body mass index (BMI) [Ratio] 23.7 kg/m2 23.7 k g/m2 [facility] ([facility]) Body weight 180.00 [lb_av] 180.00 [lb_av] [facility] Body height 73 [in_i] 73 [in_i] [facility] ([facility]) 6'1" Body surface area Derived from formula 1.95 m2 1.95 m2 [facility] ([facility]) Body weight 71.839 kg 71.839 kg [facility] ([facility]) [place] body weight 184 [lb_av] 184 [lb_av] MEDEN T ([facility]) Body mass index (BMI) [Ratio] 20.9 kg/m2 20.9 k g/m2 [facility] ([facility]) Body weight 158.38 [lb_av] 158.38 [lb_av] [facility] T ([facility]) Body height 73 [in_i] 73 [in_i] [facility] ([facility]) 6'1" Diastolic blood pressure 67 mm[Hg] 67 mm[Hg] [facility] ([facility]) Systolic blood pressure 154 mm[Hg] 154 mm[Hg] [facility] ([facility]) Body surface area Derived from formula 1.95 m2 1.95 m2 [facility] ([facility]) Body weight 72.349 kg 72.349 kg [facility] ([facility]) [place] body weight 184 [lb_av] 184 [lb_av] MED[facility] T ([facility]) Body mass index (BMI) [Ratio] 21.0 kg/m2 21.0 k g/m2 [facility] ([facility]) Body weight 159.50 [lb_av] 159.50 [lb_av] MED[facility] T ([facility]) Body height 73 [in_i] 73 [in_i] [facility] ([facility]) 6'1" Heart rate 80 /min 80 /min [facility] ([facility]) Diastolic blood pressure 97 mm[Hg] 97 mm[Hg] [facility] ([facility]) Systolic blood pressure 132 mm[Hg] 132 mm[Hg] [facility] ([facility]) Body height 72 [in_i] 72 [in_i] [facility] ([facility]) 6'0" Heart rate 88 /min 88 /min [facility] ([facility]) Diastolic blood pressure 50 mm[Hg] 50 mm[Hg] [facility] ([facility]) Systolic blood pressure 92 mm[Hg] 92 mm[Hg] [facility] ([facility]) Body mass index (BMI) [Ratio] 22.6 kg/m2 22.6 k g/m2 [facility] ([facility]) Oxygen saturation in Arterial blood by Pulse oximetry 96 % 96 % [facility] ([facility]) Body weight 167.00 [lb_av] 167.00 [lb_av] [facility] T ([facility]) Body mass index (BMI) [Ratio] 25.0 kg/m2 25.0 k g/m2 [facility] ([facility]) Oxygen saturation in Arterial blood by Pulse oximetry 98 % 98 % [facility] ([facility]) Body weight 184.00 [lb_av] 184.00 [lb_av] [facility] T ([facility]) Body height 72 [in_i] 72 [in_i] [facility] 6'0" Heart rate 70 /min 70 /min [facility] ([facility]) Diastolic blood pressure 70 mm[Hg] 70 mm[Hg] [facility] ([facility]) Systolic blood pressure 134 mm[Hg] 134 mm[Hg] M EDENT ([facility]) Diastolic blood pressure 76 mm[Hg] 76 mm[Hg] eCW1 ([facility]) Systolic blood pressure 142 mm[Hg] 142 mm[Hg] e CW1 ([facility]) Body temperature 97.4 [degF] 97.4 [degF] eCW1 ( [facility]) Respiratory rate 18 /min 18 /min eCW1 ([facility]) Heart rate 88 /min 88 /min eCW1 ([facility]) Body mass index (BMI) [Ratio] 21.77 kg/m2 21.77 kg/m2 eCW1 ([facility]) Body height 73 [in_i] 73 [in_i] eCW1 ([facility]) Body weight 165 [lb_av] 165 [lb_av] eCW1 ([facility]) Body mass index (BMI) [Ratio] 23.1 kg/m2 23.1 k g/m2 [facility] ([facility]) Body weight 170.25 [lb_av] 170.25 [lb_av] MED[facility] T ([facility]) Body height 72 [in_i] 72 [in_i] [facility] ([facility]) 6'0" Diastolic blood pressure 80 mm[Hg] 80 mm[Hg] [facility] ([facility]) Systolic blood pressure 140 mm[Hg] 140 mm[Hg] M EDENT ([facility]) Body mass index (BMI) [Ratio] 23.3 kg/m2 23.3 k g/m2 [facility] ([facility]) Oxygen saturation in Arterial blood by Pulse oximetry 99 % 99 % [facility] ([facility]) Body weight 172.00 [lb_av] 172.00 [lb_av] MEDEN T ([facility]) Body height 72 [in_i] 72 [in_i] [facility] ([facility]) 6'0" Heart rate 93 /min 93 /min [facility] ([facility]) Diastolic blood pressure 72 mm[Hg] 72 mm[Hg] [facility] ([facility]) Systolic blood pressure 140 mm[Hg] 140 [facility]Hg] [facility] Oxygen saturation in Arterial blood by Pulse oximetry 95 % 95 % [facility] Air Body height 72 [in_i] 72 [in_i] [facility] ([facility]) 6'0" Heart rate 70 /min 70 /min MED[facility] ([facility]) Diastolic blood pressure 66 mm[Hg] 66 mm[Hg] [facility] ([facility]) RT Arm Systolic blood pressure 114 mm[Hg] 114 mm[Hg] [facility] RT Arm Diastolic blood pressure 76 mm[Hg] 76 mm[Hg] eCW1 ([facility]) Systolic blood pressure 148 mm[Hg] 148 mm[Hg] e CW1 ([facility]) Body temperature 97.9 [degF] 97.9 [degF] eCW1 ( [facility]) Respiratory rate 20 /min 20 /min eCW1 ([facility]) Heart rate 74 /min 74 /min eCW1 ([facility]) Body mass index (BMI) [Ratio] 21.96 kg/m2 21.96 kg/m2 eCW1 ([facility]) Body height 73 [in_us] 73 [in_us] eCW1 ([facility]) Body weight Measured 166.5 [lb_av] 166.5 [lb_av ] eCW1 ([facility]) Diastolic blood pressure 76 mm[Hg] 76 mm[Hg] eCW1 ([facility]) Systolic blood pressure 142 mm[Hg] 142 mm[Hg] e CW1 ([facility]) Body temperature 97.2 [degF] 97.2 [degF] eCW1 ( [facility]) Respiratory rate 20 /min 20 /min eCW1 ([facility]) Heart rate 76 /min 76 /min eCW1 ([facility]) Body mass index (BMI) [Ratio] 22.03 kg/m2 22.03 kg/m2 eCW1 ([facility]) Body height 73 [in_us] 73 [in_us] eCW1 ([facility]) Body weight Measured 167 [lb_av] 167 [lb_av] eC W1 ([facility]) Diastolic blood pressure 64 mm[Hg] 64 mm[Hg] eCW1 ([facility]) Systolic blood pressure 102 mm[Hg] 102 mm[Hg] e CW1 ([facility]) Body temperature 96.5 [degF] 96.5 [degF] eCW1 ( [facility]) Respiratory rate 18 /min 18 /min eCW1 ([facility]) Heart rate 20 /min 20 /min eCW1 ([facility]) Body mass index (BMI) [Ratio] 21.77 kg/m2 21.77 kg/m2 eCW1 ([facility]) Body height 73 [in_us] 73 [in_us] eCW1 ([facility]) Body weight Measured 165 [lb_av] 165 [lb_av] eC W1 ([facility]) Diastolic blood pressure 68 mm[Hg] 68 mm[Hg] eCW1 ([facility]) Systolic blood pressure 110 mm[Hg] 110 mm[Hg] e CW1 ([facility]) Body temperature 97.7 [degF] 97.7 [degF] eCW1 ( [facility]) Respiratory rate 18 /min 18 /min eCW1 ([facility]) Heart rate 74 /min 74 /min eCW1 ([facility]) Body mass index (BMI) [Ratio] 21.77 kg/m2 21.77 kg/m2 eCW1 ([facility]) Body height 73 [in_us] 73 [in_us] eCW1 ([facility]) Body weight Measured 165 [lb_av] 165 [lb_av] eC W1 ([facility])
[2020-07-06] MEDS ORDERED: OXYMETAZOLINE 0.05% NASAL SPRAY (AFRIN) ONE (19:30)
[2020-07-06 20:11] LABS: BASO % 0.6 % (0.0-1.0); EOS # 0.3 10^3/uL (0.0-0.5); HEMOGLOBIN 11.3 g/dl (13.5-17.5); LYMPH # 1.3 10^3/uL (1.5-5.0); LYMPH % 27.5 % (24.0-44.0); MEAN CORPUSCULAR HEMOGLOBIN 33.3 pg (27.0-33.0); MEAN CORPUSCULAR HGB CONC 32.3 g/dl (32.0-36.5); MEAN CORPUSCULAR VOLUME 103.2 fl (80.0-96.0); MONO # 0.7 10^3/uL (0.0-0.8); MONO % 13.9 % (2.0-8.0); NEUTROPHILS # 2.4 10^3/uL (1.5-8.5); NEUTROPHILS % 51.8 % (36.0-66.0); PLATELET COUNT, AUTOMATED 202 10^3/uL (150-450); RED BLOOD COUNT 3.39 10^6/uL (4.30-6.10); WHITE BLOOD COUNT 4.7 10^3/uL (4.0-10.0)
[2020-07-06] MEDS ORDERED: hydrALAZINE 20MG/ML 1ML VIAL (J0360 PER 20MG) IV STA (20:12)
[2020-07-06 20:21] LABS: INR 1.19; PROTHROMBIN TIME 15.4 SECONDS (12.5-14.3)
[2020-07-06 20:22] LABS: PARTIAL THROMBOPLASTIN TIME 34.7 SECONDS (24.2-38.5)
--- OUTSIDE RECORDS SUMMARY | 2020-07-06 20:49 | CCD ---
Author Author [facility] Organization [facility] Address Unknown Phone Unavailable Care Team Providers Care Patient Resource Coordinator Name Role Phone Ary Franz JR, MD Unavailable Unavailable Ary Franz JR, MD Unavailable Unavailable Ary Franz JR, MD Unavailable Unavailable Ary Franz JR, MD Unavailable Unavailable Ary Franz JR, MD Unavailable Unavailable Ary rFanz JR, MD Unavailable Unavailable Ary Franz JR, [...] Unavailable Unavailable Gwen Montana MD Unavailable Unavailable Gewn Montana MD Unavailable Unavailable Gwen Montana MD Unavailable Unavailable Gwen Montana MD Unavailable Unavailable Gwen Montana MD Unavailable Unavailable Gwen Montana MD Unavailable Unavailable NanGwen brock MD Unavailable Unavailable Gwen Montana MD Unavailable Unavailable NanGwen brock MD Unavailable Unavailable Gwen Montana MD Unavailable Unavailable Gwen Montana MD Unavailable Unavailable NanGwen brock MD Unavailable Unavailable [place]wen brock MD Unavailable Unavailable [place]wen brock MD Unavailable Unavailable [place]wen MD Unavailable Unavailable NanGwen brock MD Unavailable Unavailable [place] brock MD Unavailable Unavailable [place] brock MD Unavailable Unavailable NanGwen brock MD Unavailable Unavailable [place] brock MD Unavailable Unavailable NanGwen brock MD Unavailable Unavailable [place] brock MD Unavailable Unavailable [place] brock MD Unavailable Unavailable NanGwen MD Unavailable Unavailable [place]wen MD Unavailable Unavailable [place]wen MD Unavailable Unavailable NanGwen MD Unavailable Unavailable [place] MD Unavailable Unavailable [place] MD Unavailable Unavailable NanGwen MD Unavailable Unavailable NanGwen MD Unavailable Unavailable [place] MD Unavailable Unavailable NanGwen MD Unavailable Unavailable NanGwen MD Unavailable Unavailable NanGwen MD Unavailable Unavailable NanGwen MD Unavailable Unavailable [place] MD Unavailable Unavailable NanGwen MD Unavailable Unavailable [place] MD Unavailable Unavailable NanGwen MD Unavailable Unavailable NanGwen MD Unavailable Unavailable NanGwen MD Unavailable Unavailable [place] MD Unavailable Unavailable [place] MD Unavailable Unavailable NanGwen MD Unavailable Unavailable [place] MD Unavailable Unavailable [place] MD Unavailable Unavailable [place] MD Unavailable Unavailable NanGwen MD Unavailable Unavailable NanGwen MD Unavailable Unavailable [place] MD Unavailable Unavailable [place] MD Unavailable Unavailable [place] MD Unavailable Unavailable [place] MD Unavailable Unavailable [place] MD Unavailable Unavailable [place] MD Unavailable Unavailable [place] MD Unavailable Unavailable [place] MD Unavailable Unavailable NanGwen MD Unavailable Unavailable [place] MD Unavailable Unavailable [place] MD Unavailable Unavailable NanGwen MD Unavailable Unavailable [place] MD Unavailable Unavailable NanGwen MD Unavailable Unavailable [place] MD Unavailable Unavailable NanGwen MD Unavailable Unavailable [place] MD Unavailable Unavailable [place] MD Unavailable Unavailable NanGwen MD Unavailable Unavailable NanGwen MD Unavailable Unavailable NanGwen MD Unavailable Unavailable [place] MD Unavailable Unavailable [place] MD Unavailable Unavailable [place] MD Unavailable Unavailable [place] MD Unavailable Unavailable NanGwen MD Unavailable Unavailable NanGwen MD Unavailable Unavailable NanGwne MD Unavailable Unavailable NanGwen Jeffery MD Unavailable Unavailable Gwen Montana MD Unavailable Unavailable Gwen Montana MD Unavailable Unavailable Gwen Montana MD Unavailable Unavailable Gwen Montana MD Unavailable Unavailable Keke, Malaika HUMAN RESOURCES FILE CLERK Unavailable Unavailable Keke, Malaika HUMAN RESOURCES FILE CLERK Unavailable Unavailable Keke, Malaika HUMAN RESOURCES FILE CLERK Unavailable Unavailable Keke, Malaika HUMAN RESOURCES FILE CLERK Unavailable Unavailable Keke, Malaika HUMAN RESOURCES FILE CLERK Unavailable Unavailable Keke, Malaika HUMAN RESOURCES FILE CLERK Unavailable Unavailable Keke, Malaika HUMAN RESOURCES FILE CLERK Unavailable Unavailable Keke, Malaika HUMAN RESOURCES FILE CLERK Unavailable Unavailable Keke, Malaika HUMAN RESOURCES FILE CLERK Unavailable Unavailable Keke, Malaika HUMAN RESOURCES FILE CLERK Unavailable Unavailable Keke, Malaika HUMAN RESOURCES FILE CLERK Unavailable Unavailable Keke, Malaika HUMAN RESOURCES FILE CLERK Unavailable Unavailable Keke, Malaika HUMAN RESOURCES FILE CLERK Unavailable Unavailable Keke, Malaika HUMAN RESOURCES FILE CLERK Unavailable Unavailable Keke, Malaika HUMAN RESOURCES FILE CLERK Unavailable Unavailable Keke, Malaika HUMAN RESOURCES FILE CLERK Unavailable Unavailable Keke, Malaika HUMAN RESOURCES FILE CLERK Unavailable Unavailable Keke, Malaika HUMAN RESOURCES FILE CLERK Unavailable Unavailable Keke, Malaika HUMAN RESOURCES FILE CLERK Unavailable Unavailable Keke, Malaika HUMAN RESOURCES FILE CLERK Unavailable Unavailable Keke, Malaika HUMAN RESOURCES FILE CLERK Unavailable Unavailable Keke, Malaika HUMAN RESOURCES FILE CLERK Unavailable Unavailable Keke, Malaika HUMAN RESOURCES FILE CLERK Unavailable Unavailable Keke, Malaika HUMAN RESOURCES FILE CLERK Unavailable Unavailable Keke, Malaika HUMAN RESOURCES FILE CLERK Unavailable Unavailable Keke, Malaika HUMAN RESOURCES FILE CLERK Unavailable Unavailable Keke, Malaika HUMAN RESOURCES FILE CLERK Unavailable Unavailable PICKERAL JR, J MERRY PA-C [...] Unavailable MARGARET SHAY MD Unavailable Unavailable MARGARET SAHY MD Unavailable Unavailable MARGARET SHAY MD Unavailable [...] Unavailable Unavailable Gwen Montana MD Unavailable Unavailable [place] MD Unavailable Unavailable [place] MD Unavailable Unavailable Nan, Gwen Jeffery MD Unavailable Unavailable [place], Gwen Jeffery MD Unavailable Unavailable [place], Gwen Jeffery MD Unavailable Unavailable Nan, Gwen Jeffery MD Unavailable Unavailable [place] MD Unavailable Unavailable [place] MD Unavailable Unavailable NanGwen MD Unavailable Unavailable [place] MD Unavailable Unavailable [place] MD Unavailable Unavailable NanGwen MD Unavailable Unavailable [place] MD Unavailable Unavailable [place] MD Unavailable Unavailable NanGwen MD Unavailable Unavailable [place] MD Unavailable Unavailable NanGwen MD Unavailable Unavailable [place] MD Unavailable Unavailable [place] MD Unavailable Unavailable [place] MD Unavailable Unavailable [place] MD Unavailable Unavailable NanGwen MD Unavailable Unavailable NanGwen MD Unavailable Unavailable [place] MD Unavailable Unavailable [place] MD Unavailable Unavailable [place] MD Unavailable Unavailable NanGwen MD Unavailable Unavailable [place] MD Unavailable Unavailable [place] MD Unavailable Unavailable [place] MD Unavailable Unavailable NanGwen MD Unavailable Unavailable NanGwen MD Unavailable Unavailable NanGwen MD Unavailable Unavailable [place] MD Unavailable Unavailable NanGwen MD Unavailable Unavailable NanGwen brock MD Unavailable Unavailable [place] MD Unavailable Unavailable [place] brock MD Unavailable Unavailable [place] MD Unavailable Unavailable NanGwen MD Unavailable Unavailable NanGwen MD Unavailable Unavailable [place] MD Unavailable Unavailable [place] brock MD Unavailable Unavailable NanGwen MD Unavailable Unavailable [place] MD Unavailable Unavailable [place] MD Unavailable Unavailable NanGwen MD Unavailable Unavailable [place] MD Unavailable Unavailable NanGwen MD Unavailable Unavailable [place] MD Unavailable Unavailable Re-disclosure Warning The records [...] is protected by Article 27-F of the [facility] Public Health law. If you continue you may have access to information: Regarding HIV / AIDS; Provided by facilities licensed or operated by the [facility] Office of Mental Health; or Provided by the [facility] Office for People With Developmental Disabilities. If such information is present, then the following [facility] mandated warning applies: This information [...] law may result in a fine or intermediate sentence or both. A general authorization for the release of medical or other information is NOT sufficient authorization for further disc losure. Family History Family Member Name Family Member Gender Family Member Status Date o f Status Description Data Source(s) Unknown Male Problem MEDENT ([facility]) Encounters Encounter Providers Location Date Indications Data Source(s ) Outpatient Attender: Cortez Perez/Aba/Gilbert/Rein dl 04/06/2020 07:40:00 AM EST [facility] ([facility]) Outpatient Attender: Cortez Perez/Aba/Gilbert/Rein dl 03/07/2020 09:30:00 AM EDT [facility] ([facility]) Outpatient Attender: MERRY Jaffe 0 12/25/2019 11:20:00 AM EDT [facility] ([facility] ) [facility] [address] [address] 11/17/2019 12:00:00 AM EDT eCW1 ([facility]) Outpatient Attender: Chinmay Guzman MD Physical Therapy 10/22/2019 0 1:00:00 PM EDT [facility] ([facility]) [place] [address] [address] 10/15/2019 12:00:00 AM EDT [facility] [place] [address] [address] 10/15/2019 12:00:00 AM EDT [facility]CW1 [facility]) Outpatient Attender: Jose D Jaffe 0 10/12/2019 02:15:00 PM EDT MEDENT ([facility] ) Outpatient Attender: Malaika Jaffe 01:00:00 PM EDT MEDENT ([facility] ) Outpatient Attender: Malaika Jaffe 02:40:00 PM EDT MED[facility] ([facility] ) [facility] [address] [address] 09/18/2019 12:00:00 AM EDT [facility] [address] [address] 09/18/2019 12:00:00 AM EDT [facility]CW1 [facility] [address] [facility] [address] 09/18/2019 12:00:00 AM EDT eCW1 ([facility] [address] [facility] [address] 09/17/2019 12:00:00 AM EDT eCW1 ([facility]) Outpatient Attender: Jose D Jaffe 0 09/01/2019 02:45:00 PM EDT MED[facility] ([facility] ) [facility] [address] [facility] [address] 08/26/2019 12:00:00 AM EDT eCW1 ([facility]) [facility] [address] [address] 08/18/2019 12:00:00 AM EDT eCW1 ([facility]) Outpatient Attender: Jose D Jaffe 0 08/13/2019 11:30:00 AM EDT MED[facility] ([facility] ) [facility] [address] [facility] [address] 08/12/2019 12:00:00 AM EDT eCW1 ([facility]) [facility] [address] [facility] [address] 08/12/2019 12:00:00 AM EDT eCW1 ([facility]) [facility] [address] [facility] [facility] [address] 08/11/2019 12:00:00 AM EDT eCW1 ([facility]) Outpatient Referrer: Jose D Montana MD 07/16/2019 03:17:0 0 PM EST [facility] Outpatient Attender: MARGARET SHAY MD Physical Therapy 10:35:00 AM EST MED[facility] ([facility]) Outpatient Referrer: Jose D Montana MD 07/14/2019 03:33:0 0 PM EST [facility] Immunizations Vaccine Date Status Description Data Source(s) COVID-19 VACCINE, MRNA, [id number], LNP-S (PFIZER)/PF 07/02/19 21 12:00:00 AM EST completed [facility] COVID-19 VACCINE, MRNA, [id number], LNP-S (PFIZER)/PF 06/11/19 12:00:00 AM EST completed [...] 12:00:0 0 AM EDT ORAL completed MED[facility] ([facility]) 20 mEq 03/04/2020 12:00:00 AM EDT [...] 10/12/2019 12:00:00 AM EDT ORAL active MEDENT ([facility]) 0.4 mg 10/07/2019 12:00:00 AM EDT [...] Nystatin 09/28/2019 12:00:00 AM EDT active MED[facility] ([facility]) 100,000 unit/gram 09/28/2019 12:00:00 AM EDT ointment 15 APPLY TOPICALLY TO RASH THREE TIMES A DAY NEEDED APPLY TOPICALLY TO RASH THREE TIMES A DA Y NEEDED SOLD: 09/28/2019 [facility] Levofloxacin 500 MG Oral Tablet Levofloxacin 09/25/2019 12:00:00 AM E DT ORAL completed MED[facility] ([facility]) Mirtazapine 7.5 MG Oral Tablet Mirtazapine 09/23/2019 12:00:00 AM EDT ORAL active MED[facility] ([facility]) 7.5 mg 09/23/2019 12:00:00 AM [...] type / Coverage type Policy ID Covered green party ID Covered green party's relationship to vazquez Policy Vazquez Plan Information MEDICARE COMPLETE [id number] SP [id number] MEDICARE COMPLETE-[facility] O [id number] S [id number] MEDICARE [id number] SP [id number] [facility] S [id number] S [id number] MEDICARE COMPLETE [id number] SP [id number] MEDICARE COMPLETE [id number] SP [id number] MEDICARE COMPLETE [id number] SP [id number] MEDICARE COMPLETE [id number] SP [id number] [facility] [id number] SP [id number] MEDICARE [id number] SP [id number] Medicare Natl Govt Servic Medicare Primary [id number] Self [id number] [employer] Commercial [id number] Self [id number] [employer] Commercial [id number] Self [id number] BS [employer] Medigap Part B [id number] Self [place] [id number] BS [place] Trad/[place] Medigap Part B [id number] Self [id number] Medicare Natl Govt Servic Medicare Primary [id number] Self [id number] MEDICARE COMPLETE [id number] SP [id number] [facility] [id number] Self [id number] Medicare Natl Govt Servic Medicare Primary [id number] Self [id number] Medicare Natl Govt Servic Medicare Primary [id number] Self [id number] [facility] Medicare Gianna Commercial [id number] Self [id number] [facility] Medicare Gianna Commercial [id number] Self [id number] MEDICARE COMPLETE [id number] SP [id number] BCBS EMPIRE [facility] [id number] SP [id number] MEDICARE [id number] SP [id number] A [place] HLCR/Medicare Solu Commercial [id number] Self [id number] BS Verizon Medigap Part B Self BS [place] Trad/MX Commercial Self Medicare Natl Govt Servic Medicare Primary Self [place] 332/834 UNAVAILABLE UNAVAILABLE MEDICARE P [id number] S [id number] A BCBS EMPIRE [facility] 303/[id number] SP [id number] Problems, Conditions, and Diagnoses Code Display Name Description Problem Type Effective Dates Data Source(s) 75572079 Essential hypertension Essential hypertension Problem 03/07/2020 12:00:00 AM EDT MEDENT ([facility] ) R33.8 [id number] Acute urinary retention Problem 08/17/2019 1 2:00:00 AM EDT eCW1 ([facility]) R33.8 [id number] Acute urinary retention Problem 08/17/2019 1 2:00:00 AM EDT eCW1 ([facility]) N13.8 [id number] Other obstructive and reflux uropathy Pro blem 08/11/2019 12:00:00 AM EDT eCW1 ([facility]) N40.1 [id number] Benign prostatic hyperplasia wit h lower urinary tract symptoms Problem 08/11/2019 12:00:00 AM EDT eCW1 ([facility]) N13.8 [id number] Other obstructive and reflux uropathy Pro blem 08/11/2019 12:00:00 AM EDT eCW1 ([facility]) N40.1 [id number] Benign prostatic hyperplasia wit h lower urinary tract symptoms Problem 08/11/2019 12:00:00 AM EDT eCW1 ([facility]) Surgeries/Procedures Procedure Description Date Indications Data Source(s) Medication: Lidocaine HCl 2% Jelly 5mL Intravesically 10/15/2019 12:00:00 AM EDT eCW1 ([facility]) ECG ROUTINE ECG W/LEAST 12 LDS W/I&R 10/12/2019 12:00: 00 AM EDT MEDMELISSA ([facility]) RADEX SPINE LUMBOSACRAL 2/3 VIEWS 09/22/2019 12:00:00 AM EDT MEDENT ([facility]) INSERT BLADDER CATH, COMPLEX 09/18/2019 12:00:00 AM ED T eCW1 ([facility]) NO CHARGE VISIT 09/17/2019 12:00:00 AM EDT eCW1 ([facility]) Irrigation of Bladder 08/12/2019 12:00:00 AM EDT eCW1 ([facility]) RADEX SPINE LUMBOSACRAL 2/3 VIEWS 07/31/2019 12:00:00 AM EDT MEDENT ([facility] ) CLTX VRT BDY FX W/O MANJ REQ&W/CSTING/BRACING 07/15/19 12:00:00 AM EST MEDENT ([facility]) Results ID Date Data Source [id number] 06/20/2020 07:15:00 AM EST MEDENT ([facility]) Name Value Range Interpretation Code Description Data Courtney rce(s) Supporting Document(s) Blood group antibody screen [Presence] in Serum or Sarai sma Laboratory test result Normal (applies to non-numeric results) [facility] ([facility]) Blood Type Laboratory test result Normal (applies to non-n umeric results) [facility] ([facility]) ID Date Data Source [id number] 06/20/2020 07:15:00 AM EST [facility] ([facility]) Name Value Range Interpretation Code Description Data Courtney rce(s) Supporting Document(s) Glucose, Fasting 133 mg/dL 70-100 Above high normal [facility] Blood Urea Nitrogen 33 mg/dL 7-18 Above high normal [facility] Creatinine For GFR 0.81 mg/dL 0.70-1.30 Normal (applies to non -numeric results) [facility] ([facility]) Glomerular Filtration Rate Laboratory test result Normal (applies to non- numeric results) [facility]) <content>Units are mL/min/1.73 m2</content>
<content></content>
<content>Chronic Kidney Disease Staging per NKF:</content>
<content></content>
<content>Stage I & II GFR >=60 Normal to Mildly Decreased</content>
<content>Stage III GFR 30- 59 Moderately Decreased</content>
<content>Stage IV GFR 15-29 Severely Decreased</content>
<content>Stage V GFR <15 Very Little GFR Left</content>
<content>ESRD GFR <15 on CLIENT LEADER</content>
<content></content> Potassium Serum 5.1 meq/L 3.5-5.1 Normal (applies to non-numeric results) [facility] ([facility], ) Testing was performed on a hemolysed spe cimen. Suggest recollection of specimen for more accurate test results. Chloride Level 106 meq/L 98-107 Normal (applies to non-numeric r esults) [facility] ([facility]) Sodium Level 141 meq/L 136-145 Normal (applies to non-numeric res ults) [facility] ([facility]) Carbon Dioxide Level 24 meq/L 21-32 Normal (applies to non-num ji results) [facility] ([facility]) Anion Gap 11 meq/L 8-16 Normal (applies to non-numeric resul ts) [facility] ([facility]) Calcium Level 8.7 mg/dL 8.8-10.2 Below low normal [facility] ([facility]) ID Date Data Source [id number] 06/20/2020 07:15:00 AM EST [facility] ([facility]) Name Value Range Interpretation Code Description Data Courtney rce(s) Supporting Document(s) Prothrombin Time 21.0 s 12.5-14.3 Above high normal [facility] ([facility]) Partial Thromboplastin Time 43.3 s 24.2-38.5 Above high normal [facility] ([facility]) Inr 1.77 Normal (applies to non-numeric resul ts) [facility]) THERAPUTIC HUMAN INR VALUES INDICATIONS NORMAL RANGES PROPHYLAXIS/TREATMENT OF: VENOUS THROMBOSIS 2.0-3.0 PULMONARY EMBOLISM 2.0-3.0 PREVENTION OF SYSTEMIC EMBOLISM FROM: TISSUE HEART VALVES 2.0-3.0 ACUTE MYOCARDIAL INFARCTION 2.0-3.0 VALVULAR HEART DISEASE 2.0-3.0 ATRIAL FIBRILLATION 2.0-3.0 MECHANICAL VALVES(HIGH RISK) 2.5-3.5 RECURRENT MYOCARDIAL INFARCTION 2.5-3.5 ID Date Data Source [id number] 06/20/2020 07:15:00 AM EST MEDENT ([facility]) Name Value Range Interpretation Code Description Data Courtney rce(s) Supporting Document(s) Red Blood Count 3.08 10 4.30-6.10 Below low normal [facility] ([facility]) White Blood Count 7.6 10 4.0-10.0 Normal (applies to non-numeri c results) [facility] ([facility]) Mean Corpuscular Volume 106.2 fl 80.0-96.0 Above high normal [facility] Hemoglobin 10.5 g/dL 13.5-17.5 Below low normal [facility] ( [facility]) Hematocrit 32.7 % 42.0-52.0 Below low normal [facility] ( [facility]) Mean Corpuscular HGB Conc 32.1 g/dL 32.0-36.5 Normal (applies to non-numeric results) [facility] ([facility]) Red Cell Distribution Width 12.3 % 11.5-14.5 Norm al (applies to non-numeric results) [facility] ([facility]) Mean Corpuscular Hemoglobin 34.1 pg 27.0-33.0 Above high normal [facility] Platelet Count, Automated 186 10 150-450 Normal (applies to non-numeric results) [facility]) Neutrophils % 74.3 % 36.0-66.0 Above high normal [facility] ([facility]) Eos % 1.5 % 0.0-3.0 Normal (applies to non-numeric resul ts) [facility]) Lymph % 13.1 % 24.0-44.0 Below low normal [facility] ( [facility] ) Becker % 10.2 % 0.0-5.0 Above high normal [facility] ([facility]) Nucleated Red Blood Cell % 0.0 % 0-0 Normal (applies to n on-numeric results) [facility] ([facility]) Immature Granulocyte % 0.4 % 0-3.0 Normal (applies to non-n umeric results) [facility] ([facility]) Baso % 0.5 % 0.0-1.0 Normal (applies to non-numeric resul ts) [facility] ([facility]) Becker # 0.8 10 0.0-0.8 Normal (applies to non-numeric resul ts) [facility] ([facility]) Neutrophils # 5.6 10 1.5-8.5 Normal (applies to non-numeric re sults) [facility] ([facility]) Lymph # 1.0 10 1.5-5.0 Below low normal [facility] ( [facility]) Eos # 0.1 10 0.0-0.5 Normal (applies to non-numeric resul ts) [facility] ([facility]) Baso # 0.0 10 0.0-0.2 Normal (applies to non-numeric resul ts) [facility] ([facility]) ID Date Data Source [id number] 06/20/2020 06:46:00 AM EST [facility] Name Value Range Interpretation Code Description Data Courtney rce(s) Supporting Document(s) SARS coronavirus 2 RNA [Presence] in Res piratory specimen by KAYLA with probe detection NEGATIVE [facility] This lab was ordered by [facility] a nd reported by [facility]. ID Date Data Source [id number] 02/16/2020 12:00:00 AM EDT [facility] Jose D Montana Jr, MD Patient Name: DERRICK [id number] [facility] Date of : [address] [address] Date of Exam: 02/16/2020#: Fax: [phone] EXAM: [...] Other findings as described above.Accredited by the [employer] in [place].NOE Harris/Link you for referring DERRICK KWAN to our office. Electronically Signed - NELSON NUNEZ DO 02/17/20 15:07 Name Value Range Interpretation Code Description Data Courtney rce(s) Supporting Document(s) ID Date Data Source [id number] 02/10/2020 02:23:00 PM EDT [facility] ([facility]) Name Value Range Interpretation Code Description Data Courtney rce(s) Supporting Document(s) Magnesium, Serum Laboratory test result [facility] ([facility]) ID Date Data Source [id number] 02/08/2020 11:57:00 AM EDT [facility] ([facility]) Name Value Range Interpretation Code Description Data Courtney rce(s) Supporting Document(s) Magnesium [Moles/volume] in Serum or Plasma 1.6 mg/dL 1.8-2.4 [facility] ([facility]) ID Date Data Source [id number] 02/08/2020 11:57:00 AM EDT [facility] ([facility]) Name Value Range Interpretation Code Description Data Courtney rce(s) Supporting Document(s) Glucose, Fasting 100 mg/dL 70-100 [facility] ([facility]) Blood Urea Nitrogen 13 mg/dL 7-18 [facility] ([facility]) Creatinine For GFR 0.75 mg/dL 0.70-1.30 [facility] ([facility]) Glomerular Filtration Rate Laboratory test [facility] <content>Units are mL/min/1.73 m2</content>
<content></content>
<content>Chronic Kidney Disease Staging per NKF:</content>
<content></content>
<content>Stage I & II GFR >=60 Normal to Mildly Decreased</content>
<content>Stage III GFR 30- 59 Moderately Decreased</content>
<content>Stage IV GFR 15-29 Severely Decreased</content>
<content>Stage V GFR <15 Very Little GFR Left</content>
<content>ESRD GFR <15 on CLIENT LEADER</content>
<content></content> Sodium Level 140 meq/L 136-145 [facility] ([facility]) Potassium Serum 3.7 meq/L 3.5-5.1 [facility] ([facility]) Anion Gap 5 meq/L 8-16 [facility]) Chloride Level 109 meq/L 98-107 [facility] ([facility]) Carbon Dioxide Level 26 meq/L 21-32 [facility] ([facility]) Calcium Level 8.0 mg/dL 8.8-10.2 [facility] ([facility]) ID Date Data Source [id number] 02/08/2020 11:57:00 AM EDT [facility] ([facility]) Name Value Range Interpretation Code Description Data Courtney rce(s) Supporting Document(s) CPK Creatine Phosphokinase 162 U/L 39-308 [facility] ([facility]) CK-MB Value Mass Laboratory test result [facility] ([facility]) MB/CK Relative Index 0.62 [facility] ([facility]) <content>DIAGNOSIS CRITERIA</content>
<content>MMB ng/ml Relative Index (RI)</content>
<content>NON-AMI < or = 5 N/A</content>
<content>PRITCHETT ZONE > 5 < or = 4</content>
<content>AMI > 5 > 4</content>
<content></content> Troponin I Laboratory test result [facility] ([facility]) <content>Troponin I Reference Interval f or Siemens Randle LOCI:</content>
<content></content>
<content>99th Percentile= 0.00-0.045 ng/ml</content>
<content></content>
<content>Risk Stratification:</content>
<content><= 0.10 ng/ml Decreased Risk for Adverse Clinical</content>
<content>Events.</content>
<content>0.10-1.50 ng/ml Increased Risk for Adverse Clinical</content>
<content>Events. Evaluation of additional</content>
<content>criterion and/or repeat testing in 2-6</content>
<content>hours is suggested to rule out myocardial</content>
<content>damage.</content>
<content>>= 1.50 ng/ml Indicative of Myocardial Injury.</content>
<content></content> ID Date Data Source [id number] 02/08/2020 11:57:00 AM EDT [facility] ([facility]) Name Value Range Interpretation Code Description Data Courtney rce(s) Supporting Document(s) Red Blood Count 3.70 10 4.30-6.10 [facility] ([facility]) White Blood Count 7.8 10 4.0-10.0 [facility] ([facility]) Hemoglobin 12.4 g/dL 13.5-17.5 [facility] Hematocrit 36.1 % 42.0-52.0 [facility] Mean Corpuscular Volume 97.6 fl 80.0-96.0 [facility] ([facility]) Mean Corpuscular Hemoglobin 33.5 pg 27.0-33.0 [facility] ([facility]) Red Cell Distribution Width 13.2 % 11.5-14.5 [facility] ([facility]) Platelet Count, Automated 142 10 150-450 [facility] ([facility]) Mean Corpuscular HGB Conc 34.3 g/dL 32.0-36.5 [facility] ([facility]) Lymph % 13.6 % 24.0-44.0 [facility]) Neutrophils % 71.5 % 36.0-66.0 [facility]) Becker % 11.5 % 0.0-5.0 [facility]) Eos % 2.7 % 0.0-3.0 [facility]) Nucleated Red Blood Cell % 0.0 % 0-0 [facility] ([facility]) Immature Granulocyte % 0.3 % 0-3.0 [facility] ([facility]) Baso % 0.4 % 0.0-1.0 [facility]) Becker # 0.9 10 0.0-0.8 [facility]) Neutrophils # 5.6 10 1.5-8.5 [facility] ([facility]) Lymph # 1.1 10 1.5-5.0 [facility] Eos # 0.2 10 0.0-0.5 [facility]) Baso # 0.0 10 0.0-0.2 [facility]) ID Date Data Source [id number] 12/25/2019 11:32:00 AM EDT [facility] ([facility]) Name Value Range Interpretation Code Description Data Courtney rce(s) Supporting Document(s) Magnesium 1.7 mg/dL 1.8-2.4 [facility] ID Date Data Source [id number] 10/26/2019 08:26:00 AM EDT [facility] ([facility]) Name Value Range Interpretation Code Description Data Courtney rce(s) Supporting Document(s) Magnesium 1.4 mg/dL 1.8-2.4 [facility] ID Date Data Source [id number] 10/26/2019 08:26:00 AM EDT [facility] ([facility]) Name Value Range Interpretation Code Description Data Courtney rce(s) Supporting Document(s) Creatinine 1.0 mg/dL 0.6-1.3 [facility] Glucose [Mass/volume] in Serum or Plasma 94 mg/dL 74-99 [facility] ([facility]) 100-125 mg/dL PRE-DIABETES/FASTING >126 mg/dL DIABETES/FASTING Urea nitrogen [Mass/volume] in Serum or Plasma 8 mg/dL 7-18 [facility] ([facility]) Potassium [Moles/volume] in Serum or Plasma 3.9 meq/L 3.5-5.1 [facility] ([facility]) Chloride [Moles/volume] in Serum or Plasma 107 meq/L 98-107 [facility] ([facility]) Sodium [Moles/volume] in Serum or Plasma 143 meq/L 136-145 [facility] ([facility]) Total Bilirubin 0.7 mg/dL 0.2-1.0 [facility] ([facility]) Alkaline phosphatase isoenzyme [Units/volume] in Serum or Pl asma 162 mg/dL 46-116 [facility] ([facility]) Carbon dioxide, total [Moles/volume] in Serum or Plasma 28 meq/L 21 -32 [facility] ([facility]) Calcium [Mass/volume] in Serum or Plasma 7.9 mg/dL 8.5-10.1 [facility] ([facility]) Aspartate aminotransferase [Enzymatic activity/volume] in Serum or Plasma 31 U/L 15-37 [facility] ([facility] ) Alanine aminotransferase [Enzymatic activity/volume] in Seru m or Plasma 25 U/L 12-78 [facility] ([facility]) Albumin [Mass/volume] in Serum or Plasma 2.8 g/dL 3.4-5.0 [facility] ([facility]) Proteinase 3 Ab [Units/volume] in Serum 6.3 g/dL 6.4-8.2 [facility] ([facility] Glomerular filtration rate/1.73 sq M pre dicted among non-blacks [Volume Rate/Area] in Serum or Plasma by Creatinine-based formula (MDRD) Laboratory test result [facility] ([facility] A/G Ratio 0.80 CALC 1.00-1.90 [facility]) Glomerular filtration rate/1.73 sq M pre dicted among blacks [Volume Rate/Area] in Serum or Plasma by Creatinine-based formula (MDRD) Laboratory test result [facility] ([facility]) <content>CHRONIC KIDNEY DISEASE STAGING PER NKF</content>
<content></content>
<content>STAGE I & II GFR >= 60 NORMAL TO MILDLY DECREASED</content>
<content>STAGE III GFR 30-59 MODERATELY DECREASED</content>
<content>STAGE IV GFR 15-29 SEVERELY DECREASED</content>
<content>STAGE V GFR <15 VERY LITTLE GFR LEFT</content>
<content>ESRD GFR <15 ON CLIENT LEADER</content>
<content></content> ID Date Data Source [id number] 10/26/2019 08:26:00 AM EDT [facility] ([facility]) Name Value Range Interpretation Code Description Data Courtney rce(s) Supporting Document(s) Leukocytes [#/volume] in Blood by Automated count 6.0 x10*3/UL 4.1-10 .9 [facility] Erythrocytes [#/volume] in Blood by Automated count 3.32 x10*6/UL 4.2 0-6.30 [facility] ([facility] Hematocrit [Volume Fraction] of Blood by Automated count 34.2 % 3 7.0-51.0 [facility] ([facility]) MCV 102.8 fL 80.0-97.0 [facility] [facility] Hemoglobin [Mass/volume] in Blood 11.7 g/dL 12.0-18.0 [facility] ([facility]) NOTE: RESULT VERIFIED. Erythrocyte distribution width [Ratio] by Automated count 13.7 % 11.6-13.7 [facility] ([facility]) MCH 35.2 pg 26.0-32.0 [facility] MCHC 34.2 g/dL 31.0-38.0 [facility] [facility] MPV 8.4 FL 7.8-11.0 [facility] ([facility]) Platelets [#/volume] in Blood by Automated count 241 x10*3/UL 140-440 [facility] ([facility]) Lymph % 20.0 % 10.0-58.5 [facility] [facility] Mid % 7.7 % 1.7-9.3 [facility] [facility] Mid # 0.5 x10*3/UL 0.1-0.6 [facility] ([facility]) Lymph # 1.2 x10*3/UL 0.6-4.1 [facility] ([facility]) Neut % 72.3 % 37.0-92.0 [facility] [facility] Neut # 4.3 x10*3/UL 2.0-7.8 [facility] ([facility]) ID Date Data Source [id number] 10/12/2019 02:57:00 PM EDT [facility] ([facility]) Name Value Range Interpretation Code Description Data Courtney rce(s) Supporting Document(s) Erythrocytes [#/volume] in Blood by Automated count 3.55 x10*6/UL 4.2 0-6.30 [facility] ([facility]) Leukocytes [#/volume] in Blood by Automated count 7.3 x10*3/UL 4.1-10 .9 [facility] ([facility]) MCV 104.9 fL 80.0-97.0 [facility] [facility] Hemoglobin [Mass/volume] in Blood 12.3 g/dL 12.0-18.0 [facility] ([facility]) Hematocrit [Volume Fraction] of Blood by Automated count 37.2 % 3 7.0-51.0 [facility] ([facility]) MCHC 33.0 g/dL 31.0-38.0 [facility] [facility] Erythrocyte distribution width [Ratio] by Automated count 15.0 % 11.6-13.7 [facility] ([facility]) MCH 34.7 pg 26.0-32.0 [facility] Mid % 6.7 % 1.7-9.3 [facility] MPV 8.0 FL 7.8-11.0 [facility] Lymph % 19.9 % 10.0-58.5 [facility] ([facility]) Platelets [#/volume] in Blood by Automated count 294 x10*3/UL 140-440 [facility] ([facility]) Mid # 0.6 x10*3/UL 0.1-0.6 [facility] Lymph # 1.4 x10*3/UL 0.6-4.1 [facility] ([facility] Neut % 73.4 % 37.0-92.0 [facility] ([facility]) Neut # 5.3 x10*3/UL 2.0-7.8 [facility] ([facility] ID Date Data Source [id number] 10/12/2019 02:57:00 PM EDT [facility] Name Value Range Interpretation Code Description Data Courtney rce(s) Supporting Document(s) Hemoglobin A1c/Hemoglobin.total in Blood 5.1 g/dL 4.8-5.6 [facility] Lab Result Notes: Pre-Diabetes 5.7 - 6.4 % Diabetes = or > 6.5% Glucose mean value [Mass/volume] in Blood Estimated fr om glycated hemoglobin 100 mg/dL 60-110 [facility] ID Date Data Source [id number] 10/12/2019 02:57:00 PM EDT [facility] Name Value Range Interpretation Code Description Data Courtney rce(s) Supporting Document(s) Magnesium 1.5 mg/dL 1.8-2.4 [facility] ([facility]) ID Date Data Source [id number] 10/12/2019 02:57:00 PM EDT [facility] Name Value Range Interpretation Code Description Data Courtney rce(s) Supporting Document(s) Glucose [Mass/volume] in Serum or Plasma 110 mg/dL 74-99 [facility] ([facility] 100-125 mg/dL PRE-DIABETES/FASTING >126 mg/dL DIABETES/FASTING Sodium [Moles/volume] in Serum or Plasma 142 meq/L 136-145 [facility] ([facility] Urea nitrogen [Mass/volume] in Serum or Plasma 7 mg/dL 7-18 [facility] ([facility]) Creatinine 0.9 mg/dL 0.6-1.3 [facility] ([facility]) Carbon dioxide, total [Moles/volume] in Serum or Plasma 25 meq/L 21 -32 [facility] ([facility]) Potassium [Moles/volume] in Serum or Plasma 4.2 meq/L 3.5-5.1 [facility] ([facility]) Chloride [Moles/volume] in Serum or Plasma 106 meq/L 98-107 [facility] ([facility]) Total Bilirubin 0.9 mg/dL 0.2-1.0 [facility] ([facility]) Calcium [Mass/volume] in Serum or Plasma 8.9 mg/dL 8.5-10.1 [facility] ([facility]) Alkaline phosphatase isoenzyme [Units/volume] in Serum or Pl asma 172 mg/dL 46-116 [facility] ([facility]) Alanine aminotransferase [Enzymatic activity/volume] in Seru m or Plasma 26 U/L 12-78 [facility] ([facility]) Aspartate aminotransferase [Enzymatic activity/volume] in Serum or Plasma 35 U/L 15-37 [facility] ([facility] ) Albumin [Mass/volume] in Serum or Plasma 2.9 g/dL 3.4-5.0 [facility] ([facility]) Proteinase 3 Ab [Units/volume] in Serum 7.1 g/dL 6.4-8.2 [facility] ([facility]) Glomerular filtration rate/1.73 sq M pre dicted among non-blacks [Volume Rate/Area] in Serum or Plasma by Creatinine-based formula (MDRD) Laboratory test result [facility] ([facility] ) A/G Ratio 0.69 CALC 1.00-1.90 [facility] Glomerular filtration rate/1.73 sq M pre dicted among blacks [Volume Rate/Area] in Serum or Plasma by Creatinine-based formula (MDRD) Laboratory test result [facility] ([facility]) <content>CHRONIC KIDNEY DISEASE STAGING PER NKF</content>
<content></content>
<content>STAGE I & II GFR >= 60 NORMAL TO MILDLY DECREASED</content>
<content>STAGE III GFR 30-59 MODERATELY DECREASED</content>
<content>STAGE IV GFR 15-29 SEVERELY DECREASED</content>
<content>STAGE V GFR <15 VERY LITTLE GFR LEFT</content>
<content>ESRD GFR <15 ON CLIENT LEADER</content>
<content></content> ID Date Data Source [id number] 10/12/2019 02:57:00 PM EDT [facility] ([facility]) Name Value Range Interpretation Code Description Data Courtney rce(s) Supporting Document(s) Cholesterol [Mass/volume] in Serum or Plasma 118 mg/dL 131-200 [facility] ([facility]) Triglyceride [Mass/volume] in Serum or Plasma 51 mg/dL 30-150 [facility] ([facility]) Cholesterol in LDL [Mass/volume] in Serum or Plasma by calcu lation 43 CALC 50-159 [facility] ([facility]) Cholesterol in HDL [Mass/volume] in Serum or Plasma 65 mg/dL 35-60 [facility] ([facility]) ID Date Data Source [id number] 10/12/2019 02:57:00 PM EDT [facility] ([facility]) Name Value Range Interpretation Code Description Data Courtney rce(s) Supporting Document(s) Urine Creatinine 85.9 mg/dL 30.0-125.0 [facility] ([facility]) Microalbumin Urine 53.8 mg/L 1.3-20.0 [facility] ([facility]) Microalb/Creat Ratio 62.6 ug/mg 0.0-30.0 [facility] ( [facility]) ID Date Data Source [id number] 10/06/2019 12:52:00 PM EDT [facility] ([facility]) Name Value Range Interpretation Code Description Data Courtney rce(s) Supporting Document(s) Magnesium 1.5 mg/dL 1.8-2.4 [facility]) NOTE: RESULT VERIFIED. ID Date Data Source [id number] 10/06/2019 12:52:00 PM EDT [facility] ([facility]) Name Value Range Interpretation Code Description Data Courtney rce(s) Supporting Document(s) Glucose [Mass/volume] in Serum or Plasma 73 mg/dL 74-99 [facility] ([facility]) 100-125 mg/dL PRE-DIABETES/FASTING >126 mg/dL DIABETES/FASTING Urea nitrogen [Mass/volume] in Serum or Plasma 6 mg/dL 7-18 [facility] ([facility]) Creatinine 0.9 mg/dL 0.6-1.3 [facility] ([facility]) Potassium [Moles/volume] in Serum or Plasma 4.1 meq/L 3.5-5.1 [facility] ([facility]) Chloride [Moles/volume] in Serum or Plasma 105 meq/L 98-107 [facility] ([facility]) Sodium [Moles/volume] in Serum or Plasma 141 meq/L 136-145 [facility] ([facility]) Carbon dioxide, total [Moles/volume] in Serum or Plasma 28 meq/L 21 -32 [facility] ([facility]) Calcium [Mass/volume] in Serum or Plasma 8.3 mg/dL 8.5-10.1 [facility] ([facility]) NOTE: RESULT VERIFIED. Glomerular filtration rate/1.73 sq M pre dicted among non-blacks [Volume Rate/Area] in Serum or Plasma by Creatinine-based formula (MDRD) [facility] Glomerular filtration rate/1.73 sq M pre dicted among blacks [Volume Rate/Area] in Serum or Plasma by Creatinine-based formula (MDRD) Laboratory test result [facility] ([facility] <content>CHRONIC KIDNEY DISEASE STAGING PER NKF</content>
<content></content>
<content>STAGE I & II GFR >= 60 NORMAL TO MILDLY DECREASED</content>
<content>STAGE III GFR 30-59 MODERATELY DECREASED</content>
<content>STAGE IV GFR 15-29 SEVERELY DECREASED</content>
<content>STAGE V GFR <15 VERY LITTLE GFR LEFT</content>
<content>ESRD GFR <15 ON CLIENT LEADER</content>
<content></content> ID Date Data Source [id number] 09/25/2019 03:09:00 PM EDT [facility] ([facility]) Name Value Range Interpretation Code Description Data Courtney rce(s) Supporting Document(s) Bacteria identified in Urine by Culture Laboratory test result [facility] ([facility] <content>FULL REPORT IN LAB NOTES (eCW a [...] 2 S</content>
<content></content> ID Date Data Source [id number] 09/25/2019 03:08:00 PM EDT [facility] Name Value Range Interpretation Code Description Data Courtney rce(s) Supporting Document(s) Urine Color Laboratory test result [facility] ([facility] Specific gravity of Urine 1.015 1.005-1.030 [facility] ([facility] Urine PH 6.5 units 5.0-9.0 [facility]) Urine Appearance Laboratory test result Abnormal (applies to non-numeric results) [facility] ([facility]) Urine Blood Laboratory test result Abnormal (applies to non-numeric results) [facility] ([facility]) Urine Leukocytes Laboratory test result Abnormal (applies to non-numeric results) [facility] ([facility]) Urine Protein Laboratory test result 0-0 Abnormal (applies to non-numeric results) [facility] ([facility]) Urine Ketone Laboratory test result [facility] ([facility]) Glucose [Presence] in Urine Laboratory test result [facility] ([facility]) Urine Nitrite Laboratory test result [facility] ([facility]) Bilirubin.total [Mass/volume] in Serum or Plasma Laboratory test resu lt [facility] ([facility]) Urine Urobilinogen 0.2 mg/dL 0.2-1.0 [facility] ([facility]) ID Date Data Source [id number] 09/25/2019 03:05:00 PM EDT [facility] Name Value Range Interpretation Code Description Data Courtney rce(s) Supporting Document(s) Leukocytes [#/volume] in Blood by Automated count 6.0 x10*3/UL 4.1-10 .9 [facility] ([facility]) Hemoglobin [Mass/volume] in Blood 11.6 g/dL 12.0-18.0 [facility] ([facility] Hematocrit [Volume Fraction] of Blood by Automated count 34.1 % 3 7.0-51.0 [facility] ([facility] Erythrocytes [#/volume] in Blood by Automated count 3.30 x10*6/UL 4.2 0-6.30 [facility] ([facility]) MCHC 34.1 g/dL 31.0-38.0 [facility] [facility] MCH 35.2 pg 26.0-32.0 [facility] [facility]) MCV 103.1 fL 80.0-97.0 [facility] ([facility]) Erythrocyte distribution width [Ratio] by Automated count 14.6 % 11.6-13.7 [facility] ([facility] MPV 7.9 FL 7.8-11.0 [facility] [facility]) Platelets [#/volume] in Blood by Automated count 187 x10*3/UL 140-440 [facility] ([facility]) Mid % 10.2 % 1.7-9.3 [facility] [facility] Neut % 64.2 % 37.0-92.0 [facility] ([facility]) Lymph % 25.6 % 10.0-58.5 [facility] ([facility]) Lymph # 1.5 x10*3/UL 0.6-4.1 [facility] ([facility]) Mid # 0.6 x10*3/UL 0.1-0.6 [facility] ([facility]) Neut # 3.9 x10*3/UL 2.0-7.8 [facility] ([facility]) ID Date Data Source [id number] 09/25/2019 03:05:00 PM EDT [facility] Name Value Range Interpretation Code Description Data Courtney rce(s) Supporting Document(s) Urea nitrogen [Mass/volume] in Serum or Plasma 7 mg/dL 7-18 [facility] ([facility]) Glucose [Mass/volume] in Serum or Plasma 107 mg/dL 74-99 [facility] ([facility]) CRITICAL: MALAIKA CARRERO NOTIFIED NOTE: RESULT VERIFIED. 100-125 mg/dL PRE-DIABETES/FASTING >126 mg/dL DIABETES/FASTING Potassium [Moles/volume] in Serum or Plasma 3.3 meq/L 3.5-5.1 [facility] ([facility]) Creatinine 0.9 mg/dL 0.6-1.3 [facility] [facility] Sodium [Moles/volume] in Serum or Plasma 141 meq/L 136-145 [facility] ([facility]) Glomerular filtration rate/1.73 sq M pre dicted among non-blacks [Volume Rate/Area] in Serum or Plasma by Creatinine-based formula (MDRD) Laboratory test result [facility] Carbon dioxide, total [Moles/volume] in Serum or Plasma 25 meq/L 21 -32 [facility] ([facility]) Calcium [Mass/volume] in Serum or Plasma 5.4 mg/dL 8.5-10. 1 Below lower panic limits [facility] ([facility]) CRITICAL: MALAIKA CARRERO NOTIFIED Chloride [Moles/volume] in Serum or Plasma 104 meq/L 98-107 [facility] ([facility]) Glomerular filtration rate/1.73 sq M pre dicted among blacks [Volume Rate/Area] in Serum or Plasma by Creatinine-based formula (MDRD) Laboratory test result [facility] ([facility]) <content>CHRONIC KIDNEY DISEASE STAGING PER NKF</content>
<content></content>
<content>STAGE I & II GFR >= 60 NORMAL TO MILDLY DECREASED</content>
<content>STAGE III GFR 30-59 MODERATELY DECREASED</content>
<content>STAGE IV GFR 15-29 SEVERELY DECREASED</content>
<content>STAGE V GFR <15 VERY LITTLE GFR LEFT</content>
<content>ESRD GFR <15 ON CLIENT LEADER</content>
<content></content> ID Date Data Source [id number] 07/14/2019 03:14:00 PM EST [facility] ([facility]) Name Value Range Interpretation Code Description Data Courtney rce(s) Supporting Document(s) Thyroxine (T4) free [Mass/volume] in Serum or Plasma 1.45 ng/dL 0.76- 1.46 [facility] ([facility]) Thyrotropin [Units/volume] in Serum or Plasma by Detec tion limit <= 0.05 mIU/L 1.060 uIU/ML 0.358-3.740 [facility] ([facility] ID Date Data Source [id number] 07/14/2019 03:14:00 PM EST [facility] Name Value Range Interpretation Code Description Data Courtney rce(s) Supporting Document(s) Creatinine For GFR 0.72 mg/dL 0.70-1.30 [facility] ([facility]) Blood Urea Nitrogen 17 mg/dL 7-18 [facility] ([facility]) Glucose, Fasting 93 mg/dL 70-100 [facility] [facility] Sodium Level 137 meq/L 136-145 [facility] ([facility]) Glomerular Filtration Rate Laboratory test result [facility]) <content>Units are mL/min/1.73 m2</content>
<content></content>
<content>Chronic Kidney Disease Staging per NKF:</content>
<content></content>
<content>Stage I & II GFR >=60 Normal to Mildly Decreased</content>
<content>Stage III GFR 30- 59 Moderately Decreased</content>
<content>Stage IV GFR 15-29 Severely Decreased</content>
<content>Stage V GFR <15 Very Little GFR Left</content>
<content>ESRD GFR <15 on CLIENT LEADER</content>
<content></content> Potassium Serum 2.9 meq/L 3.5-5.1 Below lower panic limits [facility] ([facility]) Carbon Dioxide Level 30 meq/L 21-32 [facility] ([facility]) Chloride Level 97 meq/L 98-107 [facility] ([facility]) Anion Gap 10 meq/L 8-16 [facility]) Calcium Level 8.6 mg/dL 8.8-10.2 [facility] ([facility]) ID Date Data Source [id number] 07/14/2019 03:14:00 PM EST [facility] ([facility]) Name Value Range Interpretation Code Description Data Courtney rce(s) Supporting Document(s) Alt/SGPT 40 U/L 12-78 [facility]) Ast/Sgot 49 U/L 7-37 [facility] ([facility]) Bilirubin,Direct 0.5 mg/dL 0.0-0.2 [facility] ([facility]) Alkaline Phosphatase 133 U/L 45-117 [facility] ([facility]) Total Protein 7.0 GM/DL 6.4-8.2 [facility] ([facility]) Bilirubin,Total 1.7 mg/dL 0.2-1.0 [facility] ([facility]) Albumin 3.2 GM/DL 3.2-5.2 [facility] ([facility]) Albumin/Globulin Ratio 0.84 1.00-1.93 [facility] ([facility]) ID Date Data Source [id number] 07/14/2019 03:14:00 PM EST [facility] ([facility]) Name Value Range Interpretation Code Description Data Courtney rce(s) Supporting Document(s) CK-MB Value Mass Laboratory test result [facility] ([facility]) CPK Creatine Phosphokinase 60 U/L 39-308 [facility] ([facility]) MB/CK Relative Index 1.67 [facility] ([facility]) <content>DIAGNOSIS CRITERIA</content>
<content>MMB ng/ml Relative Index (RI)</content>
<content>NON-AMI < or = 5 N/A</content>
<content>PRITCHETT ZONE > 5 < or = 4</content>
<content>AMI > 5 > 4</content>
<content></content> Troponin I Laboratory test result [facility] ([facility]) <content>Troponin I Reference Interval f or Siemens Randle LOCI:</content>
<content></content>
<content>99th Percentile= 0.00-0.045 ng/ml</content>
<content></content>
<content>Risk Stratification:</content>
<content><= 0.10 ng/ml Decreased Risk for Adverse Clinical</content>
<content>Events.</content>
<content>0.10-1.50 ng/ml Increased Risk for Adverse Clinical</content>
<content>Events. Evaluation of additional</content>
<content>criterion and/or repeat testing in 2-6</content>
<content>hours is suggested to rule out myocardial</content>
<content>damage.</content>
<content>>= 1.50 ng/ml Indicative of Myocardial Injury.</content>
<content></content> ID Date Data Source [id number] 07/14/2019 03:14:00 PM EST [facility] ([facility]) Name Value Range Interpretation Code Description Data Courtney rce(s) Supporting Document(s) White Blood Count 7.2 10 4.0-10.0 [facility] ([facility]) Red Blood Count 3.83 10 4.30-6.10 [facility] ([facility]) Hematocrit 40.6 % 42.0-52.0 [facility] Mean Corpuscular Hemoglobin 36.8 pg 27.0-33.0 [facility] ([facility]) Mean Corpuscular Volume 106.0 fl 80.0-96.0 [facility] Hemoglobin 14.1 g/dL 13.5-17.5 [facility] Mean Corpuscular HGB Conc 34.7 g/dL 32.0-36.5 [facility] Red Cell Distribution Width 11.9 % 11.5-14.5 [facility] ([facility]) Platelet Count, Automated 198 10 150-450 MEDE NT ([facility]) Neutrophils % 64.4 % 36.0-66.0 [facility] ([facility]) Lymph % 16.4 % 24.0-44.0 [facility]) Becker % 15.5 % 0.0-5.0 [facility]) Eos % 2.5 % 0.0-3.0 [facility]) Immature Granulocyte % 0.6 % 0-3.0 [facility] ([facility]) Baso % 0.6 % 0.0-1.0 [facility]) Nucleated Red Blood Cell % 0.0 % 0-0 [facility] ([facility]) Eos # 0.2 10 0.0-0.5 [facility]) Lymph # 1.2 10 1.5-5.0 [facility] Becker # 1.1 10 0.0-0.8 [facility]) Neutrophils # 4.7 10 1.5-8.5 [facility] ([facility]) Baso # 0.0 10 0.0-0.2 [facility]) ID Date Data Source [id number] 07/07/2019 07:17:00 PM EST [facility] ([facility]) Name Value Range Interpretation Code Description Data Courtney rce(s) Supporting Document(s) Inr 1.42 [facility] ([facility]) THERAPUTIC HUMAN INR VALUES INDICATIONS NORMAL RANGES PROPHYLAXIS/TREATMENT OF: VENOUS THROMBOSIS 2.0-3.0 PULMONARY EMBOLISM 2.0-3.0 PREVENTION OF SYSTEMIC EMBOLISM FROM: TISSUE HEART VALVES 2.0-3.0 ACUTE MYOCARDIAL INFARCTION 2.0-3.0 VALVULAR HEART DISEASE 2.0-3.0 ATRIAL FIBRILLATION 2.0-3.0 MECHANICAL VALVES(HIGH RISK) 2.5-3.5 RECURRENT MYOCARDIAL INFARCTION 2.5-3.5 Prothrombin Time 17.1 s 11.8-14.0 [facility] ([facility]) ID Date Data Source [id number] 07/07/2019 07:17:00 PM EST [facility] Name Value Range Interpretation Code Description Data Courtney rce(s) Supporting Document(s) Appearance, Urine RFX Laboratory test result [facility] ([facility]) Color, Urine RFX Laboratory test result [facility] ([facility]) Specific [place] Ur Auto RFX 1.008 1.002-1.035 [facility] Protein, Urine Auto RFX Laboratory test result [facility] ([facility]) PH,Urine RFX 6.0 units 5.0-9.0 [facility] Glucose, Urine (Ua) Auto RFX Laboratory test result [facility]) Ketone, Urine Auto RFX Laboratory test result [facility] ([facility]) Urobilinogen, Urine Auto RFX 0.2 mg/dL 0.0-2.0 [facility] Leukocyte Esterase Ur Auto RFX Laboratory test result [facility] ([facility]) Nitrite, Urine Auto RFX Laboratory test result [facility] ([facility]) Bilirubin, Urine Auto RFX Laboratory test result [facility] ([facility] Blood, Urine Blood RFX Laboratory test result [facility]) Bacteria, Urine Auto RFX Laboratory test result [facility] ([facility]) WBC, Urine Auto RFX 0 /HPF 0-3 [facility] ([facility]) RBC, Urine Auto RFX 2 /HPF 0-3 [facility] Hyaline Cast, Urine Auto RFX 0 /LPF 0-1 M [facility] ([facility]) Squam Epithelial Cell Ur Aurfx 0 /HPF 0-6 [facility] Sperm, Urine Auto RFX Laboratory test result [facility] ([facility] ID Date Data Source [id number] 07/07/2019 07:03:00 PM EST [facility] Name Value Range Interpretation Code Description Data Courtney rce(s) Supporting Document(s) Glucose, Fasting 129 mg/dL 70-100 [facility] ([facility]) Blood Urea Nitrogen 5 mg/dL 7-18 [facility] ([facility]) Potassium Serum 3.5 meq/L 3.5-5.1 [facility] ([facility]) Glomerular Filtration Rate Laboratory test result [facility] ([facility]) <content>Units are mL/min/1.73 m2</content>
<content></content>
<content>Chronic Kidney Disease Staging per NKF:</content>
<content></content>
<content>Stage I & II GFR >=60 Normal to Mildly Decreased</content>
<content>Stage III GFR 30- 59 Moderately Decreased</content>
<content>Stage IV GFR 15-29 Severely Decreased</content>
<content>Stage V GFR <15 Very Little GFR Left</content>
<content>ESRD GFR <15 on CLIENT LEADER</content>
<content></content> Sodium Level 132 meq/L 136-145 [facility] ([facility]) Creatinine For GFR 0.75 mg/dL 0.70-1.30 [facility] ([facility]) Anion Gap 11 meq/L 8-16 [facility] [facility]) Carbon Dioxide Level 25 meq/L 21-32 [facility] ([facility]) Chloride Level 96 meq/L 98-107 [facility] ([facility]) Calcium Level 8.1 mg/dL 8.8-10.2 [facility] ([facility]) ID Date Data Source [id number] 07/07/2019 07:03:00 PM EST [facility] ([facility]) Name Value Range Interpretation Code Description Data Courtney rce(s) Supporting Document(s) White Blood Count 9.3 10 4.0-10.0 [facility] ([facility]) Red Blood Count 3.47 10 4.30-6.10 [facility] ([facility]) Hematocrit 36.3 % 42.0-52.0 [facility] Hemoglobin 12.9 g/dL 13.5-17.5 [facility]) Mean Corpuscular Hemoglobin 37.2 pg 27.0-33.0 [facility] ([facility]) Mean Corpuscular Volume 104.6 fl 80.0-96.0 [facility] ([facility]) Mean Corpuscular HGB Conc 35.5 g/dL 32.0-36.5 [facility] NT ([facility]) Platelet Count, Automated 198 10 150-450 [facility] NT ([facility]) Red Cell Distribution Width 11.9 % 11.5-14.5 [facility] ([facility]) Nucleated Red Blood Cell % 0.0 % 0-0 [facility] ([facility]) Procedure Social History Code Duration Value Status Description Data Source(s ) Smoking 10/15/2019 12:00:00 AM EDT Former Smoker completed Former Smoker eCW1 ([facility]) Smoking 10/15/2019 12:00:00 AM EDT Former Smoker completed Former Smoker [facility] ([facility]) Vital Signs ID Date Data Source UNK Name Value Range Interpretation Code Description Data Source(s) Body surface area Derived from formula 2.06 m2 2.06 m2 [facility] ([facility]) Body weight 81.648 kg 81.648 kg [facility] ([facility]) [place] body weight 184 [lb_av] 184 [lb_av] [facility] T ([facility]) Body mass index (BMI) [Ratio] 23.7 kg/m2 23.7 k g/m2 [facility] ([facility]) Body weight 180.00 [lb_av] 180.00 [lb_av] [facility] Body height 73 [in_i] 73 [in_i] [facility] ([facility]) 6'1" Body surface area Derived from formula 1.95 m2 1.95 m2 [facility] ([facility]) Body weight 71.839 kg 71.839 kg [facility] ([facility]) [place] body weight 184 [lb_av] 184 [lb_av] [facility] T ([facility]) Body mass index (BMI) [Ratio] 20.9 kg/m2 20.9 k g/m2 [facility] ([facility]) Body weight 158.38 [lb_av] 158.38 [lb_av] [facility] T ([facility]) Body height 73 [in_i] 73 [in_i] [facility] ([facility]) 6'1" Diastolic blood pressure 67 mm[Hg] 67 mm[Hg] [facility] ([facility]) Systolic blood pressure 154 mm[Hg] 154 mm[Hg] [facility] ([facility]) Body surface area Derived from formula 1.95 m2 1.95 m2 [facility] ([facility]) Body weight 72.349 kg 72.349 kg [facility] ([facility]) [place] body weight 184 [lb_av] 184 [lb_av] [facility] T ([facility]) Body mass index (BMI) [Ratio] 21.0 kg/m2 21.0 k g/m2 [facility] ([facility]) Body weight 159.50 [lb_av] 159.50 [lb_av] [facility] T ([facility]) Body height 73 [in_i] 73 [in_i] [facility] ([facility]) 6'1" Heart rate 80 /min 80 /min [facility] ([facility]) Diastolic blood pressure 97 mm[Hg] 97 mm[Hg] [facility] ([facility]) Systolic blood pressure 132 mm[Hg] 132 mm[Hg] [facility] ([facility]) Body height 72 [in_i] 72 [in_i] [facility] ([facility]) 6'0" Heart rate 88 /min 88 /min [facility] ([facility]) Diastolic blood pressure 50 mm[Hg] 50 mm[Hg] [facility] ([facility]) Systolic blood pressure 92 mm[Hg] 92 mm[Hg] [facility] ([facility]) Body mass index (BMI) [Ratio] 22.6 kg/m2 22.6 k g/m2 [facility] ([facility]) Oxygen saturation in Arterial blood by Pulse oximetry 96 % 96 % [facility] ([facility]) Body weight 167.00 [lb_av] 167.00 [lb_av] [facility] T ([facility]) Body mass index (BMI) [Ratio] 25.0 kg/m2 25.0 k g/m2 [facility] ([facility]) Oxygen saturation in Arterial blood by Pulse oximetry 98 % 98 % [facility] ([facility]) Body weight 184.00 [lb_av] 184.00 [lb_av] [facility] T ([facility]) Body height 72 [in_i] 72 [in_i] [facility] 6'0" Heart rate 70 /min 70 /min [facility] ([facility]) Diastolic blood pressure 70 mm[Hg] 70 mm[Hg] [facility] ([facility]) Systolic blood pressure 134 mm[Hg] 134 mm[Hg] M EDENT ([facility]) Diastolic blood pressure 76 mm[Hg] 76 mm[Hg] eCW1 ([facility]) Systolic blood pressure 142 mm[Hg] 142 mm[Hg] e CW1 ([facility]) Body temperature 97.4 [degF] 97.4 [degF] eCW1 ( [facility]) Respiratory rate 18 /min 18 /min eCW1 ([facility]) Heart rate 88 /min 88 /min eCW1 ([facility]) Body mass index (BMI) [Ratio] 21.77 kg/m2 21.77 kg/m2 eCW1 ([facility]) Body height 73 [in_i] 73 [in_i] eCW1 ([facility]) Body weight 165 [lb_av] 165 [lb_av] eCW1 ([facility]) Body mass index (BMI) [Ratio] 23.1 kg/m2 23.1 k g/m2 [facility] ([facility]) Body weight 170.25 [lb_av] 170.25 [lb_av] [facility] T ([facility]) Body height 72 [in_i] 72 [in_i] [facility] ([facility]) 6'0" Diastolic blood pressure 80 mm[Hg] 80 mm[Hg] [facility] ([facility]) Systolic blood pressure 140 mm[Hg] 140 mm[Hg] M EDENT ([facility]) Body mass index (BMI) [Ratio] 23.3 kg/m2 23.3 k g/m2 [facility] ([facility]) Oxygen saturation in Arterial blood by Pulse oximetry 99 % 99 % [facility] ([facility]) Body weight 172.00 [lb_av] 172.00 [lb_av] [facility] T ([facility]) Body height 72 [in_i] 72 [in_i] [facility] ([facility]) 6'0" Heart rate 93 /min 93 /min [facility] ([facility]) Diastolic blood pressure 72 mm[Hg] 72 mm[Hg] [facility] ([facility]) Systolic blood pressure 140 mm[Hg] 140 mm[Hg] [facility] Oxygen saturation in Arterial blood by Pulse oximetry 95 % 95 % [facility]) Air Body height 72 [in_i] 72 [in_i] [facility] ([facility]) 6'0" Heart rate 70 /min 70 /min [facility] ([facility]) Diastolic blood pressure 66 mm[Hg] 66 mm[Hg] [facility] ([facility]) RT Arm Systolic blood pressure 114 mm[Hg] 114 mm[Hg] [facility] RT Arm Diastolic blood pressure 76 mm[Hg] 76 mm[Hg] eCW1 ([facility]) Systolic blood pressure 148 mm[Hg] 148 mm[Hg] e CW1 ([facility]) Body temperature 97.9 [degF] 97.9 [degF] eCW1 ( [facility]) Respiratory rate 20 /min 20 /min eCW1 ([facility]) Heart rate 74 /min 74 /min eCW1 ([facility]) Body mass index (BMI) [Ratio] 21.96 kg/m2 21.96 kg/m2 eCW1 ([facility]) Body height 73 [in_us] 73 [in_us] eCW1 ([facility]) Body weight Measured 166.5 [lb_av] 166.5 [lb_av ] eCW1 ([facility]) Diastolic blood pressure 76 mm[Hg] 76 mm[Hg] eCW1 ([facility]) Systolic blood pressure 142 mm[Hg] 142 mm[Hg] e CW1 ([facility]) Body temperature 97.2 [degF] 97.2 [degF] eCW1 ( [facility]) Respiratory rate 20 /min 20 /min eCW1 ([facility]) Heart rate 76 /min 76 /min eCW1 ([facility]) Body mass index (BMI) [Ratio] 22.03 kg/m2 22.03 kg/m2 eCW1 ([facility]) Body height 73 [in_us] 73 [in_us] eCW1 ([facility]) Body weight Measured 167 [lb_av] 167 [lb_av] eC W1 ([facility]) Diastolic blood pressure 64 mm[Hg] 64 mm[Hg] eCW1 ([facility]) Systolic blood pressure 102 mm[Hg] 102 mm[Hg] e CW1 ([facility]) Body temperature 96.5 [degF] 96.5 [degF] eCW1 ( [facility]) Respiratory rate 18 /min 18 /min eCW1 ([facility]) Heart rate 20 /min 20 /min eCW1 ([facility]) Body mass index (BMI) [Ratio] 21.77 kg/m2 21.77 kg/m2 eCW1 ([facility]) Body height 73 [in_us] 73 [in_us] eCW1 ([facility]) Body weight Measured 165 [lb_av] 165 [lb_av] eC W1 ([facility]) Diastolic blood pressure 68 mm[Hg] 68 mm[Hg] eCW1 ([facility]) Systolic blood pressure 110 mm[Hg] 110 mm[Hg] e CW1 ([facility]) Body temperature 97.7 [degF] 97.7 [degF] eCW1 ( [facility]) Respiratory rate 18 /min 18 /min eCW1 ([facility]) Heart rate 74 /min 74 /min eCW1 ([facility]) Body mass index (BMI) [Ratio] 21.77 kg/m2 21.77 kg/m2 eCW1 ([facility]) Body height 73 [in_us] 73 [in_us] eCW1 ([facility]) Body weight Measured 165 [lb_av] 165 [lb_av] eC W1 ([facility])
[2020-07-06] MEDS ORDERED: **hydrALAZINE HCL** 25 MG TAB PO ONE (21:10)
[2020-07-06 21:28] VITALS: BP 186/95
[2020-07-07 00:11] VITALS: BP 165/82
--- NOTE | 2020-07-07 19:39 | ECGEPIP ---
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
== END 2020-07-07 00:13 | disposition home or self-care (01) ==
LOC: M ED 18:57
DX: R04.0 Epistaxis (principal); B02.29 Other postherpetic nervous system involvement; I11.0 Hypertensive heart disease with heart failure; I50.9 Heart failure, unspecified; Z79.899 Other long term (current) drug therapy; Z79.82 Long term (current) use of aspirin; Z79.01 Long term (current) use of anticoagulants
CPT/HCPCS: 80047; 84484; 85025; 85610; 85730; 93005; 96374; 99284; J0360